=== PATIENT | female | born 1990 | race Hispanic/Latino ===

== ENCOUNTER 2018-07-05 16:06 | Emergency (ER) | payer SELFPAY ==
[2018-07-05 16:08] VITALS: BP 121/74; PULSE 109; RESP 18; TEMP 36.6; O2SAT 98; BMI 30.4
--- NOTE | 2018-07-05 16:24 | ED.DCSUM_ITS ---
History of Present Illness Chief Complaint: Female C/O Informant: Patient Onset: Days - 2-3 Context: Gradual Onset Timing: Continuous Narrative: Patient is concerned she is having a urinary tract infection because of symptoms similar to other ones in the past, including dark urine, strong smelling, although decreased output and no dysuria, back pain, fever, nausea/ vomiting. Denies abdominal pain as well. She states she also would like to be checked for possible vaginal infections including STDs because of a foul smell from that area. She denies having any abnormal discharge or bleeding, her last normal menstrual period was about a week ago and lasted less time than usual. No fevers or systemic symptoms. - Past Medical History (1) Polysubstance abuse Status: Chronic (2) Schizoaffective disorder Status: Chronic Past Medical History - Allergies and Home Meds Allergies/Adverse Reactions: Allergies No Known Allergies Allergy (Verified 07/05/18 16:07) Primary Care Physician: Care Physician,No Primary [Primary Care Provider] - Surgical History: noncontributory Smoking Status: Current every day smoker - Family History Maternal Family History: Reports: Unknown Sibling Family History: Reports: - Review of Systems All systems negative except as indicated General: Denies: Chills, Fever Gastrointestinal: Denies: Abdominal pain, Nausea, Vomiting Genitourinary: Reports: - - foul-smelling urine, dark color Musculoskeletal: Denies: Back pain Physical Exam Vital Signs/Narrative: Vital Signs Temp Pulse Resp BP Pulse Ox 07/05/18 16:08 97.8 F 109 H 18 121/74 H 98 Inital Vital Signs reviewed: Yes General: Well nourished, Well developed Head: Normocephalic, Atraumatic Eyes: Perrl, EOMI Respiratory: No distress Abdomen: Soft, Nondistended, Normal bowel sounds, Tender - mild suprapubic only : Thin gr homogenous discharge in vaginal vault. No external lesions. Skin: Normal color, No rash Neurological: Alert, Oriented x3, Cranial nerves II-XII grossly intact, Normal Strength, Normal Sensation Psychological: Normal affect Diagnostic/Tx/Re-eval Laboratory Tests 07/05/18 07/05/18 16:00 16:40 Urine Color Yellow Urine Clarity Cloudy Urine pH 6.0 Ur Specific [place] 1.025 Urine Protein 30 H Urine Glucose (UA) Normal Urine Ketones 150 H Urine Occult Blood 10 H Urine Nitrite Negative Urine Bilirubin 1 H Urine Urobilinogen 4 H Ur Leukocyte Esterase 500 H Urine RBC 0-5 SEEN Urine WBC 10-25 SEEN Ur Squamous Epith Cells 5-10 SEEN Urine Bacteria 4+ Urine Mucus 4+ Urine Test Negative - Medical Decision Making Urinalysis shows infection, and chlamydia are sent and pending, wet prep shows no trichomoniasis but 15 white blood cells per high-power field. Given her exam , this is consistent with bacterial vaginosis. However, when I went to discuss with the patient her test results, she had eloped. Nursing will call the patient, and if we have a pharmacy, I will be happy to call in prescriptions. Disposition: Elopement ED Disposition - Plan for ED Patient: Chief Complaint: Female C/O Diagnosis: Lower urinary tract infection, acute, Bacterial vaginosis Instructions: Vaginal Infection: Bacterial Vaginosis, ED UTI Cystitis Female Prescriptions: Metronidazole [Flagyl] 500 mg PO BID #14 tablet Sulfamethoxazole/Trimethoprim [Bactrim Ds Tablet] 1 each PO BID #6 tablet Referrals: Sabrina Ma MD [STAFF PHYSICIAN] - 1 Week if not improving
[2018-07-05 16:58] LABS: Internal QC Validated? YES +Cl - CLEAR BKGD; Pregnancy, Urine Negative Negative
[2018-07-05 18:09] LABS: Color, Urine Yellow (Yellow); Glucose, Dipstick Normal (Normal); Leukocyte Esterase-Dipstick 500 /ul (Negative); Nitrite-Dipstick Negative (Negative); Occult Blood-Urine 10 /ul (Negative); Protein-Dipstick 30 mg/dl (Negative); Specific Gravity, Urine 1.025 (1.002-1.030); Urine Clarity Cloudy (Clear); Urine Urobilinogen 4 mg/dl (Normal)
[2018-07-05 18:16] VITALS: BP 148/84; PULSE 74; RESP 17; O2SAT 100
[2018-07-05 18:23] LABS: Urine Bilirubin Dipstick 1 mg/dL (Negative)
[2018-07-05 18:26] LABS: Ketone-Dipstick 150 mg/dl (Negative)
[2018-07-05 18:30] LABS: Bacteria 4+ /hpf (None Seen); Mucous, Urine 4+ /hpf (<or=2+); Red Blood Cells-Urine 0-5 SEEN /hpf (0-5); Squamous Epithelial Cells - UA 5-10 SEEN /hpf (5-10); White Blood Cells 10-25 SEEN /hpf (0-5)
[2018-07-05 19:25] LABS: Chlamydia Trachomatis by PCR Negative (Negative); Neisserai gonorrhoeae by PCR Negative (Negative); Probe Check PASS; Sample Adequacy Control PASS; Specimen Processing Control PASS
== END 2018-07-05 18:17 ==
PROVIDERS: Emergency Provider Emergency Medicine
DX: N39.0 Urinary tract infection, site not specified (principal); N76.0 Acute vaginitis; F20.9 Schizophrenia, unspecified; F19.10 Other psychoactive substance abuse, uncomplicated; Z79.899 Other long term (current) drug therapy; F17.200 Nicotine dependence, unspecified, uncomplicated
CPT/HCPCS: 81001; 81025; 87210; 87491; 87591; 99281

== ENCOUNTER 2018-07-07 21:25 | Emergency (ER) | payer SELFPAY ==
[2018-07-07 21:26] VITALS: BP 148/90; PULSE 91; RESP 18; TEMP 36.8; O2SAT 99; BMI 30.4
--- NOTE | 2018-07-07 21:41 | ED.VISSUMM ---
- ER Visit Summary Date of Service: 07/07/18 Chief Complaint: Auditory hallucinations History of Present Illness: The patient is a 28 F who has been off her psychiatric medications for the past 4 months presenting with worsening auditory hallucinations, she is sick of the voices telling her she is a piece that she is a piece of shit and fucking stupidthe voices do not command her to do anything. Has no suicidal homicidal ideations Physical Examination: Not appear in acute distress. Moist mucous membranes, no obvious facial deformity No C-spine tenderness supple neck. Regular rate and rhythm without any obvious murmurs Clear lungs bilaterally speaking in full sentences without any obvious respiratory distress Abdomen soft and nontender no guarding or rebound Moves all extremities without any difficulty or pain. Skin does not show any obvious rashes or lesions, no trauma. Alert oriented ?3 with no gross focal deficit Emergency Department Course and Treatment: Patient will be medically cleared, crisis will be involved at that point. Patient is requesting to go to [facility]. Impression: Auditory hallucinations This note was generated with [employer] dictation software. It may contain incorrect words, spelling, and punctuation that were not noted in review of the chart prior to signing ED Disposition - Plan for ED Patient: Chief Complaint: Mental Health Referrals: Care Physician,No Primary [Primary Care Provider] -
[2018-07-07 22:19] LABS: Absolute Lymphocyte Count 1.28 X10^3/ul (0.83-4.51); Absolute Neutrophil Count 8.1 X10^3/uL (2.0-7.7); Basophil# 0.05 X10^3/uL; Basophil% 0.5 % (0-1); Hematocrit 42.8 % (37-47); Hemoglobin 13.8 g/dl (12.0-15.0); Lymphocyte # 1.28 X10^3/ul (4.0); Lymphocyte % 12.9 % (19-41); Mean Corp Hgb Conc 32.2 g/gl (32-36); Mean Corpuscular Hgb 27.7 pg (27.0-32.0); Mean Corpuscular Volume 85.9 fL (81-99); Mean Platelet Vol. 9.2 fl (6.2-12.0); Monocyte# 0.51 X10^3/uL; Monocyte% 5.1 % (0-10); Neutrophil # 8.11 X10^3/uL (2.7-7.7); Neutrophil % 81.4 % (47-70); Platelet Count 380 K/mm3 (150-450); Red Blood Count 4.98 M/mm3 (4.2-5.4)
[2018-07-07 22:21] LABS: POSITIVE COUNT NO; POSITIVE DIFFERENTIAL NO; POSITIVE MORPHOLOGY NO
[2018-07-07 22:36] LABS: Amphetamine Urine VISTA POSITIVE (<1000 ng/mL); Barbiturate Urine VISTA NEGATIVE (< 200 ng/mL); Benzodiazepine Urine VISTA NEGATIVE (< 200 ng/mL); Cocaine Urine VISTA NEGATIVE (< 300 ng/mL); Ecstacy Urine VISTA POSITIVE (< 500 ng/mL); Methadone Urine VISTA NEGATIVE (< 300 ng/mL); PCP Urine VISTA NEGATIVE (< 25 ng/mL); THC Urine VISTA POSITIVE (< 50 ng/mL); Vista UDS pH Range 6
[2018-07-07 22:36] LABS: Anion Gap 10 (5-15); BUN 17 mg/dL (7-18); BUN/Creat Ratio 21.8 RATIO (10-20); Calcium,Total 8.7 mg/dL (8.5-10.1); Chloride 107 mmol/L (98-107); Creatinine, Serum 0.78 mg/dL (0.55-1.02); EST Glomerular Filtration Rate 92 mL/min (>60); Est Glom Filt Rate - Afr Amer 111 mL/min (>60); Estimated Creatinine Clearance 79.58 ml/min; Glucose 103 mg/dL (74-106); Potassium 3.1 mmol/L (3.5-5.1); Sodium Level 139 mmol/L (136-145)
[2018-07-07 22:40] LABS: Pregnancy, Serum, hCG Quali. NEGATIVE Negative (0-9 Nonpreg)
[2018-07-07 22:41] LABS: Alcohol, Blood (Medical)-Serum < 3.0 mg/dL
--- NOTE | 2018-07-07 22:53 | ED.RN ---
CALLED CRISIS TO SEE THIS PT, HILDA WILSON IS MANAGER SIGN
[2018-07-07 23:32] VITALS: BP 160/93; PULSE 85; RESP 17; O2SAT 98
--- NOTE | 2018-07-08 01:43 | ED.DEP ---
ED Disposition - Plan for ED Patient: Disposition: Home or Assisted Living Chief Complaint: Mental Health Prescriptions: Melatonin/Pyridoxine HCl (B6) [Melatonin 3 mg Tablet] 1 ea PO QHS PRN PRN #10 tab PRN Reason: Sleep Prazosin HCl 2 mg PO QHS PRN PRN #10 cap PRN Reason: Sleep Sertraline HCl [Zoloft] 100 mg PO DAILY #10 tab Referrals: Counseling,Center [GROUP OF PHYSICIANS] - As soon as possible Additional Instructions: Very important to call and follow-up with a counseling center this week. Take medications as prescribed. Return to ER if feeling worse or suicidal.
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
[2018-07-08 02:02] VITALS: BP 137/81; PULSE 99; RESP 15; O2SAT 100
== END 2018-07-08 02:02 | disposition home or self-care (01) ==
PROVIDERS: Emergency Provider Emergency Medicine
DX: R44.0 Auditory hallucinations (principal); F23 Brief psychotic disorder; F43.10 Post-traumatic stress disorder, unspecified; F20.9 Schizophrenia, unspecified; Z79.899 Other long term (current) drug therapy
CPT/HCPCS: 80048; 80307; 80320; 84703; 85025; 99281; G0480

== ENCOUNTER 2018-07-25 19:36 | Emergency (ER) | payer SELFPAY ==
[2018-07-25 19:37] VITALS: BP 138/82; PULSE 125; RESP 16; TEMP 36.6; O2SAT 97; BMI 27.8
--- NOTE | 2018-07-25 20:41 | ED.RN ---
PT MOTHER AT BEDSIDE WITH PT. PER MOTHER PT HAS BEEN CUTTING AND MOTHER REPORTS PT HAS MADE SUICIDAL STATEMENTS. PT MADE NO MENTION OF BEING SUICIDAL TO THIS RN.
--- NOTE | 2018-07-25 20:56 | ED.RN ---
this rn asked momother to leave pt room. pt reports that she is not suicidal when asked by this rn.
--- NOTE | 2018-07-25 21:06 | ED.VISSUMM ---
- ER Visit Summary Date of Service: 07/25/18 Chief Complaint: [] Vaginal discharge for a month History of Present Illness: The patient is a 28 F [] patient reports vaginal discharge for months she indicates she was seen in emergency department recently for this she received some unspecified therapy and she still has the discharge she denies has a history of prior chlamydia denies any other complaints much denies being today, the patient's only complaint is the vaginal discharge Physical Examination: [] The patient's resting comforting the bed she is in no distress she seems slightly anxious she is worried about this vaginal discharge head neck chest unremarkable the abdomen is soft and nontender the back is unremarkable upper lower extremities are normal she is in no distress Test Results: [] Emergency Department Course and Treatment: [] Reviewed July 05 she had a negative hCG urine, at this time we have sent DNA chlamydia GC urine amplification she has been referred to the [facility] and the [facility] and she will follow-up for study results, and for further management I could not find any prior obvious microbiology studies Treatment Plan: [] Disposition: [] Home stable Impression: [] Vaginal discharge This note was generated with [employer] dictation software. It may contain incorrect words, spelling, and punctuation that were not noted in review of the chart prior to signing ED Disposition - Plan for ED Patient: Disposition: Home or Assisted Living Chief Complaint: Female C/O Instructions: Vaginal Infection: Bacterial Vaginosis Referrals: Elmira Kothari DO [STAFF PHYSICIAN] - Isamar Adams [NON-STAFF] - Care Physician,No Primary [Primary Care Provider] -
--- NOTE | 2018-07-25 21:08 | ED.DEP ---
ED Disposition - Plan for ED Patient: Chief Complaint: Female C/O Instructions: Vaginal Infection: Bacterial Vaginosis Referrals: Care Physician,No Primary [Primary Care Provider] - Isamar Adams [NON-STAFF] - Elmira Kothari DO [STAFF PHYSICIAN] -
--- NOTE | 2018-07-25 21:14 | ED.RN ---
this rn hears pt and mother arguing in room. pt gets upset walks into hallway and states, tell her to go fuck herself. mother comes to desk. mother educated on mental health procedures and next steps to take if concerned about pt. pt elopes prior to receiving discharge instructions or d/c vitals.
[2018-07-25 22:50] LABS: Neisserai gonorrhoeae by PCR Negative (Negative); Probe Check PASS
[2018-07-25 22:53] LABS: Chlamydia Trachomatis by PCR POSITIVE (Negative)
--- NOTE | 2018-07-25 22:55 | ED.RN ---
LAB CALLED FOR POSITIVE CHLAMYDIA ON THIS PT, DR MURPHY NOTIFIED AND HE STATED THAT SHE WILL BE CALLED TOMORROW
== END 2018-07-25 21:19 | disposition home or self-care (01) ==
LOC: ED 21:14
PROVIDERS: Emergency Provider Emergency Medicine
DX: N89.8 Other specified noninflammatory disorders of vagina (principal); Z86.19 Personal history of other infectious and parasitic diseases
CPT/HCPCS: 87491; 87591; 99282

== ENCOUNTER 2018-07-29 01:10 | Emergency (ER) | payer SELFPAY ==
[2018-07-29 01:11] VITALS: BP 125/78; PULSE 120; RESP 15; TEMP 37.1; BMI 27.8
--- NOTE | 2018-07-29 02:29 | ED.RN ---
pt saying she is here for vaginal discharge, states I have been here for the last three times for this, and someone is stalking me. Everytime i have been here someone else is here pt naming a patient niall flanagan. Pt refused to stay. says people think i am crazy. pt takes cab to leave without being seen.
== END 2018-07-29 03:08 | disposition left against medical advice (07) ==
LOC: ED 02:13
PROVIDERS: Emergency Provider Emergency Medicine
DX: R69 Illness, unspecified (principal)

== ENCOUNTER 2018-07-29 19:42 | Emergency (ER) | payer SELFPAY ==
[2018-07-29 19:44] VITALS: BP 139/96; PULSE 125; RESP 20; TEMP 37.1; O2SAT 98; BMI 27.8
--- NOTE | 2018-07-29 20:06 | ED.VISSUMM ---
- ER Visit Summary Date of Service: 07/29/18 Chief Complaint: Suicidal History of Present Illness: The patient is a 28 F who states that she is suicidal. She felt this way today. She cannot tell me why she feels suicidal. She does states that I do drugs. She admits to being a methamphetamine user. She thought about cutting herself or choking herself to kill herself. She is supposed to be on mental health medications but has not taken them. She does not see anybody as an outpatient. She says she has been to [facility] 3 times. Physical Examination: Vital signs reviewed. HEENT exam unremarkable. Heart is regular rate and rhythm without murmurs. Lungs are clear to auscultation. Abdomen is soft and nontender. Extremities reveal no edema. Skin exam normal. Patient does appear to be agitated. Neurologically she is intact. She does voice suicidal thoughts. She again is irritable and pacing around the room. Test Results: EKG is sinus rhythm with rate of 106. Labs reveal potassium 2.8. She does have a UTI. Tox screen reveals methamphetamines. Alcohol normal Emergency Department Course and Treatment: Patient will be treated with potassium orally and Bactrim. She will be assessed by crisis. Disposition is pending their evaluation Treatment Plan: [] Disposition: Pending Impression: Suicidal ideation, methamphetamine abuse, UTI, hypokalemia This note was generated with [employer] dictation software. It may contain incorrect words, spelling, and punctuation that were not noted in review of the chart prior to signing ED Disposition - Plan for ED Patient: Chief Complaint: Suicidal Referrals: Care Physician,No Primary [Primary Care Provider] -
[2018-07-29] MEDS: LORazepam 2 MG/ML Syringe IM (20:11)
[2018-07-29] MEDS: DiphenhydrAMINE 50 MG/ML Syringe 25 MG IM (20:11)
[2018-07-29] MEDS: Haloperidol Lactate 5 MG/ML Vial IM (20:11)
[2018-07-29 20:39] LABS: Mucous, Urine 0 SEEN /hpf (<or=2+)
[2018-07-29 20:44] LABS: Color, Urine Yellow (Yellow); Glucose, Dipstick Normal (Normal); Leukocyte Esterase-Dipstick 500 /ul (Negative); Nitrite-Dipstick Negative (Negative); Occult Blood-Urine 250 /ul (Negative); Protein-Dipstick 30 mg/dl (Negative); Urine Clarity Sl. Cloudy (Clear); Urine Urobilinogen 1 mg/dl (Normal)
[2018-07-29 20:49] LABS: Absolute Lymphocyte Count 1.99 X10^3/ul (0.83-4.51); Absolute Neutrophil Count 4.9 X10^3/uL (2.0-7.7); Basophil# 0.03 X10^3/uL; Basophil% 0.4 % (0-1); Eosinophil# 0.06 X10^3/uL; Eosinophils% 0.8 % (0-5); Hematocrit 39.9 % (37-47); Hemoglobin 13.3 g/dl (12.0-15.0); Lymphocyte # 1.99 X10^3/ul (4.0); Lymphocyte % 25.6 % (19-41); Mean Corp Hgb Conc 33.3 g/gl (32-36); Mean Corpuscular Hgb 27.4 pg (27.0-32.0); Mean Corpuscular Volume 82.3 fL (81-99); Mean Platelet Vol. 9.9 fl (6.2-12.0); Monocyte# 0.78 X10^3/uL; Neutrophil % 63.1 % (47-70); Platelet Count 283 K/mm3 (150-450); RBC Distribution Width CV 13.2 % (11.6-14.6); RBC Distribution Width SD 39.9 fl (35.1-43.9); Red Blood Count 4.85 M/mm3 (4.2-5.4); White Blood Count 7.8 K/mm3 (4.4-11.0)
[2018-07-29 20:50] LABS: POSITIVE COUNT NO; POSITIVE DIFFERENTIAL NO; POSITIVE MORPHOLOGY NO
--- NOTE | 2018-07-29 20:51 | NURSING ---
MEDICATIONS WERE GIVEN TO THE PATIENT INTRAMUCULAR VIA JUAN HERBERT. PATIENT GAVE US URINE AND BLOOD. ALL OF HER CLOTHES WERE REMOVED AND PLACED IN HER VERY HEAVY BACK PACK AND SECURED. FOOD OFFERED AND PATIENT DENIED. SHE IS CURRENTLY SLEEPING WITH MONITORS ATTACHED.
[2018-07-29 20:56] LABS: Urine Bilirubin Dipstick 1 mg/dL (Negative)
[2018-07-29 20:57] LABS: Ketone-Dipstick 150 mg/dl (Negative)
[2018-07-29 21:00] LABS: Red Blood Cells-Urine 0-5 SEEN /hpf (0-5); White Blood Cells 50-100 SEEN /hpf (0-5)
[2018-07-29 21:01] LABS: Hyaline Cast 10-25 SEEN /lpf (0-5); Squamous Epithelial Cells - UA 5-10 SEEN /hpf (5-10)
[2018-07-29 21:02] LABS: Bacteria 1+ /hpf (None Seen)
[2018-07-29 21:05] LABS: Amphetamine Urine VISTA POSITIVE (<1000 ng/mL); Barbiturate Urine VISTA NEGATIVE (< 200 ng/mL); Benzodiazepine Urine VISTA NEGATIVE (< 200 ng/mL); Cocaine Urine VISTA NEGATIVE (< 300 ng/mL); Ecstacy Urine VISTA POSITIVE (< 500 ng/mL); Methadone Urine VISTA NEGATIVE (< 300 ng/mL); PCP Urine VISTA NEGATIVE (< 25 ng/mL); THC Urine VISTA NEGATIVE (< 50 ng/mL); Vista UDS pH Range 6
[2018-07-29 21:19] LABS: AST(SGOT) 25 U/L (15-37); Alanine Aminotransfer ALT/SGPT 39 U/L (13-56); Albumin, Serum 4.4 g/dL (3.2-5.0); Alkaline Phosphatase 86 U/L (45-117); Anion Gap 17 (5-15); BUN 13 mg/dL (7-18); BUN/Creat Ratio 13.5 RATIO (10-20); Bilirubin, Direct 0.28 mg/dL (0.00-0.30); Calcium,Total 8.8 mg/dL (8.5-10.1); Chloride 103 mmol/L (98-107); Creatinine, Serum 0.96 mg/dL (0.55-1.02); EST Glomerular Filtration Rate 72 mL/min (>60); Est Glom Filt Rate - Afr Amer 87 mL/min (>60); Estimated Creatinine Clearance 64.66 ml/min; Globulin 3.3 g/dL (2.2-4.2); Glucose 83 mg/dL (74-106); Potassium 2.8 mmol/L (3.5-5.1); Protein, Total 7.7 g/dL (6.4-8.2); Sodium Level 139 mmol/L (136-145)
[2018-07-29 21:25] LABS: Pregnancy, Serum, hCG Quali. NEGATIVE Negative (0-9 Nonpreg)
[2018-07-29] MEDS: Smz/Tmp Ds Tablet 1 TABLET PO (22:07)
[2018-07-29 22:16] VITALS: BP 144/77; PULSE 86; RESP 18; O2SAT 95
[2018-07-29 23:18] VITALS: BP 131/66; PULSE 84; RESP 18; O2SAT 100
[2018-07-30] VITALS (10 sets, daily range): BP systolic 118–132; BP diastolic 67–76; PULSE 60–88; RESP 12–18; TEMP 37.1; O2SAT 98–100
[2018-07-30] MEDS: Ceftriaxone 500 MG Vial 250 MG IM (12:59)
[2018-07-30] MEDS: Azithromycin 250 MG Tablet 1000 MG PO (13:00)
--- NOTE | 2018-07-30 15:26 | ED.VISSUMM ---
- ER Visit Summary Date of Service: 07/30/18 Chief Complaint: [Addendum to initial dictation History of Present Illness: The patient is a 28 F [Center to the emergency department with Mary ideation. Care of patient turned over to ak this morning awaiting evaluation by crisis and final disposition. Patient was evaluated by crisis and arrangements were made for patient to be transferred to [facility]. Physical Examination: [] Test Results: [] Emergency Department Course and Treatment: [] Treatment Plan: [] Disposition: [Transfer] Impression: [Suicidal ideation UTI Hypokalemia] This note was generated with [employer] dictation software. It may contain incorrect words, spelling, and punctuation that were not noted in review of the chart prior to signing ED Disposition - Plan for ED Patient: Disposition: Psychiatric Hospital or Unit Chief Complaint: Suicidal Referrals: Care Physician,No Primary [Primary Care Provider] -
== END 2018-07-30 14:55 ==
LOC: ED 21:15
PROVIDERS: Emergency Provider Emergency Medicine
DX: R45.851 Suicidal ideations (principal); F15.10 Other stimulant abuse, uncomplicated; N39.0 Urinary tract infection, site not specified; E87.6 Hypokalemia; Z91.14 Patient's other noncompliance with medication regimen
CPT/HCPCS: 80048; 80076; 80307; 80320; 81001; 84703; 85025; 93005; 96365; 96372; 99284; G0480

== ENCOUNTER 2024-09-23 23:19 | Emergency (ER) | payer MEDICAID, SELFPAY ==
[2024-09-23 23:20] VITALS: BP 141/110; PULSE 106; RESP 18; TEMP 36.4; O2SAT 100
--- NOTE | 2024-09-24 00:11 | RAD_ITS ---
INDICATION: chest pain EXAMINATION/TECHNIQUE: X-RAY - XR Chest 1 View COMPARISON: 02/28/2017 chest radiograph. Findings: Single frontal view of the chest. Patient is rotated. LUNG PARENCHYMA: No acute focal airspace disease or mass lesion. PLEURA: No pleural effusion. No pneumothorax. HEART/GREAT VESSELS: Cardiomediastinal silhouette is unremarkable. BONES: Osseous structures are unremarkable for age. RAD/Chest 1 View (Portable) IMPRESSION: Chest with no acute disease. Electronically Signed: Hiren Green MD at 2:06 EDT ,
--- NOTE | 2024-09-24 00:11 | EKG12_ITS ---
Test Reason : DYSRHYTHMIA Blood Pressure : */* mmHG Vent. Rate : 69 BPM Atrial Rate : 69 BPM P-R Int : 128 ms QRS Dur : 74 ms QT Int : 528 ms P-R-T Axes : -57 36 41 degrees QTcB Int : 565 ms Critical Test Result: Long QTc Unusual P axis, possible ectopic atrial rhythm Prolonged QT Abnormal ECG Confirmed by ALEKSANDR LIMON, MUNIRA ([id number]), assistant production editor RANDY KAUR ([id number]) on 09/25/2024 11:31:56 AM Referred By: Confirmed By: MUNIRA BRANDON MD
[2024-09-24] MEDS: DiphenhydrAMINE 50 MG/ML Syringe IV (00:33)
[2024-09-24] MEDS: Mag Hydrox/Al Hydrox/Simeth 30 ML UDC PO (00:36)
[2024-09-24] MEDS: proCHLORPERazine 10 MG/2 ML Vial IV (00:36)
[2024-09-24] MEDS: Lidocaine 2% Viscous15 ML UDC 15 ML PO (00:36)
[2024-09-24] MEDS: Famotidine 200 MG/20 ML MDV 20 MG in 0.9% Normal Saline (Pres. free 8 ML 300 MG IV (00:37)
[2024-09-24 00:45] LABS: Absolute Lymphocyte Count 3.17 X10^3/uL (0.83-4.51); Absolute Neutrophil Count 5.6 X10^3/uL (2.0-7.7); Basophil# 0.08 X10^3/uL; Basophil% 0.8 % (0-1); Eosinophil# 0.11 X10^3/uL; Eosinophils% 1.1 % (0-5); Hematocrit 41.6 % (37-47); Hemoglobin 13.8 g/dL (12.0-15.0); Lymphocyte # 3.17 X10^3/ul (0.83-4.51); Lymphocyte % 31.7 % (19-41); Mean Corp Hgb Conc 33.2 g/dL (32-36); Mean Corpuscular Volume 81.4 fL (81-99); Monocyte# 0.99 X10^3/uL; Monocyte% 9.9 % (0-10); NRBC Flagged by Analyzer 0 % (0-5); Neutrophil # 5.59 X10^3/uL (2.7-7.7); Platelet Count 405 K/mm3 (150-450); RBC Distribution Width CV 12.8 % (11.6-14.6); RBC Distribution Width SD 37.7 fl (35.1-43.9); Red Blood Count 5.11 M/mm3 (4.2-5.4)
[2024-09-24 00:49] LABS: D-Dimer Quantitative (DVT/PE) 0.31 FEU/ug/m (0.27-0.49)
[2024-09-24 00:51] LABS: Alcohol, Blood (Medical)-Serum < 3.0 mg/dL; Internal QC Validated? YES +Cl - CLEAR BKGD; Pregnancy, Serum, hCG Quali. NEGATIVE Negative; Record Kit Lot#, Serum Preg. 869294
[2024-09-24 00:57] LABS: AST(SGOT) 17 U/L (15-37); Alanine Aminotransfer ALT/SGPT 35 U/L (13-56); Albumin, Serum 4.3 g/dL (3.2-5.0); Alkaline Phosphatase 92 U/L (45-117); Anion Gap 11 (5-15); BUN 13 mg/dL (7-18); Bilirubin, Direct 0.21 mg/dL (0.00-0.30); Calcium,Total 9.4 mg/dL (8.5-10.1); Chloride 107 mmol/L (98-107); Creatinine, Serum 0.81 mg/dL (0.55-1.02); EST Glomerular Filtration Rate 85 mL/min (>60); Est Glom Filt Rate - Afr Amer 102 mL/min (>60); Globulin 3.4 g/dL (2.2-4.2); Glucose 129 mg/dL (74-106); Lipase 35 U/L (13-75); Potassium 3.3 mmol/L (3.5-5.1); Protein, Total 7.7 g/dL (6.4-8.2); Sodium Level 137 mmol/L (136-145)
[2024-09-24 01:02] VITALS: BMI 30.8
[2024-09-24 01:19] VITALS: BP 114/63; PULSE 72; RESP 16; O2SAT 99
--- NOTE | 2024-09-24 01:59 | EX.ED.DYSGE1 ---
HPI History of Present Illness Chief Complaint: Abd Pain Informant: patient Narrative Narrative: Patient is a 34-year-old female with past medical history of schizoaffective disorder. She states that roughly 30 minutes to 1 hour prior to arrival she developed upper abdominal discomfort with nausea and vomiting. She denies any known sick contacts. She states she does not have a history of pancreatitis and denies any history of gallbladder disorder. She states she does feel that the pain radiates into the lower portion of her chest but denies any history of cardiovascular disease in the family at a young age and denies any recent surgery travel or history of DVT/PE. PFSH PFS Medical History no medical history Home Medications ?Medication ?Instructions ?Recorded ?Last Taken ?Type famotidine 20 mg tablet (Pepcid) 20 mg PO BID 30 days #60 tabs 09/24/24 Unknown Rx promethazine 25 mg tablet 25 mg PO TID PRN nausea and 09/24/24 Unknown Rx vomiting #15 tabs Allergy/AdvReac Type Severity Reaction Status Date / Time No Known Allergies Allergy Verified 09/23/24 23:20 Family History no significant family his Surgical History no surgical history Social History Smoking Status: Never smoker ROS ROS ED Constitutional Constitutional ED: Denies chills or fever(s) Eyes Eyes: Denies blurry vision or change in vision ENT ENT ED: Denies sore throat Cardiovascular Cardiovascular: Reports chest pain Respiratory/Chest Respiratory/Chest: Denies cough or dyspnea Gastrointestinal Gastrointestinal: Reports abdominal pain, nausea and vomiting; Denies diarrhea Genitourinary Genitourinary ED: Denies dysuria Musculoskeletal Musculoskeletal: Denies back pain or myalgias Integumentary Denies rash Neurologic Neurologic: Denies headache(s) Hematologic/Lymphatic Hematologic/Lymphatic: Denies easy bleeding or easy bruising EXAM Physical Exam Const Vital Signs: 09/23/24 23:20 09/24/24 01:19 09/24/24 02:03 Temperature 97.6 F L 97.8 F Temperature Source Temporal Pulse Rate 106 H 72 72 Respiratory Rate 18 16 16 Blood Pressure 141/110 H 114/63 114/63 Blood Pressure Mean 120 80 80 Pulse Ox 100 99 99 Oxygen Delivery Method Room Air Room Air Positive well nourished and well developed General Appearance ED: well developed; Negative for pallor HEENT HEENT Narrative: No tongue or lip swelling no oral lesions no airway edema or compromise No signs of infection noted in the posterior pharynx Eyes PERRL and EOMs intact bilaterally General Eye ED: Negative for scleral icterus Neck supple Neck Narrative: No nuchal rigidity or meningeal signs Chest Wall palpation of chest normal Resp normal respiratory effort and clear to auscultation bilaterally Cardio regular rhythm Rate: tachycardic and other Other Details: Slightly tachycardic rate with regular rhythm No murmurs rubs or gallops Radial and carotid pulses are equal and symmetric GI non-distended and no masses GI Narrative: Soft and nondistended with hyperactive bowel sounds. There is pain on palpation in the midepigastric region without voluntary guarding or rigidity. No pulsatile mass or fluid wave Auscultation: hyperactive bowel sounds Palpation: soft Back/Spine no CVA tenderness Extremity normal to inspection Extremity Narrative: No asymmetric edema no pitting edema negative Homans' sign bilaterally Neuro oriented x3, CN's II-XII intact bilaterally and no sensory deficits noted Sensorium / Orientation: alert Motor Exam: strength 5/5 throughout Psych Mood & Affect: anxious Skin no rashes or lesions noted General Skin Exam: Negative for jaundice or pallor MDM MDM MDM Narrative Medical decision making narrative: Patient presented to the ER slightly tachycardic and hypertensive but afebrile. Pain was in the upper mid abdomen and therefore differential diagnosis is for pancreatitis versus biliary colic versus acute cholecystitis versus viral stomach infection such as [place] virus or rotavirus versus potential cardiac event such as ACS or cardiac dysrhythmia. There is also concern potential lung pathology such as pneumonia or pneumothorax. Therefore basic labs were obtained as well as EKG and chest x-ray. Chest x-ray revealed no acute findings and EKG revealed sinus rhythm without ischemic or dysrhythmia changes. Basic blood work was obtained and patient does not have a white count or left shift her lipase is normal going against pancreatitis her liver enzymes are normal going against biliary colic or acute cholecystitis and D-dimer is normal going against PE or dissection. Moreover after receiving IV Benadryl Compazine and Pepcid as well as a GI cocktail patient had resolution of her symptoms and on repeat evaluation her abdomen is soft and nonsurgical. Therefore at this time as her workup indicates this is most likely gastritis in nature and her symptoms have resolved with treatment I do not feel like there is need for CT scan or further workup and she is otherwise safe for discharge History & Record Review Discussion w/independent historian: Patient Lab Data Attestation: I reviewed the patient's lab results. Labs: Laboratory Results - last 24 hr 09/24/24 00:23 WBC 10.0 RBC 5.11 Hgb 13.8 Hct 41.6 MCV 81.4 MCH 27.0 MCHC 33.2 RDW Std Deviation 37.7 RDW Coeff of [place] 12.8 Plt Count 405 MPV 10.0 Immature Gran % (Auto) 0.500 Neut % (Auto) 56.0 Lymph % (Auto) 31.7 [place] % (Auto) 9.9 Eos % (Auto) 1.1 Baso % (Auto) 0.8 Absolute Neuts (auto) 5.6 Absolute Lymphs (auto) 3.17 Nucleated RBC % 0 D-Dimer Quant (PE/DVT) 0.31 Sodium 137 Potassium 3.3 L Chloride 107 Carbon Dioxide 18.0 L Anion Gap 11 BUN 13 Creatinine 0.81 Est GFR (MDRD) Af Amer 102 Est GFR (MDRD) Non-Af 85 BUN/Creatinine Ratio 16.0 Glucose 129 H Calcium 9.4 Total Bilirubin 0.60 Direct Bilirubin 0.21 AST 17 ALT 35 Alkaline Phosphatase 92 Total Protein 7.7 Albumin 4.3 Globulin 3.4 Lipase 35 Serum , Qual NEGATIVE Ethyl Alcohol < 3.0 Radiography Diagnostic Testing: Clinical Impression(s) from Imaging Studies Chest X-Ray 09/24/24 00:11 IMPRESSION: Chest with no acute disease. Electronically Signed: Hiren Green MD at 2:06 EDT , Chest x-ray as interpreted by the emergency medicine physician reveals no acute infiltrate pneumothorax or pleural effusion Discharge Plan Triage Chief Complaint: Abd Pain ED Provider: Sal Lr Dx/Rx/DC Orders Clinical Impression: Gastritis, Nausea & vomiting, Schizoaffective disorder Instructions: Abdominal Pain, ED Gastritis (Adult) Prescriptions: New famotidine [Pepcid] 20 mg tablet 20 mg PO BID 30 Days Qty: 60 0RF promethazine 25 mg tablet 25 mg PO TID PRN (Reason: nausea and vomiting) Qty: 15 0RF Primary Care Provider: Care Physician,No Primary Referrals: Tommy Cardona MD [Med Staff - Active Staff] - Care Physician,No Primary [Primary Care Provider] - Print Language: Estonian Disposition Disposition: Home, Self Care Discharge Date/Time: 09/24/24 02:16
[2024-09-24 02:03] VITALS: BP 114/63; PULSE 72; RESP 16; TEMP 36.6; O2SAT 99
== END 2024-09-24 02:16 | disposition home or self-care (01) ==
PROVIDERS: Emergency Provider Emergency Medicine; Visit Provider Emergency Medicine
DX: K29.70 Gastritis, unspecified, without bleeding (principal); F25.9 Schizoaffective disorder, unspecified; R11.2 Nausea with vomiting, unspecified
CPT/HCPCS: 71045; 80048; 80076; 82077; 83690; 84703; 85025; 85379; 93005; 96374; 96375; 99282; A4216; J3490

== ENCOUNTER 2024-11-08 14:13 | Emergency (ER) | payer MEDICAID, SELFPAY ==
[2024-11-08] VITALS (8 sets, daily range): BP systolic 125–161; BP diastolic 82–120; PULSE 90–128; RESP 18–22; TEMP 36.6–36.9; O2SAT 95–100; BMI 65.4
--- NOTE | 2024-11-08 14:50 | EKG12_ITS ---
Test Reason : Blood Pressure : */* mmHG Vent. Rate : 115 BPM Atrial Rate : 115 BPM P-R Int : 156 ms QRS Dur : 72 ms QT Int : 326 ms P-R-T Axes : 44 6 40 degrees QTcB Int : 450 ms Sinus tachycardia Otherwise normal ECG Confirmed by DAENIKE LIMON, SUSIE ([id number]), newspaper editor managing MIKE MORALES ([id number]) on 11/12/2024 1:38:10 P M Referred By: Confirmed By: SUSIE JEONG MD
--- NOTE | 2024-11-08 14:54 | RAD_ITS ---
INDICATION: left elbow pain EXAMINATION/TECHNIQUE: X-RAY - LEFT XR Elbow Min 3 Views 3 VIEWS COMPARISON: None. FINDINGS: SOFT TISSUES: No soft tissue swelling or gas. No radiopaque foreign body. BONES/JOINTS: No acute fracture. Joint spaces anatomically aligned. No sclerotic or destructive changes observed. RAD/Elbow min 3 Views IMPRESSION: Unremarkable study. Electronically Signed: Perry Hubbard MD at 15:40 EST ,
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
[2024-11-08] MEDS: 0.9% Normal Saline (1000mL) 1,000 ML 999 ML IV ×2 (15:38→17:58)
[2024-11-08 15:40] LABS: Absolute Lymphocyte Count 1.69 X10^3/uL (0.83-4.51); Absolute Neutrophil Count 11.2 X10^3/uL (2.0-7.7); Basophil# 0.09 X10^3/uL; Basophil% 0.6 % (0-1); Eosinophil# 0.04 X10^3/uL; Eosinophils% 0.3 % (0-5); Hematocrit 43.3 % (37-47); Hemoglobin 14.3 g/dL (12.0-15.0); Lymphocyte # 1.69 X10^3/ul (0.83-4.51); Mean Corpuscular Volume 81.9 fL (81-99); Mean Platelet Vol. 9.4 fl (6.2-12.0); Monocyte# 1.03 X10^3/uL; Monocyte% 7.3 % (0-10); NRBC Flagged by Analyzer 0 % (0-5); Neutrophil # 11.23 X10^3/uL (2.7-7.7); Neutrophil % 79.4 % (47-70); Platelet Count 485 K/mm3 (150-450); RBC Distribution Width CV 13.4 % (11.6-14.6); RBC Distribution Width SD 40.1 fl (35.1-43.9); Red Blood Count 5.29 M/mm3 (4.2-5.4); White Blood Count 14.1 K/mm3 (4.4-11.0)
[2024-11-08 15:53] LABS: International Normalized Ratio 1.1; Prothrombin Time (Protime)PT. 13.7 SECONDS (11.7-14.9)
[2024-11-08 15:54] LABS: Partial Thromboplast Time 29.4 Seconds (24.1-36.2)
[2024-11-08 16:07] LABS: ALB/GLOB Ratio 1.2 RATIO (0.9-2.4); AST(SGOT) 8 U/L (15-37); Alanine Aminotransfer ALT/SGPT 35 U/L (13-56); Albumin, Serum 4.5 g/dL (3.2-5.0); Alkaline Phosphatase 113 U/L (45-117); Anion Gap 7 (5-15); BUN 14 mg/dL (7-18); BUN/Creat Ratio 16.7 RATIO (10-20); Calcium,Total 9.4 mg/dL (8.5-10.1); Chloride 102 mmol/L (98-107); Creatinine, Serum 0.84 mg/dL (0.55-1.02); EST Glomerular Filtration Rate 82 mL/min (>60); Est Glom Filt Rate - Afr Amer 99 mL/min (>60); Estimated Creatinine Clearance 138.77 ml/min; Globulin 3.8 g/dL (2.2-4.2); Glucose 114 mg/dL (74-106); Potassium 2.5 mmol/L (3.5-5.1); Protein, Total 8.3 g/dL (6.4-8.2); Sodium Level 138 mmol/L (136-145)
[2024-11-08 16:15] LABS: Lactic Acid 1.2 mmol/L (0.4-1.9)
[2024-11-08] MEDS: Ceftriaxone 1 GM/50 ML BAG IV (16:35)
[2024-11-08] MEDS: Potassium Chloride 10mEq/100mL 10 MEQ/100 ML IV.SOLN. 100 MEQ IV BOLUS (16:51)
[2024-11-08] MEDS: Potassium Chloride Oral Soln 20 MEQ/15 ML UDC 40 MEQ PO (16:51)
[2024-11-08 17:58] LABS: Internal QC Validated? YES +Cl - CLEAR BKGD; Pregnancy, Serum, hCG Quali. NEGATIVE Negative
--- NOTE | 2024-11-08 18:01 | ED.RN ---
This RN sent pt to bathroom 3x for urine sample. Despite 1000ml fluids infused pt keeps insisting she can't urinate. aware.
--- NOTE | 2024-11-08 18:57 | ED.RN ---
Potassium infused slower than ordered rate, pt screaming it's burning.
[2024-11-08] MEDS: Potassium Chloride Oral Tablet 20 MEQ 40 MEQ PO (19:20)
[2024-11-08] MEDS: Doxycycline 100 MG CAPSULE PO (19:20)
== END 2024-11-08 19:27 | disposition home or self-care (01) ==
PROVIDERS: Emergency Provider Emergency Medicine; Visit Provider Emergency Medicine
DX: L03.114 Cellulitis of left upper limb (principal); F17.200 Nicotine dependence, unspecified, uncomplicated; N93.9 Abnormal uterine and vaginal bleeding, unspecified
CPT/HCPCS: 73080; 80053; 83605; 84703; 85025; 85610; 85730; 87040; 87210; 93005; 96361; 96365; 96366; 96368; 99285

== ENCOUNTER 2024-12-22 22:23 | Emergency (ER) | payer MEDICAID, SELFPAY ==
[2024-12-22 22:24] VITALS: BP 126/81; PULSE 100; RESP 18; TEMP 36.8; O2SAT 100; BMI 28.5
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
[2024-12-22 23:45] LABS: Internal QC Validated? YES +Cl - CLEAR BKGD
[2024-12-22 23:48] LABS: Pregnancy, Urine Positive Negative
[2024-12-23] MEDS: Azithromycin 250 MG Tablet 1000 MG PO (00:05)
[2024-12-23] MEDS: Ceftriaxone 500 MG Vial IM (00:06)
[2024-12-23 00:43] VITALS: BP 123/63; PULSE 76; RESP 18; TEMP 36.8; O2SAT 98
== END 2024-12-23 00:43 | disposition home or self-care (01) ==
PROVIDERS: Emergency Provider Emergency Medicine; Visit Provider Emergency Medicine
DX: Z11.3 Encounter for screening for infections with a predominantly sexual mode of transmission (principal); O9A.419 Sexual abuse complicating pregnancy, unspecified trimester; Z3A.00 Weeks of gestation of pregnancy not specified
CPT/HCPCS: 81025; 87491; 87591; 96372; 99282

== ENCOUNTER 2024-12-23 15:03 | Emergency (ER) | payer MEDICAID, SELFPAY ==
[2024-12-23 15:04] VITALS: BP 123/96; PULSE 115; RESP 18; TEMP 37.2; O2SAT 99; BMI 28.5
[2024-12-23 16:17] LABS: Hematocrit 41.1 % (37-47); Hemoglobin 13.7 g/dL (12.0-15.0); POSITIVE COUNT YES
[2024-12-23 16:35] LABS: Color, Urine Straw (Yellow); Glucose, Dipstick Normal (Normal); Ketone-Dipstick 5 mg/dl (Negative); Leukocyte Esterase-Dipstick 500 /ul (Negative); Nitrite-Dipstick Positive (Negative); Occult Blood-Urine 250 /ul (Negative); Protein-Dipstick 30 mg/dl (Negative); Specific Gravity, Urine 1.025 (1.002-1.030); Urine Clarity Cloudy (Clear); Urine Urobilinogen 4 mg/dl (Normal)
--- NOTE | 2024-12-23 16:41 | EDS_ITS ---
HPI HPI - Female History of Present Illness Chief Complaint: Vag Bld, Preg Informant: patient Narrative Narrative: 34-year-old female presenting to the emergency room stating that she is having vaginal spotting of blood in early . She states she was seen in the emergency room last night and was told that she was . She states that she went home and started spotting and continued spotting today. She states nothing is different about it today as compared to last evening. 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 She states that she has had 3 prior pregnancies and deliveries. She denies any fevers. She believes her last menstrual cycle was at the beginning of this month. [facility] Medical History Drug overdose, intentional Schizoaffective disorder Substance abuse Home Medications ?Medication ?Instructions ?Recorded ?Last Taken ?Type famotidine 20 mg tablet (Pepcid) 20 mg PO BID 30 days #60 tabs 09/24/24 Unknown Rx promethazine 25 mg tablet 25 mg PO TID PRN nausea and 09/24/24 Unknown Rx vomiting #15 tabs doxycycline hyclate 100 mg capsule 100 mg PO BID 10 days #20 caps 11/08/24 Unknown Rx potassium chloride 20 mEq 20 meq PO BID 5 days #10 tabs 11/08/24 Unknown Rx tablet,extended release cephalexin 500 mg capsule 500 mg PO Q12 #14 CAPSULES 12/23/24 Unknown Rx Allergy/AdvReac Type Severity Reaction Status Date / Time No Known Allergies Allergy Verified 12/23/24 15:04 Social History Smoking Status: Light Smoker (<10/day) ROS [facility] ED Constitutional Constitutional ED: Denies chills or weight loss Eyes Eyes: Denies change in vision or diplopia ENT ENT ED: Denies ear pain, rhinorrhea or sore throat Cardiovascular Cardiovascular: Denies chest pain, orthopnea, palpitations or racing heartbeat Respiratory/Chest Respiratory/Chest: Denies cough, dyspnea or orthopnea Gastrointestinal Gastrointestinal: Denies abdominal pain, diarrhea, nausea or vomiting Genitourinary Genitourinary ED: Reports other Details: See history of present illness ; Denies dysuria, hematuria or urinary frequency Musculoskeletal Musculoskeletal: Denies arthralgias or myalgias Integumentary Denies abscess or rash Neurologic Neurologic: Denies headache(s) or weakness Psychiatric Psychiatric: Denies anxiety, depression, suicidal ideation or suicidal thoughts Endocrine Endocrinology: Denies polydipsia, polyphagia or polyuria Allergic/Immunologic Allergic/Immunologic ED: Denies mouth swelling, tongue swelling or urticaria EXAM Physical Exam Const Vital Signs: 12/23/24 15:04 12/23/24 17:03 Temperature 98.9 F Temperature Source Oral Pulse Rate 115 H 58 L Respiratory Rate 18 Blood Pressure 123/96 H 120/90 H Blood Pressure Mean 105 100 Pulse Ox 99 Oxygen Delivery Method Room Air Positive well nourished and well developed General Appearance ED: well developed and NAD HEENT Reports normocephalic, head/scalp atraumatic and moist mucous membranes Eyes PERRL and EOMs intact bilaterally Neck no lymphadenopathy, supple and no JVD Resp normal respiratory effort and clear to auscultation bilaterally Cardio regular rate, regular rhythm and no murmurs GI normal to inspection, nondistended, normoactive bowel sounds and non-tender Palpation: soft Back/Spine no CVA tenderness and normal ROM Extremity normal to inspection General Extremety ED: Negative for edema General Extremity: Negative for edema Neuro oriented x3 and CN's II-XII intact bilaterally Sensorium / Orientation: alert Motor Exam: strength 5/5 throughout Psych mental status grossly normal Mood & Affect: Negative for depressed or tearful Skin no rashes or lesions noted and no wounds MDM MDM MDM Narrative Medical decision making narrative: Differential diagnosis includes but not limited to ectopic miscarriage early UTI Patient is O+. Urinalysis with greater than 100 white cells greater than 100 red blood cells today is nitrate positive with 2+ bacteria. There is 10-25 squamous cells confusing the interpretation. However this is worse from an infectious standpoint from yesterday will be sent for culture and will be treating her with Keflex. She is O+. Her hCG level is 1350. Hemoglobin 13.7. Pelvic ultrasound does not demonstrate any findings of ectopic but no intrauterine is identified at this time. Patient will be given precautions. She is to follow-up with MANA[facility]ACT[facility] call their office tomorrow. She understands return instructions including but not limited to worsening bleeding pelvic pain History & Record Review Discussion w/independent historian: Patient Lab Data Attestation: I reviewed the patient's lab results. Labs: Laboratory Results - last 24 hr 12/23/24 15:59 Hgb 13.7 Hct 41.1 HCG, Quant 1350 H Urine Color Straw Urine Clarity Cloudy Urine pH 6.0 Ur Specific Drain 1.025 Urine Protein 30 H Urine Glucose (UA) Normal Urine Ketones 5 H Urine Occult Blood 250 H Urine Nitrite Positive H Urine Bilirubin 1 H Urine Urobilinogen 4 H Ur Leukocyte Esterase 500 H Urine RBC > 100 SEEN Urine WBC >100 SEEN Ur Squamous Epith Cells 10-25 SEEN Ur Renal Epithelial Cell 0-5 SEEN Urine Bacteria 2+ Urine Mucus 2+ Blood Type O POSITIVE Radiography Diagnostic Testing: Clinical Impression(s) from Imaging Studies Obstetrics Ultrasound 12/23/24 17:04 IMPRESSION: Unremarkable ultrasound of the pelvis. No signs of torsion. No evidence of ectopic . [facility] Triage Chief Complaint: Vag Bld, Preg ED Provider: Pérez Owens Dx/Rx/DC Orders Clinical Impression: Vaginal bleeding, Instructions: Bleeding During Early Prescriptions: New cephalexin 500 mg capsule 500 mg PO Q12 Qty: 14 0RF No Action famotidine [Pepcid] 20 mg tablet 20 mg PO BID 30 Days Qty: 60 0RF promethazine 25 mg tablet 25 mg PO TID PRN (Reason: nausea and vomiting) Qty: 15 0RF potassium chloride 20 mEq tablet extended release 20 meq PO BID 5 Days Qty: 10 0RF doxycycline hyclate 100 mg capsule 100 mg PO BID 10 Days Qty: 20 0RF Primary Care Provider: Care Physician,No Primary Referrals: Meron Yuen MD [Med Staff - Active Staff] - As soon as possible Care Physician,No Primary [Primary Care Provider] - Activity Restrictions/Additional Instructions: Please call the pay station department manager's office as listed above. Please tell them that you are in the emergency department for bleeding in early . Tell them your hCG level was 1350. Please tell them that on your ultrasound we could not confirm a . Your urine is suggestive of an infection tonight and will be sent for culture. This generally takes several days to return. In the interim going to be placing you on an antibiotic. Print Language: Citizen Of [place] Disposition Disposition: Home, Self Care Discharge Date/Time: 12/23/24 20:47
[2024-12-23 16:59] LABS: hCG Titer Quant., Serum 1350 mIU/mL (1-3)
[2024-12-23 17:03] VITALS: BP 120/90; PULSE 58
--- NOTE | 2024-12-23 17:04 | US_ITS ---
PROCEDURE: ULTRASOUND PELVIS, TRANSVAGINAL REASON FOR EXAM: Spotting. COMPARISON: None. FINDINGS Uterus: 9.4 x 5.8 x 4.2 cm. No masses. Endometrium: 1.8 cm in thickness. Cervix: Closed. Right ovary: 2.9 x 2.3 x 1.5 cm. Cysts measuring 1.2 x 0.8 x 0.6 cm. Left ovary: 3.0 x 2.1 x 2.3 cm. Cyst measuring 1.6 x 1.5 x 1.4 cm. Fluid: Unremarkable. Gestational sac: Not visualized. Embryo: Not visualized. US/Transvaginal w/Preg US IMPRESSION: Unremarkable ultrasound of the pelvis. No signs of torsion. No evidence of ectopic . Reading Location: [facility]
[2024-12-23 17:13] LABS: Urine Bilirubin Dipstick 1 mg/dL (Negative)
[2024-12-23 17:36] LABS: Bacteria 2+ /hpf (None Seen); Red Blood Cells-Urine > 100 SEEN /hpf (0-5); White Blood Cells >100 SEEN /hpf (0-5)
[2024-12-23 17:37] LABS: Squamous Epithelial Cells - UA 10-25 SEEN /hpf (5-10)
[2024-12-23 17:38] LABS: Mucous, Urine 2+ /hpf (<or=2+)
[2024-12-23 17:39] LABS: Renal Epithelial Cells 0-5 SEEN /hpf (0-5)
--- NOTE | 2024-12-23 18:08 | ED.RN ---
THIS NURSE WAS COMPLETEING HOURLY ROUNDING ON THIS PT. THIS PT ASKED FOR WATER. THIS NURSE EDUCATED THAT SHE IS NOT ALLOWED TO HAVE ANYTHING TO EAT OR DRINK UNTIL ALL TEST RESULTS COME BACK. THIS NURSE THEN OFFFERED PT A MOUTH SWAB. PT APPEARED AGITATED WITH THIS NURSE AND PT STATED SHE WAS GOING TO DRINK OUT OF THE SINK. THIS NURSE TOLD HER SHE SHOULD NOT DO THAT D/T HER TEST RESULTS PENDING. PT THREATENED TO LEAVE. THIS NURSE EDUCTAED PT THAT A PT SHE HAS THE RIGHT TO LEAVE AMA. PT THEN STATED SHE `CANNOT DEAL WITHT THE DEHYDRATION ITS BEEN HOURS` THIS NURSE REEDUCATED ON WHY WE DO NOT ALLOW EAT OR DRINK UNTIL LAB RESULTS COME BACK. PT NON AGREEABLE. THIS NURSE LEFT.
== END 2024-12-23 20:47 | disposition home or self-care (01) ==
PROVIDERS: Emergency Provider Emergency Medicine; Visit Provider Emergency Medicine
DX: O20.9 Hemorrhage in early pregnancy, unspecified (principal); F17.200 Nicotine dependence, unspecified, uncomplicated; O99.331 Smoking (tobacco) complicating pregnancy, first trimester; Z3A.00 Weeks of gestation of pregnancy not specified
CPT/HCPCS: 76817; 81001; 84702; 85014; 85018; 86900; 86901; 87086; 87088; 99282; A4216

== ENCOUNTER 2025-10-14 05:43 | Emergency (ER) | payer MEDICAID, SELFPAY ==
[2025-10-14 05:45] VITALS: BP 139/89; PULSE 117; RESP 18; TEMP 36.6; O2SAT 100; BMI 25.5
--- NOTE | 2025-10-14 06:15 | EDS_ITS ---
HPI History of Present Illness Chief Complaint: Foreign Body Informant: patient Narrative Narrative: Patient is a 35-year-old female with past medical history of schizoaffective disorder and polysubstance abuse. She states that she has parasites all over her body and in her hair. She states they have been there for multiple days and are not showing any signs of going away. She states that she feels them crawling all over and she is picking and scratching. She states that she does not know how to get rid of them and secondary to this comes in for evaluation [facility] Medical History Drug overdose, intentional Schizoaffective disorder Substance abuse Home Medications ?Medication ?Instructions ?Recorded ?Last Taken ?Type ivermectin 0.5 % lotion (Sklice) See Rx Instructions . Route 10/14/25 Unknown Rx .COMPLEX #117 grams ivermectin 6 mg tablet 12 mg (2 x 6 mg) PO DAILY 1 dose 10/14/25 Unknown Rx #2 tabs permethrin 5 % topical cream 1 applic topical Q14D 2 d oses #60 10/14/25 Unknown Rx (Elimite) grams Allergy/AdvReac Type Severity Reaction Status Date / Time No Known Allergies Allergy Verified 10/14/25 05:47 Social History Smoking Status: Light Smoker (<10/day) ROS [facility] ED Constitutional Constitutional ED: Denies chills or fever(s) ENT ENT ED: Denies rhinorrhea or sore throat Cardiovascular Cardiovascular: Denies chest pain Respiratory/Chest Respiratory/Chest: Denies cough or dyspnea Genitourinary Genitourinary ED: Denies dysuria Musculoskeletal Musculoskeletal: Denies myalgias Integumentary Reports rash and other Details: Positive hair and skin irritation/itching Neurologic Neurologic: Denies headache(s) Hematologic/Lymphatic Hematologic/Lymphatic: Denies easy bleeding or easy bruising Allergic/Immunologic Allergic/Immunologic ED: Denies mouth swelling or tongue swelling EXAM Physical Exam Const Vital Signs: 10/14/25 05:45 10/14/25 05:45 10/14/25 06:29 Temperature 97.9 F 98 F Temperature Source Oral Pulse Rate 117 H 98 Respiratory Rate 18 18 Respiratory Effort Normal Non-Labored Respiratory Pattern Normal Blood Pressure 139/89 H 137/95 H Blood Pressure Mean 105 109 Pulse Ox 100 100 Oxygen Delivery Method Room Air Positive well nourished and well developed General Appearance ED: well developed HEENT HEENT Narrative: Normocephalic atraumatic No tongue or lip swelling no oral lesions no airway edema or compromise; no secondary findings in the posterior pharynx to suggest infection Throughout the patient's hair there are multiple nits noted consistent with lice. Eyes PERRL and EOMs intact bilaterally Neck supple Neck Narrative: No nuchal rigidity or meningeal signs Resp normal respiratory effort and clear to auscultation bilaterally Cardio regular rhythm Rate: tachycardic and other Other Details: Tachycardic rate with regular rhythm No murmurs rubs or gallops Extremity normal to inspection Neuro oriented x3, CN's II-XII intact bilaterally and no sensory deficits noted Sensorium / Orientation: alert Motor Exam: strength 5/5 throughout Psych Psych Narrative: Patient has a nervous/anxious affect Mood & Affect: anxious Skin Skin Narrative: Multiple nits are noted within the hair and scalp consistent with lice There are lesions across the forehead nasal folds and chin with excoriation and picking but no secondary findings of infection No obvious burrows between the finger spaces No lesions of the palms or soles of the feet No surrounding erythema or warmth or discharge to suggest secondary infection such as cellulitis or abscess MDM MDM MDM Narrative Medical decision making narrative: Patient arrived to the ER tachycardic but was visibly anxious and otherwise with stable vitals. She had concern for parasites. Physical exam does show a mite infestation with lice throughout the scalp and lesions across the face. Patient has also been picking at the lesions but there are no findings for secondary infection such as cellulitis or abscess. She does not have any signs of airway compromise. Therefore at this time I do not feel the need for workup or admission. Patient will be placed on both Elimite cream to cover the mites to the skin as well as ivermectin cream to cover the lice in the scalp. She was given 1 dose of oral ivermectin because she has concerned there are mites within the ears and nose and this way the area will be covered. However without signs of airway compromise or signs of secondary infection there is no need for further intervention and she is otherwise safe for discharge History & Record Review Discussion w/independent historian: Patient Discharge Plan Triage Chief Complaint: Foreign Body ED Provider: Sal Lr Dx/Rx/DC Orders Clinical Impression: Head lice, Mite infestation, Schizoaffective disorder, Polysubstance abuse Instructions: ED Head Lice Prescriptions: New ivermectin [Sklice] 0.5 % lotion See Rx Instructions .ROUTE .COMPLEX Qty: 117 0RF Rx Instructions: Apply up to 4 ounces of lotion to dry hair in order to thoroughly coat the hair and scalp. Leave on for 10 minutes and then rinse with water ivermectin 6 mg tablet 12 mg PO DAILY Qty: 2 0RF permethrin [Elimite] 5 % cream 1 applic topical Q14D Qty: 60 0RF Rx Instructions: apply second treatment 14 days after first treatment if live lice remain Leave the topical cream on your body for 10 to 14 hours and then wash off Primary Care Provider: Care Physician,No Primary Referrals: Care Physician,No Primary [Primary Care Provider, Medical] Activity Restrictions/Additional Instructions: You also need to wash your close clean your bedding and any furniture in order to prevent reoccurrence of infection from the lice/mites Print Language: Bermudian Disposition Disposition: Home, Self Care Discharge Date/Time: 10/14/25 06:36
[2025-10-14 06:29] VITALS: BP 137/95; PULSE 98; RESP 18; TEMP 36.6; O2SAT 100
--- OUTSIDE RECORDS SUMMARY | 2025-10-14 06:35 | XMS RPT_ITS | CCD ---
Author Organization [facility] Care Team Providers Care Medical Research Assistant Name Role Phone SHAUNA GARAYFlorian Unavailable Unavailable PHYSICIAN, NONE Unavailable Unavailable Unavailable Primary Care Provider UnavailJOHANA Tolliver Referring Unavailable EUGENIA SHEPHERD Referring Unavailable EUGENIA SHEPHERD Referring Unavailable JOHANA FULTON Attending Unavailable Sal Lr Attending Unavailable Care Physician, No Primary Primary Care Unava ilable Care Physician, No Primary Primary Care Unava ilable Dennis Beal Attending Unavailable Care Physician, No Primary Primary Care Unava ilable Roberth Hannah Attending Unavailable Care Physician, No Primary Primary Care Unava ilable Pérez Owens Attending Unavailable Generic, External Data Provider Primary Care Pro vider Unavailable GENERIC, EXTERNAL DATA PROVIDER Primary Care Unavailable EF SERNA Attending UnavailEUGENIA Mallory Referring Unavailable CORINA BOOKER Attending Unavailable CHARAN MERRITT Referring Unavailab le Medications Current Medications Medication Drug Class(es) Dates Sig (Normalized) Sig (Original) acetaminophen 500 mg / HYDROcodone bitartrate 5 mg oral tablet (10 sources) Opioid Agonist Start: 09-04-2011 take 1 tablet by mouth every twelve hours as needed acetaminophen-hyd rocodone 5-500 mg ORAL tablet Take 1 tablet by mouth every 12 hours as needed. 20 tablet 0 09/04/2011 Active Start: 08-15-2011 End: 01-08-2025 take 1-2 tablets by mouth every six hours as needed acetaminophen-hydrocodone (VICODIN) 5-50 0 mg ORAL tablet Take 1-2 tablets by mouth every 6 hours as needed for Pain. FOR PAIN 20 tablet 0 08/15/2011 01/08/2025 Discontinued (Discontinued by Patient) Completed/Discontinued Medications Medication Drug Class(es) Dates Sig (Normalized) Sig (Original) cyclobenzaprine hydrochloride 10 mg oral tablet (6 sources) Muscle Relaxant Start: 08-15-2011 End: 01-08-2025 take 5-10 mg by mouth every twelve hours as needed cyclobenzaprine (FLEXERIL) 10 mg ORAL tablet Take 0.5-1 tablets by mouth twice daily as needed for Muscle Spasm. FOR PAIN OR SPASMS 20 tablet 0 08/15/2011 01/08/2025 Discontinued (Discontinued by Patient) 100 ml potassium chloride 0.2 meq/ml injection (2 sources) Start: 01-15-2025 End: 01-15-2025 40 mEq, oral, Once, On [place] 01/15/25 at 2024, For 1 dose, Best given with food and plenty of water to minimize gastric irritation. Do not crush, chew, or split. Start: 01-15-2025 End: 01-15-2025 20 mEq, intravenous, at 50 m L/hr, Administer over 2 Hours, Once, On Sun01/15/25 at 2024, For 1 dose, Via peripheral line Vit-Iron Fumarate-F A ( 19) 29-1 mg ORAL Chew (6 sources) End: 01-08-2025 Vit-Iron Fumarate-F A ( 19) 29-1 mg ORAL Chew Take by mouth. 01/08/2025 Discontinued (Discontinued by Patient) Vit-Iro n Fumarate-FA ( 19) 29-1 mg ORAL Chew Take by mouth. Active 1000 ml sodium chloride 9 mg/ml injection (1 source) Start: 01-16-2025 End: 01-16-2025 1,000 mL, intravenous, at 2, 000 mL/hr, Administer over 30 Minutes, Once, On Sun01/16/25 at 0430, For 1 dose Problems Active Problems Problem Classification Problem Date Documented Date Episodic/Chronic Gastritis and duodenitis (1 source) Gastritis, unspecified, without bleeding; Translations: [Gastritis, unspecified, without bleeding] Onset: 01-09-2025 Episodic Hemorrhage during ; abruptio placenta; placenta previa (16 sources) Antepartum hemorrhage; Translations: [Hemorrhage in early , unspecified] Onset: 12-29-2024 12-25-2024 Episodic Immunizations and screening for infectious disease (1 source) Encounter for screening for infections with a predominantly sexual mode of transmission; Translations: [Encounter for screening for infections with a predominantly sexual mode of transmission] Onset: 01-13-2025 Episodic Other and delivery including normal (2 sources) with uncertain dates; Translations: [Encounter for supervision of normal , unspecified, unspecified trimester] Onset: 01-05-2025 01-05-2025 Episodic Schizophrenia and other psychotic disorders (2 sources) Unspecified psychosis not due to a substance or known physiological condition; Translations: [Unspecified psychosis not due to a substance or known physiological condition (Multi)] Onset: 01-15-2025 Chronic Skin and subcutaneous tissue infections (1 source) Cellulitis of left upper limb; Translations: [Cellulitis of left upper limb] Onset: 01-09-2025 Episodic Past or Other Problems Problem Classification Problem Date Documented Date Episodic/Chronic Other complications of (11 sources) Supervision of other high risk pregnancies, unspecified trimester; Translations: [Supervision of other high-risk ] Onset: 01-04-2009 01-04-2009 Episodic Sexually transmitted infections (not HIV or hepatitis) (11 sources) Chlamydial infection of lower genitourinary tract; Translations: [Other chlamydial infection of lower genitourinary tract] Onset: 02-10-2011 02-10-2011 Episodic Spondylosis; intervertebral disc disorders; other back problems (11 sources) Low back pain; Translations: [Lumbago] Onset: 08-23-2011 08-23-2011 Episodic Results Test Name Value Interpretation Reference Range Facility [facility] 01-28-2025 [facility] Telephone ([facility]) NELLY GUZMAN ([id number]) 1990 F Date Time Provider Department 01/28/25 CORINA BOOKER During your visit today, we recorded the following information about you: Anabel Heredia 01/28/2025 10:17 AM Signed Called patient regarding missed appointment Sunday01/26/2025 for ultrasound follow up w/Dr. Booker. Unable to reach. Left msg to contact office to reschedule. Mailed no show letter. Anabel Heredia January 28, 2025 10:16 AM Allergies As of Date: 01/28/2025 (No Known Allergies) Date Reviewed: 01/12/2025 Reviewed by: Shayy Almodovar MA - Fully Assessed Reason for Visit: Missed Appointment [1304] Cmt: No show Meds Comments as of 12/10/2008: All medications reviewed today/December 10, 2008 Maria Teresa Frederick Rn Problem List As Of Date 01/28/2025 Noted Resolved SUPRF HIGH RISK NEC [O09.899] 01/04/2009 Chlamydia trachomatis infection of lower genito*02/10/2011 Lumbago [M54.50] 08/23/2011 Vaginal bleeding affecting early [O20*01/12/2025 Letter Text Encounter Status:Closed by ANABEL HEREDIA on 01/28/25 Normal [facility] DRUG SCREEN,URINEon 01-16-20 25 Amphetamines Screen Ql (U) Positive Abnormal Presumptive Negative [facility] Comment on above: Order Comment: Drug screen results are presumptive and should not be used to assess compliance with prescribed medication. Contact the performing [facility] laboratory to add-on definitive confirmatory testing if clinically indicated. Toxicology screening results are reported qualitatively. The concentration must ???be greater than or equal to the cutoff to be reported as positive. The concentration at which the screening test can detect an individual drug or metabolite varies. The absence of expected drug(s) and/or drug metabolite(s) may indicate non-compliance, inappropriate timing of specimen collection relative to drug administration, poor drug absorption, diluted/adulterated urine, or limitations of testing. For medical purposes only; not valid for forensic use. Interpretive questions should be directed to the laboratory medical directors. Result Comment: CUTO FF LEVEL: 500 NG/ML Cross-reactivity has been reported with high concentrations of the following drugs: buproprion, chloroquine, chlorpromazine, ephedrine, mephentermine, fenfluramine, phentermine, phenylpropanolamine, pseudoephedrine, and propranolol. Performed By: #### D RUG3 #### ARTIS Flores ([id number]) [facility] ([facility]) [address] [place] [address] Barbiturates Screen Ql (U) Negative Normal Presumptive Negative [facility] Comment on above: Order Comment: Drug screen results are presumptive and should not be used to assess compliance with prescribed medication. Contact the performing [facility] laboratory to add-on definitive confirmatory testing if clinically indicated. Toxicology screening results are reported qualitatively. The concentration must ???be greater than or equal to the cutoff to be reported as positive. The concentration at which the screening test can detect an individual drug or metabolite varies. The absence of expected drug(s) and/or drug metabolite(s) may indicate non-compliance, inappropriate timing of specimen collection relative to drug administration, poor drug absorption, diluted/adulterated urine, or limitations of testing. For medical purposes only; not valid for forensic use. Interpretive questions should be directed to the laboratory medical directors. Result Comment: CUTO FF LEVEL: 200 NG/ML Performed By: #### D RUG3 #### ARTIS Flores ([id number]) [facility] ([facility]) [address] [place] [address] Benzodiazepines Ql (U) Negative Normal Presumptive Negative [facility] Comment on above: Order Comment: Drug screen results are presumptive and should not be used to assess compliance with prescribed medication. Contact the performing [facility] laboratory to add-on definitive confirmatory testing if clinically indicated. Toxicology screening results are reported qualitatively. The concentration must ???be greater than or equal to the cutoff to be reported as positive. The concentration at which the screening test can detect an individual drug or metabolite varies. The absence of expected drug(s) and/or drug metabolite(s) may indicate non-compliance, inappropriate timing of specimen collection relative to drug administration, poor drug absorption, diluted/adulterated urine, or limitations of testing. For medical purposes only; not valid for forensic use. Interpretive questions should be directed to the laboratory medical directors. Result Comment: CUTO FF LEVEL: 200 NG/ML Performed By: #### D RUG3 #### ARTIS Flores ([id number]) [facility] ([facility]) [address] [place] [phone] Benzoylecgonine Screen Ql (U) Negative Normal Presumptive Negative [facility] Comment on above: Order Comment: Drug screen results are presumptive and should not be used to assess compliance with prescribed medication. Contact the performing [facility] laboratory to add-on definitive confirmatory testing if clinically indicated. Toxicology screening results are reported qualitatively. The concentration must ???be greater than or equal to the cutoff to be reported as positive. The concentration at which the screening test can detect an individual drug or metabolite varies. The absence of expected drug(s) and/or drug metabolite(s) may indicate non-compliance, inappropriate timing of specimen collection relative to drug administration, poor drug absorption, diluted/adulterated urine, or limitations of testing. For medical purposes only; not valid for forensic use. Interpretive questions should be directed to the laboratory medical directors. Result Comment: CUTO FF LEVEL: 150 NG/ML Performed By: #### D RUG3 #### ARTIS Flores ([id number]) [facility] ([facility]) [address] [place] [address] Cannabinoids Screen Ql (U) Negative Normal Presumptive Negative [facility] Comment on above: Order Comment: Drug screen results are presumptive and should not be used to assess compliance with prescribed medication. Contact the performing [facility] laboratory to add-on definitive confirmatory testing if clinically indicated. Toxicology screening results are reported qualitatively. The concentration must ???be greater than or equal to the cutoff to be reported as positive. The concentration at which the screening test can detect an individual drug or metabolite varies. The absence of expected drug(s) and/or drug metabolite(s) may indicate non-compliance, inappropriate timing of specimen collection relative to drug administration, poor drug absorption, diluted/adulterated urine, or limitations of testing. For medical purposes only; not valid for forensic use. Interpretive questions should be directed to the laboratory medical directors. Result Comment: CUTO FF LEVEL: 50 NG/ML Performed By: #### D RUG3 #### ARTIS Flores ([id number]) [facility] ([facility]) [address] [place] [phone] fentaNYL+Norfentany l Screen Ql (U) Negative Normal Presumptive Negative [facility] Comment on above: Order Comment: Drug screen results are presumptive and should not be used to assess compliance with prescribed medication. Contact the performing [facility] laboratory to add-on definitive confirmatory testing if clinically indicated. Toxicology screening results are reported qualitatively. The concentration must ???be greater than or equal to the cutoff to be reported as positive. The concentration at which the screening test can detect an individual drug or metabolite varies. The absence of expected drug(s) and/or drug metabolite(s) may indicate non-compliance, inappropriate timing of specimen collection relative to drug administration, poor drug absorption, diluted/adulterated urine, or limitations of testing. For medical purposes only; not valid for forensic use. Interpretive questions should be directed to the laboratory medical directors. Result Comment: CUTO FF LEVEL: 5 NG/ML Performed By: #### D RUG3 #### ARTIS Flores ([id number]) [facility] ([facility]) [address] [place] [phone] Methadone Screen Ql (U) Negative Normal Presumptive Negative [facility] Comment on above: Order Comment: Drug screen results are presumptive and should not be used to assess compliance with prescribed medication. Contact the performing [facility] laboratory to add-on definitive confirmatory testing if clinically indicated. Toxicology screening results are reported qualitatively. The concentration must ???be greater than or equal to the cutoff to be reported as positive. The concentration at which the screening test can detect an individual drug or metabolite varies. The absence of expected drug(s) and/or drug metabolite(s) may indicate non-compliance, inappropriate timing of specimen collection relative to drug administration, poor drug absorption, diluted/adulterated urine, or limitations of testing. For medical purposes only; not valid for forensic use. Interpretive questions should be directed to the laboratory medical directors. Result Comment: CUTO FF LEVEL: 150 NG/ML The metabolite F-cruqu-amhmbjlyxhbuse (LAAM) is not detected by this method in concentrations that would be found in the urine of patients on LAAM therapy. Performed By: #### D RUG3 #### ARTIS Flores ([id number]) [facility] ([facility]) [address] [place] [address] Opiates Screen Ql (U) Negative Normal Presumptive Negative [facility] Comment on above: Order Comment: Drug screen results are presumptive and should not be used to assess compliance with prescribed medication. Contact the performing [facility] laboratory to add-on definitive confirmatory testing if clinically indicated. Toxicology screening results are reported qualitatively. The concentration must ???be greater than or equal to the cutoff to be reported as positive. The concentration at which the screening test can detect an individual drug or metabolite varies. The absence of expected drug(s) and/or drug metabolite(s) may indicate non-compliance, inappropriate timing of specimen collection relative to drug administration, poor drug absorption, diluted/adulterated urine, or limitations of testing. For medical purposes only; not valid for forensic use. Interpretive questions should be directed to the laboratory medical directors. Result Comment: CUTO FF LEVEL: 300 NG/ML The opiate screen does not detect fentanyl, meperidine, or tramadol. Oxycodone is not consistently detected (refer to Oxycodone Screen, Urine result). Performed By: #### Kenn RUG3 #### ARTIS Flores ([id number]) [facility] ([facility]) [address] [place] [id number] oxyCODONE+oxyMORpho ne Screen Ql (U) Negative Normal Presumptive Negative [facility] Comment on above: Order Comment: Drug screen results are presumptive and should not be used to assess compliance with prescribed medication. Contact the performing [facility] laboratory to add-on definitive confirmatory testing if clinically indicated. Toxicology screening results are reported qualitatively. The concentration must ???be greater than or equal to the cutoff to be reported as positive. The concentration at which the screening test can detect an individual drug or metabolite varies. The absence of expected drug(s) and/or drug metabolite(s) may indicate non-compliance, inappropriate timing of specimen collection relative to drug administration, poor drug absorption, diluted/adulterated urine, or limitations of testing. For medical purposes only; not valid for forensic use. Interpretive questions should be directed to the laboratory medical directors. Result Comment: CUTO FF LEVEL: 100 NG/ML This test will accurately detect both oxycodone and oxymorphone. Performed By: #### Kenn RUG3 #### ARTIS Flores ([id number]) [facility] ([facility]) [address] [place] [address] Phencyclidine Ql (U) Negative Normal Presumptive Negative [facility] Comment on above: Order Comment: Drug screen results are presumptive and should not be used to assess compliance with prescribed medication. Contact the performing [facility] laboratory to add-on definitive confirmatory testing if clinically indicated. Toxicology screening results are reported qualitatively. The concentration must ???be greater than or equal to the cutoff to be reported as positive. The concentration at which the screening test can detect an individual drug or metabolite varies. The absence of expected drug(s) and/or drug metabolite(s) may indicate non-compliance, inappropriate timing of specimen collection relative to drug administration, poor drug absorption, diluted/adulterated urine, or limitations of testing. For medical purposes only; not valid for forensic use. Interpretive questions should be directed to the laboratory medical directors. Result Comment: CUTO FF LEVEL: 25 NG/ML Cross-reactivity has been reported with dextromethorphan. Performed By: #### D ROXANA3 #### ARTIS Flores ([id number]) [facility] ([facility]) [address] [place] [address] Drug Screen, Urineon 025 Amphetamines Screen Ql (U) Positive Abnormal Presumptive Negative [facility] Comment on above: CUTOFF LEVEL: 500 NG /ML Cross-reactivity has been reported with high concentrations of the following drugs: buproprion, chloroquine, chlorpromazine, ephedrine, mephentermine, fenfluramine, phentermine, phenylpropanolamine, pseudoephedrine, and propranolol. Barbiturates Screen Ql (U) Negative Presumptive Negative [facility] Comment on above: CUTOFF LEVEL: 200 NG /ML Benzodiazepines Ql (U) Negative Presumptive Negative [facility] Comment on above: CUTOFF LEVEL: 200 NG /ML Benzoylecgonine Screen Ql (U) Negative Presumptive Negative [facility] Comment on above: CUTOFF LEVEL: 150 NG /ML Cannabinoids Screen Ql (U) Negative Presumptive Negative [facility] Comment on above: CUTOFF LEVEL: 50 NG/ ML fentaNYL+Norfentany l Screen Ql (U) Negative Presumptive Negative [facility] Comment on above: CUTOFF LEVEL: 5 NG/M L Interpretation and review of laboratory results Abnormal [facility] Methadone Screen Ql (U) Negative Presumptive Negative [facility] Comment on above: CUTOFF LEVEL: 150 NG /ML The metabolite N-nxcny-buwywgbnugmjfb (LAAM) is not detected by this method in concentrations that would be found in the urine of patients on LAAM therapy. Opiates Screen Ql (U) Negative Presumptive Negative [facility] Comment on above: CUTOFF LEVEL: 300 NG /ML The opiate screen does not detect fentanyl, meperidine, or tramadol. Oxycodone is not consistently detected (refer to Oxycodone Screen, Urine result). oxyCODONE+oxyMORpho ne Screen Ql (U) Negative Presumptive Negative [facility] Comment on above: CUTOFF LEVEL: 100 NG /ML This test will accurately detect both oxycodone and oxymorphone. Phencyclidine Ql (U) Negative Presumptive Negative [facility] Comment on above: CUTOFF LEVEL: 25 NG/ ML Cross-reactivity has been reported with dextromethorphan. Drug screen results are presumptive and should not be used to assess compliance with prescribed medication. Contact the performing [facility] laboratory to add-on definitive confirmatory testing if clinically indicated. Toxicology screening results are reported qualitatively. The concentration must be greater than or equal to the cutoff to be reported as positive. The concentration at which the screening test can detect an individual drug or metabolite varies. The absence of expected drug(s) and/or drug metabolite(s) may indicate non-compliance, inappropriate timing of specimen collection relative to drug administration, poor drug absorption, diluted/adulterated urine, or limitations of testing. For medical purposes only; not valid for forensic use. Interpretive questions should be directed to the laboratory medical directors. [facility] Potassiumon 01-16-2025 Potassium [Moles/Vol] 3.3 mmol/L Low 3.5 - 5.3 mmol/L [facility] Comment on above: MILD HEMOLYSIS DETEC ROWAN. The result may be falsely elevated due to hemolysis or other interferents. Clinical correlation is recommended. Repeat testing may be considered. Potassium [Moles/Vol] 3.3 mmol/L Low 3.5-5.3 [facility] Comment on above: Result Comment: MILD HEMOLYSIS DETECTED. The result may be falsely elevated due to hemolysis or other interferents. Clinical correlation is recommended. Repeat testing may be considered. Performed By: #### 2 [id number] #### ARTIS Flores ([id number]) [facility] ([facility]) [address] [place] [address] Potassium [Moles/Vol]on 12-28 Interpretation and review of laboratory results Abnormal [facility] ACUTE TOXICOLOGY PANEL, MOUNIKA Quintanilla 01-15-2025 Acetaminophen [Mass/Vol] ug/mL Normal 10.0-30.0 [facility] Comment on above: Performed By: #### D RUBL #### ARTIS Flores ([id number]) [facility] ([facility]) [address] [place] [address] Ethanol [Mass/Vol] mg/dL Normal <=10 [facility] Comment on above: Performed By: #### D RUBL #### ARTIS Flores ([id number]) [facility] ([facility]) [address] [place] [place] [address] Salicylates [Mass/Vol] mg/dL Normal 4-20 [facility] Comment on above: Performed By: #### D RUBL #### ARTIS Flores ([id number]) [facility] ([facility]) [address] [place] [address] Acute Toxicology Panel, Johno don 01-15-2025 Acetaminophen [Mass/Vol] ug/mL 10.0 - 30.0 ug/mL [facility] Ethanol [Mass/Vol] mg/dL NINF - 10 mg/dL [facility] Interpretation and review of laboratory results Normal [facility] Salicylates [Mass/Vol] mg/dL 4 - 20 mg/dL [facility] CBC W Auto Differential pane l (Bld)on 01-15-2025 Basophils (Bld) [#/Vol] 0.07 10*3/uL [facility] Basophils/100 WBC (Bld) 1.1 % 0.0 - 2.0 % [facility] Eosinophils (Bld) [#/Vol] 0.09 10*3/uL [facility] Eosinophils/100 WBC (Bld) 1.4 % 0.0 - 6.0 % [facility] Erythrocyte distribution width (RBC) [Ratio] 13.3 % 11.5 - 14.5 % [facility] Hematocrit (Bld) [Volume fraction] 45.4 % 36.0 - 46.0 % [facility] Hemoglobin (Bld) [Mass/Vol] 14.8 g/dL 12.0 - 16.0 g/dL [facility] Immature granulocytes (Bld) [#/Vol] 0.01 10*3/uL [facility] Immature granulocytes/100 WBC (Bld) 0.2 % 0.0 - 0.9 % [facility] Comment on above: Immature Granulocyte Count (IG) includes promyelocytes, myelocytes and metamyelocytes but does not include bands. Percent differential counts (%) should be interpreted in the context of the absolute cell counts (cells/UL). Interpretation and review of laboratory results Abnormal [facility] Lymphocytes (Bld) [#/Vol] 2.51 10*3/uL [facility] Lymphocytes/100 WBC (Bld) 38.3 % 13.0 - 44.0 % [facility] MCH (RBC) [Entitic mass] 27 pg 26.0 - 34.0 pg [facility] MCHC (RBC) [Mass/Vol] 32.6 g/dL 32.0 - 36.0 g/dL [facility] MCV (RBC) [Entitic vol] 83 fL 80 - 100 fL [facility] Monocytes (Bld) [#/Vol] 0.43 10*3/uL [facility] Monocytes/100 WBC (Bld) 6.6 % 2.0 - 10.0 % [facility] Neutrophils (Bld) [#/Vol] 3.45 10*3/uL [facility] Comment on above: Percent differential counts (%) should be interpreted in the context of the absolute cell counts (cells/uL). Neutrophils/100 WBC (Bld) 52.4 % 40.0 - 80.0 % [facility] Nucleated RBC/100 WBC (Bld) [Ratio] 0 % [facility] Platelets (Bld) [#/Vol] 372 10*3/uL [facility] RBC (Bld) [#/Vol] 5.49 10*6/uL [facility] WBC (Bld) [#/Vol] 6.6 10*3/uL [facility] Basophils (Bld) [#/Vol] 0.07 x10*3/uL Normal 0.00-0.10 [facility] Comment on above: Performed By: #### 5 7021-8 #### ARTIS Flores ([id number]) [facility] ([facility]) [address] [place] [address] 23595 Basophils/100 WBC (Bld) 1.1 % Normal 0.0-2.0 [facility] Comment on above: Performed By: #### 7021-8 #### ARTIS Flores ([id number]) [facility] ([facility]) [address] [place] [address] Eosinophils (Bld) [#/Vol] 0.09 x10*3/uL Normal 0.00-0.70 [facility] Comment on above: Performed By: #### 5 7021-8 #### ARTIS Flores ([id number]) [facility] ([facility]) [address] [place] [address] Eosinophils/100 WBC (Bld) 1.4 % Normal 0.0-6.0 [facility] Comment on above: Performed By: #### 7021-8 #### ARTIS Flores ([id number]) [facility] ([facility]) [address] [place] [address] 28695 Erythrocyte distribution width (RBC) [Ratio] 13.3 % Normal 11.5-14.5 [facility] Comment on above: Performed By: #### 5 7021-8 #### ARTIS Flores ([id number]) [facility] ([facility]) [address] [place] [address] Hematocrit (Bld) [Volume fraction] 45.4 % Normal 36.0-46.0 [facility] Comment on above: Performed By: #### 5 7021-8 #### ARTIS Flores ([id number]) [facility] ([facility]) [address] [place] [address] 9[address]51 Hemoglobin (Bld) [Mass/Vol] 14.8 g/dL Normal 12.0-16.0 [facility] Comment on above: Performed By: #### 5 7021-8 #### ARTIS Flores ([id number]) [facility] ([facility]) [address] [place] [address] Immature granulocytes (Bld) [#/Vol] 0.01 x10*3/uL Normal 0.00-0.70 [facility] Comment on above: Performed By: #### 5 7021-8 #### ARTIS Flores ([id number]) [facility] ([facility]) [address] [place] [address] 51769 Immature granulocytes/100 WBC (Bld) 0.2 % Normal 0.0-0.9 [facility] Comment on above: Result Comment: Nani ture Granulocyte Count (IG) includes promyelocytes, myelocytes and metamyelocytes but does not include bands. Percent differential counts (%) should be interpreted in the context of the absolute cell counts (cells/UL). Performed By: #### 5 7021-8 #### ARTIS Flores ([id number]) [facility] ([facility]) [address] [place] [address] Lymphocytes (Bld) [#/Vol] 2.51 x10*3/uL Normal 1.20-4.80 [facility] Comment on above: Performed By: #### 5 7021-8 #### ARTIS Flores ([id number]) [facility] ([facility]) [address] [place] [address] 65202 Lymphocytes/100 WBC (Bld) 38.3 % Normal 13.0-44.0 [facility] Comment on above: Performed By: #### 5 7021-8 #### ARTIS Flores ([id number]) [facility] ([facility]) [address] [place] [address] MCH (RBC) [Entitic mass] 27.0 pg Normal 26.0-34.0 [facility] Comment on above: Performed By: #### 5 7021-8 #### ARTIS Flores ([id number]) [facility] ([facility]) [address] [place] [address] MCHC (RBC) [Mass/Vol] 32.6 g/dL Normal 32.0-36.0 [facility] Comment on above: Performed By: #### 5 7021-8 #### ARTIS Flores ([id number]) [facility] ([facility]) [address] [place] [address] 12677 MCV (RBC) [Entitic vol] 83 fL Normal 80-100 [facility] Comment on above: Performed By: #### 5 7021-8 #### ARTIS Flores ([id number]) [facility] ([facility]) [address] [place] [address] 41059 Monocytes (Bld) [#/Vol] 0.43 x10*3/uL Normal 0.10-1.00 [facility] Comment on above: Performed By: #### 5 7021-8 #### ARTIS Flores ([id number]) [facility] ([facility]) [address] [place] [address] 71057 Monocytes/100 WBC (Bld) 6.6 % Normal 2.0-10.0 [facility] Comment on above: Performed By: #### 5 7021-8 #### ARTIS Flores ([id number]) [facility] ([facility]) [address] [place] [address] 31220 Neutrophils (Bld) [#/Vol] 3.45 x10*3/uL Normal 1.20-7.70 [facility] Comment on above: Result Comment: Perc ent differential counts (%) should be interpreted in the context of the absolute cell counts (cells/uL). Performed By: #### 5 7021-8 #### ARTIS Flores ([id number]) [facility] ([facility]) [address] [place] [address] 64291 Neutrophils/100 WBC (Bld) 52.4 % Normal 40.0-80.0 [facility] Comment on above: Performed By: #### 5 7021-8 #### ARTIS Flores ([id number]) [facility] ([facility]) [address] [place] [address] 72829 Nucleated RBC/100 WBC (Bld) [Ratio] 0.0 /100 WBCs Normal 0.0-0.0 [facility] Comment on above: Performed By: #### 5 7021-8 #### ARTIS Flores ([id number]) [facility] ([facility]) [address] [place] [address] 80235 Platelets (Bld) [#/Vol] 372 x10*3/uL Normal 150-450 [facility] Comment on above: Performed By: #### 5 7021-8 #### ARTIS Flores ([id number]) [facility] ([facility]) [address] [place] [address] 97251 RBC (Bld) [#/Vol] 5.49 x10*6/uL High 4.00-5.20 [facility] Comment on above: Performed By: #### 5 7021-8 #### ARTIS Flores ([id number]) [facility] ([facility]) [address] [place] [address] WBC (Bld) [#/Vol] 6.6 x10*3/uL Normal 4.4-11.3 [facility] Comment on above: Performed By: #### 5 7021-8 #### ARTIS Flores ([id number]) [facility] ([facility]) [address] [place] [address] Choriogonadotropin.beta subu niton 01-15-2025 HCG.beta subunit Qn 132 m[IU]/mL High <5 [facility] Comment on above: Order Comment: Total HCG measurement is performed using the Brissa Tacho Access Immunoassay which detects intact HCG and free beta HCG subunit. This test is not indicated for use as a tumor marker. HCG testing is performed using a different test methodology at [facility] than other [facility]. Direct result comparison should only be made within the same method. Result Comment: Low- level positive HCG results can be seen in early , in blanca- or post-menopausal females due to normal pituitary HCG production, or with analytic interference. Repeat testing in 48-72 hours can aid in assessing for as results should double in this time period. FSH measurement is recommended in blanca- or post-menopausal females as concurrent elevation of FSH can support pituitary production as the source of the HCG elevation. Performed By: #### 2 1198-7 #### ARTIS Flores ([id number]) [facility] ([facility]) [address] [place] [address] Comprehensive metabolic 2000 panelon 01-15-2025 Albumin BCP dye [Mass/Vol] 4.9 g/dL 3.4 - 5.0 g/dL [facility] ALP [Catalytic activity/Vol] 79 U/L 33 - 110 U/L [facility] ALT With P-5'-P [Catalytic activity/Vol] 19 U/L 7 - 45 U/L [facility] Comment on above: Patients treated wit h Sulfasalazine may generate falsely decreased results for ALT. Anion gap [Moles/Vol] 14 mmol/L [facility] AST With P-5'-P [Catalytic activity/Vol] 14 U/L 9 - 39 U/L [facility] Bilirubin [Mass/Vol] 0.8 mg/dL 0.0 - 1.2 mg/dL [facility] Calcium [Mass/Vol] 9.3 mg/dL 8.6 - 10. 3 mg/dL [facility] Chloride [Moles/Vol] 104 mmol/L 98 - 107 mmol/L [facility] CO2 [Moles/Vol] 24 mmol/L 21 - 32 mmol/L [facility] Creatinine [Mass/Vol] 0.91 mg/dL 0.50 - 1.05 mg/dL [facility] GFR/1.73 sq M.predicted among non-blacks MDRD (S/P/Bld) [Vol rate/Area] 84 mL/min/{1.73_m2} - PINF [facility] Comment on above: Calculations of mary mated GFR are performed using the 2020 CKD-EPI Study Refit equation without the race variable for the IDMS-Traceable creatinine methods. https://jasn.asnjournals.org/content//ASN.86882779 88 Glucose [Mass/Vol] 101 mg/dL High 74 - 99 mg/dL [facility] Interpretation and review of laboratory results Abnormal [facility] Potassium [Moles/Vol] 2.9 mmol/L Critically low 3.5 - 5.3 mmol/L [facility] Protein [Mass/Vol] 7.8 g/dL 6.4 - 8.2 g/dL [facility] Sodium [Moles/Vol] 139 mmol/L 136 - 145 mmol/L [facility] Urea nitrogen [Mass/Vol] 19 mg/dL 6 - 23 mg/dL [facility] Albumin BCP dye [Mass/Vol] 4.9 g/dL Normal 3.4-5.0 [facility] Comment on above: Performed By: #### 2 4323-8 #### ARTIS Flores ([id number]) [facility] ([facility]) [address] [place] [address] 76839 ALP [Catalytic activity/Vol] 79 U/L Normal 33-110 [facility] Comment on above: Performed By: #### 2 4323-8 #### ARTIS Flores ([id number]) [facility] ([facility]) [address] [place] [address] 88166 ALT With P-5'-P [Catalytic activity/Vol] 19 U/L Normal 7-45 [facility] Comment on above: Result Comment: Isabel ents treated with Sulfasalazine may generate falsely decreased results for ALT. Performed By: #### 2 4323-8 #### ARTIS Flores ([id number]) [facility] ([facility]) [address] [place] [address] 49503 Anion gap [Moles/Vol] 14 mmol/L Normal [facility] Comment on above: Performed By: #### 2 4323-8 #### ARTIS Flores ([id number]) [facility] ([facility]) [address] [place] [address] 03724 AST With P-5'-P [Catalytic activity/Vol] 14 U/L Normal 9-39 [facility] Comment on above: Performed By: #### 2 4323-8 #### ARTIS Flores ([id number]) [facility] ([facility]) [address] [place] [address] 24317 Bilirubin [Mass/Vol] 0.8 mg/dL Normal 0.0-1.2 [facility] Comment on above: Performed By: #### 2 4323-8 #### ARTIS Floers ([id number]) [facility] ([facility]) [address] [place] [address] 63149 Calcium [Mass/Vol] 9.3 mg/dL Normal 8.6-10.3 [facility] Comment on above: Performed By: #### 2 4323-8 #### ARTIS Flores ([id number]) [facility] ([facility]) [address] [place] [address] 39674 Chloride [Moles/Vol] 104 mmol/L Normal 98-107 [facility] Comment on above: Performed By: #### 2 4323-8 #### ARTIS Flores ([id number]) [facility] ([facility]) [address] [place] [address] 59389 CO2 [Moles/Vol] 24 mmol/L Normal 21-32 [facility] Comment on above: Performed By: #### 2 4323-8 #### ARTIS Flores ([id number]) [facility] ([facility]) [address] [place] [address] 97542 Creatinine [Mass/Vol] 0.91 mg/dL Normal 0.50-1.05 [facility] Comment on above: Performed By: #### 2 4323-8 #### ARTIS Flores ([id number]) [facility] ([facility]) [address] [place] [address] 64676 Glomerular filtration rate/1.73 sq M.predicted 84 mL/min/1.73m*2 Normal >60 [facility] Comment on above: Result Comment: Calc ulations of estimated GFR are performed using the 2020 CKD-EPI Study Refit equation without the race variable for the IDMS-Traceable creatinine methods. https://jasn.asnjournals.org/content//ASN.34364029 88 Performed By: #### 2 4323-8 #### ARTIS Flores ([id number]) [facility] ([facility]) [address] [place] [address] 38697 Glucose [Mass/Vol] 101 mg/dL High 74-99 [facility] Comment on above: Performed By: #### 2 4323-8 #### ARTIS Flores ([id number]) [facility] ([facility]) [address] [place] [address] Potassium [Moles/Vol] 2.9 mmol/L Critically low 3.5-5.3 [facility] Comment on above: Performed By: #### 2 4323-8 #### ARTIS Flores ([id number]) [facility] ([facility]) [address] [place] [address] 76995 Protein [Mass/Vol] 7.8 g/dL Normal 6.4-8.2 [facility] Comment on above: Performed By: #### 2 4323-8 #### ARTIS Flores ([id number]) [facility] ([facility]) [address] [place] [address] 30462 Sodium [Moles/Vol] 139 mmol/L Normal 136-145 [facility] Comment on above: Performed By: #### 2 4323-8 #### ARTIS Flores ([id number]) [facility] ([facility]) [address] [place] [address] 01036 Urea nitrogen [Mass/Vol] 19 mg/dL Normal 6-23 [facility] Comment on above: Performed By: #### 2 4323-8 #### ATRIS Flores ([id number]) [facility] ([facility]) [address] [place] [address] 49235 ECG 12-LEADon 01-15-2025 ECG 12-LEAD Ventricular Rate 76 Atrial Rate 76 P-R Interval 108 QRS Duration 75 Q-T Interval 411 QTC Calculation(Bazett) 463 P Tell -58 R Tell 59 T Tell 56 QRS Count 13 Q Onset 251 T Offset 456 QTC Fredericia 444 Diagnosis Sinus or ectopic atrial rhythm Short IA interval See ED provider note for full interpretation and clinical correlation Confirmed by Danielle Purdy ([id number]) on 01/23/2025 1:46:39 PM Normal [facility] HCG.beta subunit Qnon 2024 Interpretation and review of laboratory results Abnormal [facility] Total HCG measuremen t is performed using the Brsisa Solovis Access Immunoassay which detects intact HCG and free beta HCG subunit. This test is not indicated for use as a tumor marker. HCG testing is performed using a different test methodology at [facility] than other [facility]. Direct result comparison should only be made within the same method. [facility] No Panel Informationon 01-15 [facility] hCG, quantitative, on 01-15-2025 HCG.beta subunit Qn 132 m[IU]/mL High [facility] Comment on above: Low-level positive H CG results can be seen in early , in blanca- or post-menopausal females due to normal pituitary HCG production, or with analytic interference. Repeat testing in 48-72 hours can aid in assessing for as results should double in this time period. FSH measurement is recommended in blanca- or post-menopausal females as concurrent elevation of FSH can support pituitary production as the source of the HCG elevation. CNOVon 01-12-2025 CNOV Office Visit ([facility] ) NELLY GUZMAN ([id number]) 1990 F Date Time Provider Department 01/12/25 9:15 AM CORINA BOOKER During your visit today, we recorded the following information about you: Pulse Blood pressure Weight Last Period 114/minute 133/86 70.1 kg 11/03/24 Corina Bookre DO 01/12/2025 12:46 PM Addendum [facility] Obstetrics AND Gynecology Gynecology Clinic Note: CC: Pul followup Subjective HPI: Nelly Guzman is a 34 year old who presents for a PUL followup. She had an US at [facility] in [place] on 01/03/25 that showed an empty gestational sac. She has been having bleeding since then, 1-2 pads per day with small clots. Also experiencing 6/10 cramping, has not taken tylenol for it. Patient no showed for scheduled US on 01/09 in [place] as she wanted to be closer to home. Per chart review in TE Pt wants to know how long she will spot for and states she had ultrasound completed at [facility], in [place] and was told it was either an ectopic or Molar , but she is confused because her HCG levels keep going up. Pt c/o cramping. Denies abdominal pain. Spotting only and wearing pad, but has not needed to change it LMP: 2nd week of October 2024, unsure of exact day. No results found for: HCGQUANT OB Hx: OB History Gravida4 Para3 Term3 Preterm0 AB0 Living3 SAB0 IAB0 Ectopic0 Multiple0 Live Births3 ROS: Negative for fever, severe fatigue, severe pain, and inability to drink, abnormal vaginal discharge and breast symptoms Positive for: See HPI No current outpatient medications Objective OBJECTIVE: EXAM: BP 133/86 Pulse 114 Wt 70.1 kg (154 lb 9.6 oz) LMP 11/03/2024 (Approximate) GENERAL: in no apparent distress Remaining exam deferred at this time [facility] hCG Quantitative, Blood Latest Ref Rng <5.0 mIU/mL 12/25/2024 2,269.0 (H) 12/27/2024 2,544.0 (H) 12/29/2024 6,232.0 (H) 01/05/2025 8,833.0 (H) IMAGING TVUS at [facility] on 01/03/25: Intrauterine gestational sac without evidence of pole or yolk sac; no adnexal masses, no free fluid in the cul-de-sac ASSESSMENT: Nelly Guzman is a 34 year old who presents as a new patient for follow-up of Assessment AND Plan Vaginal bleeding affecting early - incomplete Ab vs. SAb vs. early - ~9w gestation by unsure LMP of early October 2024 - abnormally rising quants and TVUS that showed an empty, intrauterine gestational sac - bleeding 1-2 pads per day, 6/10 lower abdominal cramping - TANDS Rh positive - repeat TVUS scheduled for today, 11am - RTC in 2 weeks for further management - OB ED precautions provided Plan of care discussed with Dr. Merritt, attending physician Corina Booker, 01/12/2025 Attending Note I discussed with resident. The patient was not examined by the attending. I reviewed the resident's note. I agree with the resident's assessment and plan unless otherwise noted. Signature: Charan Merritt MD Date: 01/13/2025. Time: 3:31 AM Shayy Almodovar MA 01/12/2025 12:46 PM Signed Patient presents in follow up s/p missed ab. Patient is frustrated with the amount of time she has been bleeding s/p missed ab and would like to know an expected time frame for the symptoms to subside. Shayy Almodovar MA January 12, 2025 9:22 AM Corina Booker DO 01/12/2025 12:43 PM Edited - incomplete Ab vs. SAb vs. early - ~9w gestation by unsure LMP of October 2024 - abnormally rising quants and TVUS that showed an empty, intrauterine gestational sac - bleeding 1-2 pads per day, 6/10 lower abdominal cramping - TANDS Rh positive - repeat TVUS scheduled for today, 11am - RTC in 2 weeks for further management - OB ED precautions provided Corina Booker DO 01/12/2025 12:45 PM Edited - incomplete Ab vs. SAb vs. early - ~9w gestation by unsure LMP of early October 2024 - abnormally rising quants and TVUS that showed an empty, intrauterine gestational sac - bleeding 1-2 pads per day, 6/10 lower abdominal cramping - TANDS Rh positive - repeat TVUS scheduled for today, 11am - RTC in 2 weeks for further management - OB ED precautions provided Allergies As of Date: 01/12/2025 (No Known Allergies) Date Reviewed: 01/12/2025 Reviewed by: Shayy Almodovar MA - Fully Assessed Reason for Visit: Follow Up [171] Primary Visit Diagnosis:Vaginal bleeding affecting early [O20.9] Order(s):OBSTETRIC ULTRASOUND WHI [[id number]] Order #: [id number]: 1 FUTURE Meds Comments as of 12/10/2008: All medications reviewed today/December 10, 2008 Maria Teresa Frederick Rn Problem List As Of Date 01/12/2025 Noted Resolved SUPRF HIGH RISK NEC [O09.899] 01/04/2009 Chlamydia trachomatis infection of lower genito*03 (more content not included)... Normal [facility] CNPLydia 01-12-2025 CNPN Telephone (AKPOB) NELLY GUZMAN ([id number]) 1990 F Date Time Provider Department 01/12/25 CORINA BOOKER During your visit today, we recorded the following information about you: Corina Booker DO 01/12/2025 4:17 PM Signed Attempted to call patient about US results. Call went directly to that was full. Will attempt to call again tomorrow. Corina Booker DO 01/12/2025 4:16 PM Allergies As of Date: 01/12/2025 (No Known Allergies) Date Reviewed: 01/12/2025 Reviewed by: Shayy Almodovar MA - Fully Assessed Reason for Visit: Results [95] Meds Comments as of 12/10/2008: All medications reviewed today/December 10, 2008 Maria Teresa Frederick Rn Problem List As Of Date 01/12/2025 Noted Resolved SUPRF HIGH RISK NEC [O09.899] 01/04/2009 Chlamydia trachomatis infection of lower genito*02/10/2011 Lumbago [M54.50] 08/23/2011 Vaginal bleeding affecting early [O20*01/12/2025 Encounter Status:Closed by CORINA BOOKER on 01/12/25 Normal [facility] Examination level ultrasound on 01-12-2025 Indication Viability. Vaginal bleeding, Advanced Maternal Age Impression She [place] showing a gestational sac and has an abnormally rising HCG. She has recently had heavy vaginal bleeding with clots (since the ultrasound). 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 -On transabdominal and transvaginal ultrasound today, no gestational sac, yolk sac, or pole is identified -Normal appearing endometrium -Normal adnexae Ultrasound Consultation We discussed that she has a completed miscarriage and bleeding should be tapering off in the next days or week. She is interested in an IUD and will make an appointment for this week. Recommendations Additional follow-up as clinically indicated. Maternal Assessment Height 157 cm Height (ft) 5 ft Height (in) 2 in Physical Exam Initial weight (lb) 154 lb Initial BMI 28.17 kg/m Method Transabdominal and transvaginal ultrasound examination. View: Adequate visualization Peterson . Number of fetuses: 1 Dating LMP on: 11/03/2024 GA by LMP 10 w + 0 d NOELLE by LMP: 08/10/2025 Assigned: based on the LMP, selected on 01/12/2025 Assigned GA 10 w + 0 d Assigned NOELLE: 08/10/2025 Assessment Gestational sac: not visualized Yolk sac: not visualized Embryo: not visualized Maternal Structures Uterus / Cervix Uterus: Visualized Uterus details: normal Uterus length 84 mm Uterus width 56 mm Uterus height 42 mm Uterus Vol 103.3 cm Cervix: Visualized Ovaries / Tubes / Adnexa Rt ovary: Visualized Rt ovary D1 28 mm Rt ovary D2 24 mm Rt ovary D3 17 mm Rt ovary Vol 5.8 cm Lt ovary: Visualized Lt ovary D1 30 mm Lt ovary D2 25 mm Lt ovary D3 20 mm Lt ovary Vol 7.9 cm Cul de Sac / Bladder / Kidneys / Other Cul de Sac: Visualized Free fluid: no free fluid visualized Performed By: Sharon Little RDMS Read By: Miracle Rodriguez M.D. MATERNAL MEDICINE [facility] Radiology Study observation (narrative) [facility] NELLY GUZMAN ([id number]) 1990 F Date Time Provider Department 01/08/25 WILLOW KOTHARI During your visit today, we recorded the following information about you: Smiley Whaley, JUAN 01/08/2025 1:55 PM Signed Pt calls stating she rescheduled US from today to tomorrow. Pt wants to know how long she will spot for and states she had ultrasound completed at [facility], in [place] and was told it was either an ectopic or Molar , but she is confused because her HCG levels keep going up. Pt c/o cramping. Denies abdominal pain. Spotting only and wearing pad, but has not needed to change it. Advised Pt that without the ultrasound being completed, it is very difficult to know exactly what is going on and to continue to monitor for severe abdominal pain, and If her bleeding becomes heavy to where she is saturating a pad (front to back, side to side) in one hour or less for two hours or more then she needs to go to the emergency room. Strongly encouraged Pt to get US completed tomorrow as scheduled. Pt voiced understanding. Pt then asked this RN to be transferred back to the radiology scheduler. JUAN Parnell Sara, MD 01/08/2025 2:04 PM Signed Yes at this point needs ultrasound Agree with bleeding/miscarriage and ectopic precautions Smiley Whaley RN 01/09/2025 11:42 AM Signed US tech (Princess) alerted this RN that Pt again no showed for US today that was scheduled this AM at 11am. Pt has OB appointment scheduled 01/12/25 in [place] at 9am for missed AB check-up; however, did not have US completed today. Left message for Pt to call the office. [This is to see if Pt had went to ER and had US completed or if she had went elsewhere to have one done to confirm missed AB]? Smiley Whaley RN Allergies As of Date: 01/08/2025 (No Known Allergies) Date Reviewed: 01/05/2025 Reviewed by: Jasmyne Nuñez MA - Fully Assessed Reason for Visit: Spotting [Other] Meds Comments as of 12/10/2008: All medications reviewed today/December 10, 2008 Maria Teresa Frederick Rn Problem List As Of Date 01/08/2025 Noted Resolved SUPRF HIGH RISK NEC [O09.899] 01/04/2009 Chlamydia trachomatis infection of lower genito*02/10/2011 Lumbago [M54.50] 08/23/2011 Medications Discontinued During This Encounter Prescriptions - acetaminophen-hydroco done (VICODIN) 5-500 mg ORAL tablet (Discontinued) Take 1-2 tablets by mouth every 6 hours as needed for Pain. FOR PAIN - cyclobenzaprine (FLEXERIL) 10 mg ORAL tablet (Discontinued) Take 0.5-1 tablets by mouth twice daily as needed for Muscle Spasm. FOR PAIN OR SPASMS - Vit-Iron Fumarate-FA ( 19) 29-1 mg ORAL Chew (Discontinued) Reported on 01/05/2025 Encounter Status:Closed by SMILEY WHALEY on 01/08/25 Normal [facility] B-HCG SerPl-aCncon 5 HCG.beta subunit Qn 8833.0 m[IU]/mL High <5.0 [facility] Comment on above: Order Comment: Speci men Type: BLOOD SPECIMEN Ordering Facility: [facility] Address: [address] [place] [address] Result Comment: DUANE TITATIVE HCG NORMAL RANGES Weeks of Gestation (Weeks Since LMP) 3 Weeks (5.8-71.2 mIU/mL) 4 Weeks (9.5-750 mIU/mL) 5 Weeks (217-7138 mIU/mL) 6 Weeks (158-85482 mIU/mL) 7 Weeks (3697-956110 mIU/mL) 8 Weeks (29034-830377 mIU/mL) 9 Weeks (78905-224321 mIU/mL) 10 Weeks (91852-170042 mIU/mL) 12 Weeks (97526-639577 mIU/mL) Referenced to [facility] Performed By: #### 2 1198-7 #### [facility] CLIA [id number] [address] [place] [address] [place] CNPL[place] 12-30-2024 CNPN Telephone (OBGYWM) NELLY GUZMAN ([id number]) 1990 F Date Time Provider Department 12/30/24 GISELA FORMAN OBGYWAleisha During your visit today, we recorded the following information about you: Yanira Mixon, JUAN 12/30/2024 10:44 AM Signed Early OB. Patient called because she started spotting again. Light pink. Having some mild cramping. No intercourse or anything in the vagina recently. Has her NOB on Sunday, 01/05. Patient called to see if she needs seen in the office sooner. Advised to continue to monitor and to call if her bleeding or pain increases. hCG Quantitative, Blood (mIU/mL) Date Value 12/29/2024 6,232.0 12/27/2024 2,544.0 12/25/2024 2,269.0 JUAN Rodriguez Rebecca L, MD 12/30/2024 12:11 PM Signed formal US ordered schedule for later this week or early next week. Doesn't need NOB next week, just get US for location and we will go from there. Ok to leave that appointment but may be too early to do full NOB then. MD Dani Solares Trisha, RN 12/30/2024 12:44 PM Signed Patient notified. u/s scheduled for 01/02. JUAN Vital Tara, RN 01/02/2025 3:19 PM Signed Pt no-showed for US appt today, 01/02/25. JUAN Parnell Tara, RN 01/02/2025 3:24 PM Signed Addended by: SMILEY WHALEY on: 01/02/2025 03:24 PM Modules accepted: Orders Allergies As of Date: 12/30/2024 (No Known Allergies) Date Reviewed: 09/11/2011 Reviewed by: Destiny Negron Lpn - Fully Assessed Reason for Visit: Early OB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 11/12/2024 1:38:10 PM Referred By: Confirmed By: SUSIE RECINOS MD 11/12/24 1338 Date Marty Recinos MD CC: Dr. Dennis Beal, ; No Primary Care Physician Signed Normal [facility] CBC W/Diff, Automatedon 10-26 Absolute Lymph 1.69 X10 3/uL Normal 0.83-4.51 [facility] Comment on above: Performed By: #### L 300.4310, M200.1000, L503.6005, L500.4050, L100.0100, L300.3900 #### [facility] [address], [address] Absolute Neut 11.2 X10 3/uL High 2.0-7.7 [facility] Comment on above: Performed By: #### L 300.4310, M200.1000, L503.6005, L500.4050, L100.0100, L300.3900 #### [facility] [address] [place], [address] Basophils/100 WBC (Bld) 0.6 % Normal 0-1 [facility] Comment on above: Performed By: #### L 300.4310, M200.1000, L503.6005, L500.4050, L100.0100, L300.3900 #### [facility] [address] [place], [address] Eosinophils/100 WBC (Bld) 0.3 % Normal 0-5 [facility] Comment on above: Performed By: #### L 300.4310, M200.1000, L503.6005, L500.4050, L100.0100, L300.3900 #### [facility] [address] [place], [address] Erythrocyte distribution width (RBC) [Ratio] 13.4 % Normal 11.6-14.6 [facility] Comment on above: Performed By: #### L 300.4310, M200.1000, L503.6005, L500.4050, L100.0100, L300.3900 #### [facility] [address], [address] Hematocrit (Bld) [Volume fraction] 43.3 % Normal 37-47 [facility] Comment on above: Performed By: #### L 300.4310, M200.1000, L503.6005, L500.4050, L100.0100, L300.3900 #### [facility] [address] [place], [address] Hemoglobin (Bld) [Mass/Vol] 14.3 g/dL Normal 12.0-15.0 [facility] Comment on above: Performed By: #### L 300.4310, M200.1000, L503.6005, L500.4050, L100.0100, L300.3900 #### [facility] [address] [place], [address] IG% 0.400 Normal 0.0-0.9 [facility] Comment on above: Result Comment: IG% - Immature Granulocytes (promyelocytes, myelocytes and metamyelocytes) > 1% indicates that a LEFT SHIFT is Present. Performed By: #### L 300.4310, M200.1000, L503.6005, L500.4050, L100.0100, L300.3900 #### [facility] [address] [place], [address] Lymphocytes/100 WBC (Bld) 12.0 % Low 19-41 [facility] Comment on above: Performed By: #### L 300.4310, M200.1000, L503.6005, L500.4050, L100.0100, L300.3900 #### [facility] [address] [place], [address] MCH (RBC) [Entitic mass] 27.0 pg Normal 27.0-32.0 [facility] Comment on above: Performed By: #### L 300.4310, M200.1000, L503.6005, L500.4050, L100.0100, L300.3900 #### [facility] [address] [place], [address] MCHC (RBC) [Mass/Vol] 33.0 g/dL Normal 32-36 [facility] Comment on above: Performed By: #### L 300.4310, M200.1000, L503.6005, L500.4050, L100.0100, L300.3900 #### [facility] [address] [place], [address] MCV (RBC) [Entitic vol] 81.9 fL Normal 81-99 [facility] Comment on above: Performed By: #### L 300.4310, M200.1000, L503.6005, L500.4050, L100.0100, L300.3900 #### [facility] [address] [place], [address] Monocytes/100 WBC (Bld) 7.3 % Normal 0-10 [facility] Comment on above: Performed By: #### L 300.4310, M200.1000, L503.6005, L500.4050, L100.0100, L300.3900 #### [facility] [address] [place], [address] Neutrophils/100 WBC (Bld) 79.4 % High 47-70 [facility] Comment on above: Performed By: #### L 300.4310, M200.1000, L503.6005, L500.4050, L100.0100, L300.3900 #### [facility] [address] [place], [address] Nucleated RBC (Bld) [#/Vol] 0 10*3/uL Normal 0-5 [facility] Comment on above: Performed By: #### L 300.4310, M200.1000, L503.6005, L500.4050, L100.0100, L300.3900 #### [facility] [address] [place], [address] Platelet mean volume (Bld) [Entitic vol] 9.4 fL Normal 6.2-12.0 [facility] Comment on above: Performed By: #### L 300.4310, M200.1000, L503.6005, L500.4050, L100.0100, L300.3900 #### [facility] [address] [place], [address] Platelets (Bld) [#/Vol] 485 10*3/uL High 150-450 [facility] Comment on above: Performed By: #### L 300.4310, M200.1000, L503.6005, L500.4050, L100.0100, L300.3900 #### [facility] [address] [place], [address] RBC (Bld) [#/Vol] 5.29 10*6/uL Normal 4.2-5.4 [facility] Comment on above: Performed By: #### L 300.4310, M200.1000, L503.6005, L500.4050, L100.0100, L300.3900 #### [facility] [address] [place], [address] RDW SD 40.1 fl Normal 35.1-43.9 [facility] Comment on above: Performed By: #### L 300.4310, M200.1000, L503.6005, L500.4050, L100.0100, L300.3900 #### [facility] [address] [place], [address] WBC (Bld) [#/Vol] 14.1 10*3/uL High 4.4-11.0 [facility] Comment on above: Performed By: #### L 300.4310, M200.1000, L503.6005, L500.4050, L100.0100, L300.3900 #### [facility] [address] [place], [address] Comprehensive Metabolic [facility] 11-08-2024 Albumin [Mass/Vol] 4.5 g/dL Normal 3.2-5.0 [facility] Comment on above: Performed By: #### L 300.4310, M200.1000, L503.6005, L500.4050, L100.0100, L300.3900 #### [facility] [address] [place], [address] Albumin/Globulin [Mass ratio] 1.2 {ratio} Normal 0.9-2.4 [facility] Comment on above: Performed By: #### L 300.4310, M200.1000, L503.6005, L500.4050, L100.0100, L300.3900 #### [facility] [address] [place], [address] ALK P 113 U/L Normal 45-117 [facility] Comment on above: Performed By: #### L 300.4310, M200.1000, L503.6005, L500.4050, L100.0100, L300.3900 #### [facility] [address] [place], [address] ALT [Catalytic activity/Vol] 35 U/L Normal 13-56 [facility] Comment on above: Performed By: #### L 300.4310, M200.1000, L503.6005, L500.4050, L100.0100, L300.3900 #### [facility] [address] [place], [address] AST [Catalytic activity/Vol] 8 U/L Low 15-37 [facility] Comment on above: Performed By: #### L 300.4310, M200.1000, L503.6005, L500.4050, L100.0100, L300.3900 #### [facility] [address] [place], [address] Bilirubin [Mass/Vol] 1.00 mg/dL Normal 0.20-1.00 [facility] Comment on above: Result Comment: For patients on eltrombopag therapy, use of Dimension [place] TBIL is not recommended. Performed By: #### L 300.4310, M200.1000, L503.6005, L500.4050, L100.0100, L300.3900 #### [facility] [address] [place], [address] BUN/CRE 16.7 RATIO Normal 10-20 [facility] Comment on above: Performed By: #### L 300.4310, M200.1000, L503.6005, L500.4050, L100.0100, L300.3900 #### [facility] [address] [place], [address] CA,Total 9.4 mg/dL Normal 8.5-10.1 [facility] Comment on above: Performed By: #### L 300.4310, M200.1000, L503.6005, L500.4050, L100.0100, L300.3900 #### [facility] [address] [place], [address] Chloride [Moles/Vol] 102 mmol/L Normal 98-107 [facility] Comment on above: Performed By: #### L 300.4310, M200.1000, L503.6005, L500.4050, L100.0100, L300.3900 #### [facility] [address] [place], [address] CO2 [Moles/Vol] 30.0 mmol/L Normal 21.0-32.0 [facility] Comment on above: Performed By: #### L 300.4310, M200.1000, L503.6005, L500.4050, L100.0100, L300.3900 #### [facility] [address] [place], [address] Creatinine [Mass/Vol] 0.84 mg/dL Normal 0.55-1.02 [facility] Comment on above: Result Comment: The validity of the calculated GFR GFRAA in patients over 70 years has not been determined. Clinical correlation is essential. Performed By: #### L 300.4310, M200.1000, L503.6005, L500.4050, L100.0100, L300.3900 #### [facility] [address] [place], [address] ECRCL 138.77 ml/min Normal [facility] Comment on above: Performed By: #### L 300.4310, M200.1000, L503.6005, L500.4050, L100.0100, L300.3900 #### [facility] [address] [place] [address] EST GFR - AA 99 mL/min Normal >60 [facility] Comment on above: Result Comment: Afri can Israeli GFR Calc Performed By: #### L 300.4310, M200.1000, L503.6005, L500.4050, L100.0100, L300.3900 #### [facility] [address] [place], [address] GAP 7 Normal 5-15 [facility] Comment on above: Performed By: #### L 300.4310, M200.1000, L503.6005, L500.4050, L100.0100, L300.3900 #### [facility] [address], [address] GFR/1.73 sq M.predicted among non-blacks MDRD (S/P/Bld) [Vol rate/Area] 82 mL/min/{1.73_m2} Normal >60 [facility] Comment on above: Result Comment: Non- GFR Calc Performed By: #### L 300.4310, M200.1000, L503.6005, L500.4050, L100.0100, L300.3900 #### [facility] [address] [place], [address] Globulin (S) [Mass/Vol] 3.8 g/dL Normal 2.2-4.2 [facility] Comment on above: Performed By: #### L 300.4310, M200.1000, L503.6005, L500.4050, L100.0100, L300.3900 #### [facility] [address] [place], [address] Glucose [Mass/Vol] 114 mg/dL High 74-106 [facility] Comment on above: Result Comment: Fast ing Glucose result from 100 to 125 mg/dL suggests IMPAIRED HOMEOSTASIS per A.D.A. criteria. Performed By: #### L 300.4310, M200.1000, L503.6005, L500.4050, L100.0100, L300.3900 #### [facility] [address] [place], [address] Potassium [Moles/Vol] 2.5 mmol/L Invalid Interpretation Code 3.5-5.1 [facility] Comment on above: Result Comment: Crit ical Result(s) Called at: 16:06:04 11/08/2024 by: DANA TUCKER. Results read back by Emily Madera Performed By: #### L 300.4310, M200.1000, L503.6005, L500.4050, L100.0100, L300.3900 #### [facility] [address] [place], [address] Sodium [Moles/Vol] 138 mmol/L Normal 136-145 [facility] Comment on above: Performed By: #### L 300.4310, M200.1000, L503.6005, L500.4050, L100.0100, L300.3900 #### [facility] [address] [place], [address] T PROT 8.3 g/dL High 6.4-8.2 [facility] Comment on above: Performed By: #### L 300.4310, M200.1000, L503.6005, L500.4050, L100.0100, L300.3900 #### [facility] [address] [place], [address] Urea nitrogen [Mass/Vol] 14 mg/dL Normal 7-18 [facility] Comment on above: Performed By: #### L 300.4310, M200.1000, L503.6005, L500.4050, L100.0100, L300.3900 #### [facility] [address] [place], [address] Elbow min 3 Viewson 12-14-20 24 Elbow min 3 Views [facility] Imaging Services [address] [address] Elbow min 3 Views MR#: [id number] Acct: [id number] Name: ROSHAN GUZMAN Rep #: [id number] : 1990 F 34 From: Perry Hubbard MD PCP: Care Physician,No Primary Status: REG ER Study: Elbow min 3 Views Date of Exam: 11/08/24 Exam# [id number] Ordering Dr: Dennis Beal DO [id number] INDICATION: left elbow pain EXAMINATION/TECHNIQUE : X-RAY - LEFT XR Elbow Min 3 Views 3 VIEWS COMPARISON: None. __ FINDINGS: SOFT TISSUES: No soft tissue swelling or gas. No radiopaque foreign body. BONES/JOINTS: No acute fracture. Joint spaces anatomically aligned. No sclerotic or destructive changes observed. RAD/Elbow min 3 Views IMPRESSION: Unremarkable study. Electronically Signed: Perry Hubbard MD at 15:40 EST , CC: Dr. Dennis Beal DO; No Primary Care Physician [employer] Filtering Supervisor: Signed Normal [facility] Emergency Department Summary on 11-08-2024 Emergency Department Summary [facility] Medical Records Department [address] [place] [address] Emergency Department Summary 11/08/24 MR#: [id number] Acct: [id number] Name: ROSHAN GUZMAN Rep #: [id number] : 1990 34 From: Dennis Beal DO PCP: Care Physician,No Primary Status:REG ER Location: ED HPI History of Present Illness Chief Complaint: Cellulitis Narrative Narrative: Patient is a 34-year-old female with a past medical history of opiate abuse, schizoaffective disorder who presents to the emergency department with a chief complaint of left elbow pain. Patient complains of left elbow pain after attempting to shoot up mass few days ago. She also is complaining of spotting 4 days after her period which is abnormal for her. States that she is sexually active and denies any control. She states that she is concerned that she may have an STI as well. Patient denies any fevers. Patient states that she does not use other drugs outside of meth as she does not like them. [facility] Medical History Drug overdose, intentional Schizoaffective disorder Substance abuse Home Medications ???Medication ???Instructions ???Recorded ???Last Taken ???Type famotidine 20 mg tablet (Pepcid) 20 mg PO BID 30 days #60 tabs 09/24/24 Unknown Rx promethazine 25 mg tablet 25 mg PO TID PRN nausea and 09/24/24 Unknown Rx vomiting #15 tabs doxycycline hyclate 100 mg capsule 100 mg PO BID 10 days #20 caps 11/08/24 Unknown Rx potassium chloride 20 mEq 20 meq PO BID 5 days #10 tabs 11/08/24 Unknown Rx tablet,extended release Allergy/AdvReac Type Severity Reaction Status Date / Time No Known Allergies Allergy Verified 09/23/24 23:20 Social History Smoking Status: Light Smoker (<10/day) ROS ROS ED ROS Narrative Constitutional: Denies any fevers, chills, headaches, lightness, dizziness Eyes: Denies change in vision double vision blurry vision Cardiovascular: Denies chest pain or palpitations Respiratory: Denies coughing wheezing shortness of breath Abdomen: Denies abdominal pain nausea vomit diarrhea : Complains of vaginal discharge as noted above denies any painful urination. Does complain of spotting as noted above Neurological: Denies any numbness, weakness, tingling Musculoskeletal: Complains of left elbow pain as noted above Skin: Complains of redness to her left proximal forearm EXAM Physical Exam Narrative Exam Narrative: General: Patient lying in bed rest comfortably did not appear to be in acute distress Head: Atraumatic, normocephalic Eyes: PERRL bilateral, EOMI bilateral, no conjunctival injection noted Neck: Soft, supple, trach midline Cardiovascular: Patient tachycardic with a regular rhythm no murmurs gallops rubs noted Respiratory: Clear to auscultation bilaterally Abdomen: Soft, nondistended, nontender to palpation, bowel sounds present x 4 Musculoskeletal: Patient is able to range her left elbow states that she does have some discomfort with attempted range of motion but is able still to do so Extremities: Radial pulses +2/4 in the bilateral upper extremities, +5/5 strength noted in the bilateral upper and lower extremities, Neurological: Patient follow commands as she was at [facility] year is 2023. Sensation grossly intact in the median, ulnar and radial nerve distributions bilaterally Skin: Warm, dry, intact, patient does have erythema noted to the left proximal forearm Const Vital Signs: 11/08/24 14:13 11/08/24 14:14 11/08/24 15:43 Temperature 98 F Temperature Source Temporal Pulse Rate 125 H 128 H Respiratory Rate 22 H 22 H Blood Pressure 161/111 H 153/120 H Blood Pressure Mean 127 131 Pulse Ox 98 100 Oxygen Delivery Method Room Air Room Air Room Air 11/08/24 15:44 11/08/24 16:44 11/08/24 17:00 Temperature 98 F 98 F 98 F Temperature Source Oral Oral Oral Pulse Rate 103 H 100 100 Respiratory Rate 18 18 18 Blood Pressure 131/82 H 133/89 H 130/89 H Blood Pressure Mean 98 103 102 Pulse Ox 99 99 99 Oxygen Delivery Method Room Air Room Air Room Air 11/08/24 18:00 Temperature 98.2 F Temperature Source Oral Pulse Rate 94 Respiratory Rate 19 H Blood Pressure 125/95 H Blood Pressure Mean 105 Pulse Ox 100 Oxygen Delivery Method Room Air MDM MDM MDM Narrative Medical decision making narrative: Patient is a 34-year-old female who presents to the Emergency Department chief complaint of left elbow pain and redness after attempting to shoot up meth and vaginal discharge. Patient will have a workup performed here on the differential diagnose includes not limited to left arm cellulitis, gonorrhea, chlamydia, , thr (more content not included)... Normal [facility] Lactic Acidon 11-08-2024 Lactate [Moles/Vol] 1.2 mmol/L Normal 0.4-1.9 [facility] Comment on above: Order Comment: Y Performed By: #### L 300.4310, M200.1000, L503.6005, L500.4050, L100.0100, L300.3900 ####[facility] [address] [place], [address] Partial Thromboplast Timeon 11-08-2024 aPTT Coag (Bld) [Time] 29.4 s Normal 24.1-36.2 [facility] Comment on above: Performed By: #### L 300.4310, M200.1000, L503.6005, L500.4050, L100.0100, L300.3900 #### [facility] [address] [place], [address] ,Serum,hCG Quali.on 11-08-2024 HCG, SERUM QUAL Negative Normal [facility] Comment on above: Performed By: #### L 700.6800 #### [facility] [address] [place], [address] Prothrombin Time w/INRon INR Coag (PPP) [Relative time] 1.1 {INR} Normal [facility] Comment on above: Performed By: #### L 300.4310, M200.1000, L503.6005, L500.4050, L100.0100, L300.3900 #### [facility] [address], [address] PT Coag (PPP) [Time] 13.7 s Normal 11.7-14.9 [facility] Comment on above: Performed By: #### L 300.4310, M200.1000, L503.6005, L500.4050, L100.0100, L300.3900 #### [facility] [address], [address] Urinalysis, Completeon 11-08 BACTERIA Normal None Seen [facility] Comment on above: Order Comment: COLLE CTOR TO SPECIFY Result Comment: NO U RINE COLLECTED. PATIENT DEPARTED ED. Performed By: #### L 400.0001, M100.0500 ####[facility] [address] [place], [address] BILIRUBIN URINE Normal Negative [facility] Comment on above: Order Comment: BRIANA CTOR TO SPECIFY Result Comment: NO U RINE COLLECTED. PATIENT DEPARTED ED. Performed By: #### L 400.0001, M100.0500 ####[facility] [address] [place], [address] Clarity (U) Normal Clear [facility] Comment on above: Order Comment: BRIANA CTOR TO SPECIFY Result Comment: NO U RINE COLLECTED. PATIENT DEPARTED ED. Performed By: #### L 400.0001, M100.0500 ####[facility] [address] [place], [address] Color (U) Normal Yellow [facility] Comment on above: Order Comment: BRIANA CTOR TO SPECIFY Result Comment: NO U RINE COLLECTED. PATIENT DEPARTED ED. Performed By: #### L 400.0001, M100.0500 ####[facility] [address] [place], [address] EPI,SQUAMOUS Normal 5-10 [facility] Comment on above: Order Comment: BRIANA CTOR TO SPECIFY Result Comment: NO U RINE COLLECTED. PATIENT DEPARTED ED. Performed By: #### L 400.0001, M100.0500 ####[facility] [address] [place], [address] GLUCOSE, UR Normal Normal [facility] Comment on above: Order Comment: BRIANA CTOR TO SPECIFY Result Comment: NO U RINE COLLECTED. PATIENT DEPARTED ED. Performed By: #### L 400.0001, M100.0500 ####[facility] [address] [place], [address] KETONE UR Normal Negative [facility] Comment on above: Order Comment: BRIANA CTOR TO SPECIFY Result Comment: NO U RINE COLLECTED. PATIENT DEPARTED ED. Performed By: #### L 400.0001, M100.0500 ####[facility] [address] [place], [address] LEUK ESTERASE Normal Negative [facility] Comment on above: Order Comment: BRIANA CTOR TO SPECIFY Result Comment: NO U RINE COLLECTED. PATIENT DEPARTED ED. Performed By: #### L 400.0001, M100.0500 ####[facility] [address] [place], [address] Mucus Ql (Urine sed) Normal [facility] Comment on above: Order Comment: BRIANA CTOR TO SPECIFY Result Comment: NO U RINE COLLECTED. PATIENT DEPARTED ED. Performed By: #### L 400.0001, M100.0500 ####[facility] [address] [place], [address] Nitrite Ql (U) Normal Negative [facility] Comment on above: Order Comment: BRIANA CTOR TO SPECIFY Result Comment: NO U RINE COLLECTED. PATIENT DEPARTED ED. Performed By: #### L 400.0001, M100.0500 ####[facility] [address] [place], [address] OCCULT BLOOD-UR Normal Negative [facility] Comment on above: Order Comment: BRIANA CTOR TO SPECIFY Result Comment: NO U RINE COLLECTED. PATIENT DEPARTED ED. Performed By: #### L 400.0001, M100.0500 ####[facility] [address] [place], [address] pH UR Normal 5.0 - 8.0 [facility] Comment on above: Order Comment: BRIANA CTOR TO SPECIFY Result Comment: NO U RINE COLLECTED. PATIENT DEPARTED ED. Performed By: #### L 400.0001, M100.0500 ####[facility] [address] [place], [address] PROT DIPSTX Normal Negative [facility] Comment on above: Order Comment: BRIANA CTOR TO SPECIFY Result Comment: NO U RINE COLLECTED. PATIENT DEPARTED ED. Performed By: #### L 400.0001, M100.0500 ####[facility] [address] [place], [address] RBC Normal 0-5 [facility] Comment on above: Order Comment: BRIANA CTOR TO SPECIFY Result Comment: NO U RINE COLLECTED. PATIENT DEPARTED ED. Performed By: #### L 400.0001, M100.0500 ####[facility] [address] [place], [address] SP.GR. DIPSTX Normal 1.002-1.030 [facility] Comment on above: Order Comment: BRIANA CTOR TO SPECIFY Result Comment: NO U RINE COLLECTED. PATIENT DEPARTED ED. Performed By: #### L 400.0001, M100.0500 ####[facility] [address] [place], [address] UR Preservative Normal [facility] Comment on above: Order Comment: BRIANA CTOR TO SPECIFY Result Comment: NO U RINE COLLECTED. PATIENT DEPARTED ED. Performed By: #### L 400.0001, M100.0500 ####[facility] [address] [place], [address] UROBILI Normal Normal [facility] Comment on above: Order Comment: BRIANA CTOR TO SPECIFY Result Comment: NO U RINE COLLECTED. PATIENT DEPARTED ED. Performed By: #### L 400.0001, M100.0500 ####[facility] [address] [place], [address] WBC Normal 0-5 [facility] Comment on above: Order Comment: BRIANA CTOR TO SPECIFY Result Comment: NO U RINE COLLECTED. PATIENT DEPARTED ED. Performed By: #### L 400.0001, M100.0500 ####[facility] [address] [place], [address] Wet Prep Trichamonason 11-08 WP Motile Trichomonas NONE SEEN WBC 0-5 Normal [facility] Comment on above: Performed By: #### L 400.0001, M100.0500 ####[facility] [address] [place], [address] 12 Lead EKGon 09-24-2024 12 Lead EKG [facility] Cardiovascular Services [address] [address] 12 Lead EKG 09/24/24 0053 MR#: [id number] Acct: [id number] Name: ROSHAN GUZMAN Rep #: [id number] : 1990 34 From: Calvin Anderson MD Attending Dr: Status: DEP ER Ordering Dr: Sal Lr DO Date: 09/24/24 Location: ED Sex: F H Admitted: Test Reason : DYSRHYTHMIA Blood Pressure : */* mmHG Vent. Rate : 69 BPM Atrial Rate : 69 BPM P-R Int : 128 ms QRS Dur : 74 ms QT Int : 528 ms P-R-T Axes : -57 36 41 degrees QTcB Int : 565 ms Critical Test Result: Long QTc Unusual P axis, possible ectopic atrial rhythm Prolonged QT Abnormal ECG Confirmed by CALVIN ANDERSON MD ([id number]), editor house organ RANDY KAUR ([id number]) on 09/25/2024 11:31:56 AM Referred By: Confirmed By: CALVIN ANDERSON MD 09/25/24 1131 Date Calvin Anderson MD CC: Sal Lr DO; No Primary Care Physician Signed Normal [facility] Alcohol, Blood (Medical)-Ser umon 09-24-2024 SERUM ETOH < 3.0 Normal [facility] Comment on above: Result Comment: The serum:whole blood ethanol ratio is approximately 1.14 and varies slightly with hematocrit. Medical Alcohol reference interval and critical value in non-tolerant individuals; 50 - 100 Impairment 100 Intoxication 100 - 250 Severe Poisoning 250 - 400 Deep/possible fatal coma Performed By: #### L 501.9100, L700.6800, L500.3400, L501.2450, L300.8000, L100.0100, L500.2500, L505.5000 ####[facility] [address] [place], [address] Basic Metabolic Profile (BMP )on 09-24-2024 BUN/CRE 16.0 RATIO Normal - [facility] Comment on above: Performed By: #### L 501.9100, L700.6800, L500.3400, L501.2450, L300.8000, L100.0100, L500.2500, L505.5000 ####[facility] [address] [place], [address] CA,Total 9.4 mg/dL Normal 8.5-10.1 [facility] Comment on above: Performed By: #### L 501.9100, L700.6800, L500.3400, L501.2450, L300.8000, L100.0100, L500.2500, L505.5000 ####[facility] [address] [place], [address] Chloride [Moles/Vol] 107 mmol/L Normal 98-107 [facility] Comment on above: Performed By: #### L 501.9100, L700.6800, L500.3400, L501.2450, L300.8000, L100.0100, L500.2500, L505.5000 ####[facility] [address] [place], [address] CO2 [Moles/Vol] 18.0 mmol/L Low 21.0-32.0 [facility] Comment on above: Performed By: #### L 501.9100, L700.6800, L500.3400, L501.2450, L300.8000, L100.0100, L500.2500, L505.5000 ####[facility] [address] [place], [address] Creatinine [Mass/Vol] 0.81 mg/dL Normal 0.55-1.02 [facility] Comment on above: Result Comment: The validity of the calculated GFR GFRAA in patients over 70 years has not been determined. Clinical correlation is essential. Performed By: #### L 501.9100, L700.6800, L500.3400, L501.2450, L300.8000, L100.0100, L500.2500, L505.5000 ####[facility] [address] [place], [place], [id number] EST GFR - AA 102 mL/min Normal >60 [facility] Comment on above: Result Comment: Afri can Israeli GFR Calc Performed By: #### L 501.9100, L700.6800, L500.3400, L501.2450, L300.8000, L100.0100, L500.2500, L505.5000 ####[facility] [address] [place], [place], [id number] GAP 11 Normal 5-15 [facility] Comment on above: Performed By: #### L 501.9100, L700.6800, L500.3400, L501.2450, L300.8000, L100.0100, L500.2500, L505.5000 ####[facility] [address] [place], [place], [id number] GFR/1.73 sq M.predicted among non-blacks MDRD (S/P/Bld) [Vol rate/Area] 85 mL/min/{1.73_m2} Normal >60 [facility] Comment on above: Result Comment: Non- GFR Calc Performed By: #### L 501.9100, L700.6800, L500.3400, L501.2450, L300.8000, L100.0100, L500.2500, L505.5000 ####[facility] [address] [place], [address] Glucose [Mass/Vol] 129 mg/dL High 74-106 [facility] Comment on above: Result Comment: Fast ing Glucose result greater than or equal to 126 mg/dL suggests DIABETES MELLITUS per A.D.A. criteria. Performed By: #### L 501.9100, L700.6800, L500.3400, L501.2450, L300.8000, L100.0100, L500.2500, L505.5000 ####[facility] [address] [place], [address] Potassium [Moles/Vol] 3.3 mmol/L Low 3.5-5.1 [facility] Comment on above: Result Comment: Slig ht Hemolysis, Result may be falsely increased. Performed By: #### L 501.9100, L700.6800, L500.3400, L501.2450, L300.8000, L100.0100, L500.2500, L505.5000 ####[facility] [address] [place], [place], [phone] Sodium [Moles/Vol] 137 mmol/L Normal 136-145 [facility] Comment on above: Performed By: #### L 501.9100, L700.6800, L500.3400, L501.2450, L300.8000, L100.0100, L500.2500, L505.5000 ####[facility] [address] [place], [address] Urea nitrogen [Mass/Vol] 13 mg/dL Normal 7-18 [facility] Comment on above: Performed By: #### L 501.9100, L700.6800, L500.3400, L501.2450, L300.8000, L100.0100, L500.2500, L505.5000 ####[facility] [address] [place], [place], [id number] CBC W/Diff, Automatedon 10-3 0-2024 Absolute Lymph 3.17 X10 3/uL Normal 0.83-4.51 [facility] Comment on above: Performed By: #### L 501.9100, L700.6800, L500.3400, L501.2450, L300.8000, L100.0100, L500.2500, L505.5000 ####[facility] [address] [place], [address] Absolute Neut 5.6 X10 3/uL Normal 2.0-7.7 [facility] Comment on above: Performed By: #### L 501.9100, L700.6800, L500.3400, L501.2450, L300.8000, L100.0100, L500.2500, L505.5000 ####[facility] [address] [place], [address] Basophils/100 WBC (Bld) 0.8 % Normal 0-1 [facility] Comment on above: Performed By: #### L 501.9100, L700.6800, L500.3400, L501.2450, L300.8000, L100.0100, L500.2500, L505.5000 ####[facility] [address] [place], [address] Eosinophils/100 WBC (Bld) 1.1 % Normal 0-5 [facility] Comment on above: Performed By: #### L 501.9100, L700.6800, L500.3400, L501.2450, L300.8000, L100.0100, L500.2500, L505.5000 ####[facility] [address] [place], [address] Erythrocyte distribution width (RBC) [Ratio] 12.8 % Normal 11.6-14.6 [facility] Comment on above: Performed By: #### L 501.9100, L700.6800, L500.3400, L501.2450, L300.8000, L100.0100, L500.2500, L505.5000 ####[facility] [address] [place], [address] Hematocrit (Bld) [Volume fraction] 41.6 % Normal 37-47 [facility] Comment on above: Performed By: #### L 501.9100, L700.6800, L500.3400, L501.2450, L300.8000, L100.0100, L500.2500, L505.5000 ####[facility] [address] [place], [place], [phone] Hemoglobin (Bld) [Mass/Vol] 13.8 g/dL Normal 12.0-15.0 [facility] Comment on above: Performed By: #### L 501.9100, L700.6800, L500.3400, L501.2450, L300.8000, L100.0100, L500.2500, L505.5000 ####[facility] [address] [place], [place], [phone] IG% 0.500 Normal 0.0-0.9 [facility] Comment on above: Result Comment: IG% - Immature Granulocytes (promyelocytes, myelocytes and metamyelocytes) > 1% indicates that a LEFT SHIFT is Present. Performed By: #### L 501.9100, L700.6800, L500.3400, L501.2450, L300.8000, L100.0100, L500.2500, L505.5000 ####[facility] [address] [place], [address] Lymphocytes/100 WBC (Bld) 31.7 % Normal 19-41 [facility] Comment on above: Performed By: #### L 501.9100, L700.6800, L500.3400, L501.2450, L300.8000, L100.0100, L500.2500, L505.5000 ####[facility] [address] [place], [address] MCH (RBC) [Entitic mass] 27.0 pg Normal 27.0-32.0 [facility] Comment on above: Performed By: #### L 501.9100, L700.6800, L500.3400, L501.2450, L300.8000, L100.0100, L500.2500, L505.5000 ####[facility] [address], [address] MCHC (RBC) [Mass/Vol] 33.2 g/dL Normal 32-36 [facility] Comment on above: Performed By: #### L 501.9100, L700.6800, L500.3400, L501.2450, L300.8000, L100.0100, L500.2500, L505.5000 ####[facility] [address], [address] MCV (RBC) [Entitic vol] 81.4 fL Normal 81-99 [facility] Comment on above: Performed By: #### L 501.9100, L700.6800, L500.3400, L501.2450, L300.8000, L100.0100, L500.2500, L505.5000 ####[facility] [address], [address] Monocytes/100 WBC (Bld) 9.9 % Normal 0-10 [facility] Comment on above: Performed By: #### L 501.9100, L700.6800, L500.3400, L501.2450, L300.8000, L100.0100, L500.2500, L505.5000 ####[facility] [address] [place], [address] Neutrophils/100 WBC (Bld) 56.0 % Normal 47-70 [facility] Comment on above: Performed By: #### L 501.9100, L700.6800, L500.3400, L501.2450, L300.8000, L100.0100, L500.2500, L505.5000 ####[facility] [address] [place], [address] Nucleated RBC (Bld) [#/Vol] 0 10*3/uL Normal 0-5 [facility] Comment on above: Performed By: #### L 501.9100, L700.6800, L500.3400, L501.2450, L300.8000, L100.0100, L500.2500, L505.5000 ####[facility] [address] [place], [address] Platelet mean volume (Bld) [Entitic vol] 10.0 fL Normal 6.2-12.0 [facility] Comment on above: Performed By: #### L 501.9100, L700.6800, L500.3400, L501.2450, L300.8000, L100.0100, L500.2500, L505.5000 ####[facility] [address] [place], [place], [phone]) Platelets (Bld) [#/Vol] 405 10*3/uL Normal 150-450 [facility] Comment on above: Performed By: #### L 501.9100, L700.6800, L500.3400, L501.2450, L300.8000, L100.0100, L500.2500, L505.5000 ####[facility] [address] [place], [address] RBC (Bld) [#/Vol] 5.11 10*6/uL Normal 4.2-5.4 [facility] Comment on above: Performed By: #### L 501.9100, L700.6800, L500.3400, L501.2450, L300.8000, L100.0100, L500.2500, L505.5000 ####[facility] [address] [place], [address] RDW SD 37.7 fl Normal 35.1-43.9 [facility] Comment on above: Performed By: #### L 501.9100, L700.6800, L500.3400, L501.2450, L300.8000, L100.0100, L500.2500, L505.5000 ####[facility] [address], [address] WBC (Bld) [#/Vol] 10.0 10*3/uL Normal 4.4-11.0 [facility] Comment on above: Performed By: #### L 501.9100, L700.6800, L500.3400, L501.2450, L300.8000, L100.0100, L500.2500, L505.5000 ####[facility] [address], [address] Chest 1 View (Portable)on Chest 1 View (Portable) [facility] Imaging Services [address] [address] Chest 1 View (Portable) MR#: [id number] Acct: [id number] Name: ROSHAN GUZMAN Rep #: [id number] : 1990 F 34 From: Hiren Green MD PCP: Care Physician,No Primary Status: [facility] ER Study: Chest 1 View (Portable) Date of Exam: 09/24/24 Exam# [id number] Ordering Dr: Sal Lr DO [id number] INDICATION: chest pain EXAMINATION/TECHNIQUE : X-RAY - XR Chest 1 View COMPARISON: 02/28/2017 chest radiograph. Findings: Single frontal view of the chest. Patient is rotated. LUNG PARENCHYMA: No acute focal airspace disease or mass lesion. PLEURA: No pleural effusion. No pneumothorax. HEART/GREAT VESSELS: Cardiomediastinal silhouette is unremarkable. BONES: Osseous structures are unremarkable for age. RAD/Chest 1 View (Portable) IMPRESSION: Chest with no acute disease. Electronically Signed: Hiren Green MD at 2:06 EDT , CC: Sal Lr DO; No Primary Care Physician [employer] Fil[employer] Supervisor: Signed Normal [facility] D-Dimer Quantitative (DVT/PE )on 09-24-2024 D-DIMER QUANT 0.31 FEU/ug/m Normal 0.27-0.49 [facility] Comment on above: Result Comment: NORM AL D-Dimer level (<0.50) indicates no DVT or PE. Performed By: #### L 501.9100, L700.6800, L500.3400, L501.2450, L300.8000, L100.0100, L500.2500, L505.5000 ####[facility] [address] [facility] [place], [address] Emergency Department Summary on 09-24-2024 Emergency Department Summary [facility] Medical Records Department [address] [place] [address] Emergency Department Summary 09/24/24 MR#: [id number] Acct: [id number] Name: ROSHAN GUZMAN Rep #: [id number] : 1990 34 From: Sal Lr DO PCP: Care Physician,No Primary Status:DEP ER Location: ED HPI History of Present Illness Chief Complaint: Abd Pain Informant: patient Narrative Narrative: Patient is a 34-year-old female with past medical history of schizoaffective disorder. She states that roughly 30 minutes to 1 hour prior to arrival she developed upper abdominal discomfort with nausea and vomiting. She denies any known sick contacts. She states she does not have a history of pancreatitis and denies any history of gallbladder disorder. She states she does feel that the pain radiates into the lower portion of her chest but denies any history of cardiovascular disease in the family at a young age and denies any recent surgery travel or history of DVT/PE. PFSH PFSH Medical History no medical history Home Medications ???Medication ???Instructions ???Recorded ???Last Taken ???Type famotidine 20 mg tablet (Pepcid) 20 mg PO BID 30 days #60 tabs 09/24/24 Unknown Rx promethazine 25 mg tablet 25 mg PO TID PRN nausea and 09/24/24 Unknown Rx vomiting #15 tabs Allergy/AdvReac Type Severity Reaction Status Date / Time No Known Allergies Allergy Verified 09/23/24 23:20 Family History no significant family his Surgical History no surgical history Social History Smoking Status: Never smoker ROS ROS ED Constitutional Constitutional ED: Denies chills or fever(s) Eyes Eyes: Denies blurry vision or change in vision ENT ENT ED: Denies sore throat Cardiovascular Cardiovascular: Reports chest pain Respiratory/Chest Respiratory/Chest: Denies cough or dyspnea Gastrointestinal Gastrointestinal: Reports abdominal pain, nausea and vomiting; Denies diarrhea Genitourinary Genitourinary ED: Denies dysuria Musculoskeletal Musculoskeletal: Denies back pain or myalgias Integumentary Denies rash Neurologic Neurologic: Denies headache(s) Hematologic/Lymphatic Hematologic/Lymphatic : Denies easy bleeding or easy bruising EXAM Physical Exam Const Vital Signs: 09/23/24 23:20 09/24/24 01:19 09/24/24 02:03 Temperature 97.6 F L 97.8 F Temperature Source Temporal Pulse Rate 106 H 72 72 Respiratory Rate 18 16 16 Blood Pressure 141/110 H 114/63 114/63 Blood Pressure Mean 120 80 80 Pulse Ox 100 99 99 Oxygen Delivery Method Room Air Room Air Positive well nourished and well developed General Appearance ED: well developed; Negative for pallor HEENT HEENT Narrative: No tongue or lip swelling no oral lesions no airway edema or compromise No signs of infection noted in the posterior pharynx Eyes PERRL and EOMs intact bilaterally General Eye ED: Negative for scleral icterus Neck supple Neck Narrative: No nuchal rigidity or meningeal signs Chest Wall palpation of chest normal Resp normal respiratory effort and clear to auscultation bilaterally Cardio regular rhythm Rate: tachycardic and other Other Details: Slightly tachycardic rate with regular rhythm No murmurs rubs or gallops Radial and carotid pulses are equal and symmetric GI non-distended and no masses GI Narrative: Soft and nondistended with hyperactive bowel sounds. There is pain on palpation in the midepigastric region without voluntary guarding or rigidity. No pulsatile mass or fluid wave Auscultation: hyperactive bowel sounds Palpation: soft Back/Spine no CVA tenderness Extremity normal to inspection Extremity Narrative: No asymmetric edema no pitting edema negative Homans' sign bilaterally Neuro oriented x3, CN's II-XII intact bilaterally and no sensory deficits noted Sensorium / Orientation: alert Motor Exam: strength 5/5 throughout Psych Mood Affect: anxious Skin no rashes or lesions noted General Skin Exam: Negative for jaundice or pallor MDM MDM MDM Narrative Medical decision making narrative: Patient presented to the ER slightly tachycardic and hypertensive but afebrile. Pain was in the upper mid abdomen and therefore differential diagnosis is for pancreatitis versus biliary colic versus acute cholecystitis versus viral stomach infection such as Geronimo virus or rotavirus versus potential cardiac event such as ACS or cardiac dysrhythmia. There is also concern potential lung pathology such as pneumonia or pneumothorax. Therefore basic labs were obtained as well as EKG and chest x-ray. Chest x-ray revealed no acute findings and EKG revealed sinus rhythm without ischemic or dysrhythmia changes. Basic blood work was obtained and patient does not have a white count or left shift her lipase is normal (more content not included)... Normal [facility] Lipaseon 09-24-2024 Lipase [Catalytic activity/Vol] 35 U/L Normal 13-75 [facility] Comment on above: Result Comment: Naif guthrie note: LIPASE revised reference range effective 23. New Lipase methodology. Expected to produce lower values than the previous assay method. NEW Reference Range: 13 - 75 U/L Performed By: #### L 501.9100, L700.6800, L500.3400, L501.2450, L300.8000, L100.0100, L500.2500, L505.5000 ####[facility] [address] [place], [address] Liver Profileon 09-24-2024 Albumin [Mass/Vol] 4.3 g/dL Normal 3.2-5.0 [facility] Comment on above: Performed By: #### L 501.9100, L700.6800, L500.3400, L501.2450, L300.8000, L100.0100, L500.2500, L505.5000 ####[facility] [address] [place], [address] ALK P 92 U/L Normal 45-117 [facility] Comment on above: Performed By: #### L 501.9100, L700.6800, L500.3400, L501.2450, L300.8000, L100.0100, L500.2500, L505.5000 ####[facility] [address] [place], [address] ALT [Catalytic activity/Vol] 35 U/L Normal 13-56 [facility] Comment on above: Performed By: #### L 501.9100, L700.6800, L500.3400, L501.2450, L300.8000, L100.0100, L500.2500, L505.5000 ####[facility] [address] [place], [place], [id number] AST [Catalytic activity/Vol] 17 U/L Normal 15-37 [facility] Comment on above: Result Comment: Slig ht Hemolysis, Result may be falsely increased. Performed By: #### L 501.9100, L700.6800, L500.3400, L501.2450, L300.8000, L100.0100, L500.2500, L505.5000 ####[facility] [address] [place], [address] Bilirubin [Mass/Vol] 0.60 mg/dL Normal 0.20-1.00 [facility] Comment on above: Result Comment: For patients on eltrombopag therapy, use of Dimension [place] TBIL is not recommended. Performed By: #### L 501.9100, L700.6800, L500.3400, L501.2450, L300.8000, L100.0100, L500.2500, L505.5000 ####[facility] [address] [place], [place], [id number] Bilirubin.direct [Mass/Vol] 0.21 mg/dL Normal 0.00-0.30 [facility] Comment on above: Performed By: #### L 501.9100, L700.6800, L500.3400, L501.2450, L300.8000, L100.0100, L500.2500, L505.5000 ####[facility] [address] [place], [address] Globulin (S) [Mass/Vol] 3.4 g/dL Normal 2.2-4.2 [facility] Comment on above: Performed By: #### L 501.9100, L700.6800, L500.3400, L501.2450, L300.8000, L100.0100, L500.2500, L505.5000 ####[facility] [address] [place], [address] T PROT 7.7 g/dL Normal 6.4-8.2 [facility] Comment on above: Performed By: #### L 501.9100, L700.6800, L500.3400, L501.2450, L300.8000, L100.0100, L500.2500, L505.5000 ####[facility] [address], [address] ,Serum,hCG Quali.on 09-24-2024 HCG, SERUM QUAL Negative Normal [facility] Comment on above: Performed By: #### L 501.9100, L700.6800, L500.3400, L501.2450, L300.8000, L100.0100, L500.2500, L505.5000 ####[facility] [address] [place], [address] Urine Drug Screen (VISTA)on 09-24-2024 AMPHETAMINES Normal <1000 ng/mL [facility] Comment on above: Result Comment: URIN E NOT COLLECTED, PT. DISCHARGED Performed By: #### L 501.9100, L700.6800, L500.3400, L501.2450, L300.8000, L100.0100, L500.2500, L505.5000 ####[facility] [address] [place], [place], [id number] BARBITIURATES Normal < 200 ng/mL [facility] Comment on above: Result Comment: URIN E NOT COLLECTED, PT. DISCHARGED Performed By: #### L 501.9100, L700.6800, L500.3400, L501.2450, L300.8000, L100.0100, L500.2500, L505.5000 ####[facility] [address] [place], [place], [id number] BENZODIAZIPINE Normal < 200 ng/mL [facility] Comment on above: Result Comment: URIN E NOT COLLECTED, PT. DISCHARGED Performed By: #### L 501.9100, L700.6800, L500.3400, L501.2450, L300.8000, L100.0100, L500.2500, L505.5000 ####[facility] [address] [place], [place], [id number] COCAINE Normal < 300 ng/mL [facility] Comment on above: Result Comment: URIN E NOT COLLECTED, PT. DISCHARGED Performed By: #### L 501.9100, L700.6800, L500.3400, L501.2450, L300.8000, L100.0100, L500.2500, L505.5000 ####[facility] [address] [place], [address] DRUG CONFIRM Normal [facility] Comment on above: Result Comment: URIN E NOT COLLECTED, PT. DISCHARGED Performed By: #### L 501.9100, L700.6800, L500.3400, L501.2450, L300.8000, L100.0100, L500.2500, L505.5000 ####[facility] [address] [place], [address] ECSTACY Normal < 500 ng/mL [facility] Comment on above: Result Comment: URIN E NOT COLLECTED, PT. DISCHARGED Performed By: #### L 501.9100, L700.6800, L500.3400, L501.2450, L300.8000, L100.0100, L500.2500, L505.5000 ####[facility] [address] [place], [place], [phone] METHADONE Normal < 300 ng/mL [facility] Comment on above: Result Comment: URIN E NOT COLLECTED, PT. DISCHARGED Performed By: #### L 501.9100, L700.6800, L500.3400, L501.2450, L300.8000, L100.0100, L500.2500, L505.5000 ####[facility] [address] [place] [address] OPIATES Normal < 300 ng/mL [facility] Comment on above: Result Comment: URIN E NOT COLLECTED, PT. DISCHARGED Performed By: #### L 501.9100, L700.6800, L500.3400, L501.2450, L300.8000, L100.0100, L500.2500, L505.5000 ####[facility] [address] [place] [address] PCP Normal < 25 ng/mL [facility] Comment on above: Result Comment: URIN E NOT COLLECTED, PT. DISCHARGED Performed By: #### L 501.9100, L700.6800, L500.3400, L501.2450, L300.8000, L100.0100, L500.2500, L505.5000 ####[facility] [address] [place], [address] THC Normal < 50 ng/mL [facility] Comment on above: Result Comment: URIN E NOT COLLECTED, PT. DISCHARGED Performed By: #### L 501.9100, L700.6800, L500.3400, L501.2450, L300.8000, L100.0100, L500.2500, L505.5000 ####[facility] [address] [place], [place], [address] VISTA UDS PH Normal [facility] Comment on above: Result Comment: URIN E NOT COLLECTED, PT. DISCHARGED Performed By: #### L 501.9100, L700.6800, L500.3400, L501.2450, L300.8000, L100.0100, L500.2500, L505.5000 ####[facility] [address] [place], [place], [id number] .Urinalysis Microscopic (AO) on 07-29-2018 RBC Test strip #/vol (U) 0-5 Invalid Interpretation Code None Seen [facility] ([place]) Comment on above: Performed By: #### U A, PREGU, UAMICAO ####[address] [place], [place] [address] UA Bacteria 1+ /hpf Invalid Interpretation Code [facility] ([place] Comment on above: Performed By: #### U A, PREGU, UAMICAO ####[address] [place], [place] [address] UA Squam Epithelial None Seen Normal None Seen [facility] ([place]) Comment on above: Performed By: #### U A, PREGU, UAMICAO ####[address] [place], [place] [address] UA WBC 5-10 Invalid Interpretation Code None Seen [facility] ([place] Comment on above: Performed By: #### U A, PREGU, UAMICAO ####[address] [place], [place] [address] PREGUon 07-29-2018 HCG ( test) Ql (U) Negative Normal [facility] ([place]) Comment on above: Performed By: #### U A, PREGU, UAMICAO ####[address] [place] [address] test (u) int HCG not detected. Invalid Interpretation Code [facility] ([place]) Comment on above: Performed By: #### U A, PREGU, UAMICAO ####[address] [place], [place] [address] UAon 07-29-2018 Color Nom (U) Yellow Normal [facility] ([place]) Comment on above: Performed By: #### U A, PREGU, UAMICAO ####[address] [place] [address] Glucose mass conc (U) Negative Normal Negative [facility] ([place]) Comment on above: Performed By: #### U A, PREGU, UAMICAO ####[address] [place] [address] Ketones Ql (U) >=80 Invalid Interpretation Code Negative [facility] ([place] Comment on above: Performed By: #### U A, PREGU, UAMICAO ####[address] [place] [address] UA Appear Clear Normal Clear [facility] ([place] Comment on above: Performed By: #### U A, PREGU, UAMICAO ####[address] [place], [place] [address] UA Blood Small Invalid Interpretation Code Negative [facility] ([place]) Comment on above: Performed By: #### U A, PREGU, UAMICAO ####[address] [place], [place] [address] UA Leuk Est Trace Invalid Interpretation Code Negative [facility] ([place]) Comment on above: Performed By: #### U A, PREGU, UAMICAO ####[address] [place], [place] [address] UA Nitrite Positive Invalid Interpretation Code Negative [facility] ([place]) Comment on above: Performed By: #### U A, PREGU, UAMICAO ####[address] [place] [id number] UA pH 6.0 Normal [facility] ([place] Comment on above: Performed By: #### U A, PREGU, UAMICAO ####[address] [place], [place] [address] UA Protein Trace Normal Negative [facility] ([place]) Comment on above: Performed By: #### U A, PREGU, UAMICAO ####[address] [place], [place] [address] UA Spec Grav 1.025 Normal [facility] ([place]) Comment on above: Performed By: #### U A, PREGU, UAMICAO ####[address] [place], [place] [address] UA Specimen Type Clean Catch Normal [facility] ([place]) Comment on above: Performed By: #### U A, PREGU, UAMICAO ####[address] [place], [place] [address] UA Urobilinogen 0.2 E.U./dL Normal [facility] ([place]) Comment on above: Performed By: #### U A, PREGU, UAMICAO ####[address] [place], [place] [address] Urobilinogen Test strip Qn (U) Negative Normal Negative [facility] ([place]) Comment on above: Performed By: #### U A, PREGU, UAMICAO ####[address] [place], [place] [address] Vital Signs Date Time Vital Sign Value Performing Clinician Facility 01-17-2025 01:15-0500 Diastolic blood pressure 78 mm[Hg] Manpreet Camarena DO Work Phone: [facility] 01-17-2025 01:15-0500 Heart rate 78 /min Manpreet Camarena DO Work Phone: [facility] 01-17-2025 01:15-0500 Respiratory rate 18 /min Manpreet Camarena DO Work Phone: [facility] 01-17-2025 01:15-0500 SaO2% (BldA) [Mass fraction] 98 % Manpreet Camarena DO Work Phone: [facility] 01-17-2025 01:15-0500 Systolic blood pressure 106 mm[Hg] Manpreet Schropp DO Work Phone: [facility] 01-16-2025 17:37-0500 Body temperature 98.49 [degF] Manpreet Schropp DO Work Phone: [facility] 01-15-2025 19:37-0500 Body height 157.5 cm Manpreet Schropp DO Work Phone: [facility] 01-15-2025 19:37-0500 Body mass index (BMI) [Ratio] 28.53 kg/m2 Manpreet Schropp DO Work Phone: [facility] 01-15-2025 19:37-0500 Body weight 70.76 kg Manpreet Schropp DO Work Phone: [facility] 01-12-2025 09:19-0500 Body weight 70.13 kg Corina MadrigalLiliana DO Work Phone: [facility] 01-12-2025 09:19-0500 Diastolic blood pressure 86 mm[Hg] Corina Liliana DO Work Phone: [facility] 01-12-2025 09:19-0500 Heart rate 114 /min Corina Liliana DO Work Phone: [facility] 01-12-2025 09:19-0500 Systolic blood pressure 133 mm[Hg] Corina Liliana DO Work Phone: [facility] 01-05-2025 14:59-0500 Body weight 72.12 kg Johana Malena EMERGENCY RESPONSE OFFICER.[employer] Work Phone: [facility] 01-05-2025 14:59-0500 Diastolic blood pressure 68 mm[Hg] Johana Healy EMERGENCY RESPONSE OFFICER.[employer] Work Phone: [facility] 01-05-2025 14:59-0500 Systolic blood pressure 118 mm[Hg] Johana Malena EMERGENCY RESPONSE OFFICER.[employer] Work Phone: [facility] Encounters Encounter Date Encounter Type Care Provider Facility Start: 01-28-2025 End: 01-28-2025 Telephone encounter Corina Liliana WOOD Work Phone: [facility] Comment on above: Missed Appointment ( No show) Start: 01-15-2025 End: 01-17-2025 Emergency department patient visit Manpreet Camarena DO Work Phone: [facility] Emergency Medicine Start: 01-13-2025 End: 03-15-2025 Follow-up encounter Corina Liliana DO Work Phone: [facility] Start: 01-12-2025 End: 01-12-2025 Telephone encounter Corina Liliana WOOD Work Phone: [facility] Comment on above: Results Start: 01-12-2025 End: 01-12-2025 ambulatory CHARAN White'MADRIGAL Facility:[facility] Start: 01-12-2025 End: 01-12-2025 Patient encounter procedure Us Rm1 Stable Attendant Ag Mfm Work Phone: [facility] Comment on above: Vaginal bleeding aff ecting early Start: 01-12-2025 End: 01-12-2025 Office outpatient new 30 minutes Corina Booker DO Work Phone: [facility] Comment on above: Vaginal bleeding aff ecting early (Primary Dx) Start: 01-12-2025 End: 01-12-2025 ambulatory CORINAHENRIQUE BOOKER Facility:[facility] Start: 01-08-2025 End: 01-08-2025 Telephone encounter Willow Kothari MD Work Phone: OB/Gynecology Comment on above: Spotting Start: 01-05-2025 End: 01-05-2025 ambulatory JOHANA FULTON Facility:[facility] Start: 01-05-2025 End: 01-05-2025 Patient encounter procedure Johana Fulton EMERGENCY RESPONSE OFFICER.[employer] Work Phone: OB/Gynecology Comment on above: with uncer tain dates, antepartum (Primary Dx); Bleeding in early Start: 12-30-2024 End: 12-30-2024 Telephone encounter Gisela Forman EMERGENCY RESPONSE OFFICER.CNM Work Phone: OB/Gynecology Comment on above: Early OB Spotting Start: 12-29-2024 End: 12-29-2024 Refill Eric Cruz MD Work Phone: OB/Gynecology Comment on above: Refill Request Results Start: 12-27-2024 End: 12-27-2024 ambulatory [facility] Facility:[facility] Start: 12-25-2024 End: 12-25-2024 Telephone encounter [facility] EMERGENCY RESPONSE OFFICER.CNM Work Phone: OB/Gynecology Comment on above: Bleeding With Pregna ncy Start: 12-25-2024 End: 12-25-2024 [facility] Facility:[facility] Start: 12-23-2024 End: 12-23-2024 Emergency department patient visit No Primary Care Physician Facility:[facility] Start: 12-22-2024 End: 12-23-2024 Emergency department patient visit No Primary Care Physician Facility:[facility] Start: 11-08-2024 End: 11-08-2024 Emergency department patient visit No Primary Care Physician Facility:[facility] Start: 09-23-2024 End: 09-24-2024 Emergency department patient visit Sal Lr Facility:[facility] Start: 07-29-2018 End: 07-29-2018 Emergency department patient visit SHAUNA GARAY Facility:[facility] Procedures Date Procedure Procedure Detail Performing Clinician Start: 01-16-2025 Drug tst prsmv instr mnt chem analyzers pr date Manpreet Camarena DO Work Phone: Start: 01-16-2025 Potassium serum plasma/whole blood Yanira Mills MD Work Phone: Start: 01-15-2025 Ecg routine ecg w/le ast 12 lds trcg only w/o i&r Manpreet Camarena DO Work Phone: Start: 01-15-2025 ACUTE TOXICOLOGY DUQUE EL, BLOOD Manpreet Camarena DO Work Phone: Start: 01-15-2025 Comprehensive metabo lic panel Manpreet Camarena DO Work Phone: Start: 01-12-2025 Us preg uterus after 1st trimest 11/26 gestation Corina Booker DO Work Phone: Plan of Treatment Date Care Activity Detail Author Start: 03-28-2038 Zoster Vaccines (1 o f 2) Zoster Vaccines (1 of 2) [facility] Start: 01-26-2025 End: 01-26-2025 Patient encounter procedure 01/26/2025 9:00 AM EST Office Visit [place] [id number] [facility] [address] [place] [id number] Corina Booker, DO [address] [place] [address] Ultrasound Follow-Up [facility] Comment on above: Ultrasound Follow-Up Start: 01-09-2025 End: 01-09-2025 Patient encounter procedure 01/09/2025 11:00 AM EST Routine Office Visit OB/Gynecology [address] [place] [address] Viability /Bleeding in early [O20.9] [facility]Gy[facility] Comment on above: Viability /Bleeding in early [O20.9] Start: 01-08-2025 End: 01-08-2025 Patient encounter procedure 01/08/2025 2:30 PM EST Routine Office Visit OB/Gynecology [address] [place] [address] Viability /Bleeding in early [O20.9] [facility] Comment on above: Viability /Bleeding in early [O20.9] Start: 01-05-2025 End: 01-05-2025 Patient encounter procedure 01/05/2025 2:45 PM EST Initial Office Visit OB/Gynecology [address] [place] [address] Johana Fulton APRN.[employer] [address] [place] [address] New OB LMP OB/Gynecology Comment on above: New OB LMP Start: 01-05-2025 End: 04-06-2025 Choriogonadotropin.beta subunit [Units/volume] in Serum or Plasma [facility] Work Phone: Comment on above: Expected: 01/05/2025 , Expires: 04/06/2025 Start: 01-05-2025 End: 01-05-2026 OBSTETRIC ULTRASOUND WHI OBSTETRIC ULTRASOUND WHI Anc Imaging Routine Bleeding in early Expected: 01/05/2025, Expires: 01/05/2026 [facility] Comment on above: Expected: 01/05/2025 , Expires: 01/05/2026 Start: 01-02-2025 End: 01-02-2025 Patient encounter procedure 01/02/2025 2:30 PM EST Office Visit OB[facility]Gynecology [address] 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 [employer] [address] [place] [address] viability/dating OB/Gynecology Comment on above: viability/dating Start: 12-30-2024 End: 12-30-2025 OBSTETRIC ULTRASOUND WHI OBSTETRIC ULTRASOUND WHI Anc Imaging Routine Threatened Expected: 12/30/2024, Expires: 12/30/2025 [facility] Work Phone: Comment on above: Expected: 12/30/2024 , Expires: 12/30/2025 Start: 07-27-2024 Covid-19 Vaccine ( season) Covid-19 Vaccine ( season) [facility] Start: 07-27-2024 Influenza vaccination Influenza Vacc ine (#1) [facility] Start: 02-27-2014 Screening for malign ant neoplasm of cervix Cervical Cancer Screening [facility] Start: 03-28-2010 DTaP/Tdap/Td Vaccine s (1 - Tdap) DTaP/Tdap/Td Vaccines (1 - Tdap) [facility] Start: 03-28-2009 Screening for malign ant neoplasm of cervix [facility] Start: 2007 Hepatitis B Vaccine (1 of 3 - 19+ 3-dose series) Hepatitis B Vaccine (1 of 3 - 19+ 3-dose series) [facility] Start: 2007 Urine microalbumin profile DTaP,Tdap,Td Vaccine (1 - Tdap) [facility] Start: 03-28-2007 Hepatitis A Vaccines (1 of 2 - Risk 2-dose series) Hepatitis A Vaccines (1 of 2 - Risk 2-dose series) [facility] Start: 03-28-2007 Hepatitis B Vaccines (1 of 3 - 19+ 3-dose series) Hepatitis B Vaccines (1 of 3 - 19+ 3-dose series) [facility] Start: 2006 Anxiety Screening Anxiety Screening [facility] Start: 2006 Depression Screening Depression Scre ening [facility] Start: 2006 Hepatitis C screening Hepatitis C [facility] Start: 03-28-2006 Diabetes mellitus screening Diabetes Screening [facility] Start: 03-28-2006 Hepatitis C screening Hepatitis C [facility] Start: 03-28-2001 Varicella vaccination Varicell a Vaccines (1 of 2 - 13+ 2-dose series) [facility] Start: 03-28-1989 MMR Vaccines (1 of 1 - Standard series) MMR Vaccines (1 of 1 - Standard series) [facility] Start: 1988 HIV screening HIV Screening [facility] Start: 1988 Lipid panel Lipid Panel [facility] Start: 1988 Yearly Adult Physical Yearly Adult P hysical [facility] End: 01-26-2025 Choriogonadotropin.beta subunit [Units/volume] in Serum or Plasma HCG QUANTITATIVE Lab Routine Bleeding in early 2x per week for 4 Occurrences starting 12/25/2024 until 01/26/2025 [facility] Work Phone: Comment on above: 2x per week for 4 Oc currences starting 12/25/2024 until 01/26/2025 Choriogonadotropin.b eta subunit [Units/volume] in Serum or Plasma HCG QUANTITATIVE Lab Routine Bleeding in early 12/25/2024 1:45 PM EST [facility] Electrocardiogram, 12-lead Electrocardiogram, 12-lead ECG STAT 01/15/2025 8:05 PM EST [facility] Service Area Work Phone: Immunizations Immunization Date Immunization Notes Care Provider Raj grayson 09-04-2011 influenza virus vacc ine, unspecified formulation Eugenia Shepherd EMERGENCY RESPONSE OFFICER.CNM Work Phone: [facility] Payers Date Payer Category Payer Self-pay 2024 Medicaid [id number] 2024 Private Health Insurance [employer]NA [employer] MEDICAID [facility] [id number] 2024-Present [address] [address] [place] [address] Medicaid [id number] 2018 Medicaid [id number] 1988 Unknown [id number] 1988 Unknown [id number] Unknown [id number] 62 Unknown [id number] 62 Unknown [id number] 62 Unknown [id number] 62 Social History Date Type Detail Facility Start: 12-10-2008 End: 01-05-2025 Tobacco smoking status NHIS Ex-smoker [facility] Start: 10-20-2000 End: 10-20-2008 History of tobacco use Current smoker [facility] Start: 10-20-2000 End: 10-20-2008 History of tobacco use Cigarette Smoker [facility] Start: 12-10-2008 End: 01-05-2025 Tobacco use and exposure Smokeless tobacco non-user [facility] Start: 07-09-2022 End: 01-12-2025 Alcoholic beverage intake Current non-drinker of alcohol (finding) [facility] Start: 1988 End: 1988 Sex assigned at Not on file [facility] Start: 01-05-2025 End: 01-15-2025 Gender identity Not on file [facility] Start: 01-05-2025 End: 01-15-2025 History of Social function [facility] National Score (1-100), lower number is lower risk 23 [facility] Start: 11-17-2024 [facility] Start: 01-15-2025 Tobacco smoking stat us MSIS Never smoked tobacco [facility] Work Phone: Start: 01-15-2025 Alcoholic beverage intake Lifetime non-drinker (finding) [facility] Work Phone: Start: 01-06-2025 End: 01-16-2025 Exposure to SARS-CoV-2 (event) Not sure [facility] Clinical Notes 12-25-2024 to 01-28-2025 Telephone Encounter - Anabel Heredia - 01/28/2025 10:13 AM ESTTelephone Encounter - Anabel Heredia - 01/28/2025 10:13 AM Tila Hobson MD - 01/16/2025 8:40 PM EST Note Date & Type Note Facility 01-28-2025 Telephone encounter Note Called patient regarding missed appointment Sunday01/26/2025 for ultrasound follow up w/Dr. Booker. Unable to reach. Left msg to contact office to reschedule. Mailed no show letter. Anabel Heredia January 28, 2025 10:16 AM [facility] 01-28-2025 Miscellaneous Notes Called patient regarding missed appointment Sunday01/26/2025 for ultrasound follow up w/Dr. Booker. Unable to reach. Left msg to contact office to reschedule. Mailed no show letter. Anabel Heredia January 28, 2025 10:16 AM documented in this encounter [facility] 01-16-2025 History of Presen t illness Narrative I have accept care of this patient in signout. In summary: I received this patient in signout in summary this is a 34-year-old female who presented to the emergency department for concerns of shu that she took medications as a way to kill herself. She is does not require an ultrasound denies any have any abdominal pain low suspicion for ectopic . She was ultimately accepted by [facility]. Labs Reviewed CBC WITH AUTO DIFFERENTIAL - Abnormal Result Value WBC 6.6 nRBC 0.0 RBC 5.49 (*) Hemoglobin 14.8 Hematocrit 45.4 MCV 83 MCH 27.0 MCHC 32.6 RDW 13.3 Platelets 372 Neutrophils % 52.4 Immature Granulocytes %, Automated 0.2 Lymphocytes % 38.3 Monocytes % 6.6 Eosinophils % 1.4 Basophils % 1.1 Neutrophils Absolute 3.45 Immature Granulocytes Absolute, Automated 0.01 Lymphocytes Absolute 2.51 Monocytes Absolute 0.43 Eosinophils Absolute 0.09 Basophils Absolute 0.07 COMPREHENSIVE METABOLIC PANEL - Abnormal Glucose 101 (*) Sodium 139 Potassium 2.9 (*) Chloride 104 Bicarbonate 24 Anion Gap 14 Urea Nitrogen 19 Creatinine 0.91 eGFR 84 Calcium 9.3 Albumin 4.9 Alkaline Phosphatase 79 Total Protein 7.8 AST 14 Bilirubin, Total 0.8 ALT 19 DRUG SCREEN,URINE - Abnormal Amphetamine Screen, Urine Presumptive Positive (*) Barbiturate Screen, Urine Presumptive Negative Benzodiazepines Screen, Urine Presumptive Negative Cannabinoid Screen, Urine Presumptive Negative Cocaine Metabolite Screen, Urine Presumptive Negative Fentanyl Screen, Urine Presumptive Negative Opiate Screen, Urine Presumptive Negative Oxycodone Screen, Urine Presumptive Negative PCP Screen, Urine Presumptive Negative Methadone Screen, Urine Presumptive Negative Narrative: Drug screen results are presumptive and should not be used to assess compliance with prescribed medication. Contact the performing [facility] laboratory to add-on definitive confirmatory testing if clinically indicated. Toxicology screening results are reported qualitatively. The concentration must be greater than or equal to the cutoff to be reported as positive. The concentration at which the screening test can detect an individual drug or metabolite varies. The absence of expected drug(s) and/or drug metabolite(s) may indicate non-compliance, inappropriate timing of specimen collection relative to drug administration, poor drug absorption, diluted/adulterated urine, or limitations of testing. For medical purposes only; not valid for forensic use. Interpretive questions should be directed to the laboratory medical directors. HUMAN CHORIONIC GONADOTROPIN, SERUM QUANTITATIVE - Abnormal HCG, Beta-Quantitative 132 (*) Narrative: Total HCG measurement is performed using the Brissa Tacho Access Immunoassay which detects intact HCG and free beta HCG subunit. This test is not indicated for use as a tumor marker. HCG testing is performed using a different test methodology at [facility] than other [facility]. Direct result comparison should only be made within the same method. POTASSIUM - Abnormal Potassium 3.3 (*) ACUTE TOXICOLOGY PANEL, BLOOD - Normal Acetaminophen <10.0 Salicylate <3 Alcohol <10 No orders to display EPAT - Social Work Psychiatric Assessment Arrival Details Mode of Arrival: Ambulance Admission Source: (Community) Admission Type: Involuntary EPAT Assessment Start Date: 01/16/25 EPAT Assessment Start Time: 0230 Name of Glazier Supervisor: MAKAYLA Adame, KARLA History of Present Illness Admission Reason: Psychiatric Evaluation HPI: Patient is a 34yo female presenting to the ED via EMS with chief complaint of altered mental status. Patient was reportedly, found in parking lot at gas station, took too many pills, states she is being followed, voices telling her to harm herself . Patient's chart, triage, and provider note reviewed prior to assessment. Patient has no known history and no prior chart to review. No risk indicated at triage, BAL negative, UTOX not available for review. SW Readmission Information Readmission within 30 Days: No Psychiatric Symptoms Anxiety Symptoms: No problems reported or observed. Depression Symptoms: Feelings of helplessness, Feelings of hopelessess, Impaired concentration, Increased irritability, Isolative, Loss of interest Shu Symptoms: No problems reported or observed. Psychosis Symptoms Hallucination Type: Auditory, Command Delusion Type: Paranoid Additional Symptoms - Adult Generalized Anxiety Disorder: No problems reported or observed. Obsessive Compulsive Disorder: No problems reported or observed. Panic Attack: No problems reported or observed. Post Traumatic Stress Disorder: No problems reported or observed. Delirium: No problems reported or observed. Past Psychiatric History/Meds/Treatments Past Psychiatric History: Psychiatric Diagnosis: Unknown // Current Center: None // Previous Admissions: I don't think so Past Psychiatric Meds/Treatments: Pt brought in with pill bottles including Quetiapine 5mg, Prazosin 1mg, Trazadone 100mg Past Violence/Victimization History: None reported Current Mental Health Contacts Vp Delivery Name/Phone Number: Unknown Vp Delivery Last Appointment Date: Unknown Provider Name/Phone Number: Unknown Provider Last Appointment Date: Unknown Support System: (I don't know) Living Arrangement: Homeless (living in car) Income Information Employment Status for: Patient Employment Status: Unemployed Income Source: Unemployed Miltary Service/Education History Current or Previous Service: None Education Level: (did not assess) Social/Cultural History Social History: [place] Citizen: Yes // Payee: none // Guardian/POA: Self Cultural Requests During Hospitalization: none Spiritual Requests During Hospitalization: none Important Activities: (none reported) Legal Criminal Activity/ Legal Involvement Pertinent to Current Situation/ Hospitalization: None reported Drug Screening Have you used any substances (canabis, cocaine, heroin, hallucinogens, inhalants, etc.) in the past 12 months?: No Have you used any prescription drugs other than prescribed in the past 12 months?: No Is a toxicology screen needed?: Yes Stage of Change Stage of Change: (n/a) Behavioral Health Behavioral Health(WDL): Exceptions to WDL Behaviors/Mood: Flat affect, Guarded, Irritable, Withdrawn Affect: (Blunted) Orientation Orientation Level: Disoriented to situation General Appearance Motor Activity: Unremarkable Speech Pattern: (Chris) General Attitude: Defensive, Guarded, Uninterested Appearance/Hygiene: Disheveled Thought Process Coherency: [place] thinking Content: Unremarkable Delusions: Paranoid Perception: Unable to assess Hallucination: Unable to assess (pt reported CAH on arrival) Judgment/Insight: Impaired Confusion: Mild Cognition: Poor judgement, Poor safety awareness, Poor attention/concentration Sleep Pattern Sleep Pattern: Insomnia Risk Factors Self Harm/Suicidal Ideation Plan: Denies Previous Self Harm/Suicidal Plans: Pt here for overdose Risk Factors: Major mental illness Violence Risk Assessment Assessment of Violence: None noted Thoughts of Harm to Others: No Ability to Assess Risk Screen Risk Screen - Ability to Assess: Able to be screened [place] Suicide Severity Rating Scale (Screener/Recent Self-Report) 1. Wish to be (Past 1 Month): No 2. Non-Specific Active Suicidal Thoughts (Past 1 Month): No 6. Suicidal Behavior (Lifetime): Yes 6. Suicidal Behavior (3 Months): Yes Calculated C-SSRS Risk Score (Lifetime/Recent): High Risk Step 1: Risk Factors Current & Past Psychiatric Dx: Mood disorder, Psychotic disorder Presenting Symptoms: Impulsivity, Hopelessness or despair, Insomia, Command hallucinations Precipitants/Stressors: Triggering events leading to humiliation, shame, and/or despair (e.g. loss of relationship, financial or health status) (real or anticipated) (posisble intox, UTOX not available for review) Change in Treatment: Non-compliant or not receiving treatment Access to Lethal Methods : No Step 2: Protective Factors Protective Factors Internal: (None reported) Protective Factors External: (None reported) Step 3: Suicidal Ideation Intensity How Many Times Have You Had These Thoughts: Less than once a week When You Have the Thoughts How Long do They Last : Fleeting - few seconds or minutes Could/Can You Stop Thinking About Killing Yourself or Wanting to if You Want to: Does not attempt to control thoughts Are There Things - Anyone or Anything - That Stopped You From Wanting to or Acting on: Does not apply What Sort of Reasons Did You Have For Thinking About Wanting to or Killing Yourself: Does not apply Total Score: 2 Step 5: Documentation Risk Level: Moderate suicide risk (Patient indicated moderate acute risk given actions taken prior to this encounter; unable to determine further risk level given patient's current presentation and level of engagement. Discussed with Dr. Mills) Psychiatric Impression and Plan of Care Assessment and Plan: Upon assessment the patient was calm and minimally cooperative. Patient presented with blunted affect, chris speech, and continued paranoia. She initially declined to participate in current interview, reporting I don't want help . With further prompting, patient participated in a superficial manner but was unable to provide significant insight or demonstrate appropriate judgment. The patient denied current SI/HI but did not respond regarding hallucinations. Patient endorsed having taken an overdose of her medication but was unable/unwilling to provide further insight into precipitative factors or intention of overdose. The patient denied current outpatient providers and was unable to provide source of current outpatient medications. She reported currently living in her car and stated her sleep has been not so good . Patient denied significant supports or protective factors and declined for this technical publications writer to contact her mother who is listed as an emergency contact. Diagnostic Impression: Unspecified Psychosis (r/o Substance-Induced Psychosis/Mood) Psychiatric Impression and Plan for Care: Patient presents as an elevated risk to self and gravely disabled due to her apparent overdose in the setting of acute paranoia. Recommendation for admission discussed with Yanira Mills MD who is in agreement. Specific Resources Provided to Patient: Admission Outcome/Disposition Patient's Perception of Outcome Achieved: Unable to assess Assessment, Recommendations and Risk Level Reviewed with: Dr. Mills Contact Name: Isha Kennedy Contact Number(s): [phone] Contact Relationship: Mother EPAT Assessment Completed Date: 01/16/25 EPAT Assessment Completed Time: 307 Emergency Medicine Transition of Care Note. I received Roshan Guzman in signout from Dr. Camarena. Please see the previous ED provider note for all HPI, PE and MDM up to the time of signout. This is in addition to the primary record. In brief Roshan Guzman is an 34 y.o. female presenting for Chief Complaint Patient presents with Altered Mental Status Found in parking lot at [employer], took too many pills, states she is being followed, voices telling her to harm herself ED Course as of 01/16/25 0500 [place] Jan 15, 2025 1944 Spoke with poison control. They recommend 6-hour observation. [RS] 2005 EKG shows sinus rhythm. No STEMI. Normal intervals and axis. [RS] SunJan 16, 2025 0306 Discussion with [facility] who recommend placement at this time, however patient does not have insurance therefore patient will need to be placed by [facility]. Information faxed over to [facility]. [JG] ED Course User Index [JG] Yanira Mills MD [RS] Manpreet Camarena, DO Medical Decision Making Received patient in signout at this time. Patient reportedly found altered in her car with several pill bottles around her including prazosin, trazodone, seroquel. Expressing paranoid ideation and flight of ideas, reporting to initial provider that people are after her. Discussed with poison control who recommend monitoring until 0130 for 6 hours total. HCG positive at 130. No abdominal pain, vomiting, vaginal bleeding, vaginal discharge, dysuria. This is likely too low to see much on ultrasound at this time. Vitals remain stable. No evidence of ectopic at this time. Pending medical clearance. Patient medically cleared on 01/16 at 01:30. EPAT evaluated and recommending inpatient psychiatric admission. Patient does not have insurance, they recommend [facility] to place. Information faxed to [facility] and pending placement. Patient will be signed out to oncoming provider pending placement. Final diagnoses: None Procedure Procedures Yanira Mills MD documented in this encounter [facility] Work Phone: 01-16-2025 Emergency department Note Patient does not want staff to give any update or medical information to her mother. She states she will just call her to give her updates. Gin Diego RN 01/16/25 449 [facility] 01-16-2025 Emergency department Note Patient does not want staff to give any update or medical information to her mother. She states she will just call her to give her updates. Gin Diego RN 01/16/[address] [facility] Giron 01/16/25 2193 HPI Chief Complaint Patient presents with Altered Mental Status Found in parking lot at [employer], took too many pills, states she is being followed, voices telling her to harm herself 34-year-old female presents to ED with concerns for overdose. Patient was found by police in a car disoriented. She had multiple pill bottles around her. She says people are out to get her. She took these pills because of that. She is unable to describe which pill she took and how much of each. Denies SI. No HI. Denies drug or alcohol use. Patient History No past medical history on file. No past surgical history on file. No family history on file. Social History Tobacco Use Smoking status: Not on file Smokeless tobacco: Not on file Substance Use Topics Alcohol use: Not on file Drug use: Not on file Physical Exam ED Triage Vitals [01/15/257] Temperature Heart Rate Respirations BP 36.2 C (97.2 F) (!) 16 19 113/72 Pulse Ox Temp src Heart Rate Source Patient Position 100 % -- -- -- BP Location FiO2 (%) -- -- Physical Exam Vitals and nursing note reviewed. Constitutional: General: She is not in acute distress. Appearance: She is well-developed. HENT: Head: Normocephalic and atraumatic. Eyes: Conjunctiva/sclera: Conjunctivae normal. Cardiovascular: Rate and Rhythm: Normal rate and regular rhythm. Heart sounds: No murmur heard. Pulmonary: Effort: Pulmonary effort is normal. No respiratory distress. Breath sounds: Normal breath sounds. Abdominal: Palpations: Abdomen is soft. Tenderness: There is no abdominal tenderness. Musculoskeletal: General: No swelling. Cervical back: Neck supple. Skin: General: Skin is warm and dry. Capillary Refill: Capillary refill takes less than 2 seconds. Neurological: Mental Status: She is alert. Psychiatric: Mood and Affect: Mood normal. ED Course & MDM ED Course as of 01/15/252104u Jan 15, 20251943 Spoke with poison control. They recommend 6-hour observation. [RS] 2005 EKG shows sinus rhythm. No STEMI. Normal intervals and axis. [RS] ED Course User Index [RS] Manpreet Camarena DO No data recorded [place] Coma Scale Score: 14 (01/15/251939 : Bala Arizmendi RN) Medical Decision Making HISTORIAN: Patient, EMS CHART REVIEW: No pertinent finding PT SUMMARY: 34-year-old female presents ED with overdose. Vital signs stable. DDX: Overdose, schizophrenia, hallucinations, SI. Pill bottles that we have here and are potassium 20 mill equivalents, quetiapine 5 mg, prazosin 1 mg tablet, trazodone 100 mg tablets PLAN: Obtain psych panel workup and EKG test. DISPO/RE-EVAL: Hemoglobin 2.9. Placement was ordered. test was mildly elevated. Patient has no abdominal pain or vaginal bleeding. Low suspicion for ectopic . At this point time patient presented to oncoming provider pending medical clearance at 1:30 AM with psychiatric consultation. Procedure Procedures Manpreet Camarena DO 01/15/252105 documented in this encounter [facility] Work Phone: 01-16-2025 Emergency department Note EPAT to karrie Francisco Javier CARLEY Almodovar 01/16/251702 [facility] 01-16-2025 provider relations manager Note Application for Emergency Admission Ready for Transfer? Is the patient medically cleared for transfer to inpatient psychiatry: Yes Has the patient been accepted to an inpatient psychiatric hospital: yes Application for Emergency Admission IN ACCORDANCE WITH SECTION 5122.10 [place] The Chief Clinical Officer of: [facility] 01/16/2025 .11:16 AM Reason for Hospitalization The undersigned has reason to believe that: Roshan Guzman Is a mentally ill person subject to hospitalization by court order under division B Section 5122.01 of the Revised Code, i.e., this person: 1.Yes Represents a substantial risk of physical harm to self as manifested by evidence of threats of, or attempts at, suicide or serious self-inflicted bodily harm 2.No Represents a substantial risk of physical harm to others as manifested by evidence of recent homicidal or other violent behavior, evidence of recent threats that place another in reasonable fear of violent behavior and serious physical harm, or other evidence of present dangerousness 3.Yes Represents a substantial and immediate risk of serious physical impairment or injury to self as manifested by evidence that the person is unable to provide for and is not providing for the person's basic physical needs because of the person's mental illness and that appropriate provision for those needs cannot be made immediately available in the community 4.Yes Would benefit from treatment in a hospital for his mental illness and is in need of such treatment as manifested by evidence of behavior that creates a grave and imminent risk to substantial rights of others or himself. 5.No Would benefit from treatment as manifested by evidence of behavior that indicates all of the following: (a) The person is unlikely to survive safely in the community without supervision, based on a clinical determination. (b) The person has a history of lack of compliance with treatment for mental illness and one of the following applies: (i) At least twice within the thirty-six months prior to the filing of an affidavit seeking court-ordered treatment of the person under section 5122.111 of the Revised Code, the lack of compliance has been a significant factor in necessitating hospitalization in a hospital or receipt of services in a forensic or other mental health unit of a correctional facility, provided that the [id number] period shall be extended by the length of any hospitalization or incarceration of the person that occurred within the [id number] period. (ii) Within the forty-eight months prior to the filing of an affidavit seeking court-ordered treatment of the person under section 5122.111 of the Revised Code, the lack of compliance resulted in one or more acts of serious violent behavior toward self or others or threats of, or attempts at, serious physical harm to self or others, provided that the tlikv-techm-sabri period shall be extended by the length of any hospitalization or incarceration of the person that occurred within the zdgbc-rpkab-fjnwb period. (c) The person, as a result of mental illness, is unlikely to voluntarily participate in necessary treatment. (d) In view of the person's treatment history and current behavior, the person is in need of treatment in order to prevent a relapse or deterioration that would be likely to result in substantial risk of serious harm to the person or others. (e) Represents a substantial risk of physical harm to self or others if allowed to remain at liberty pending examination. Therefore, it is requested that said person be admitted to the above named facility. STATEMENT OF BELIEF Must be filled out by one of the following: a psychiatrist, licensed physician, licensed clinical psychologist, health or police surgeon, supervisor or deputy sheriff building guard. (Statement shall include the circumstances under which the individual was taken into custody and the reason for the person's belief that hospitalization is necessary. The statement shall also include a reference to efforts made to secure the individual's property at his residence if he was taken into custody there. Every reasonable and appropriate effort should be made to take this person into custody in the least conspicuous manner possible.) Patient presents to the emergency department secondary to altered mental status. Patient had what appears to be a polysubstance overdose. Patient was exhibiting paranoia and her evaluation. At this time patient would benefit from hospitalization and psychiatric stabilization. Fe Serna MD 01/16/2025 Place of Employment: [facility] STATEMENT OF OBSERVATION BY PSYCHIATRIST, LICENSED PHYSICIAN, OR LICENSED CLINICAL PSYCHOLOGIST, IF APPLICABLE Place of Observation (e.g., medical behavioral hospital, general hospital, office, emergency facility) (If applicable, please complete) Fe Serna MD 01/16/2025 [facility] Work Phone: 01-16-2025 Miscellaneous Notes Application for Emergency Admission Ready for Transfer? Is the patient medically cleared for transfer to inpatient psychiatry: Yes Has the patient been accepted to an inpatient psychiatric hospital: yes Application for Emergency Admission IN ACCORDANCE WITH SECTION 5122.10 [place] The Chief Clinical Officer of: Maggy 01/16/2025 .11:16 AM Reason for Hospitalization The undersigned has reason to believe that: Roshan Guzman Is a mentally ill person subject to hospitalization by court order under division B Section 5122.01 of the Revised Code, i.e., this person: 1.Yes Represents a substantial risk of physical harm to self as manifested by evidence of threats of, or attempts at, suicide or serious self-inflicted bodily harm 2.No Represents a substantial risk of physical harm to others as manifested by evidence of recent homicidal or other violent behavior, evidence of recent threats that place another in reasonable fear of violent behavior and serious physical harm, or other evidence of present dangerousness 3.Yes Represents a substantial and immediate risk of serious physical impairment or injury to self as manifested by evidence that the person is unable to provide for and is not providing for the person's basic physical needs because of the person's mental illness and that appropriate provision for those needs cannot be made immediately available in the community 4.Yes Would benefit from treatment in a hospital for his mental illness and is in need of such treatment as manifested by evidence of behavior that creates a grave and imminent risk to substantial rights of others or himself. 5.No Would benefit from treatment as manifested by evidence of behavior that indicates all of the following: (a) The person is unlikely to survive safely in the community without supervision, based on a clinical determination. (b) The person has a history of lack of compliance with treatment for mental illness and one of the following applies: (i) At least twice within the thirty-six months prior to the filing of an affidavit seeking court-ordered treatment of the person under section 5122.111 of the Revised Code, the lack of compliance has been a significant factor in necessitating hospitalization in a hospital or receipt of services in a forensic or other mental health unit of a correctional facility, provided that the sgoutw-hut-zitnq period shall be extended by the length of any hospitalization or incarceration of the person that occurred within the psaiqh-mjq-oxkgr period. (ii) Within the forty-eight months prior to the filing of an affidavit seeking court-ordered treatment of the person under section 5122.111 of the Revised Code, the lack of compliance resulted in one or more acts of serious violent behavior toward self or others or threats of, or attempts at, serious physical harm to self or others, provided that the bmojb-inblz-wrfxr period shall be extended by the length of any hospitalization or incarceration of the person that occurred within the vucjn-wpmli-yugcb period. (c) The person, as a result of mental illness, is unlikely to voluntarily participate in necessary treatment. (d) In view of the person's treatment history and current behavior, the person is in need of treatment in order to prevent a relapse or deterioration that would be likely to result in substantial risk of serious harm to the person or others. (e) Represents a substantial risk of physical harm to self or others if allowed to remain at liberty pending examination. Therefore, it is requested that said person be admitted to the above named facility. STATEMENT OF BELIEF Must be filled out by one of the following: a psychiatrist, licensed physician, licensed clinical psychologist, health or police surgeon, supervisor or deputy sheriff building guard. (Statement shall include the circumstances under which the individual was taken into custody and the reason for the person's belief that hospitalization is necessary. The statement shall also include a reference to efforts made to secure the individual's property at his residence if he was taken into custody there. Every reasonable and appropriate effort should be made to take this person into custody in the least conspicuous manner possible.) Patient presents to the emergency department secondary to altered mental status. Patient had what appears to be a polysubstance overdose. Patient was exhibiting paranoia and her evaluation. At this time patient would benefit from hospitalization and psychiatric stabilization. Fe Serna MD 01/16/[address]25 Place of Employment: [facility] STATEMENT OF OBSERVATION BY PSYCHIATRIST, LICENSED PHYSICIAN, OR LICENSED CLINICAL PSYCHOLOGIST, IF APPLICABLE Place of Observation (e.g., [facility], general hospital, office, emergency facility) (If applicable, please complete) Fe Serna MD 01/16/2025 documented in this encounter [facility] Work Phone: 01-15-2025 Physician Emergency department Note HPI Chief Complaint Patient presents with Altered Mental Status Found in parking lot at gas station, took too many pills, states she is being followed, voices telling her to harm herself 34-year-old female presents to ED with concerns for overdose. Patient was found by police in a car disoriented. She had multiple pill bottles around her. She says people are out to get her. She took these pills because of that. She is unable to describe which pill she took and how much of each. Denies SI. No HI. Denies drug or alcohol use. Patient History No past medical history on file. No past surgical history on file. No family history on file. Social History Tobacco Use Smoking status: Not on file Smokeless tobacco: Not on file Substance Use Topics Alcohol use: Not on file Drug use: Not on file Physical Exam ED Triage Vitals [01/15/251936] Temperature Heart Rate Respirations BP 36.2 C (97.2 F) (!) 16 19 113/72 Pulse Ox Temp src Heart Rate Source Patient Position 100 % -- -- -- BP Location FiO2 (%) -- -- Physical Exam Vitals and nursing note reviewed. Constitutional: General: She is not in acute distress. Appearance: She is well-developed. HENT: Head: Normocephalic and atraumatic. Eyes: Conjunctiva/sclera: Conjunctivae normal. Cardiovascular: Rate and Rhythm: Normal rate and regular rhythm. Heart sounds: No murmur heard. Pulmonary: Effort: Pulmonary effort is normal. No respiratory distress. Breath sounds: Normal breath sounds. Abdominal: Palpations: Abdomen is soft. Tenderness: There is no abdominal tenderness. Musculoskeletal: General: No swelling. Cervical back: Neck supple. Skin: General: Skin is warm and dry. Capillary Refill: Capillary refill takes less than 2 seconds. Neurological: Mental Status: She is alert. Psychiatric: Mood and Affect: Mood normal. ED Course & [facility] ED Course as of 01/15/252104 [place] Jan 15, 20254 Spoke with poison control. They recommend 6-hour observation. [RS] 2005 EKG shows sinus rhythm. No STEMI. Normal intervals and axis. [RS] ED Course User Index [RS] Manpreet Camarena DO No data recorded Aury Coma Scale Score: 14 (01/15/25 1940 : Bala Arizmendi RN) Medical Decision Making HISTORIAN: Patient, EMS CHART REVIEW: No pertinent finding PT SUMMARY: 34-year-old female presents ED with overdose. Vital signs stable. DDX: Overdose, schizophrenia, hallucinations, SI. Pill bottles that we have here and are potassium 20 mill equivalents, quetiapine 5 mg, prazosin 1 mg tablet, trazodone 100 mg tablets PLAN: Obtain psych panel workup and EKG test. DISPO/RE-EVAL: Hemoglobin 2.9. Placement was ordered. test was mildly elevated. Patient has no abdominal pain or vaginal bleeding. Low suspicion for ectopic . At this point time patient presented to oncoming provider pending medical clearance at 1:30 AM with psychiatric consultation. Procedure Procedures Manpreet Camarena DO 01/15/252105 [facility] Work Phone: 01-13-2025 Progress note Formatting of t his note might be different from the original. 34 year old new patient presented PUL. Repeat TVUS showed no evidence of gestational sac, yolk sac of pole with normal adnexa consistent with complete SAb. Attempted to call patient yesterday to discuss, but went straight to . Patient has f/u in 2 weeks. Will send MyChart message. [facility] 01-13-2025 Miscellaneous Notes 34 year old new patient presented PUL. Repeat TVUS showed no evidence of gestational sac, yolk sac of pole with normal adnexa consistent with complete SAb. Attempted to call patient yesterday to discuss, but went straight to . Patient has f/u in 2 weeks. Will send MyChart message. documented in this encounter [facility] 01-12-2025 Telephone encounter Note Images from the original note were not included. Attempted to call patient about US results. Call went directly to that was full. Will attempt to call again tomorrow. Corina Booker DO 01/12/2025 4:16 PM [facility] 01-12-2025 Miscellaneous Notes Images from the original note were not included. Attempted to call patient about US results. Call went directly to that was full. Will attempt to call again tomorrow. Corina Booker DO 01/12/2025 4:16 PM documented in this encounter [facility] 01-12-2025 Note HNO ID: [id number] Author: SHAYY ALMODOVAR MA Service: ? Author Type: Fishing Floats Assembler Type: Progress Notes Filed: 01/12/2025 12:46 Note Text: Patient presents in follow up s/p missed ab. Patient is frustrated with the amount of time she has been bleeding s/p missed ab and would like to know an expected time frame for the symptoms to subside. Shayy Almodovar MA January 12, 2025 9:22 AM [facility] 01-12-2025 History of Presen t illness Narrative Patient presents in follow up s/p missed ab. Patient is frustrated with the amount of time she has been bleeding s/p missed ab and would like to know an expected time frame for the symptoms to subside. Shayy Almodovar MA January 12, 2025 9:22 AM [facility] Clinic Obstetrics & Gynecology Gynecology Clinic Note: CC: Pul followup Subjective HPI: Nelly Guzman is a 34 year old who presents for a PUL followup. She had an US at [facility] in [place] on 01/03/25 that showed an empty gestational sac. She has been having bleeding since then, 1-2 pads per day with small clots. Also experiencing 6/10 cramping, has not taken tylenol for it. Patient no showed for scheduled US on 01/09 in [place] as she wanted to be closer to home. Per chart review in TE Pt wants to know how long she will spot for and states she had ultrasound completed at [facility], in [place] and was told it was either an ectopic or Molar , but she is confused because her HCG levels keep going up. Pt c/o cramping. Denies abdominal pain. Spotting only and wearing pad, but has not needed to change it LMP: 2nd week of October 2024, unsure of exact day. No results found for: HCGQUANT OB Hx: OB History Gravida4 Para3 Term3 Preterm0 AB0 Living3 SAB0 IAB0 Ectopic0 Multiple0 Live Births3 ROS: Negative for fever, severe fatigue, severe pain, and inability to drink, abnormal vaginal discharge and breast symptoms Positive for: See HPI No current outpatient medications Objective OBJECTIVE: EXAM: BP 133/86 Pulse 114 Wt 70.1 kg (154 lb 9.6 oz) LMP 11/03/2024 (Approximate) GENERAL: in no apparent distress Remaining exam deferred at this time LABWORK hCG Quantitative, Blood Latest Ref Rng <5.0 mIU/mL 12/25/2024 2,269.0 (H) 12/27/2024 2,544.0 (H) 12/29/2024 6,232.0 (H) 01/05/2025 8,833.0 (H) IMAGING TVUS at [facility] on 01/03/25: Intrauterine gestational sac without evidence of pole or yolk sac; no adnexal masses, no free fluid in the cul-de-sac ASSESSMENT: Nelly Guzman is a 34 year old who presents as a new patient for follow-up of Assessment & Plan Vaginal bleeding affecting early - incomplete Ab vs. SAb vs. early - ~9w gestation by unsure LMP of early October 2024 - abnormally rising quants and TVUS that showed an empty, intrauterine gestational sac - bleeding 1-2 pads per day, 6/10 lower abdominal cramping - T&S Rh positive - repeat TVUS scheduled for today, 11am - RTC in 2 weeks for further management - OB ED precautions provided Plan of care discussed with Dr. Merritt, attending physician Corina Booker DO 01/12/2025 documented in this encounter [facility] 01-12-2025 Note HNO ID: [id number] Author: CHARAN MERRITT MD Service: ? Author Type: Resident Type: Progress Notes Filed: 01/13/2025 03:31 Note Text: [facility] Clinic Obstetrics AND Gynecology Gynecology Clinic Note: CC: Pul followup Subjective HPI: Nelly Guzman is a 34 year old who presents for a PUL followup. She had an US at [facility] in [place] on 01/03/25 that showed an empty gestational sac. She has been having bleeding since then, 1-2 pads per day with small clots. Also experiencing 6/10 cramping, has not taken tylenol for it. Patient no showed for scheduled US on 01/09 in [place] as she wanted to be closer to home. Per chart review in TE Pt wants to know how long she will spot for and states she had ultrasound completed at [facility], in [place] and was told it was either an ectopic or Molar , but she is confused because her HCG levels keep going up. Pt c/o cramping. Denies abdominal pain. Spotting only and wearing pad, but has not needed to change it LMP: 2nd week of October 2024, unsure of exact day. No results found for: HCGQUANT OB Hx: OB History Gravida4 Para3 Term3 Preterm0 AB0 Living3 SAB0 IAB0 Ectopic0 Multiple0 Live Births3 ROS: Negative for fever, severe fatigue, severe pain, and inability to drink, abnormal vaginal discharge and breast symptoms Positive for: See HPI No current outpatient medications Objective OBJECTIVE: EXAM: BP 133/86 Pulse 114 Wt 70.1 kg (154 lb 9.6 oz) LMP 11/03/2024 (Approximate) GENERAL: in no apparent distress Remaining exam deferred at this time LABWORK hCG Quantitative, Blood Latest Ref Rng <5.0 mIU/mL 12/25/2024 2,269.0 (H) 12/27/2024 2,544.0 (H) 12/29/2024 6,232.0 (H) 01/05/2025 8,833.0 (H) IMAGING TVUS at [facility] on 01/03/25: Intrauterine gestational sac without evidence of pole or yolk sac; no adnexal masses, no free fluid in the cul-de-sac ASSESSMENT: Nelly Guzman is a 34 year old who presents as a new patient for follow-up of Assessment AND Plan Vaginal bleeding affecting early - incomplete Ab vs. SAb vs. early - ~9w gestation by unsure LMP of early October 2024 - abnormally rising quants and TVUS that showed an empty, intrauterine gestational sac - bleeding 1-2 pads per day, 05/05 lower abdominal cramping - TANDS Rh positive - repeat TVUS scheduled for today, 11am - RTC in 2 weeks for further management - OB ED precautions provided Plan of care discussed with Dr. Merritt, attending physician Corina Booker, 01/12/2025 Attending Note I discussed with resident. The patient was not examined by the attending. I reviewed the resident's note. I agree with the resident's assessment and plan unless otherwise noted. Signature: Charan Merritt MD Date: 01/13/2025. Time: 3:31 AM [facility] 01-08-2025 Telephone encounter Note Yes at this point needs ultrasound Agree with bleeding/miscarriage and ectopic precautions [facility] Work Phone: 01-08-2025 Miscellaneous Notes Yes at this point needs ultrasound Agree with bleeding/miscarriage and ectopic precautions Pt calls stating she rescheduled US from today to tomorrow. Pt wants to know how long she will spot for and states she had ultrasound completed at [facility], in [place] and was told it was either an ectopic or Molar , but she is confused because her HCG levels keep going up. Pt c/o cramping. Denies abdominal pain. Spotting only and wearing pad, but has not needed to change it. Advised Pt that without the ultrasound being completed, it is very difficult to know exactly what is going on and to continue to monitor for severe abdominal pain, and If her bleeding becomes heavy to where she is saturating a pad (front to back, side to side) in one hour or less for two hours or more then she needs to go to the emergency room. Strongly encouraged Pt to get US completed tomorrow as scheduled. Pt voiced understanding. Pt then asked this RN to be transferred back to the radiology scheduler. Smiley Whaley RN documented in this encounter [facility] 01-08-2025 Telephone encounter Note Pt calls stating she rescheduled US from today to tomorrow. Pt wants to know how long she will spot for and states she had ultrasound completed at [facility], in [place] and was told it was either an ectopic or Molar , but she is confused because her HCG levels keep going up. Pt c/o cramping. Denies abdominal pain. Spotting only and wearing pad, but has not needed to change it. Advised Pt that without the ultrasound being completed, it is very difficult to know exactly what is going on and to continue to monitor for severe abdominal pain, and If her bleeding becomes heavy to where she is saturating a pad (front to back, side to side) in one hour or less for two hours or more then she needs to go to the emergency room. Strongly encouraged Pt to get US completed tomorrow as scheduled. Pt voiced understanding. Pt then asked this RN to be transferred back to the radiology scheduler. Smiley Whaley RN [facility] 01-05-2025 Note HNO ID: [id number] Author: JOHANA FULTON APRN.DEPUTY SHERIFF BUILDING GUARD Service: ? Author Type: Nurse Practitioner Type: Progress Notes Filed: 01/05/2025 15:41 Note Text: Nelly Guzman is a 34 year old female who presents for bleeding in early HPI: Patient states that LMP was December 10, 2024. Today she states that bleeding is just very light. Patient [place] in [place] and had a ultrasound performed there that shows a gestational sac with no pole. Patient did have quants done that were rising as of 12/29/2024, but no clots have been done since. 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 Pap smear (cervix) Dysthymic disorder 07/2008 Depression (non-psychotic) Unspecified asthma(493.90) CHILDHOOD PAST SURGICAL HISTORY Procedure Laterality Date NONE FAMILY HISTORY Problem Relation Age of Onset Alcohol/Drug Mother Alcohol/Drug Father Arthritis Mother Breast Cancer Paternal Grandmother other (LUPUS [Other]) Paternal Aunt Diabetes Father Heart Father OR Lipids Father Hypertension Father Psychiatry Mother DEPRESSION Social History Tobacco Use Smoking status: Former Current packs/day: 0.00 Types: Cigarettes Start date: 10/20/2000 Quit date: 10/20/2008 Years since quittin.2 Smokeless tobacco: Never Substance Use Topics Alcohol use: No Drug use: Yes Comment: HEROIN LAST USED 02/03/2011 Current Outpatient Medications Medication Sig acetaminophen-hydrocodone (VICODIN) 5-500 mg ORAL tablet Take 1-2 tablets by mouth every 6 hours as needed for Pain. FOR PAIN cyclobenzaprine (FLEXERIL) 10 mg ORAL tablet Take 0.5-1 tablets by mouth twice daily as needed for Muscle Spasm. FOR PAIN OR SPASMS Vit-Iron Fumarate-FA ( 19) 29-1 mg ORAL Chew Take by mouth. (Patient not taking: Reported on 01/05/2025) No current facility-administered medications for this visit. Allergies As of Date: 01/05/2025 (No Known Allergies) Fully Assessed 01/05/2025 REVIEW OF SYSTEMS Expanded ROS: N/A Allergies and current medication updated:Yes SENSITIVE EXAM: Sensitive exam not performed. EXAM: BP 118/68 Wt 159 lb (72.1kg) LMP 12/10/2024 GENERAL: pleasant, female in no apparent distress HEENT: Normocephalic, atraumatic, mucus membranes moist, and no lesions CHEST: Normal inspiratory effort NEURO: alert and oriented x3,exam grossly non-focal EXTREMITIES: normal ASSESSMENT/PLAN: 1. with uncertain dates, antepartum - ICD9: V22.1, ICD10: Z34.90 (primary diagnosis) 2. Bleeding in early - ICD9: 640.90, ICD10: O20.9 Patient refused bedside ultrasound and exam today. Patient would like ultrasound to be done in [place] closer to her home - HCG QUANTITATIVE - OBSTETRIC ULTRASOUND WHI Discussed with patient that this may not be a viable . Patient is just wanting some medication to complete miscarriage because as she states I know that this is a miscarriage Johana Fulton APRN.DEPUTY SHERIFF BUILDING GUARD I spent a total of 45 minutes on the date of the service which included preparing to see the patient, [id number] patient care, completing clinical documentation, obtaining and/or reviewing separately obtained history, counseling and educating the patient/family/caregiver, and ordering medications, tests, or procedures. [facility] 01-05-2025 History of Presen t illness Narrative Nelly Guzman is a 34 year old female who presents for bleeding in early HPI: Patient states that LMP was December 10, 2024. Today she states that bleeding is just very light. Patient was [place] in the [place] and had a ultrasound performed there that shows a gestational sac with no pole. Patient did have quants done that were rising as of 12/29/2024, but no clots have been done since. 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 Pap smear (cervix) Dysthymic disorder 07/2008 Depression (non-psychotic) Unspecified asthma(493.90) CHILDHOOD PAST SURGICAL HISTORY Procedure Laterality Date NONE FAMILY HISTORY Problem Relation Age of Onset Alcohol/Drug Mother Alcohol/Drug Father Arthritis Mother Breast Cancer Paternal Grandmother other (LUPUS [Other]) Paternal Aunt Diabetes Father Heart Father OR Lipids Father Hypertension Father Psychiatry Mother DEPRESSION Social History Tobacco Use Smoking status: Former Current packs/day: 0.00 Types: Cigarettes Start date: 10/20/2000 Quit date: 10/20/2008 Years since quittin.2 Smokeless tobacco: Never Substance Use Topics Alcohol use: No Drug use: Yes Comment: HEROIN LAST USED 02/03/2011 Current Outpatient Medications Medication Sig acetaminophen-hydrocodone (VICODIN) 5-500 mg ORAL tablet Take 1-2 tablets by mouth every 6 hours as needed for Pain. FOR PAIN cyclobenzaprine (FLEXERIL) 10 mg ORAL tablet Take 0.5-1 tablets by mouth twice daily as needed for Muscle Spasm. FOR PAIN OR SPASMS Vit-Iron Fumarate-FA ( 19) 29-1 mg ORAL Chew Take by mouth. (Patient not taking: Reported on 01/05/2025) No current facility-administered medications for this visit. Allergies As of Date: 01/05/2025 (No Known Allergies) Fully Assessed 01/05/2025 REVIEW OF SYSTEMS Expanded ROS: N/A Allergies and current medication updated:Yes SENSITIVE EXAM: Sensitive exam not performed. EXAM: BP 118/68 Wt 159 lb (72.1kg) LMP 12/10/2024 GENERAL: pleasant, female in no apparent distress HEENT: Normocephalic, atraumatic, mucus membranes moist, and no lesions CHEST: Normal inspiratory effort NEURO: alert and oriented x3,exam grossly non-focal EXTREMITIES: normal ASSESSMENT/PLAN: 1. with uncertain dates, antepartum - ICD9: V22.1, ICD10: Z34.90 (primary diagnosis) 2. Bleeding in early - ICD9: 640.90, ICD10: O20.9 Patient refused bedside ultrasound and exam today. Patient would like ultrasound to be done in [place] closer to her home - HCG QUANTITATIVE - OBSTETRIC ULTRASOUND WHI Discussed with patient that this may not be a viable . Patient is just wanting some medication to complete miscarriage because as she states I know that this is a miscarriage Johana Fulton APRN.CNP I spent a total of 45 minutes on the date of the service which included preparing to see the patient, [id number] patient care, completing clinical documentation, obtaining and/or reviewing separately obtained history, counseling and educating the patient/family/caregiver, and ordering medications, tests, or procedures. documented in this encounter [facility] 12-30-2024 Telephone encounter Note Patient notified. u/s scheduled for 01/02. Nicole Rankin RN [facility] 12-30-2024 Miscellaneous Notes Patient notified. u/s scheduled for 01/02. Nicole Rankin RN formal US ordered schedule for later this week or early next week. Doesn't need NOB next week, just get US for location and we will go from there. Ok to leave that appointment but may be too early to do full NOB then. Eric Cruz MD Early OB. Patient called because she started spotting again. Light pink. Having some mild cramping. No intercourse or anything in the vagina recently. Has her NOB on Sunday, 01/05. Patient called to see if she needs seen in the office sooner. Advised to continue to monitor and to call if her bleeding or pain increases. hCG Quantitative, Blood (mIU/mL) Date Value 12/29/2024 6,232.0 12/27/2024 2,544.0 12/25/2024 2,269.0 Yanira Mixon, JUAN documented in this encounter [facility] 12-30-2024 Telephone encounter Note formal US ordered schedule for later this week or early next week. Doesn't need NOB next week, just get US for location and we will go from there. Ok to leave that appointment but may be too early to do full NOB then. Eric Cruz MD [facility] 12-30-2024 Telephone encounter Note Early OB. Patient called because she started spotting again. Light pink. Having some mild cramping. No intercourse or anything in the vagina recently. Has her NOB on Sunday, 01/05. Patient called to see if she needs seen in the office sooner. Advised to continue to monitor and to call if her bleeding or pain increases. hCG Quantitative, Blood (mIU/mL) Date Value 12/29/2024 6,232.0 12/27/2024 2,544.0 12/25/2024 2,269.0 Yanira Mixon RN [facility] 12-29-2024 Telephone encounter Note NOB scheduled. Patient plans to be out of the area, but still wanted to have her initial visit with our office. Yanira Mixon RN [facility] 12-29-2024 Miscellaneous Notes NOB scheduled. Patient plans to be out of the area, but still wanted to have her initial visit with our office. Yanira Mixon RN Attempted to call patient. Unable to leave message - sounded like someone originally answered and then call cut off. Nicole Rankin RN ----- Message from Eugenia Shepherd APRN.CNM sent at 12/29/2024 2:30 PM EST ----- HCG level increased appropriately. Please schedule NOB> Eugenia Shepherd APRN.CNM hCG Quantitative, Blood (mIU/mL) Date Value 12/29/2024 6,232.0 12/27/2024 2,544.0 12/25/2024 2,269.0 Patient notified. She is going to try to get lab work done today. Declined appt this week though. She was going to be moving out of the area today and was planning to establish care with OB provider where she moves to. She is in [place] and plans to get hcg quant done today and if ends up staying in area will schedule appt for this week. She is unsure as of now what she will do. Leave open for 12/29 hcg result. Nicole Rankin RN ----- Message from Eric Cruz MD sent at 12/29/2024 11:15 AM EST ----- Needs office or virtual visit this week to discuss quants. Repeat quant today if possible. Eric Cruz MD documented in this encounter [facility] 12-29-2024 Telephone encounter Note Attempted to call patient. Unable to leave message - sounded like someone originally answered and then call cut off. Nicole Rankin RN [facility] 12-29-2024 Telephone encounter Note ----- Message from Eugenia Shepherd APRN.CNM sent at 12/29/2024 2:30 PM EST ----- HCG level increased appropriately. Please schedule NOB> Eugenia Shepherd APRN.CNM hCG Quantitative, Blood (mIU/mL) Date Value 12/29/2024 6,232.0 12/27/2024 2,544.0 12/25/2024 2,269.0 [facility] 12-29-2024 Telephone encounter Note Patient notified. She is going to try to get lab work done today. Declined appt this week though. She was going to be moving out of the area today and was planning to establish care with OB provider where she moves to. She is in [place] and plans to get hcg quant done today and if ends up staying in area will schedule appt for this week. She is unsure as of now what she will do. Leave open for 2/3 hcg result. Nicole Rankin RN [facility] 12-29-2024 Telephone encounter Note ----- Message from Eric Cruz MD sent at 12/29/2024 11:15 AM EST ----- Needs office or virtual visit this week to discuss quants. Repeat quant today if possible. Eric Cruz MD [facility] 12-25-2024 Miscellaneous Notes Patient notified and voiced understanding. Will go to lab today and Sunday for HCG quant levels. Bleeding precautions reviewed. Mila Sánchez RN HCG levels ordered. Patient needs to have drawn today. Review bleeding precautions. Schedule NOB. Eugenia Shepherd APRN.CNM Patient calling because she was told by [facility] ER that she needed to follow up in the office this week for bleeding with . Patient went to [facility] ER on Sunday, 12/23 for irregular bleeding. Patient states they did a urine test at that time and it was positive. States and internal ultrasound was also done but they could not see anything. Patient states she had a normal period on 12/10/24 for 4 days and that this period was around 9 days late. LMP of 12/10/24 would only make her 2w1d. Patient states she does not know when her period was in October but states it was during the beginning of the month. Patient states on Sunday she had some bright red bleeding again so she decided to go to the ER to be evaluated. Patient is no longer having any bleeding bu is having some mild abdominal cramping that she rates at a 2-3. Patient denies any nausea/vomiting, but is positive for breast tenderness and fatigue. This would make patient a . Records printed from [employer]. Quant level on 12/23 was 1350, patient was in ER for bleeding. Patient was also seen in the ER on 12/22 for STD check 2 days prior to that and had a positive urine test Patient was also seen in ER on 11/08/24 for cellulitis of arm, and serum quant was negative during that visit. What would you like to do? Quants? Mila Sánchez RN documented in this encounter [facility] 12-25-2024 Telephone encounter Note Patient notified and voiced understanding. Will go to lab today and Sunday for HCG quant levels. Bleeding precautions reviewed. Mila Sánchez RN [facility] 12-25-2024 Telephone encounter Note HCG levels ordered. Patient needs to have drawn today. Review bleeding precautions. Schedule NOB. Eugenia Shepherd APRN.CNM [facility] 12-25-2024 Telephone encounter Note Patient calling because she was told by [facility] ER that she needed to follow up in the office this week for bleeding with . Patient went to [facility] ER on Sunday, 12/23 for irregular bleeding. Patient states they did a urine test at that time and it was positive. States and internal ultrasound was also done but they could not see anything. Patient states she had a normal period on 12/10/24 for 4 days and that this period was around 9 days late. LMP of 12/10/24 would only make her 2w1d. Patient states she does not know when her period was in October but states it was during the beginning of the month. Patient states on Sunday she had some bright red bleeding again so she decided to go to the ER to be evaluated. Patient is no longer having any bleeding bu is having some mild abdominal cramping that she rates at a 2-3. Patient denies any nausea/vomiting, but is positive for breast tenderness and fatigue. This would make patient a . Records printed from [employer]. Quant level on 12/23 was 1350, patient was in ER for bleeding. Patient was also seen in the ER on 12/22 for STD check 2 days prior to that and had a positive urine test Patient was also seen in ER on 11/08/24 for cellulitis of arm, and serum quant was negative during that visit. What would you like to do? Quants? Mila Sánchez RN [facility] Evaluation note Diagnosis Bleeding in early - Primary Unspecified hemorrhage in early , unspecified as to episode of care [facility] Diagnosis Threatened - Primary Threatened , unspecified as to episode of care [facility] Diagnosis with uncertain dates, antepartum- Primary state, incidental Bleeding in early Unspecified hemorrhage in early , unspecified as to episode of care [facility] Diagnosis Vaginal bleeding affecting early - Primary Vaginal bleeding affecting early [facility] Diagnosis Vaginal bleeding affecting early - Primary Vaginal bleeding affecting early * Assessment & Plan Note - Corina Booker DO - 01/12/2025 12:45 PM EST Associated Problem(s): Vaginal bleeding affecting early - incomplete Ab vs. SAb vs. early - ~9w gestation by unsure LMP of early October 2024 - abnormally rising quants and TVUS that showed an empty, intrauterine gestational sac - bleeding 1-2 pads per day, 6/10 lower abdominal cramping - T&S Rh positive - repeat TVUS scheduled for today, 11am - RTC in 2 weeks for further management - OB ED precautions provided * Assessment & Plan Note - Corina Booker DO - 01/12/2025 10:19 AM EST Associated Problem(s): Vaginal bleeding affecting early - incomplete Ab vs. SAb vs. early - ~9w gestation by unsure LMP of October 2024 - abnormally rising quants and TVUS that showed an empty, intrauterine gestational sac - bleeding 1-2 pads per day, 6/10 lower abdominal cramping - T&S Rh positive - repeat TVUS scheduled for today, 11am - RTC in 2 weeks for further management - OB ED precautions provided [facility] Diagnostic Procedure Only (Routine) - Authorized Specialty Diagnoses / Procedures Referred By Contac t Referred To Contact [facility] Diagnoses Threatened Procedures OBSTETRIC ULTRASOUND WHI US PREG UTERUS AFTER 1ST TRIMEST GESTATION Eric Cruz MD [address] [place] [address] [address] Referral ID Status Reason Start Date Expiration Date Visits Requested Visits Authorized [id number] Authorized Auto-Generat ed Referral 12/30/2024 12/30/2025 1 1 [facility] Summary Purpose Family History No Family History Records FoundNo Family History Records FoundNo Family History Records FoundNo Family History Records FoundNo Family History Records FoundNo Family History Records Found Advance Directives No Advanced Directives Records FoundNo Advanced Directives Records FoundNo Advanced Directives Records FoundNo Advanced Directives Records FoundNo Advanced Directives Records FoundNo Advanced Directives Records Found Additional Source Comments INFORMATION SOURCE (unrecogn ized section and content) DATE CREATED AUTHOR 11/09/2018 [facility] ([place]) DATE CREATED AUTHOR AUTHOR'S ORGANIZ ATION 01/10/2025 [facility] DATE CREATED AUTHOR AUTHOR'S ORGANIZ ATION 01/15/2025 [facility] DATE CREATED AUTHOR AUTHOR'S ORGANIZ ATION 01/22/2025 [facility] DATE CREATED AUTHOR AUTHOR'S ORGANIZ ATION 01/25/2025 [facility] DATE CREATED AUTHOR AUTHOR'S ORGANIZ ATION 01/30/2025 [facility] Source Comments (unrecognize d section and content) In the event this informatio n is protected by the Federal Confidentiality of Alcohol and Drug Abuse Patient Records regulations: The Federal rules restrict any use of the information to criminally investigate or prosecute any alcohol or drug abuse patient.[facility] the event this information is protected by the Federal Confidentiality of Alcohol and Drug Abuse Patient Records regulations: The Federal rules restrict any use of the information to criminally investigate or prosecute any alcohol or drug abuse patient.[facility] the event this information is protected by the Federal Confidentiality of Alcohol and Drug Abuse Patient Records regulations: The Federal rules restrict any use of the information to criminally investigate or prosecute any alcohol or drug abuse patient.[facility] the event this information is protected by the Federal Confidentiality of Alcohol and Drug Abuse Patient Records regulations: The Federal rules restrict any use of the information to criminally investigate or prosecute any alcohol or drug abuse patient.[facility] the event this information is protected by the Federal Confidentiality of Alcohol and Drug Abuse Patient Records regulations: The Federal rules restrict any use of the information to criminally investigate or prosecute any alcohol or drug abuse patient.[facility] the event this information is protected by the Federal Confidentiality of Alcohol and Drug Abuse Patient Records regulations: The Federal rules restrict any use of the information to criminally investigate or prosecute any alcohol or drug abuse patient.[facility] the event this information is protected by the Federal Confidentiality of Alcohol and Drug Abuse Patient Records regulations: The Federal rules restrict any use of the information to criminally investigate or prosecute any alcohol or drug abuse patient.[facility] the event this information is protected by the Federal Confidentiality of Alcohol and Drug Abuse Patient Records regulations: The Federal rules restrict any use of the information to criminally investigate or prosecute any alcohol or drug abuse patient.[facility] Hospital[facility] the event this information is protected by the Federal Confidentiality of Alcohol and Drug Abuse Patient Records regulations: The Federal rules restrict any use of the information to criminally investigate or prosecute any alcohol or drug abuse patient.[facility] the event this information is protected by the Federal Confidentiality of Alcohol and Drug Abuse Patient Records regulations: The Federal rules restrict any use of the information to criminally investigate or prosecute any alcohol or drug abuse patient.[facility] Hospital[facility] the event this information is protected by the Federal Confidentiality of Alcohol and Drug Abuse Patient Records regulations: The Federal rules restrict any use of the information to criminally investigate or prosecute any alcohol or drug abuse patient.[facility] Reason for Visit (unrecogniz ed section and content) Reason Comments Bleeding With Reason Onset Date Comments Refill Request 12/29/2024 Reason Comments Results Reason Comments Early OB Spotting Reason Comments Discussion [place] spotting Reason Comments Spotting Reason Comments US Specialty Diagnoses / Procedures Referred By Contac t Referred To Contact [facility] Diagnoses Vaginal bleeding affecting early Procedures OBSTETRIC ULTRASOUND WHI US PREG UTERUS AFTER 1ST TRIMEST GESTATION Charan Merritt MD [address] [facility] [address] [place] [address] Phone: tel: fax: [address] [address] Referral ID Status Reason Start Date Expiration Date V isits Requested Visits Authorized [id number] Closed Auto-Generate d Referral 01/12/2025 01/12/2026 1 1 Reason Comments Follow Up Reason Onset Date Comments Results 01/12/2025 Reason Comments Altered Mental Status Found in parking l ot at gas station, took too many pills, states she is being followed, voices telling her to harm herself Reason Comments Missed Appointment No show Scheduled Active and Recently Administ ered Medications (unrecognized section and content) Medication Order 01/15/2025 01/16/2025 01/17/2025 potassium chloride 20 mEq in sterile water for injection 100 mL (COMPLETED) 20 mEq, intravenous, at 50 mL/hr, Administer over 2 Hours, Once, On [place] 01/15/25 at 2024, For 1 dose, Via peripheral line 2054 (New Bag - Provider: Bala Arizmendi RN)2254 (Stopped - Provider: Bala Arizmendi RN) potassium chloride CR (Klor-Con) ER tablet 40 mEq (COMPLETED) 40 mEq, oral, Once, On [place] 01/15/25 at 2024, For 1 dose, Best given with food and plenty of water to minimize gastric irritation. Do not crush, chew, or split. 2055 (Given - Provider: Bala Arizmendi RN) sodium chloride 0.9 % bolus 1,000 mL (COMPLETED) 1,000 mL, intravenous, at 2,000 mL/hr, Administer over 30 Minutes, Once, On Sun01/16/25 at 0430, For 1 dose 0447 (New Bag - Provider: Estelle Prince RN)0518 (Stopped - Provider: Estelle Prince RN) Care Teams (unrecognized sec tion and content) Medical Research Assistant Relationship Specialty Start Date End Date Generic, External Data Provider [place] [address] PCP - General 01/15/25 FOR RECORDS PERTAINING TO PATIENTS WHO ARE OR HAVE BEEN ENROLLED IN A CHEMICAL DEPENDENCY/SUBSTANCEABUSE PROGRAM, SOME INFORMATION MAY BE OMITTED. This clinical summary was aggregated from multiple sources. Caution should be exercised in using it in the provision of clinical care. This summary normalizes information from multiple sources, and as a consequence, information in this document may materially change the coding, format and clinical context of patient data. In addition, data may be omitted in some cases. CLINICAL DECISIONS SHOULD BE BASED ON THE PRIMARY CLINICAL RECORDS. [email or web address]. provides no warranty or guarantee of the accuracy or completeness of information in this document.
== END 2025-10-14 06:36 | disposition home or self-care (01) ==
LOC: ED 06:33
PROVIDERS: Emergency Provider Emergency Medicine; Visit Provider Emergency Medicine
DX: F25.9 Schizoaffective disorder, unspecified (principal); F19.19 Other psychoactive substance abuse with unspecified psychoactive substance-induced disorder; B85.0 Pediculosis due to Pediculus humanus capitis; F17.200 Nicotine dependence, unspecified, uncomplicated
CPT/HCPCS: 99282

== ENCOUNTER 2025-10-17 10:54 | Emergency (ER) | payer MEDICAID, SELFPAY ==
[2025-10-17 10:56] VITALS: BP 133/111; PULSE 99; RESP 22; TEMP 36.6; O2SAT 100; BMI 27.4
--- OUTSIDE RECORDS SUMMARY | 2025-10-17 11:34 | XMS RPT_ITS | CCD ---
Author Organization [facility] Care Team Providers Care Electronic Commerce Specialist Name Role Phone SHAUNA GARAYFlorian Unavailable Unavailable [...] GENERIC, EXTERNAL DATA PROVIDER Primary Care Unavailable FE SERNA Attending UnavailEUGENIA Mallory Referring Unavailable CORINA [...] Test Name Value Interpretation Reference Range Facility [facility] 01-28-2025 [facility] Telephone ([facility]) NELLY GUZMAN ([id number]) 1990 F Date Time Provider Department 01/28/25 [...] Status:Closed by ANABEL HEREDIA on 01/28/25 Normal [facility] DRUG SCREEN,URINEon 01-16-20 25 Amphetamines Screen Ql (U) Positive Abnormal Presumptive Negative [facility] Comment on above: Order Comment: Drug screen results are presumptive and should not be used to assess compliance with prescribed medication. Contact the performing [facility] laboratory to add-on definitive confirmatory testing [...] By: #### D RUG3 #### ARTIS Flores ([id number]) [facility] ([facility]) [address] [place] [address] Barbiturates Screen Ql (U) Negative Normal Presumptive Negative [facility] Comment on above: Order Comment: Drug screen results are presumptive and should not be used to assess compliance with prescribed medication. Contact the performing [facility] laboratory to add-on definitive confirmatory testing [...] By: #### D RUG3 #### ARTIS Flores ([id number]) [facility] ([facility]) [address] [place] [address] Benzodiazepines Ql (U) Negative Normal Presumptive Negative [facility] Comment on above: Order Comment: Drug screen results are presumptive and should not be used to assess compliance with prescribed medication. Contact the performing [facility] laboratory to add-on definitive confirmatory testing [...] By: #### D RUG3 #### ARTIS Flores ([id number]) [facility] ([facility]) [address] [place] [address] 49212 Benzoylecgonine Screen Ql (U) Negative Normal Presumptive Negative [facility] Comment on above: Order Comment: Drug screen results are presumptive and should not be used to assess compliance with prescribed medication. Contact the performing [facility] laboratory to add-on definitive confirmatory testing [...] By: #### D RUG3 #### ARTIS Flores ([id number]) [facility] ([facility]) [address] [place] [address] Cannabinoids Screen Ql (U) Negative Normal Presumptive Negative [facility] Comment on above: Order Comment: Drug screen results are presumptive and should not be used to assess compliance with prescribed medication. Contact the performing [facility] laboratory to add-on definitive confirmatory testing [...] By: #### D RUG3 #### ARTIS Flores ([id number]) [facility] ([facility]) [address] [place] [address] 33849 fentaNYL+Norfentany l Screen Ql (U) Negative Normal Presumptive Negative [facility] Comment on above: Order Comment: Drug screen results are presumptive and should not be used to assess compliance with prescribed medication. Contact the performing [facility] laboratory to add-on definitive confirmatory testing [...] By: #### D RUG3 #### ARTIS Flores ([id number]) [facility] ([facility]) [address] [place] [address]23 Methadone Screen Ql (U) Negative Normal Presumptive Negative [facility] Comment on above: Order Comment: Drug screen results are presumptive and should not be used to assess compliance with prescribed medication. Contact the performing [facility] laboratory to add-on definitive confirmatory testing [...] CUTO FF LEVEL: 150 NG/ML The metabolite T-bhcjm-hdllcbolcavwil (LAAM) is not detected by this method in concentrations that would be found in the urine of patients on LAAM therapy. Performed By: #### D RUG3 #### ARTIS Flores ([id number]) [facility] ([facility]) [address] [place] [address] Opiates Screen Ql (U) Negative Normal Presumptive Negative [facility] Comment on above: Order Comment: Drug screen results are presumptive and should not be used to assess compliance with prescribed medication. Contact the performing [facility] laboratory to add-on definitive confirmatory testing [...] By: #### Kenn RUG3 #### ARTIS Flores ([id number]) [facility] ([facility]) [address] [place] [address] 72897 oxyCODONE+oxyMORpho ne Screen Ql (U) Negative Normal Presumptive Negative [facility] Comment on above: Order Comment: Drug screen results are presumptive and should not be used to assess compliance with prescribed medication. Contact the performing [facility] laboratory to add-on definitive confirmatory testing [...] By: #### Kenn RUG3 #### ARTIS Flores ([id number]) [facility] ([facility]) [address] [place] [address] Phencyclidine Ql (U) Negative Normal Presumptive Negative [facility] Comment on above: Order Comment: Drug screen results are presumptive and should not be used to assess compliance with prescribed medication. Contact the performing [facility] laboratory to add-on definitive confirmatory testing [...] By: #### D ROXANA3 #### ARTIS Flores ([id number]) [facility] ([facility]) [address] [place] [address] 45928 Drug Screen, Urineon 025 Amphetamines Screen Ql (U) Positive Abnormal Presumptive Negative [facility] Comment on above: CUTOFF LEVEL: 500 NG /ML Cross-reactivity has been reported with high concentrations of the following drugs: buproprion, chloroquine, chlorpromazine, ephedrine, mephentermine, fenfluramine, phentermine, phenylpropanolamine, pseudoephedrine, and propranolol. Barbiturates Screen Ql (U) Negative Presumptive Negative [facility] Comment on above: CUTOFF LEVEL: 200 NG /ML Benzodiazepines Ql (U) Negative Presumptive Negative [facility] Comment on above: CUTOFF LEVEL: 200 NG /ML Benzoylecgonine Screen Ql (U) Negative Presumptive Negative [facility] Comment on above: CUTOFF LEVEL: 150 NG /ML Cannabinoids Screen Ql (U) Negative Presumptive Negative [facility] Comment on above: CUTOFF LEVEL: 50 NG/ ML fentaNYL+Norfentany l Screen Ql (U) Negative Presumptive Negative [facility] Comment on above: CUTOFF LEVEL: 5 NG/M L Interpretation and review of laboratory results Abnormal [facility] Methadone Screen Ql (U) Negative Presumptive Negative [facility] Comment on above: CUTOFF LEVEL: 150 NG /ML The metabolite K-xocpc-arwxjyvmegsmjv (LAAM) is not detected by this method in concentrations that would be found in the urine of patients on LAAM therapy. Opiates Screen Ql (U) Negative Presumptive Negative [facility] Comment on above: CUTOFF LEVEL: 300 NG /ML The opiate screen does not detect fentanyl, meperidine, or tramadol. Oxycodone is not consistently detected (refer to Oxycodone Screen, Urine result). oxyCODONE+oxyMORpho ne Screen Ql (U) Negative Presumptive Negative [facility] Comment on above: CUTOFF LEVEL: 100 NG /ML This test will accurately detect both oxycodone and oxymorphone. Phencyclidine Ql (U) Negative Presumptive Negative [facility] Comment on above: CUTOFF LEVEL: 25 NG/ ML Cross-reactivity has been reported with dextromethorphan. Drug screen results are presumptive and should not be used to assess compliance with prescribed medication. Contact the performing [facility] laboratory to add-on definitive confirmatory testing [...] be directed to the laboratory medical directors. [facility] Potassiumon 01-16-2025 Potassium [Moles/Vol] 3.3 mmol/L Low 3.5 - 5.3 mmol/L [facility] Comment on above: MILD HEMOLYSIS DETEC ROWAN. The result may be falsely elevated due to hemolysis or other interferents. Clinical correlation is recommended. Repeat testing may be considered. Potassium [Moles/Vol] 3.3 mmol/L Low 3.5-5.3 [facility] Comment on above: Result Comment: MILD HEMOLYSIS DETECTED. The result may be falsely elevated due to hemolysis or other interferents. Clinical correlation is recommended. Repeat testing may be considered. Performed By: #### 2 823-3 #### ARTIS Flores ([id number]) [facility] ([facility]) [address] [place] [address] Potassium [Moles/Vol]on 12-28 Interpretation and review of laboratory results Abnormal [facility] ACUTE TOXICOLOGY PANEL, MOUNIKA Quintanilla 01-15-2025 Acetaminophen [Mass/Vol] ug/mL Normal 10.0-30.0 [facility] Comment on above: Performed By: #### D RUBL #### ARTIS Flores ([id number]) [facility] ([facility]) [address] [place] [address] 65255 Ethanol [Mass/Vol] mg/dL Normal <=10 [facility] Comment on above: Performed By: #### D RUBL #### ARTIS Flores ([id number]) [facility] ([facility]) [address] [place] [address] 02434 Salicylates [Mass/Vol] mg/dL Normal 4-20 [facility] Comment on above: Performed By: #### D RUBL #### ARTIS Flores ([id number]) [facility] ([facility]) [address] [place] [address] 37597 Acute Toxicology Panel, Johno don 01-15-2025 Acetaminophen [Mass/Vol] ug/mL 10.0 - 30.0 ug/mL [facility] Ethanol [Mass/Vol] mg/dL NINF - 10 mg/dL [facility] Interpretation and review of laboratory results Normal [facility] Salicylates [Mass/Vol] mg/dL 4 - 20 mg/dL [facility] CBC W Auto Differential pane l (Bld)on 01-15-2025 Basophils (Bld) [#/Vol] 0.07 10*3/uL [facility] Basophils/100 WBC (Bld) 1.1 % 0.0 - 2.0 % [facility] Eosinophils (Bld) [#/Vol] 0.09 10*3/uL [facility] Eosinophils/100 WBC (Bld) 1.4 % 0.0 - 6.0 % [facility] Erythrocyte distribution width (RBC) [Ratio] 13.3 % 11.5 - 14.5 % [facility] Hematocrit (Bld) [Volume fraction] 45.4 % 36.0 - 46.0 % [facility] Hemoglobin (Bld) [Mass/Vol] 14.8 g/dL 12.0 - 16.0 g/dL [facility] Immature granulocytes (Bld) [#/Vol] 0.01 10*3/uL [facility] Immature granulocytes/100 WBC (Bld) 0.2 % 0.0 - 0.9 % [facility] Comment on above: Immature Granulocyte Count (IG) includes promyelocytes, myelocytes and metamyelocytes but does not include bands. Percent differential counts (%) should be interpreted in the context of the absolute cell counts (cells/UL). Interpretation and review of laboratory results Abnormal [facility] Lymphocytes (Bld) [#/Vol] 2.51 10*3/uL [facility] Lymphocytes/100 WBC (Bld) 38.3 % 13.0 - 44.0 % [facility] MCH (RBC) [Entitic mass] 27 pg 26.0 - 34.[address] [facility] MCHC (RBC) [Mass/Vol] 32.6 g/dL 32.0 - 36.0 g/dL [facility] MCV (RBC) [Entitic vol] 83 fL 80 - [address] [facility] Monocytes (Bld) [#/Vol] 0.43 10*3/uL [facility] Monocytes/100 WBC (Bld) 6.6 % 2.0 - 10.0 % [facility] Neutrophils (Bld) [#/Vol] 3.45 10*3/uL [facility] Comment on above: Percent differential counts (%) should be interpreted in the context of the absolute cell counts (cells/uL). Neutrophils/100 WBC (Bld) 52.4 % 40.0 - 80.0 % [facility] Nucleated RBC/100 WBC (Bld) [Ratio] 0 % [facility] Platelets (Bld) [#/Vol] 372 10*3/uL [facility] RBC (Bld) [#/Vol] 5.49 10*6/uL [facility] WBC (Bld) [#/Vol] 6.6 10*3/uL [facility] Basophils (Bld) [#/Vol] 0.07 x10*3/uL Normal 0.00-0.10 [facility] Comment on above: Performed By: #### 5 7021-8 #### ARTIS Flores ([id number]) [facility] ([facility]) [address] [place] [address] 95694 Basophils/100 WBC (Bld) 1.1 % Normal 0.0-2.0 [facility] Comment on above: Performed By: #### 7021-8 #### ARTIS Flores ([id number]) [facility] ([facility]) [address] [place] [address] Eosinophils (Bld) [#/Vol] 0.09 x10*3/uL Normal 0.00-0.70 [facility] Comment on above: Performed By: #### 5 7021-8 #### ARTIS Flores ([id number]) [facility] ([facility]) [address] [place] [address] Eosinophils/100 WBC (Bld) 1.4 % Normal 0.0-6.0 [facility] Comment on above: Performed By: #### 7021-8 #### ARTIS Flores ([id number]) [facility] ([facility]) [address] [place] [address] 71071 Erythrocyte distribution width (RBC) [Ratio] 13.3 % Normal 11.5-14.5 [facility] Comment on above: Performed By: #### 5 7021-8 #### ARTIS Flores ([id number]) [facility] ([facility]) [address] [place] [address] Hematocrit (Bld) [Volume fraction] 45.4 % Normal 36.0-46.0 [facility] Comment on above: Performed By: #### 5 7021-8 #### ARTIS Flores ([id number]) [facility] ([facility]) [address] [place] [address] 93595 Hemoglobin (Bld) [Mass/Vol] 14.8 g/dL Normal 12.0-16.0 [facility] Comment on above: Performed By: #### 5 7021-8 #### ARTIS Flores ([id number]) [facility] ([facility]) [address] [place] [address] Immature granulocytes (Bld) [#/Vol] 0.01 x10*3/uL Normal 0.00-0.70 [facility] Comment on above: Performed By: #### 5 7021-8 #### ARTIS Flores ([id number]) [facility] ([facility]) [address] [place] [address] 54106 Immature granulocytes/100 WBC (Bld) 0.2 % Normal 0.0-0.9 [facility] Comment on above: Result Comment: Nani ture Granulocyte Count (IG) includes promyelocytes, myelocytes and metamyelocytes but does not include bands. Percent differential counts (%) should be interpreted in the context of the absolute cell counts (cells/UL). Performed By: #### 5 7021-8 #### ARTIS Flores ([id number]) [facility] ([facility]) [address] [place] [address] Lymphocytes (Bld) [#/Vol] 2.51 x10*3/uL Normal 1.20-4.80 [facility] Comment on above: Performed By: #### 5 7021-8 #### ARTIS Flores ([id number]) [facility] ([facility]) [address] [place] [address] 60217 Lymphocytes/100 WBC (Bld) 38.3 % Normal 13.0-44.0 [facility] Comment on above: Performed By: #### 5 7021-8 #### ARTIS Flores ([id number]) [facility] ([facility]) [address] [place] [address] MCH (RBC) [Entitic mass] 27.0 pg Normal 26.0-34.0 [facility] Comment on above: Performed By: #### 5 7021-8 #### ARTIS Flores ([id number]) [facility] ([facility]) [address] [place] [address] MCHC (RBC) [Mass/Vol] 32.6 g/dL Normal 32.0-36.0 [facility] Comment on above: Performed By: #### 5 7021-8 #### ARTIS Flores ([id number]) [facility] ([facility]) [address] [place] [address] 62614 MCV (RBC) [Entitic vol] 83 fL Normal 80-100 [facility] Comment on above: Performed By: #### 5 7021-8 #### ARTIS Flores ([id number]) [facility] ([facility]) [address] [place] [address] 53791 Monocytes (Bld) [#/Vol] 0.43 x10*3/uL Normal 0.10-1.00 [facility] Comment on above: Performed By: #### 5 7021-8 #### ARTIS Flores ([id number]) [facility] ([facility]) [address] [place] [address] 06869 Monocytes/100 WBC (Bld) 6.6 % Normal 2.0-10.0 [facility] Comment on above: Performed By: #### 5 7021-8 #### ARTIS Flores ([id number]) [facility] ([facility]) [address] [place] [address] 24347 Neutrophils (Bld) [#/Vol] 3.45 x10*3/uL Normal 1.20-7.70 [facility] Comment on above: Result Comment: Perc ent differential counts (%) should be interpreted in the context of the absolute cell counts (cells/uL). Performed By: #### 5 7021-8 #### ARTIS Flores ([id number]) [facility] ([facility]) [address] [place] [address] 00612 Neutrophils/100 WBC (Bld) 52.4 % Normal 40.0-80.0 [facility] Comment on above: Performed By: #### 5 7021-8 #### ARTIS Flores ([id number]) [facility] ([facility]) [address] [place] [address] 56371 Nucleated RBC/100 WBC (Bld) [Ratio] 0.0 /100 WBCs Normal 0.0-0.0 [facility] Comment on above: Performed By: #### 5 7021-8 #### ARTIS Flores ([id number]) [facility] ([facility]) [address] [place] [address] 16933 Platelets (Bld) [#/Vol] 372 x10*3/uL Normal 150-450 [facility] Comment on above: Performed By: #### 5 7021-8 #### ARTIS Flores ([id number]) [facility] ([facility]) [address] [place] [address] 73149 RBC (Bld) [#/Vol] 5.49 x10*6/uL High 4.00-5.20 [facility] Comment on above: Performed By: #### 5 7021-8 #### ARTIS Flores ([id number]) [facility] ([facility]) [address] [place] [address] WBC (Bld) [#/Vol] 6.6 x10*3/uL Normal 4.4-11.3 [facility] Comment on above: Performed By: #### 5 7021-8 #### ARTIS Flores ([id number]) [facility] ([facility]) [address] [place] [address] Choriogonadotropin.beta subu niton 01-15-2025 HCG.beta subunit Qn 132 m[IU]/mL High <5 [facility] Comment on above: Order Comment: Total HCG measurement is performed using the Brissa Tacho Access Immunoassay which detects intact HCG and free beta HCG subunit. This test is not indicated for use as a tumor marker. HCG testing is performed using a different test methodology at [facility] than other [facility]. Direct result comparison should only be [...] By: #### 2 1198-7 #### ARTIS Flores ([id number]) [facility] ([facility]) [address] [place] [address] Comprehensive metabolic 2000 panelon 01-15-2025 Albumin BCP dye [Mass/Vol] 4.9 g/dL 3.4 - 5.0 g/dL [facility] ALP [Catalytic activity/Vol] 79 U/L 33 - 110 U/L [facility] ALT With P-5'-P [Catalytic activity/Vol] 19 U/L 7 - 45 U/L [facility] Comment on above: Patients treated wit h Sulfasalazine may generate falsely decreased results for ALT. Anion gap [Moles/Vol] 14 mmol/L [facility] AST With P-5'-P [Catalytic activity/Vol] 14 U/L 9 - 39 U/L [facility] Bilirubin [Mass/Vol] 0.8 mg/dL 0.0 - 1.2 mg/dL [facility] Calcium [Mass/Vol] 9.3 mg/dL 8.6 - 10. 3 mg/dL [facility] Chloride [Moles/Vol] 104 mmol/L 98 - 107 mmol/L [facility] CO2 [Moles/Vol] 24 mmol/L 21 - 32 mmol/L [facility] Creatinine [Mass/Vol] 0.91 mg/dL 0.50 - 1.05 mg/dL [facility] GFR/1.73 sq M.predicted among non-blacks MDRD (S/P/Bld) [Vol rate/Area] 84 mL/min/{1.73_m2} - PINF [facility] Comment on above: Calculations of mary mated GFR are performed using the 2020 CKD-EPI Study Refit equation without the race variable for the IDMS-Traceable creatinine methods. https://jasn.asnjournals.org/content//ASN.35349225 88 Glucose [Mass/Vol] 101 mg/dL High 74 - 99 mg/dL [facility] Interpretation and review of laboratory results Abnormal [facility] Potassium [Moles/Vol] 2.9 mmol/L Critically low 3.5 - 5.3 mmol/L [facility] Protein [Mass/Vol] 7.8 g/dL 6.4 - 8.2 g/dL [facility] Sodium [Moles/Vol] 139 mmol/L 136 - 145 mmol/L [facility] Urea nitrogen [Mass/Vol] 19 mg/dL 6 - 23 mg/dL [facility] Albumin BCP dye [Mass/Vol] 4.9 g/dL Normal 3.4-5.0 [facility] Comment on above: Performed By: #### 2 4323-8 #### ARTIS Flores ([id number]) [facility] ([facility]) [address] [place] [address] 35338 ALP [Catalytic activity/Vol] 79 U/L Normal 33-110 [facility] Comment on above: Performed By: #### 2 4323-8 #### ARTIS Flores ([id number]) [facility] ([facility]) [address] [place] [address] 45622 ALT With P-5'-P [Catalytic activity/Vol] 19 U/L Normal 7-45 [facility] Comment on above: Result Comment: Isabel ents treated with Sulfasalazine may generate falsely decreased results for ALT. Performed By: #### 2 4323-8 #### ARTIS Flores ([id number]) [facility] ([facility]) [address] [place] [address] 15230 Anion gap [Moles/Vol] 14 mmol/L Normal [facility] Comment on above: Performed By: #### 2 4323-8 #### ARTIS Flores ([id number]) [facility] ([facility]) [address] [place] [address] 65960 AST With P-5'-P [Catalytic activity/Vol] 14 U/L Normal 9-39 [facility] Comment on above: Performed By: #### 2 4323-8 #### ARTIS Flores ([id number]) [facility] ([facility]) [address] [place] [address] 50462 Bilirubin [Mass/Vol] 0.8 mg/dL Normal 0.0-1.2 [facility] Comment on above: Performed By: #### 2 4323-8 #### ARTIS Flores ([id number]) [facility] ([facility]) [address] [place] [address] 41287 Calcium [Mass/Vol] 9.3 mg/dL Normal 8.6-10.3 [facility] Comment on above: Performed By: #### 2 4323-8 #### ARTIS Flores ([id number]) [facility] ([facility]) [address] [place] [address] 43827 Chloride [Moles/Vol] 104 mmol/L Normal 98-107 [facility] Comment on above: Performed By: #### 2 4323-8 #### ARTIS Flores ([id number]) [facility] ([facility]) [address] [place] [address] 68206 CO2 [Moles/Vol] 24 mmol/L Normal 21-32 [facility] Comment on above: Performed By: #### 2 4323-8 #### ARTIS Flores ([id number]) [facility] ([facility]) [address] [place] [address] 46405 Creatinine [Mass/Vol] 0.91 mg/dL Normal 0.50-1.05 [facility] Comment on above: Performed By: #### 2 4323-8 #### ARTIS Flores ([id number]) [facility] ([facility]) [address] [place] [address] 92677 Glomerular filtration rate/1.73 sq M.predicted 84 mL/min/1.73m*2 Normal >60 [facility] Comment on above: Result Comment: Calc ulations of estimated GFR are performed using the 2020 CKD-EPI Study Refit equation without the race variable for the IDMS-Traceable creatinine methods. https://jasn.asnjournals.org/content//ASN.45779969 88 Performed By: #### 2 4323-8 #### ARTIS Flores ([id number]) [facility] ([facility]) [address] [place] [address] Glucose [Mass/Vol] 101 mg/dL High 74-99 [facility] Comment on above: Performed By: #### 2 4323-8 #### ARTIS Flores ([id number]) [facility] ([facility]) [address] [place] [address] Potassium [Moles/Vol] 2.9 mmol/L Critically low 3.5-5.3 [facility] Comment on above: Performed By: #### 2 4323-8 #### ARTIS Flores ([id number]) [facility] ([facility]) [address] [place] [address] Protein [Mass/Vol] 7.8 g/dL Normal 6.4-8.2 [facility] Comment on above: Performed By: #### 2 4323-8 #### ARTIS Flores ([id number]) [facility] ([facility]) [address] [place] [address] 21698 Sodium [Moles/Vol] 139 mmol/L Normal 136-145 [facility] Comment on above: Performed By: #### 2 4323-8 #### ARTIS Flores ([id number]) [facility] ([facility]) [address] [place] [address] 54092 Urea nitrogen [Mass/Vol] 19 mg/dL Normal 6-23 [facility] Comment on above: Performed By: #### 2 4323-8 #### ARTIS Flores ([id number]) [facility] ([facility]) [address] [place] [address] 71379 ECG 12-LEADon 01-15-2025 ECG 12-LEAD Ventricular Rate 76 Atrial Rate 76 P-R Interval 108 QRS Duration 75 Q-T Interval 411 QTC Calculation(Bazett) 463 P [place] -58 R [place] 59 T [place] 56 QRS Count 13 Q Onset 251 T Offset 456 QTC Fredericia 444 Diagnosis Sinus or ectopic atrial rhythm Short MD interval See ED provider note for full interpretation and clinical correlation Confirmed by Danielle Purdy ([id number]) on 01/23/2025 1:46:39 PM Normal [facility] HCG.beta subunit Qnon 2024 Interpretation and review of laboratory results Abnormal [facility] Total HCG measuremen t is performed using the [employer] Access Immunoassay which detects intact HCG and free beta HCG subunit. This test is not indicated for use as a tumor marker. HCG testing is performed using a different test methodology at [facility] than other [facility]. Direct result comparison should only be made within the same method. [facility] No Panel Informationon 01-15 [facility] hCG, quantitative, on 01-15-2025 HCG.beta subunit Qn 132 m[IU]/mL High NINF [facility] Comment on above: Low-level positive [...] HCG elevation. CNOVon 01-12-2025 CNOV Office Visit ([facility] ) NELLY GUZMAN ([id number]) 1990 F Date Time Provider Department 01/12/25 9:15 AM CORINA BOOKER During your visit today, we recorded the following information about you: Pulse Blood pressure Weight Last Period 114/minute 133/86 70.1 kg 11/03/24 Corina Booker DO 01/12/2025 12:46 PM Addendum [facility] Obstetrics AND Gynecology Gynecology Clinic Note: CC: Pul followup Subjective HPI: Nelly Guzman is a 34 year old who presents for a PUL followup. She had an US at [facility] in [place] on 01/03/25 that showed an empty gestational sac. She has been having bleeding since then, 1-2 pads per day with small clots. Also experiencing 6/10 cramping, has not taken tylenol for it. Patient no showed for scheduled US on 01/09 in [place] as she wanted to be closer to home. Per chart review in TE Pt wants to know how long she will spot for and states she had ultrasound completed at [facility], in [place] and was told it was either an [...] (H) 01/05/2025 8,833.0 (H) IMAGING TVUS at [facility] on 01/03/25: Intrauterine gestational sac without [...] bleeding affecting early [O20.9] Order(s):OBSTETRIC ULTRASOUND WHI [[id number]] Order #: [id number]: 1 FUTURE Meds Comments as of 12/10/2008: All medications reviewed today/December 10, 2008 Maria Teresa Frederick Rn Problem List As Of Date 01/12/2025 Noted Resolved SUPRF HIGH RISK NEC [O09.899] 01/04/2009 Chlamydia trachomatis infection of lower genito*03 (more content not included)... Normal [facility] CNPLydia 01-12-2025 CNPN Telephone (AKPOB) NELLY GUZMAN ([id number]) 1990 F Date Time Provider Department 01/12/25 [...] Status:Closed by CORINA BOOKER on 01/12/25 Normal [facility] Examination level ultrasound on 01-12-2025 Indication Viability. Vaginal bleeding, Advanced Maternal Age Impression She had a recent ultrasound out of state showing a gestational sac and has an abnormally rising HCG. She has recently had heavy vaginal bleeding with clots (since the ultrasound). 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 -On transabdominal and [...] Read By: Miracle Rodriguez M.D. MATERNAL MEDICINE [facility] Study observation (narrative) [facility] NELLY GUZ[facility] ([id number]) 1990 F Date Time Provider Department 01/08/25 WILLOW KOTHARI During your visit today, we recorded the following information about you: Smiley Whaley, JUAN 01/08/2025 1:55 PM Signed Pt calls stating she rescheduled US from today to tomorrow. Pt wants to know how long she will spot for and states she had ultrasound completed at [facility], in [place] and was told it was either an [...] RN to be transferred back to the museum service scheduler. JUAN Parnell Sara, MD 01/08/2025 2:04 PM Signed Yes at this point needs ultrasound Agree with bleeding/miscarriage and ectopic precautions Smiley Whaley RN 01/09/2025 11:42 AM Signed US tech (Princess) alerted this RN that Pt again no showed for US today that was scheduled this AM at 11am. Pt has OB appointment scheduled 01/12/25 in [place] at 9am for missed AB check-up; however, [...] Status:Closed by SMILEY WHALEY on 01/08/25 Normal [facility] B-HCG SerPl-aCncon 5 HCG.beta subunit Qn 8833.0 m[IU]/mL High <5.0 [facility] Comment on above: Order Comment: Speci men Type: BLOOD SPECIMEN Ordering Facility: [facility] Address: [address] [place] [address] Result Comment: DUANE TITATIVE HCG NORMAL RANGES Weeks of Gestation (Weeks Since LMP) 3 Weeks (5.8-71.2 mIU/mL) 4 Weeks (9.5-750 mIU/mL) 5 Weeks (217-7138 mIU/mL) 6 Weeks (158-06118 mIU/mL) 7 Weeks (3697-492450 mIU/mL) 8 Weeks (25721-861675 mIU/mL) 9 Weeks (26068-799123 mIU/mL) 10 Weeks (65927-294147 mIU/mL) 12 Weeks (11610-118263 mIU/mL) Referenced to 4th IS of [facility] Performed By: #### 2 1198-7 #### [facility] CLIA [id number] [address] [place] [address] [place] CNPLydia 12-30-2024 CNPN Telephone (OBGYWM) NELLY GUZMAN ([id number]) 1990 F Date Time Provider Department 12/30/24 [...] Primary Visit Diagnosis:Threatened [O20.0] Order(s):OBSTETRIC ULTRASOUND WHI [[id number]] Order #: [id number]: 1 FUTURE Prescriptions as of 01/02/2025 - [...] Status:Closed by NICOLE RANKIN on 12/30/24 Normal [facility] B-HCG SerPl-aCncon 5 HCG.beta subunit Qn 6232.0 m[IU]/mL High <5.0 [facility] Comment on above: Order Comment: Speci men Type: BLOOD SPECIMEN Ordering Facility: [facility] Address: [address] [place] [address] Result Comment: DUANE TITATIVE HCG NORMAL RANGES Weeks of Gestation (Weeks Since LMP) 3 Weeks (5.8-71.2 mIU/mL) 4 Weeks (9.5-750 mIU/mL) 5 Weeks (217-7138 mIU/mL) 6 Weeks (158-71536 mIU/mL) 7 Weeks (3697-612087 mIU/mL) 8 Weeks (36282-936843 mIU/mL) 9 Weeks (59631-058924 mIU/mL) 10 Weeks (78456-711237 mIU/mL) 12 Weeks (40298-374810 mIU/mL) Referenced to 4th IS of [facility] Performed By: #### 2 1198-7 #### [facility] CLIA [id number] [address] [place] [address] [place] CNPLydia 12-29-2024 CNPN Telephone (OBColecticaWM) NELLY GUZMAN ([id number]) 1990 F Date Time Provider Department 12/29/24 [...] where she moves to. She is in [place] and plans to get hcg quant done [...] Status:Closed by YANIRA MIXON on 12/29/24 Normal [facility] B-HCG SerPl-aCncon 5 HCG.beta subunit Qn 2544.0 m[IU]/mL High <5.0 [facility] Comment on above: Order Comment: Speci men Type: BLOOD SPECIMEN Ordering Facility: [facility] Address: [address] [place] [address] Result Comment: DUANE TITATIVE HCG NORMAL RANGES Weeks of Gestation (Weeks Since LMP) 3 Weeks (5.8-71.2 mIU/mL) 4 Weeks (9.5-750 mIU/mL) 5 Weeks (217-7138 mIU/mL) 6 Weeks (158-35437 mIU/mL) 7 Weeks (3697-300697 mIU/mL) 8 Weeks (70115-323330 mIU/mL) 9 Weeks (58816-976879 mIU/mL) 10 Weeks (96868-183835 mIU/mL) 12 Weeks (48807-720003 mIU/mL) Referenced to 4th IS of [facility] Performed By: #### 2 1198-7 #### [facility] CLIA [id number] [address] [place] [address] [place] B-HCG SerPl-aCncon 5 HCG.beta subunit Qn 2269.0 m[IU]/mL High <5.0 [facility] Comment on above: Order Comment: Speci men Type: BLOOD SPECIMEN Ordering Facility: [facility] Address: [address] [place] [address] Result Comment: DUANE TITATIVE HCG NORMAL RANGES Weeks of Gestation (Weeks Since LMP) 3 Weeks (5.8-71.2 mIU/mL) 4 Weeks (9.5-750 mIU/mL) 5 Weeks (217-7138 mIU/mL) 6 Weeks (158-43881 mIU/mL) 7 Weeks (3697-536148 mIU/mL) 8 Weeks (47462-018840 mIU/mL) 9 Weeks (02590-180661 mIU/mL) 10 Weeks (01721-652984 mIU/mL) 12 Weeks (69381-045140 mIU/mL) Referenced to 4th IS [address] [facility] Performed By: #### 2 1198-7 #### [facility] CLIA [id number] [address] [place] [address] [place] CNPLydia 12-25-2024 CNPN Telephone (OBGYWM) NELLY GUZMAN ([id number]) 1990 F Date Time Provider Department 12/25/24 EUGENIA SHEPHERD During your visit today, we recorded the following information about you: Mila Sánchez RN 12/25/2024 11:54 AM Signed Patient calling because she was told by [facility] ER that she needed to follow up in the office this week for bleeding with . Patient went to [facility] ER on Sunday, 12/23 for irregular [...] make patient a . Records printed from [employer]. Quant level on 12/23 was 1350, patient [...] Fully Assessed Reason for Visit: Bleeding With [18471] Primary Visit Diagnosis:Bleeding in early [O20.9] Order(s):HCG QUANTITATIVE [SQHCGQT] Order #: [id number] STANDING Prescriptions as of 12/25/2024 - acetaminophen-hydroco [...] Status:Closed by EUGENIA SHEPHERD on 12/25/24 Normal [facility] Emergency Department Summary on 12-25-2024 Emergency Department Summary [facility] Medical Records Department [address] [place] [address] Emergency Department Summary 12/25/24 MR#: [id number] Acct: [id number] Name: ROSHAN GUZMAN Rep #: [id number] : 1990 34 From: Roberth Villafana PCP: Care Physician,No Primary Status:DEP ER Location: ED What to do if you have Problems For any increased pain, shortness of breath, bleeding, nausea or vomiting, chest pain, or any unexpected problems, contact your Primary Care Provider. Call [facility] ([phone]) or report to the closest Emergency Room. Call 911 if necessary. 12/25/24 1174 Cosigner Signature (if applicable): CC: No Primary Care Physician Signed Normal [facility] Urine Cultureon 12-25-2024 URC Below infection level. Gram Positive Cocci [place] Count <1000 [facility] Comment on above: Performed By: #### M 100.2200 #### [facility] [address] [place], [address] ABORh Blood Type, Patienton 12-23-2024 ABO and Rh group Nom (Bld) Blood group O Rh(D) positive Normal [facility] Comment on above: Performed By: #### L 100.0600, BtABORH, L700.8000, B882-1 ####[facility] [address] [place], [address] [id number] 12-23-2024 ABO and Rh group Nom (Bld) TNP Normal [facility] Comment on above: Performed By: #### L 100.0600, BtABORH, L700.8000, B882-1 ####[facility] [address] [place], [address] Emergency Department Summary on 12-23-2024 Emergency Department Summary [facility] Medical Records Department [address] [place] [address] Emergency Department Summary 12/23/24 MR#: [id number] Acct: [id number] Name: ROSHAN GUZMAN Rep #: [id number] : 1990 34 From: Pérez Owens DO [...] evening. She does not have a local president and chief executive officer/obstetri naomi. She states that she has had 3 prior pregnancies and deliveries. She denies any fevers. She believes her last menstrual cycle was at the beginning of this month. [facility] Medical History Drug overdose, intentional Schizoaffective [...] no intrauterin (more content not included)... Normal [facility] HH, Hemoglobin AND Hematocri ton 12-23-2024 Hematocrit (Bld) [Volume fraction] 41.1 % Normal 37-47 [facility] Comment on above: Performed By: #### L 100.0600, BtABORH, L700.8000, B882-1 ####[facility] [address] [place], [address] Hemoglobin (Bld) [Mass/Vol] 13.7 g/dL Normal 12.0-15.0 [facility] Comment on above: Performed By: #### L 100.0600, BtABORH, L700.8000, B882-1 ####[facility] [address] [place], [address] M8200.2203on 12-23-2024 M8200.2203 Pending Chlamydia Trachomatis PCR NEGATIVE for Chlamydia trachomatis N. gonorrhoeae PCR Negative for N. gonorrhoeae Normal [facility] Comment on above: Performed By: #### L 400.7600, M8200.2203 ####[facility] [address] [place], [address] Transvaginal w/Preg USon Transvaginal w/Preg US [facility] [address] [place] [address] Transvaginal w/Preg US MR#: [id number] Acct: [id number] Name: ROSHAN GUZMAN Rep #: [id number] : 1990 F 34 From: Yves Olivares MD PCP: Care Physician,No Primary Status: [facility] ER Study: Transvaginal w/Preg US Date of Exam: 12/23/24 Exam# [id number] Ordering Dr: Pérez Owens DO PROCEDURE: ULTRASOUND [...] Pérez Owens DO; No Primary Care Physician Target Protection Specialist: Signed Normal [facility] Urinalysis, Completeon 12-23 EPI,RENAL 0-5 SEEN Normal 0-5 [facility] Comment on above: Order Comment: Micro scopic field is filled. Other elements may beobscured.RISK CONTROL SPECIALIST TO SPECIFY Performed By: #### L 400.0001 ####[facility] [address] [place], [address] Mucus Ql (Urine sed) 2+ /hpf Normal [facility] Comment on above: Order Comment: Micro scopic field is filled. Other elements may beobscured.RISK CONTROL SPECIALIST TO SPECIFY Performed By: #### L 400.0001 ####[facility] [address] [place], [address] EPI,SQUAMOUS 10-25 SEEN Normal 5-10 [facility] Comment on above: Order Comment: Micro scopic field is filled. Other elements may beobscured.RISK CONTROL SPECIALIST TO SPECIFY Performed By: #### L 400.0001 ####[facility] [address] [place], [address] BACTERIA 2+ /hpf Normal None Seen [facility] Comment on above: Order Comment: Micro scopic field is filled. Other elements may beobscured.RISK CONTROL SPECIALIST TO SPECIFY Performed By: #### L 400.0001 ####[facility] [address] [place], [address] RBC > 100 SEEN Normal 0-5 [facility] Comment on above: Order Comment: Micro scopic field is filled. Other elements may beobscured.RISK CONTROL SPECIALIST TO SPECIFY Performed By: #### L 400.0001 ####[facility] [address] [place], [address] WBC >100 SEEN Normal 0-5 [facility] Comment on above: Order Comment: Micro scopic field is filled. Other elements may beobscured.RISK CONTROL SPECIALIST TO SPECIFY Performed By: #### L 400.0001 ####[facility] [address] [place], [address] hCG Titer Quant., Serumon HCG QUANT. 1350 mIU/mL High 1-3 [facility] Comment on above: Result Comment: hCG levels with Gestational Age Gestational Age hCG mIU/mL (IU/L) 0.2 - 1 week 5 - 50 1-2 weeks 50 - 500 2-3 weeks 100 - 5000 3-4 weeks 500 - 91696 4-5 weeks 1000 - 14916 5-6 weeks 90520 - 100,000 6-8 weeks 71087 - 200,000 2-3 months 57049 - 100,000 Performed By: #### L 100.0600, BtABORH, L700.8000, B882-1 ####[facility] [address] [facility] [place], [address] Emergency Department Summary on 12-22-2024 Emergency Department Summary [facility] Medical Records Department [address] [place] [address] Emergency Department Summary 12/22/24 MR#: [id number] Acct: [id number] Name: ROSHAN GUZMAN Rep #: [id number] : 1990 34 From: Roberth Villafana PCP: [...] them in triage. Prior similar symptoms: Yes [facility] Medical History Drug overdose, intentional Schizoaffective disorder [...] other: P (more content not included)... Normal [facility] ,Urineon 12-22-2024 Beta HCG ( test) Ql (U) Positive Abnormal [facility] Comment on above: Result Comment: PREG GUY TEST is *POSITIVE* CRITICAL VALUE [facility] 12/22/24 2347 Marya Nina. RESULTS READ BACK BY [facility]. Performed By: #### L 400.7600, M8200.2203 ####[facility] [address] [place], [address] Culture, Blood (WB)on 2023 CUB Blood cultures x2, from two different sites No growth in 5 days. Normal [facility] Comment on above: Performed By: #### L 300.4310, M200.1000, L503.6005, L500.4050, L100.0100, L300.3900 ####[facility] [address] [place], [address] 12 Lead EKGon 11-08-2024 12 Lead EKG [facility] [address] [place] [address] 12 Lead EKG 11/08/24 1500 MR#: [id number] Acct: [id number] Name: ROSHAN GUZMAN Rep #: [id number] : 1990 34 From: Marty Recinos MD [...] normal ECG Confirmed by ADENIKE LIMON, SUSIE ([id number]), online editor MIKE MORALES ([id number]) on 11/12/2024 1:38:10 PM Referred By: Confirmed By: SUSIE RECINOS MD 11/12/24 1338 Date Marty Recinos MD CC: Dr. Dennis Beal, ; No Primary Care Physician Signed Normal [facility] CBC W/Diff, Automatedon 10-26 Absolute Lymph 1.69 X10 3/uL Normal 0.83-4.51 [facility] Comment on above: Performed By: #### L 300.4310, M200.1000, L503.6005, L500.4050, L100.0100, L300.3900 #### [facility] [address] [place], [address] Absolute Neut 11.2 X10 3/uL High 2.0-7.7 [facility] Comment on above: Performed By: #### L 300.4310, M200.1000, L503.6005, L500.4050, L100.0100, L300.3900 #### [facility] [address] [place], [address] Basophils/100 WBC (Bld) 0.6 % Normal 0-1 [facility] Comment on above: Performed By: #### L 300.4310, M200.1000, L503.6005, L500.4050, L100.0100, L300.3900 #### [facility] [address] [place], [address] Eosinophils/100 WBC (Bld) 0.3 % Normal 0-5 [facility] Comment on above: Performed By: #### L 300.4310, M200.1000, L503.6005, L500.4050, L100.0100, L300.3900 #### [facility] [address] [place], [address] Erythrocyte distribution width (RBC) [Ratio] 13.4 % Normal 11.6-14.6 [facility] Comment on above: Performed By: #### L 300.4310, M200.1000, L503.6005, L500.4050, L100.0100, L300.3900 #### [facility] [address] [place], [address] Hematocrit (Bld) [Volume fraction] 43.3 % Normal 37-47 [facility] Comment on above: Performed By: #### L 300.4310, M200.1000, L503.6005, L500.4050, L100.0100, L300.3900 #### [facility] [address] [place], [address] Hemoglobin (Bld) [Mass/Vol] 14.3 g/dL Normal 12.0-15.0 [facility] Comment on above: Performed By: #### L 300.4310, M200.1000, L503.6005, L500.4050, L100.0100, L300.3900 #### [facility] [address] [place], [address] IG% 0.400 Normal 0.0-0.9 [facility] Comment on above: Result Comment: IG% - Immature Granulocytes (promyelocytes, myelocytes and metamyelocytes) > 1% indicates that a LEFT SHIFT is Present. Performed By: #### L 300.4310, M200.1000, L503.6005, L500.4050, L100.0100, L300.3900 #### [facility] [address] [place], [address] Lymphocytes/100 WBC (Bld) 12.0 % Low 19-41 [facility] Comment on above: Performed By: #### L 300.4310, M200.1000, L503.6005, L500.4050, L100.0100, L300.3900 #### [facility] [address] [place], [address] MCH (RBC) [Entitic mass] 27.0 pg Normal 27.0-32.0 [facility] Comment on above: Performed By: #### L 300.4310, M200.1000, L503.6005, L500.4050, L100.0100, L300.3900 #### [facility] [address] [place], [address] MCHC (RBC) [Mass/Vol] 33.0 g/dL Normal 32-36 [facility] Comment on above: Performed By: #### L 300.4310, M200.1000, L503.6005, L500.4050, L100.0100, L300.3900 #### [facility] [address] [place], [address] MCV (RBC) [Entitic vol] 81.9 fL Normal 81-99 [facility] Comment on above: Performed By: #### L 300.4310, M200.1000, L503.6005, L500.4050, L100.0100, L300.3900 #### [facility] [address] [place], [address] Monocytes/100 WBC (Bld) 7.3 % Normal 0-10 [facility] Comment on above: Performed By: #### L 300.4310, M200.1000, L503.6005, L500.4050, L100.0100, L300.3900 #### [facility] [address] [place], [address] Neutrophils/100 WBC (Bld) 79.4 % High 47-70 [facility] Comment on above: Performed By: #### L 300.4310, M200.1000, L503.6005, L500.4050, L100.0100, L300.3900 #### [facility] [address] [place], [address] Nucleated RBC (Bld) [#/Vol] 0 10*3/uL Normal 0-5 [facility] Comment on above: Performed By: #### L 300.4310, M200.1000, L503.6005, L500.4050, L100.0100, L300.3900 #### [facility] [facility] [address], [address] Platelet mean volume (Bld) [Entitic vol] 9.4 fL Normal 6.2-12.0 [facility] Comment on above: Performed By: #### L 300.4310, M200.1000, L503.6005, L500.4050, L100.0100, L300.3900 #### [facility] [address] [place], [address] Platelets (Bld) [#/Vol] 485 10*3/uL High 150-450 [facility] Comment on above: Performed By: #### L 300.4310, M200.1000, L503.6005, L500.4050, L100.0100, L300.3900 #### [facility] [address] [place], [address] RBC (Bld) [#/Vol] 5.29 10*6/uL Normal 4.2-5.4 [facility] Comment on above: Performed By: #### L 300.4310, M200.1000, L503.6005, L500.4050, L100.0100, L300.3900 #### [facility] [address] [place], [address] RDW SD 40.1 fl Normal 35.1-43.9 [facility] Comment on above: Performed By: #### L 300.4310, M200.1000, L503.6005, L500.4050, L100.0100, L300.3900 #### [facility] [address] [place], [address] WBC (Bld) [#/Vol] 14.1 10*3/uL High 4.4-11.0 [facility] Comment on above: Performed By: #### L 300.4310, M200.1000, L503.6005, L500.4050, L100.0100, L300.3900 #### [facility] [address] [place], [address] Comprehensive Metabolic [facility] 11-08-2024 Albumin [Mass/Vol] 4.5 g/dL Normal 3.2-5.0 [facility] Comment on above: Performed By: #### L 300.4310, M200.1000, L503.6005, L500.4050, L100.0100, L300.3900 #### [facility] [address] [place], [address] Albumin/Globulin [Mass ratio] 1.2 {ratio} Normal 0.9-2.4 [facility] Comment on above: Performed By: #### L 300.4310, M200.1000, L503.6005, L500.4050, L100.0100, L300.3900 #### [facility] [address] [place], [address] ALK P 113 U/L Normal 45-117 [facility] Comment on above: Performed By: #### L 300.4310, M200.1000, L503.6005, L500.4050, L100.0100, L300.3900 #### [facility] [address] [place], [address] ALT [Catalytic activity/Vol] 35 U/L Normal 13-56 [facility] Comment on above: Performed By: #### L 300.4310, M200.1000, L503.6005, L500.4050, L100.0100, L300.3900 #### [facility] [address] [place], [address] AST [Catalytic activity/Vol] 8 U/L Low 15-37 [facility] Comment on above: Performed By: #### L 300.4310, M200.1000, L503.6005, L500.4050, L100.0100, L300.3900 #### [facility] [address] [place], [address] Bilirubin [Mass/Vol] 1.00 mg/dL Normal 0.20-1.00 [facility] Comment on above: Result Comment: For patients on eltrombopag therapy, use of Dimension [place] TBIL is not recommended. Performed By: #### L 300.4310, M200.1000, L503.6005, L500.4050, L100.0100, L300.3900 #### [facility] [address] [place], [address] BUN/CRE 16.7 RATIO Normal 10-20 [facility] Comment on above: Performed By: #### L 300.4310, M200.1000, L503.6005, L500.4050, L100.0100, L300.3900 #### [facility] [address] [place], [address] CA,Total 9.4 mg/dL Normal 8.5-10.1 [facility] Comment on above: Performed By: #### L 300.4310, M200.1000, L503.6005, L500.4050, L100.0100, L300.3900 #### [facility] [address] [place], [address] Chloride [Moles/Vol] 102 mmol/L Normal 98-107 [facility] Comment on above: Performed By: #### L 300.4310, M200.1000, L503.6005, L500.4050, L100.0100, L300.3900 #### [facility] [address] [place], [address] CO2 [Moles/Vol] 30.0 mmol/L Normal 21.0-32.0 [facility] Comment on above: Performed By: #### L 300.4310, M200.1000, L503.6005, L500.4050, L100.0100, L300.3900 #### [facility] [address] [place], [address] Creatinine [Mass/Vol] 0.84 mg/dL Normal 0.55-1.02 [facility] Comment on above: Result Comment: The validity of the calculated GFR GFRAA in patients over 70 years has not been determined. Clinical correlation is essential. Performed By: #### L 300.4310, M200.1000, L503.6005, L500.4050, L100.0100, L300.3900 #### [facility] [address] [place], [address] ECRCL 138.77 ml/min Normal [facility] Comment on above: Performed By: #### L 300.4310, M200.1000, L503.6005, L500.4050, L100.0100, L300.3900 #### [facility] [address] [place] [id number] EST GFR - AA 99 mL/min Normal >60 [facility] Comment on above: Result Comment: Afri can Citizen [place] GFR Calc Performed By: #### L 300.4310, M200.1000, L503.6005, L500.4050, L100.0100, L300.3900 #### [facility] [address], [address] GAP 7 Normal 5-15 [facility] Comment on above: Performed By: #### L 300.4310, M200.1000, L503.6005, L500.4050, L100.0100, L300.3900 #### [facility] [address] [place], [address] GFR/1.73 sq M.predicted among non-blacks MDRD (S/P/Bld) [Vol rate/Area] 82 mL/min/{1.73_m2} Normal >60 [facility] Comment on above: Result Comment: Non- GFR Calc Performed By: #### L 300.4310, M200.1000, L503.6005, L500.4050, L100.0100, L300.3900 #### [facility] [address] [place], [address] Globulin (S) [Mass/Vol] 3.8 g/dL Normal 2.2-4.2 [facility] Comment on above: Performed By: #### L 300.4310, M200.1000, L503.6005, L500.4050, L100.0100, L300.3900 #### [facility] [address] [place], [address] Glucose [Mass/Vol] 114 mg/dL High 74-106 [facility] Comment on above: Result Comment: Fast ing Glucose result from 100 to 125 mg/dL suggests IMPAIRED HOMEOSTASIS per A.D.A. criteria. Performed By: #### L 300.4310, M200.1000, L503.6005, L500.4050, L100.0100, L300.3900 #### [facility] [address] [place], [address] Potassium [Moles/Vol] 2.5 mmol/L Invalid Interpretation Code 3.5-5.1 [facility] Comment on above: Result Comment: Crit ical Result(s) Called at: 16:06:04 11/08/2024 by: DANA TUCKER. Results read back by Emily Madera Performed By: #### L 300.4310, M200.1000, L503.6005, L500.4050, L100.0100, L300.3900 #### [facility] [address], [address] Sodium [Moles/Vol] 138 mmol/L Normal 136-145 [facility] Comment on above: Performed By: #### L 300.4310, M200.1000, L503.6005, L500.4050, L100.0100, L300.3900 #### [facility] [address] [place], [address] T PROT 8.3 g/dL High 6.4-8.2 [facility] Comment on above: Performed By: #### L 300.4310, M200.1000, L503.6005, L500.4050, L100.0100, L300.3900 #### [facility] [address], [address] Urea nitrogen [Mass/Vol] 14 mg/dL Normal 7-18 [facility] Comment on above: Performed By: #### L 300.4310, M200.1000, L503.6005, L500.4050, L100.0100, L300.3900 #### [facility] [address], [address] Elbow min 3 Viewson 12-14-20 24 Elbow min 3 Views [facility] [address] [address] Elbow min 3 Views MR#: [id number] Acct: [id number] Name: ROSHAN GUZMAN Rep #: [id number] : 1990 F 34 From: Perry Hubbard MD PCP: Care Physician,No Primary Status: REG ER Study: Elbow min 3 Views Date of Exam: 11/08/24 Exam# [id number] Ordering Dr: Dennis Beal DO [id number] INDICATION: left elbow pain EXAMINATION/TECHNIQUE : X-RAY [...] Dennis Beal DO; No Primary Care Physician Target Protection Specialist: Signed Normal [facility] Emergency Department Summary on 11-08-2024 Emergency Department Summary [facility] Medical Records Department [address] [place] [address] Emergency Department Summary 11/08/24 MR#: [id number] Acct: [id number] Name: ROSHAN GUZMAN Rep #: [id number] : 1990 34 From: Dennis Beal DO [...] meth as she does not like them. [facility] Medical History Drug overdose, intentional Schizoaffective [...] Patient follow commands as she was at [facility] year is 2023. Sensation grossly intact [...] , thr (more content not included)... Normal [facility] Lactic Acidon 11-08-2024 Lactate [Moles/Vol] 1.2 mmol/L Normal 0.4-1.9 [facility] Comment on above: Order Comment: Y Performed By: #### L 300.4310, M200.1000, L503.6005, L500.4050, L100.0100, L300.3900 ####[facility] [address] [place], [address] Partial Thromboplast Timeon 11-08-2024 aPTT Coag (Bld) [Time] 29.4 s Normal 24.1-36.2 [facility] Comment on above: Performed By: #### L 300.4310, M200.1000, L503.6005, L500.4050, L100.0100, L300.3900 #### [facility] [address] [place], [address] ,Serum,hCG Quali.on 11-08-2024 HCG, SERUM QUAL Negative Normal [facility] Comment on above: Performed By: #### L 700.6800 #### [facility] [address] [place], [address] Prothrombin Time w/INRon INR Coag (PPP) [Relative time] 1.1 {INR} Normal [facility] Comment on above: Performed By: #### L 300.4310, M200.1000, L503.6005, L500.4050, L100.0100, L300.3900 #### [facility] [address] [place], [address] PT Coag (PPP) [Time] 13.7 s Normal 11.7-14.9 [facility] Comment on above: Performed By: #### L 300.4310, M200.1000, L503.6005, L500.4050, L100.0100, L300.3900 #### [facility] [address] [place], [address] Urinalysis, Completeon 11-08 BACTERIA Normal None Seen [facility] Comment on above: Order Comment: COLLE CTOR TO SPECIFY Result Comment: NO U RINE COLLECTED. PATIENT DEPARTED ED. Performed By: #### L 400.0001, M100.0500 ####[facility] [address] [place], [address] BILIRUBIN URINE Normal Negative [facility] Comment on above: Order Comment: BRIANA CTOR TO SPECIFY Result Comment: NO U RINE COLLECTED. PATIENT DEPARTED ED. Performed By: #### L 400.0001, M100.0500 ####[facility] [address] [place], [address] Clarity (U) Normal Clear [facility] Comment on above: Order Comment: BRIANA CTOR TO SPECIFY Result Comment: NO U RINE COLLECTED. PATIENT DEPARTED ED. Performed By: #### L 400.0001, M100.0500 ####[facility] [address] [place], [address] Color (U) Normal Yellow [facility] Comment on above: Order Comment: BRIANA CTOR TO SPECIFY Result Comment: NO U RINE COLLECTED. PATIENT DEPARTED ED. Performed By: #### L 400.0001, M100.0500 ####[facility] [address] [place], [address] EPI,SQUAMOUS Normal 5-10 [facility] Comment on above: Order Comment: BRIANA CTOR TO SPECIFY Result Comment: NO U RINE COLLECTED. PATIENT DEPARTED ED. Performed By: #### L 400.0001, M100.0500 ####[facility] [address] [place], [address] GLUCOSE, UR Normal Normal [facility] Comment on above: Order Comment: BRIANA CTOR TO SPECIFY Result Comment: NO U RINE COLLECTED. PATIENT DEPARTED ED. Performed By: #### L 400.0001, M100.0500 ####[facility] [address] [place], [address] KETONE UR Normal Negative [facility] Comment on above: Order Comment: BRIANA CTOR TO SPECIFY Result Comment: NO U RINE COLLECTED. PATIENT DEPARTED ED. Performed By: #### L 400.0001, M100.0500 ####[facility] [address] [place], [address] LEUK ESTERASE Normal Negative [facility] Comment on above: Order Comment: BRIANA CTOR TO SPECIFY Result Comment: NO U RINE COLLECTED. PATIENT DEPARTED ED. Performed By: #### L 400.0001, M100.0500 ####[facility] [address] [place], [address] Mucus Ql (Urine sed) Normal [facility] Comment on above: Order Comment: BRIANA CTOR TO SPECIFY Result Comment: NO U RINE COLLECTED. PATIENT DEPARTED ED. Performed By: #### L 400.0001, M100.0500 ####[facility] [address] [place], [address] Nitrite Ql (U) Normal Negative [facility] Comment on above: Order Comment: BRIANA CTOR TO SPECIFY Result Comment: NO U RINE COLLECTED. PATIENT DEPARTED ED. Performed By: #### L 400.0001, M100.0500 ####[facility] [address] [place], [address] OCCULT BLOOD-UR Normal Negative [facility] Comment on above: Order Comment: BRIANA CTOR TO SPECIFY Result Comment: NO U RINE COLLECTED. PATIENT DEPARTED ED. Performed By: #### L 400.0001, M100.0500 ####[facility] [address] [place], [address] pH UR Normal 5.0 - 8.0 [facility] Comment on above: Order Comment: BRIANA CTOR TO SPECIFY Result Comment: NO U RINE COLLECTED. PATIENT DEPARTED ED. Performed By: #### L 400.0001, M100.0500 ####[facility] [address] [place], [address] PROT DIPSTX Normal Negative [facility] Comment on above: Order Comment: BRIANA CTOR TO SPECIFY Result Comment: NO U RINE COLLECTED. PATIENT DEPARTED ED. Performed By: #### L 400.0001, M100.0500 ####[facility] [address] [place], [address] RBC Normal 0-5 [facility] Comment on above: Order Comment: BRIANA CTOR TO SPECIFY Result Comment: NO U RINE COLLECTED. PATIENT DEPARTED ED. Performed By: #### L 400.0001, M100.0500 ####[facility] [address] [place], [address] SP.GR. DIPSTX Normal 1.002-1.030 [facility] Comment on above: Order Comment: BRIANA CTOR TO SPECIFY Result Comment: NO U RINE COLLECTED. PATIENT DEPARTED ED. Performed By: #### L 400.0001, M100.0500 ####[facility] [address] [place], [address] UR Preservative Normal [facility] Comment on above: Order Comment: BRIANA CTOR TO SPECIFY Result Comment: NO U RINE COLLECTED. PATIENT DEPARTED ED. Performed By: #### L 400.0001, M100.0500 ####[facility] [address] [place], [address] UROBILI Normal Normal [facility] Comment on above: Order Comment: BRIANA CTOR TO SPECIFY Result Comment: NO U RINE COLLECTED. PATIENT DEPARTED ED. Performed By: #### L 400.0001, M100.0500 ####[facility] [address] [place], [address] WBC Normal 0-5 [facility] Comment on above: Order Comment: BRIANA CTOR TO SPECIFY Result Comment: NO U RINE COLLECTED. PATIENT DEPARTED ED. Performed By: #### L 400.0001, M100.0500 ####[facility] [address] [place], [address] Wet Prep Trichamonason 11-08 WP Motile Trichomonas NONE SEEN WBC 0-5 Normal [facility] Comment on above: Performed By: #### L 400.0001, M100.0500 ####[facility] [address] [place], [address] 12 Lead EKGon 09-24-2024 12 Lead EKG [facility] [address] [address] 12 Lead EKG 09/24/24 0053 MR#: [id number] Acct: [id number] Name: ROSHAN GUZMAN Rep #: [id number] : 1990 34 From: Calvin Anderson MD [...] Abnormal ECG Confirmed by CALVIN ANDERSON MD ([id number]), online editor RANDY KAUR ([id number]) on 09/25/2024 11:31:56 AM Referred By: Confirmed By: CALVIN ANDERSON MD 09/25/24 1131 Date Calvin Anderson MD CC: Sal Lr DO; No Primary Care Physician Signed Normal [facility] Alcohol, Blood (Medical)-Ser umon 09-24-2024 SERUM ETOH < 3.0 Normal [facility] Comment on above: Result Comment: The serum:whole blood ethanol ratio is approximately 1.14 and varies slightly with hematocrit. Medical Alcohol reference interval and critical value in non-tolerant individuals; 50 - 100 Impairment 100 Intoxication 100 - 250 Severe Poisoning 250 - 400 Deep/possible fatal coma Performed By: #### L 501.9100, L700.6800, L500.3400, L501.2450, L300.8000, L100.0100, L500.2500, L505.5000 ####[facility] [address] [place], [address] Basic Metabolic Profile (BMP )on 09-24-2024 BUN/CRE 16.0 RATIO Normal - [facility] Comment on above: Performed By: #### L 501.9100, L700.6800, L500.3400, L501.2450, L300.8000, L100.0100, L500.2500, L505.5000 ####[facility] [address] [place], [address] CA,Total 9.4 mg/dL Normal 8.5-10.1 [facility] Comment on above: Performed By: #### L 501.9100, L700.6800, L500.3400, L501.2450, L300.8000, L100.0100, L500.2500, L505.5000 ####[facility] [address] [place], [address] Chloride [Moles/Vol] 107 mmol/L Normal 98-107 [facility] Comment on above: Performed By: #### L 501.9100, L700.6800, L500.3400, L501.2450, L300.8000, L100.0100, L500.2500, L505.5000 ####[facility] [address] [place], [address] CO2 [Moles/Vol] 18.0 mmol/L Low 21.0-32.0 [facility] Comment on above: Performed By: #### L 501.9100, L700.6800, L500.3400, L501.2450, L300.8000, L100.0100, L500.2500, L505.5000 ####[facility] [address] [place], [address] Creatinine [Mass/Vol] 0.81 mg/dL Normal 0.55-1.02 [facility] Comment on above: Result Comment: The validity of the calculated GFR GFRAA in patients over 70 years has not been determined. Clinical correlation is essential. Performed By: #### L 501.9100, L700.6800, L500.3400, L501.2450, L300.8000, L100.0100, L500.2500, L505.5000 ####[facility] [address] [place], [place], [id number] EST GFR - AA 102 mL/min Normal >60 [facility] Comment on above: Result Comment: Afri can Citizen [place] GFR Calc Performed By: #### L 501.9100, L700.6800, L500.3400, L501.2450, L300.8000, L100.0100, L500.2500, L505.5000 ####[facility] [address] [place], [place], [address] GAP 11 Normal 5-15 [facility] Comment on above: Performed By: #### L 501.9100, L700.6800, L500.3400, L501.2450, L300.8000, L100.0100, L500.2500, L505.5000 ####[facility] [address] [place], [place], [address] GFR/1.73 sq M.predicted among non-blacks MDRD (S/P/Bld) [Vol rate/Area] 85 mL/min/{1.73_m2} Normal >60 [facility] Comment on above: Result Comment: Non- GFR Calc Performed By: #### L 501.9100, L700.6800, L500.3400, L501.2450, L300.8000, L100.0100, L500.2500, L505.5000 ####[facility] [address] [place], [address] Glucose [Mass/Vol] 129 mg/dL High 74-106 [facility] Comment on above: Result Comment: Fast ing Glucose result greater than or equal to 126 mg/dL suggests DIABETES MELLITUS per A.D.A. criteria. Performed By: #### L 501.9100, L700.6800, L500.3400, L501.2450, L300.8000, L100.0100, L500.2500, L505.5000 ####[facility] [address] [place], [address] Potassium [Moles/Vol] 3.3 mmol/L Low 3.5-5.1 [facility] Comment on above: Result Comment: Slig ht Hemolysis, Result may be falsely increased. Performed By: #### L 501.9100, L700.6800, L500.3400, L501.2450, L300.8000, L100.0100, L500.2500, L505.5000 ####[facility] [address] [place], [place], [address] Sodium [Moles/Vol] 137 mmol/L Normal 136-145 [facility] Comment on above: Performed By: #### L 501.9100, L700.6800, L500.3400, L501.2450, L300.8000, L100.0100, L500.2500, L505.5000 ####[facility] [address] [place], [address] Urea nitrogen [Mass/Vol] 13 mg/dL Normal 7-18 [facility] Comment on above: Performed By: #### L 501.9100, L700.6800, L500.3400, L501.2450, L300.8000, L100.0100, L500.2500, L505.5000 ####[facility] [address] [place], [place], [address] CBC W/Diff, Automatedon 10-3 0-2024 Absolute Lymph 3.17 X10 3/uL Normal 0.83-4.51 [facility] Comment on above: Performed By: #### L 501.9100, L700.6800, L500.3400, L501.2450, L300.8000, L100.0100, L500.2500, L505.5000 ####[facility] [address] [place], [address] Absolute Neut 5.6 X10 3/uL Normal 2.0-7.7 [facility] Comment on above: Performed By: #### L 501.9100, L700.6800, L500.3400, L501.2450, L300.8000, L100.0100, L500.2500, L505.5000 ####[facility] [address] [place], [address] Basophils/100 WBC (Bld) 0.8 % Normal 0-1 [facility] Comment on above: Performed By: #### L 501.9100, L700.6800, L500.3400, L501.2450, L300.8000, L100.0100, L500.2500, L505.5000 ####[facility] [address] [place], [address] Eosinophils/100 WBC (Bld) 1.1 % Normal 0-5 [facility] Comment on above: Performed By: #### L 501.9100, L700.6800, L500.3400, L501.2450, L300.8000, L100.0100, L500.2500, L505.5000 ####[facility] [address] [place], [address] Erythrocyte distribution width (RBC) [Ratio] 12.8 % Normal 11.6-14.6 [facility] Comment on above: Performed By: #### L 501.9100, L700.6800, L500.3400, L501.2450, L300.8000, L100.0100, L500.2500, L505.5000 ####[facility] [address] [place], [address] Hematocrit (Bld) [Volume fraction] 41.6 % Normal 37-47 [facility] Comment on above: Performed By: #### L 501.9100, L700.6800, L500.3400, L501.2450, L300.8000, L100.0100, L500.2500, L505.5000 ####[facility] [address] [place], [place], [phone] Hemoglobin (Bld) [Mass/Vol] 13.8 g/dL Normal 12.0-15.0 [facility] Comment on above: Performed By: #### L 501.9100, L700.6800, L500.3400, L501.2450, L300.8000, L100.0100, L500.2500, L505.5000 ####[facility] [address] [place], [place], [phone] IG% 0.500 Normal 0.0-0.9 [facility] Comment on above: Result Comment: IG% - Immature Granulocytes (promyelocytes, myelocytes and metamyelocytes) > 1% indicates that a LEFT SHIFT is Present. Performed By: #### L 501.9100, L700.6800, L500.3400, L501.2450, L300.8000, L100.0100, L500.2500, L505.5000 ####[facility] [address] [place], [address] Lymphocytes/100 WBC (Bld) 31.7 % Normal 19-41 [facility] Comment on above: Performed By: #### L 501.9100, L700.6800, L500.3400, L501.2450, L300.8000, L100.0100, L500.2500, L505.5000 ####[facility] [address] [place], [address] MCH (RBC) [Entitic mass] 27.0 pg Normal 27.0-32.0 [facility] Comment on above: Performed By: #### L 501.9100, L700.6800, L500.3400, L501.2450, L300.8000, L100.0100, L500.2500, L505.5000 ####[facility] [address] [place], [address] MCHC (RBC) [Mass/Vol] 33.2 g/dL Normal 32-36 [facility] Comment on above: Performed By: #### L 501.9100, L700.6800, L500.3400, L501.2450, L300.8000, L100.0100, L500.2500, L505.5000 ####[facility] [address] [place], [address] MCV (RBC) [Entitic vol] 81.4 fL Normal 81-99 [facility] Comment on above: Performed By: #### L 501.9100, L700.6800, L500.3400, L501.2450, L300.8000, L100.0100, L500.2500, L505.5000 ####[facility] [address] [place], [address] Monocytes/100 WBC (Bld) 9.9 % Normal 0-10 [facility] Comment on above: Performed By: #### L 501.9100, L700.6800, L500.3400, L501.2450, L300.8000, L100.0100, L500.2500, L505.5000 ####[facility] [address] [place], [address] Neutrophils/100 WBC (Bld) 56.0 % Normal 47-70 [facility] Comment on above: Performed By: #### L 501.9100, L700.6800, L500.3400, L501.2450, L300.8000, L100.0100, L500.2500, L505.5000 ####[facility] [address] [place], [address] Nucleated RBC (Bld) [#/Vol] 0 10*3/uL Normal 0-5 [facility] Comment on above: Performed By: #### L 501.9100, L700.6800, L500.3400, L501.2450, L300.8000, L100.0100, L500.2500, L505.5000 ####[facility] [address] [place], [address] Platelet mean volume (Bld) [Entitic vol] 10.0 fL Normal 6.2-12.0 [facility] Comment on above: Performed By: #### L 501.9100, L700.6800, L500.3400, L501.2450, L300.8000, L100.0100, L500.2500, L505.5000 ####[facility] [address] [place], [place], [phone]) Platelets (Bld) [#/Vol] 405 10*3/uL Normal 150-450 [facility] Comment on above: Performed By: #### L 501.9100, L700.6800, L500.3400, L501.2450, L300.8000, L100.0100, L500.2500, L505.5000 ####[facility] [address] [place], [address] RBC (Bld) [#/Vol] 5.11 10*6/uL Normal 4.2-5.4 [facility] Comment on above: Performed By: #### L 501.9100, L700.6800, L500.3400, L501.2450, L300.8000, L100.0100, L500.2500, L505.5000 ####[facility] [address] [place], [address] RDW SD 37.7 fl Normal 35.1-43.9 [facility] Comment on above: Performed By: #### L 501.9100, L700.6800, L500.3400, L501.2450, L300.8000, L100.0100, L500.2500, L505.5000 ####[facility] [address], [address] WBC (Bld) [#/Vol] 10.0 10*3/uL Normal 4.4-11.0 [facility] Comment on above: Performed By: #### L 501.9100, L700.6800, L500.3400, L501.2450, L300.8000, L100.0100, L500.2500, L505.5000 ####[facility] [address] [place], [address] Chest 1 View (Portable)on Chest 1 View (Portable) [facility] Imaging Services [address] [address] Chest 1 View (Portable) MR#: [id number] Acct: [id number] Name: ROSHAN GUZMAN Rep #: [id number] : 1990 F 34 From: Hiren Green MD PCP: Care Physician,No Primary Status: [facility] ER Study: Chest 1 View (Portable) Date of Exam: 09/24/24 Exam# [id number] Ordering Dr: Sal Lr DO [id number] INDICATION: chest pain EXAMINATION/TECHNIQUE : X-RAY - [...] Sal Lr DO; No Primary Care Physician Target Protection Specialist: Signed Normal [facility] D-Dimer Quantitative (DVT/PE )on 09-24-2024 D-DIMER QUANT 0.31 FEU/ug/m Normal 0.27-0.49 [facility] Comment on above: Result Comment: NORM AL D-Dimer level (<0.50) indicates no DVT or PE. Performed By: #### L 501.9100, L700.6800, L500.3400, L501.2450, L300.8000, L100.0100, L500.2500, L505.5000 ####[facility] [address] [facility] [place], [address] Emergency Department Summary on 09-24-2024 Emergency Department Summary [facility] Medical Records Department [address] [place] [address] Emergency Department Summary 09/24/24 MR#: [id number] Acct: [id number] Name: ROSHAN GUZMAN Rep #: [id number] : 1990 34 From: Sal Lr DO [...] cholecystitis versus viral stomach infection such as [place] virus or rotavirus versus potential cardiac event [...] is normal (more content not included)... Normal [facility] Lipaseon 09-24-2024 Lipase [Catalytic activity/Vol] 35 U/L Normal 13-75 [facility] Comment on above: Result Comment: Naif guthrie note: LIPASE revised reference range effective 23. New Lipase methodology. Expected to produce lower values than the previous assay method. NEW Reference Range: 13 - 75 U/L Performed By: #### L 501.9100, L700.6800, L500.3400, L501.2450, L300.8000, L100.0100, L500.2500, L505.5000 ####[facility] [address] [place], [address] Liver Profileon 09-24-2024 Albumin [Mass/Vol] 4.3 g/dL Normal 3.2-5.0 [facility] Comment on above: Performed By: #### L 501.9100, L700.6800, L500.3400, L501.2450, L300.8000, L100.0100, L500.2500, L505.5000 ####[facility] [address] [place], [address] ALK P 92 U/L Normal 45-117 [facility] Comment on above: Performed By: #### L 501.9100, L700.6800, L500.3400, L501.2450, L300.8000, L100.0100, L500.2500, L505.5000 ####[facility] [address] [place], [address] ALT [Catalytic activity/Vol] 35 U/L Normal 13-56 [facility] Comment on above: Performed By: #### L 501.9100, L700.6800, L500.3400, L501.2450, L300.8000, L100.0100, L500.2500, L505.5000 ####[facility] [address] [place], [place], [phone] AST [Catalytic activity/Vol] 17 U/L Normal 15-37 [facility] Comment on above: Result Comment: Slig ht Hemolysis, Result may be falsely increased. Performed By: #### L 501.9100, L700.6800, L500.3400, L501.2450, L300.8000, L100.0100, L500.2500, L505.5000 ####[facility] [address] [place], [address] Bilirubin [Mass/Vol] 0.60 mg/dL Normal 0.20-1.00 [facility] Comment on above: Result Comment: For patients on eltrombopag therapy, use of Dimension [place] TBIL is not recommended. Performed By: #### L 501.9100, L700.6800, L500.3400, L501.2450, L300.8000, L100.0100, L500.2500, L505.5000 ####[facility] [address] [place], [place], [phone] Bilirubin.direct [Mass/Vol] 0.21 mg/dL Normal 0.00-0.30 [facility] Comment on above: Performed By: #### L 501.9100, L700.6800, L500.3400, L501.2450, L300.8000, L100.0100, L500.2500, L505.5000 ####[facility] [address] [place], [address] Globulin (S) [Mass/Vol] 3.4 g/dL Normal 2.2-4.2 [facility] Comment on above: Performed By: #### L 501.9100, L700.6800, L500.3400, L501.2450, L300.8000, L100.0100, L500.2500, L505.5000 ####[facility] [address] [place], [address] T PROT 7.7 g/dL Normal 6.4-8.2 [facility] Comment on above: Performed By: #### L 501.9100, L700.6800, L500.3400, L501.2450, L300.8000, L100.0100, L500.2500, L505.5000 ####[facility] [address] [place], [address] ,Serum,hCG Quali.on 09-24-2024 HCG, SERUM QUAL Negative Normal [facility] Comment on above: Performed By: #### L 501.9100, L700.6800, L500.3400, L501.2450, L300.8000, L100.0100, L500.2500, L505.5000 ####[facility] [address] [place], [address] Urine Drug Screen (VISTA)on 09-24-2024 AMPHETAMINES Normal <1000 ng/mL [facility] Comment on above: Result Comment: URIN E NOT COLLECTED, PT. DISCHARGED Performed By: #### L 501.9100, L700.6800, L500.3400, L501.2450, L300.8000, L100.0100, L500.2500, L505.5000 ####[facility] [address] [place], [place], [phone] BARBITIURATES Normal < 200 ng/mL [facility] Comment on above: Result Comment: URIN E NOT COLLECTED, PT. DISCHARGED Performed By: #### L 501.9100, L700.6800, L500.3400, L501.2450, L300.8000, L100.0100, L500.2500, L505.5000 ####[facility] [address] [place], [place], [phone] BENZODIAZIPINE Normal < 200 ng/mL [facility] Comment on above: Result Comment: URIN E NOT COLLECTED, PT. DISCHARGED Performed By: #### L 501.9100, L700.6800, L500.3400, L501.2450, L300.8000, L100.0100, L500.2500, L505.5000 ####[facility] [address] [place], [place], [phone] COCAINE Normal < 300 ng/mL [facility] Comment on above: Result Comment: URIN E NOT COLLECTED, PT. DISCHARGED Performed By: #### L 501.9100, L700.6800, L500.3400, L501.2450, L300.8000, L100.0100, L500.2500, L505.5000 ####[facility] [address] [place], [address] DRUG CONFIRM Normal [facility] Comment on above: Result Comment: URIN E NOT COLLECTED, PT. DISCHARGED Performed By: #### L 501.9100, L700.6800, L500.3400, L501.2450, L300.8000, L100.0100, L500.2500, L505.5000 ####[facility] [address] [place], [address] ECSTACY Normal < 500 ng/mL [facility] Comment on above: Result Comment: URIN E NOT COLLECTED, PT. DISCHARGED Performed By: #### L 501.9100, L700.6800, L500.3400, L501.2450, L300.8000, L100.0100, L500.2500, L505.5000 ####[facility] [address] [place], [place], [phone] METHADONE Normal < 300 ng/mL [facility] Comment on above: Result Comment: URIN E NOT COLLECTED, PT. DISCHARGED Performed By: #### L 501.9100, L700.6800, L500.3400, L501.2450, L300.8000, L100.0100, L500.2500, L505.5000 ####[facility] [address] [place] [address] OPIATES Normal < 300 ng/mL [facility] Comment on above: Result Comment: URIN E NOT COLLECTED, PT. DISCHARGED Performed By: #### L 501.9100, L700.6800, L500.3400, L501.2450, L300.8000, L100.0100, L500.2500, L505.5000 ####[facility] [address] [place] [address] PCP Normal < 25 ng/mL [facility] Comment on above: Result Comment: URIN E NOT COLLECTED, PT. DISCHARGED Performed By: #### L 501.9100, L700.6800, L500.3400, L501.2450, L300.8000, L100.0100, L500.2500, L505.5000 ####[facility] [address] [place], [address] THC Normal < 50 ng/mL [facility] Comment on above: Result Comment: URIN E NOT COLLECTED, PT. DISCHARGED Performed By: #### L 501.9100, L700.6800, L500.3400, L501.2450, L300.8000, L100.0100, L500.2500, L505.5000 ####[facility] [address] [place], [place], [address] VISTA UDS PH Normal [facility] Comment on above: Result Comment: URIN E NOT COLLECTED, PT. DISCHARGED Performed By: #### L 501.9100, L700.6800, L500.3400, L501.2450, L300.8000, L100.0100, L500.2500, L505.5000 ####[facility] [address] [place], [place], [phone] .Urinalysis Microscopic (AO) on 07-29-2018 RBC Test strip #/vol (U) 0-5 Invalid Interpretation Code None Seen [facility] ([place]) Comment on above: Performed By: #### U A, PREGU, UAMICAO ####[address] [place], [place] [address] UA Bacteria 1+ /hpf Invalid Interpretation Code [facility] ([place] Comment on above: Performed By: #### U A, PREGU, UAMICAO ####[address] [place], [place] [address] UA Squam Epithelial None Seen Normal None Seen [facility] ([place]) Comment on above: Performed By: #### U A, PREGU, UAMICAO ####[address] [place], [place] [address] UA WBC 5-10 Invalid Interpretation Code None Seen [facility] ([place] Comment on above: Performed By: #### U A, PREGU, UAMICAO ####[address] [place], [place] [address] PREGUon 07-29-2018 HCG ( test) Ql (U) Negative Normal [facility] ([place]) Comment on above: Performed By: #### U A, PREGU, UAMICAO ####[address] [place] [address] test (u) int HCG not detected. Invalid Interpretation Code [facility] ([place]) Comment on above: Performed By: #### U A, PREGU, UAMICAO ####[address] [place], [place] [address] UAon 07-29-2018 Color Nom (U) Yellow Normal [facility] ([place]) Comment on above: Performed By: #### U A, PREGU, UAMICAO ####[address] [place] [address] Glucose mass conc (U) Negative Normal Negative [facility] ([place]) Comment on above: Performed By: #### U A, PREGU, UAMICAO ####[address] [place] [address] Ketones Ql (U) >=80 Invalid Interpretation Code Negative [facility] ([place]) Comment on above: Performed By: #### U A, PREGU, UAMICAO ####[address] [place] [address] UA Appear Clear Normal Clear [facility] ([place] Comment on above: Performed By: #### U A, PREGU, UAMICAO ####[address] [place], [place] [address] UA Blood Small Invalid Interpretation Code Negative [facility] ([place]) Comment on above: Performed By: #### U A, PREGU, UAMICAO ####[address] [place], [place] [address] UA Leuk Est Trace Invalid Interpretation Code Negative [facility] ([place]) Comment on above: Performed By: #### U A, PREGU, UAMICAO ####[address] [place], [place] [address] UA Nitrite Positive Invalid Interpretation Code Negative [facility] ([place]) Comment on above: Performed By: #### U A, PREGU, UAMICAO ####[address] [place] [phone] UA pH 6.0 Normal [facility] ([place]) Comment on above: Performed By: #### U A, PREGU, UAMICAO ####[address] [place], [place] [address] UA Protein Trace Normal Negative [facility] ([place] Comment on above: Performed By: #### U A, PREGU, UAMICAO ####[address] [place], [place] [address] UA Spec Grav 1.025 Normal [facility] ([place]) Comment on above: Performed By: #### U A, PREGU, UAMICAO ####[address] [place], [place] [address] UA Specimen Type Clean Catch Normal [facility] ([place]) Comment on above: Performed By: #### U A, PREGU, UAMICAO ####[address] [place], [place] [address] UA Urobilinogen 0.2 E.U./dL Normal [facility] ([place]) Comment on above: Performed By: #### U A, PREGU, UAMICAO ####[address] [place], [place] [address] Urobilinogen Test strip Qn (U) Negative Normal Negative [facility] ([place]) Comment on above: Performed By: #### U A, PREGU, UAMICAO ####[address] [place], [place] [address] Vital Signs Date Time Vital Sign Value Performing Clinician Facility 01-17-2025 01:15-0500 Diastolic blood pressure 78 mm[Hg] Manpreet Camarena DO Work Phone: [facility] 01-17-2025 01:15-0500 Heart rate 78 /min Manpreet Camarena DO Work Phone: [facility] 01-17-2025 01:15-0500 Respiratory rate 18 /min Manpreet Camarena DO Work Phone: [facility] 01-17-2025 01:15-0500 SaO2% (BldA) [Mass fraction] 98 % Manpreet Camarena DO Work Phone: [facility] 01-17-2025 01:15-0500 Systolic blood pressure 106 mm[Hg] Manpreet Schropp DO Work Phone: [facility] 01-16-2025 17:37-0500 Body temperature 98.49 [degF] Manpreet Schropp DO Work Phone: [facility] 01-15-2025 19:37-0500 Body height 157.5 cm Manpreet Schropp DO Work Phone: [facility] 01-15-2025 19:37-0500 Body mass index (BMI) [Ratio] 28.53 kg/m2 Manpreet Schropp DO Work Phone: [facility] 01-15-2025 19:37-0500 Body weight 70.76 kg Manpreet Schropp DO Work Phone: [facility] 01-12-2025 09:19-0500 Body weight 70.13 kg Corina MadrigalLiliana DO Work Phone: [facility] 01-12-2025 09:19-0500 Diastolic blood pressure 86 mm[Hg] Corina Liliana DO Work Phone: [facility] 01-12-2025 09:19-0500 Heart rate 114 /min Corina Liliana DO Work Phone: [facility] 01-12-2025 09:19-0500 Systolic blood pressure 133 mm[Hg] Corina Liliana DO Work Phone: [facility] 01-05-2025 14:59-0500 Body weight 72.12 kg Johana Malena PROJECT ENGINEERING MANAGER.RFID SYSTEMS ENGINEER Work Phone: [facility] 01-05-2025 14:59-0500 Diastolic blood pressure 68 mm[Hg] Johana Garner PROJECT ENGINEERING MANAGER.RFID SYSTEMS ENGINEER Work Phone: [facility] 01-05-2025 14:59-0500 Systolic blood pressure 118 mm[Hg] Johana Malena PROJECT ENGINEERING MANAGER.RFID SYSTEMS ENGINEER Work Phone: [facility] Encounters Encounter Date Encounter Type Care Provider Facility Start: 01-28-2025 End: 01-28-2025 Telephone encounter Corina Liliana WOOD Work Phone: [facility] Comment on above: Missed Appointment ( No show) Start: 01-15-2025 End: 01-17-2025 Emergency department patient visit Manpreet Camarena DO Work Phone: [facility] Start: 01-13-2025 End: 03-15-2025 Follow-up encounter Corina Liliana DO Work Phone: [facility] Start: 01-12-2025 End: 01-12-2025 Telephone encounter Corina Liliana WOOD Work Phone: [facility] Comment on above: Results Start: 01-12-2025 End: 01-12-2025 ambulatory CHARAN White'MADRIGAL Facility:[facility] Start: 01-12-2025 End: 01-12-2025 Patient encounter procedure Us R[employer] Management Advisor Ag Mfm Work Phone: [facility] Comment on above: Vaginal bleeding aff ecting early Start: 01-12-2025 End: 01-12-2025 Office outpatient new 30 minutes Corina Booker DO Work Phone: [facility] Comment on above: Vaginal bleeding aff ecting early (Primary Dx) Start: 01-12-2025 End: 01-12-2025 ambulatory CORINAHENRIQUE BOOKER Facility:[facility] Start: 01-08-2025 End: 01-08-2025 Telephone encounter Willow Kothari MD Work Phone: OB/Gynecology Comment on above: Spotting Start: 01-05-2025 End: 01-05-2025 ambulatory JOHANA FULTON Facility:[facility] [place] [facility] Start: 01-05-2025 End: 01-05-2025 Patient encounter procedure Johana Fulton PROJECT ENGINEERING MANAGER.RFID SYSTEMS ENGINEER Work Phone: OB/Gynecology Comment on above: with uncer tain dates, antepartum (Primary Dx); Bleeding in early Start: 12-30-2024 End: 12-30-2024 Telephone encounter Gisela Forman PROJECT ENGINEERING MANAGER.CNM Work Phone: OB/Gynecology Comment on above: Early OB Spotting Start: 12-29-2024 End: 12-29-2024 Refill Eric Cruz MD Work Phone: OB/Gynecology Comment on above: Refill Request Results Start: 12-27-2024 End: 12-27-2024 ambulatory [facility] Facility:[facility] [place] [facility] Start: 12-25-2024 End: 12-25-2024 Telephone encounter [facility] PROJECT ENGINEERING MANAGER.CNM Work Phone: OB/Gynecology Comment on above: Bleeding With Pregna ncy Start: 12-25-2024 End: 12-25-2024 [facility] Facility:[facility] [place] [facility] Start: 12-23-2024 End: 12-23-2024 Emergency department patient visit No Primary Care Physician Facility:[facility] Start: 12-22-2024 End: 12-23-2024 Emergency department patient visit No Primary Care Physician Facility:[facility] Start: 11-08-2024 End: 11-08-2024 Emergency department patient visit No Primary Care Physician Facility:[facility] Start: 09-23-2024 End: 09-24-2024 Emergency department patient visit Sal Lr Facility:[facility] Start: 07-29-2018 End: 07-29-2018 Emergency department [...] f 2) Zoster Vaccines (1 of 2) [facility] Start: 01-26-2025 End: 01-26-2025 Patient encounter procedure 01/26/2025 9:00 AM EST Office Visit [place] [id number] [facility] [address] [place] [id number] Corina Booker, DO [address] [place] [address] Ultrasound Follow-Up [facility] Comment on above: Ultrasound Follow-Up Start: 01-09-2025 End: 01-09-2025 Patient encounter procedure 01/09/2025 11:00 AM EST Routine Office Visit OB/Gynecology [address] [place] [address] Viability /Bleeding in early [O20.9] OB/Gynecology Comment on above: Viability /Bleeding in early [O20.9] Start: 01-08-2025 End: 01-08-2025 Patient encounter procedure 01/08/2025 2:30 PM EST Routine Office Visit OB/Gynecology [address] [place] [address] Viability /Bleeding in early [O20.9] OB/Gynecology Comment on above: Viability /Bleeding in early [O20.9] Start: 01-05-2025 End: 01-05-2025 Patient encounter procedure 01/05/2025 2:45 PM EST Initial Office Visit OB/Gynecology [address] [place] [address] Johana Fulton APRN.RFID SYSTEMS ENGINEER [address] [place] [address] New OB LMP OB/Gynecology Comment on above: New OB LMP Start: 01-05-2025 End: 04-06-2025 Choriogonadotropin.beta subunit [Units/volume] in Serum or Plasma [facility] Work Phone: Comment on above: Expected: 01/05/2025 , Expires: 04/06/2025 Start: 01-05-2025 End: 01-05-2026 OBSTETRIC ULTRASOUND WHI OBSTETRIC ULTRASOUND WHI Anc Imaging Routine Bleeding in early Expected: 01/05/2025, Expires: 01/05/2026 [facility] Comment on above: Expected: 01/05/2025 , Expires: 01/05/2026 Start: 01-02-2025 End: 01-02-2025 Patient encounter procedure 01/02/2025 2:30 PM EST Office Visit OB[facility]necology [address] [place] [address] Remote, Wealth Management Advisor [employer] [address] [place] [address] viability/dating OB/Gynecology Comment on above: viability/dating Start: 12-30-2024 End: 12-30-2025 OBSTETRIC ULTRASOUND WHI OBSTETRIC ULTRASOUND WHI Anc Imaging Routine Threatened Expected: 12/30/2024, Expires: 12/30/2025 [facility] Work Phone: Comment on above: Expected: 12/30/2024 , Expires: 12/30/2025 Start: 07-27-2024 Covid-19 Vaccine ( season) Covid-19 Vaccine ( season) [facility] Start: 07-27-2024 Influenza vaccination Influenza Vacc ine (#1) [facility] Start: 02-27-2014 Screening for malign ant neoplasm of cervix Cervical Cancer Screening [facility] Start: 03-28-2010 DTaP/Tdap/Td Vaccine s (1 - Tdap) DTaP/Tdap/Td Vaccines (1 - Tdap) [facility] Start: 03-28-2009 Screening for malign ant neoplasm of cervix [facility] Start: 2007 Hepatitis B Vaccine (1 of 3 - 19+ 3-dose series) Hepatitis B Vaccine (1 of 3 - 19+ 3-dose series) [facility] Start: 2007 Urine microalbumin profile DTaP,Tdap,Td Vaccine (1 - Tdap) [facility] Start: 03-28-2007 Hepatitis A Vaccines (1 of 2 - Risk 2-dose series) Hepatitis A Vaccines (1 of 2 - Risk 2-dose series) [facility] Start: 03-28-2007 Hepatitis B Vaccines (1 of 3 - 19+ 3-dose series) Hepatitis B Vaccines (1 of 3 - 19+ 3-dose series) [facility] Start: 2006 Anxiety Screening Anxiety Screening [facility] Start: 2006 Depression Screening Depression Scre ening [facility] Start: 2006 Hepatitis C screening Hepatitis C [facility] Start: 03-28-2006 Diabetes mellitus screening Diabetes Screening [facility] Start: 03-28-2006 Hepatitis C screening Hepatitis C [facility] Start: 03-28-2001 Varicella vaccination Varicell a Vaccines (1 of 2 - 13+ 2-dose series) [facility] Start: 03-28-1989 MMR Vaccines (1 of 1 - Standard series) MMR Vaccines (1 of 1 - Standard series) [facility] Start: 1988 HIV screening HIV Screening [facility] Start: [address] Lipid [address] Lipid Panel [facility] Start: 1988 Yearly Adult Physical Yearly Adult P hysical [facility] End: 01-26-2025 Choriogonadotropin.beta subunit [Units/volume] in Serum or Plasma HCG QUANTITATIVE Lab Routine Bleeding in early 2x per week for 4 Occurrences starting 12/25/2024 until 01/26/2025 [facility] Work Phone: Comment on above: 2x per week for 4 Oc currences starting 12/25/2024 until 01/26/2025 Choriogonadotropin.b eta subunit [Units/volume] in Serum or Plasma HCG QUANTITATIVE Lab Routine Bleeding in early 12/25/2024 1:45 PM EST [facility] Electrocardiogram, 12-lead Electrocardiogram, 12-lead ECG STAT 01/15/2025 8:05 PM EST [facility] Service Area Work Phone: Immunizations Immunization Date Immunization Notes Care Provider Raj grayson 09-04-2011 influenza virus vacc ine, unspecified formulation Eugenia Shepherd PROJECT ENGINEERING MANAGER.CNM Work Phone: [facility] Payers Date Payer Category Payer Self-pay 2024 Medicaid [id number] 2024 Private Health Insurance HUMANA HUMANA MEDICAID [facility] [id number] 2024-Present [address] [address] [place] [address] Medicaid [id number] 2018 Medicaid [id number] 1988 Unknown [id number] 1988 Unknown [id number] Unknown [id number] 62 Unknown [id number] 62 Unknown [id number] 62 Unknown [id number] 62 Social History Date Type Detail Facility Start: 12-10-2008 End: 01-05-2025 Tobacco smoking status NHIS Ex-smoker [facility] Start: 10-20-2000 End: 10-20-2008 History of tobacco use Current smoker [facility] Start: 10-20-2000 End: 10-20-2008 History of tobacco use Cigarette Smoker [facility] Start: 12-10-2008 End: 01-05-2025 Tobacco use and exposure Smokeless tobacco non-user [facility] Start: 07-09-2022 End: 01-12-2025 Alcoholic beverage intake Current non-drinker of alcohol (finding) [facility] Start: 1988 End: 1988 Sex assigned at Not on file [facility] Start: 01-05-2025 End: 01-15-2025 Gender identity Not on file [facility] Start: 01-05-2025 End: 01-15-2025 History of Social function [facility] National Score (1-100), lower number is lower risk 23 [facility] Start: 11-17-2024 [facility] Start: 01-15-2025 Tobacco smoking stat us TXIS Never smoked tobacco [facility] Work Phone: Start: 01-15-2025 Alcoholic beverage intake Lifetime non-drinker (finding) [facility] Work Phone: Start: 01-06-2025 End: 01-16-2025 Exposure to SARS-CoV-2 (event) Not sure [facility] Clinical Notes 12-25-2024 to 01-28-2025 Telephone [...] Anabel Heredia January 28, 2025 10:16 AM [facility] 01-28-2025 Miscellaneous Notes Called patient regarding missed appointment Sunday01/26/2025 for ultrasound follow up w/Dr. Booker. Unable to reach. Left msg to contact office to reschedule. Mailed no show letter. Anabel Heredia January 28, 2025 10:16 AM documented in this encounter [facility] 01-16-2025 History of Presen t illness Narrative [...] compliance with prescribed medication. Contact the performing [facility] laboratory to add-on definitive confirmatory testing [...] performed using a different test methodology at [facility] than other [facility]. Direct result comparison should only be [...] EPAT Assessment Start Time: 0230 Name of Basketball Referee: MAKAYLA Adame, KARLA History of Present Illness [...] History: None reported Current Mental Health Contacts Telegraph Service Clerk Name/Phone Number: Unknown Telegraph Service Clerk Last Appointment Date: Unknown Provider Name/Phone Number: [...] Guarded, Uninterested Appearance/Hygiene: Disheveled Thought Process Coherency: [place]cona thinking Content: Unremarkable Delusions: Paranoid Perception: Unable [...] Ability to Assess: Able to be screened [place] Suicide Severity Rating Scale (Screener/Recent Self-Report) 1. [...] or protective factors and declined for this typewriter ribbon winder to contact her mother who is listed [...] Mills Contact Name: Isha Kennedy Contact Number(s): [phone] Contact Relationship: Mother EPAT Assessment Completed Date: [...] Mental Status Found in parking lot at [facility], took too many pills, states she is being followed, voices telling her to harm herself ED Course as of 01/16/25 0500 [place] Jan 15, 2025 1944 Spoke with poison control. They recommend 6-hour observation. [RS] 2005 EKG shows sinus rhythm. No STEMI. Normal intervals and axis. [RS] SunJan 16, 2025 0306 Discussion with [facility] who recommend placement at this time, however [...] recommend Ray to place. Information faxed to [place] and pending placement. Patient will be signed out to oncoming provider pending placement. Final diagnoses: None Procedure Procedures Yanira Mills MD documented in this encounter [facility] Work Phone: 01-16-2025 Emergency department Note Patient does not want staff to give any update or medical information to her mother. She states she will just call her to give her updates. Gin Diego RN 01/16/[address] [facility] 01-16-2025 Emergency department Note Patient does not want staff to give any update or medical information to her mother. She states she will just call her to give her updates. Gin Diego RN 01/16/[address] CARLEY Giron 01/16/25 6793 HPI Chief Complaint Patient presents with Altered Mental Status Found in parking lot at [employer], took too many pills, states she is [...] [RS] Manpreet Camarena DO No data recorded [place] Coma Scale Score: 14 (01/15/251939 : Bala [...] Camarena DO 01/15/252105 documented in this encounter [facility] Work Phone: 01-16-2025 Emergency department Note EPAT to karrie Francisco Javier CARLEY Almodovar 01/16/251702 [facility] 01-16-2025 environmental program manager Note Application for Emergency Admission Ready [...] of a correctional facility, provided that the gqachq-bug-ifsco period shall be extended by the length of any hospitalization or incarceration of the person that occurred within the qigmhq-grz-ogmga period. (ii) Within the forty-eight months prior to the filing of an affidavit seeking court-ordered treatment of the person under section 5122.111 of the Revised Code, the lack of compliance resulted in one or more acts of serious violent behavior toward self or others or threats of, or attempts at, serious physical harm to self or others, provided that the okrnc-fncpd-jvsuh period shall be extended by the length of any hospitalization or incarceration of the person that occurred within the wytbf-xjhip-uzwbu period. (c) The person, as a result [...] physician, licensed clinical psychologist, health or police matron, cleaner industrial or event decorator and designer. (Statement shall include the circumstances under which [...] Fe Serna MD 01/16/2025 Place of Employment: [facility] STATEMENT OF OBSERVATION BY PSYCHIATRIST, LICENSED PHYSICIAN, OR LICENSED CLINICAL PSYCHOLOGIST, IF APPLICABLE Place of Observation (e.g., [facility], general hospital, office, emergency facility) (If applicable, please complete) Fe Serna MD 01/16/2025 [facility] Work Phone: 01-16-2025 Miscellaneous Notes [...] of a correctional facility, provided that the ahzvsi-vpy-fnlib period shall be extended by the length of any hospitalization or incarceration of the person that occurred within the jixnpw-kni-dqjid period. (ii) Within the forty-eight months prior to the filing of an affidavit seeking court-ordered treatment of the person under section 5122.111 of the Revised Code, the lack of compliance resulted in one or more acts of serious violent behavior toward self or others or threats of, or attempts at, serious physical harm to self or others, provided that the bvexp-yckyv-krqfg period shall be extended by the length of any hospitalization or incarceration of the person that occurred within the jyfya-nlkzk-vhaym period. (c) The person, as a result [...] physician, licensed clinical psychologist, health or police matron, cleaner industrial or event decorator and designer. (Statement shall include the circumstances under which [...] Fe Serna MD 01/16/2025 Place of Employment: [facility] STATEMENT OF OBSERVATION BY PSYCHIATRIST, LICENSED PHYSICIAN, OR LICENSED CLINICAL PSYCHOLOGIST, IF APPLICABLE Place of Observation (e.g., [facility], general hospital, office, emergency facility) (If applicable, please complete) Fe Serna MD 01/16/[address] [facility] Work Phone: 01-15-2025 Physician Emergency department [...] and Affect: Mood normal. ED Course & [facility] ED Course as of 01/15/252104 [place] Jan [...] consultation. Procedure Procedures Manpreet Camarena DO 01/15/252105 [facility] Work Phone: 01-13-2025 Progress note Formatting [...] in 2 weeks. Will send MyChart message. [facility] 01-13-2025 Miscellaneous Notes 34 year old new patient presented PUL. Repeat TVUS showed no evidence of gestational sac, yolk sac of pole with normal adnexa consistent with complete SAb. Attempted to call patient yesterday to discuss, but went straight to . Patient has f/u in 2 weeks. Will send MyChart message. documented in this encounter [facility] 01-12-2025 Telephone encounter Note Images from the original note were not included. Attempted to call patient about US results. Call went directly to that was full. Will attempt to call again tomorrow. Corina Booker DO 01/12/2025 4:16 PM [facility] 01-12-2025 Miscellaneous Notes Images from the original note were not included. Attempted to call patient about US results. Call went directly to that was full. Will attempt to call again tomorrow. Corina Booker DO 01/12/2025 4:16 PM documented in this encounter [facility] 01-12-2025 Note HNO ID: [id number] Author: SHAYY ALMODOVAR MA Service: ? Author Type: Pediatric Social Worker Type: Progress Notes Filed: 01/12/2025 12:46 Note Text: Patient presents in follow up s/p missed ab. Patient is frustrated with the amount of time she has been bleeding s/p missed ab and would like to know an expected time frame for the symptoms to subside. Shayy Almodovar MA January 12, 2025 9:22 AM [facility] 01-12-2025 History of Presen t illness Narrative Patient presents in follow up s/p missed ab. Patient is frustrated with the amount of time she has been bleeding s/p missed ab and would like to know an expected time frame for the symptoms to subside. Shayy Almodovar MA January 12, 2025 9:22 AM [facility] Clinic Obstetrics & Gynecology Gynecology Clinic Note: CC: Pul followup Subjective HPI: Nelly Guzman is a 34 year old who presents for a PUL followup. She had an US at [facility] in [place] on 01/03/25 that showed an empty gestational [...] and states she had ultrasound completed at [facility], in [place] and was told it was either an [...] (H) 01/05/2025 8,833.0 (H) IMAGING TVUS at [facility] on 01/03/25: Intrauterine gestational sac without [...] Booker DO 01/12/2025 documented in this encounter [facility] 01-12-2025 Note HNO ID: [id number] Author: CHARAN MERRITT MD Service: ? Author Type: Resident Type: Progress Notes Filed: 01/13/2025 03:31 Note Text: [facility] Clinic Obstetrics AND Gynecology Gynecology Clinic Note: CC: Pul followup Subjective HPI: Nelly Guzman is a 34 year old who presents for a PUL followup. She had an US at [facility] in [place] on 01/03/25 that showed an empty gestational sac. She has been having bleeding since then, 1-2 pads per day with small clots. Also experiencing 6/10 cramping, has not taken tylenol for it. Patient no showed for scheduled US on 01/09 in [place] as she wanted to be closer to home. Per chart review in TE Pt wants to know how long she will spot for and states she had ultrasound completed at [facility], in [place] and was told it was either an [...] (H) 01/05/2025 8,833.0 (H) IMAGING TVUS at [facility] on 01/03/25: Intrauterine gestational sac without [...] Merritt MD Date: 01/13/2025. Time: 3:31 AM [facility] 01-08-2025 Telephone encounter Note Yes at this point needs ultrasound Agree with bleeding/miscarriage and ectopic precautions [facility] Work Phone: 01-08-2025 Miscellaneous Notes Yes at this point needs ultrasound Agree with bleeding/miscarriage and ectopic precautions Pt calls stating she rescheduled US from today to tomorrow. Pt wants to know how long she will spot for and states she had ultrasound completed at [facility], in [place] and was told it was either an [...] RN to be transferred back to the museum service scheduler. Smiley Whaley RN documented in this encounter [facility] 01-08-2025 Telephone encounter Note Pt calls stating she rescheduled US from today to tomorrow. Pt wants to know how long she will spot for and states she had ultrasound completed at [facility], in [place] and was told it was either an [...] RN to be transferred back to the museum service scheduler. Smiley Whaley RN [facility] 01-05-2025 Note HNO ID: [id number] Author: JOHANA FULTON APRN.RFID SYSTEMS ENGINEER Service: ? Author Type: Nurse Practitioner Type: [...] Living3 SAB0 IAB0 Ectopic0 Multiple0 Live Births3 Oral Communication Instructor History LMP: 12/10/2024 (Exact Date), Unknown Age at Menarche: Age at First : Age at Menopause: Oral Communication Instructor History Comments: Sexual Activity: Yes; Male Contraception: [...] [Other]) Paternal Aunt Diabetes Father Heart Father ME Lipids Father Hypertension Father Psychiatry Mother DEPRESSION [...] would like ultrasound to be done in [place] closer to her home - HCG QUANTITATIVE - OBSTETRIC ULTRASOUND WHI Discussed with patient that this may not be a viable . Patient is just wanting some medication to complete miscarriage because as she states I know that this is a miscarriage Johana Fulton APRN.RFID SYSTEMS ENGINEER I spent a total of 45 minutes on the date of the service which included preparing to see the patient, iwoj-ru-qmah patient care, completing clinical documentation, obtaining and/or reviewing separately obtained history, counseling and educating the patient/family/caregiver, and ordering medications, tests, or procedures. [facility] 01-05-2025 History of Presen t illness Narrative [...] Living3 SAB0 IAB0 Ectopic0 Multiple0 Live Births3 Oral Communication Instructor History LMP: 12/10/2024 (Exact Date), Unknown Age at Menarche: Age at First : Age at Menopause: Oral Communication Instructor History Comments: Sexual Activity: Yes; Male Contraception: [...] [Other]) Paternal Aunt Diabetes Father Heart Father ME Lipids Father Hypertension Father Psychiatry Mother DEPRESSION [...] would like ultrasound to be done in [place] closer to her home - HCG QUANTITATIVE [...] which included preparing to see the patient, ftne-el-nvcw patient care, completing clinical documentation, obtaining and/or reviewing separately obtained history, counseling and educating the patient/family/caregiver, and ordering medications, tests, or procedures. documented in this encounter [facility] 12-30-2024 Telephone encounter Note Patient notified. u/s scheduled for 01/02. Nicole Rankin RN [facility] 12-30-2024 Miscellaneous Notes Patient notified. u/s scheduled [...] Yanira Mixon, JUAN documented in this encounter [facility] 12-30-2024 Telephone encounter Note formal US ordered schedule for later this week or early next week. Doesn't need NOB next week, just get US for location and we will go from there. Ok to leave that appointment but may be too early to do full NOB then. Eric Cruz MD [facility] 12-30-2024 Telephone encounter Note Early OB. Patient [...] 12/27/2024 2,544.0 12/25/2024 2,269.0 Yanira Mixon RN [facility] 12-29-2024 Telephone encounter Note NOB scheduled. Patient plans to be out of the area, but still wanted to have her initial visit with our office. Yanira Mixon RN [facility] 12-29-2024 Miscellaneous Notes NOB scheduled. Patient plans [...] where she moves to. She is in [place] and plans to get hcg quant done [...] Eric Cruz MD documented in this encounter [facility] 12-29-2024 Telephone encounter Note Attempted to call patient. Unable to leave message - sounded like someone originally answered and then call cut off. Nicole Rankin RN [facility] 12-29-2024 Telephone encounter Note ----- Message from Eugenia Shepherd APRN.CNM sent at 12/29/2024 2:30 PM EST ----- HCG level increased appropriately. Please schedule NOB> Eugenia Shepherd APRN.CNM hCG Quantitative, Blood (mIU/mL) Date Value 12/29/2024 6,232.0 12/27/2024 2,544.0 12/25/2024 2,269.0 [facility] 12-29-2024 Telephone encounter Note Patient notified. She is going to try to get lab work done today. Declined appt this week though. She was going to be moving out of the area today and was planning to establish care with OB provider where she moves to. She is in [place] and plans to get hcg quant done today and if ends up staying in area will schedule appt for this week. She is unsure as of now what she will do. Leave open for 2/3 hcg result. Nicole Rankin RN [facility] 12-29-2024 Telephone encounter Note ----- Message from Eric Cruz MD sent at 12/29/2024 11:15 AM EST ----- Needs office or virtual visit this week to discuss quants. Repeat quant today if possible. Eric Cruz MD [facility] 12-25-2024 Miscellaneous Notes Patient notified and voiced understanding. Will go to lab today and Sunday for HCG quant levels. Bleeding precautions reviewed. Mila Sánchez RN HCG levels ordered. Patient needs to have drawn today. Review bleeding precautions. Schedule NOB. Eugenia Shepherd APRN.CNM Patient calling because she was told by [facility] that she needed to follow up in the office this week for bleeding with . Patient went to [facility] ER on Sunday, 12/23 for irregular [...] make patient a . Records printed from [employer]. Quant level on 12/23 was 1350, patient [...] Mila Sánchez RN documented in this encounter [facility] 12-25-2024 Telephone encounter Note Patient notified and voiced understanding. Will go to lab today and Sunday for HCG quant levels. Bleeding precautions reviewed. Mila Sánchez RN [facility] 12-25-2024 Telephone encounter Note HCG levels ordered. Patient needs to have drawn today. Review bleeding precautions. Schedule NOB. Eugenia Shepherd APRN.CNM [facility] 12-25-2024 Telephone encounter Note Patient calling because she was told by [facility] that she needed to follow up in the office this week for bleeding with . Patient went to [facility] ER on Sunday, 12/23 for irregular [...] make patient a . Records printed from [employer]. Quant level on 12/23 was 1350, patient [...] like to do? Quants? Mila Sánchez RN [facility] Evaluation note Diagnosis Bleeding in early - Primary Unspecified hemorrhage in early , unspecified as to episode of care [facility]* Diagnosis Threatened - Primary Threatened , unspecified as to episode of care [facility] [place] [facility]* Diagnosis with uncertain dates, antepartum- Primary state, incidental Bleeding in early Unspecified hemorrhage in early , unspecified as to episode of care [facility]* Diagnosis Vaginal bleeding affecting early - Primary Vaginal bleeding affecting early [facility] [place] [facility]* Diagnosis Vaginal bleeding affecting early - [...] ED precautions provided documented in this encounter [facility] (narrative)* Diagnostic Procedure Only (Routine) - Authorized Specialty Diagnoses / Procedures Referred By Contac t Referred To Contact [facility] Diagnoses Threatened Procedures OBSTETRIC ULTRASOUND WHI US PREG UTERUS AFTER 1ST TRIMEST GESTATION Eric Cruz MD [address] [place] [address] [address] Referral ID Status Reason Start Date Expiration Date Visits Requested Visits Authorized [id number] Authorized Auto-Generat ed Referral 12/30/2024 12/30/2025 1 1 [facility] Summary Purpose Family History No Family History [...] section and content) DATE CREATED AUTHOR 11/09/2018 [facility] ([place]) DATE CREATED AUTHOR AUTHOR'S ORGANIZ ATION 01/10/2025 [facility] DATE CREATED AUTHOR AUTHOR'S ORGANIZ ATION 01/15/2025 [facility] DATE CREATED AUTHOR AUTHOR'S ORGANIZ ATION 01/22/2025 [facility] DATE CREATED AUTHOR AUTHOR'S ORGANIZ ATION 01/25/2025 [facility] Hospital DATE CREATED AUTHOR AUTHOR'S ORGANIZ ATION 01/30/2025 [facility] Source Comments (unrecognize d section and content) In the event this informatio n is protected by the Federal Confidentiality of Alcohol and Drug Abuse Patient Records regulations: The Federal rules restrict any use of the information to criminally investigate or prosecute any alcohol or drug abuse patient.Prem[facility] HealthIn the event this information is protected by the Federal Confidentiality of Alcohol and Drug Abuse Patient Records regulations: The Federal rules restrict any use of the information to criminally investigate or prosecute any alcohol or drug abuse patient.Premier HealthIn the event this information is protected by the Federal Confidentiality of Alcohol and Drug Abuse Patient Records regulations: The Federal rules restrict any use of the information to criminally investigate or prosecute any alcohol or drug abuse patient.Prem[facility] HealthIn the event this information is protected by the Federal Confidentiality of Alcohol and Drug Abuse Patient Records regulations: The Federal rules restrict any use of the information to criminally investigate or prosecute any alcohol or drug abuse patient.Premier HealthIn the event this information is protected by the Federal Confidentiality of Alcohol and Drug Abuse Patient Records regulations: The Federal rules restrict any use of the information to criminally investigate or prosecute any alcohol or drug abuse patient.Premier HealthIn the event this information is protected by the Federal Confidentiality of Alcohol and Drug Abuse Patient Records regulations: The Federal rules restrict any use of the information to criminally investigate or prosecute any alcohol or drug abuse patient.Premier HealthIn the event this information is protected by the Federal Confidentiality of Alcohol and Drug Abuse Patient Records regulations: The Federal rules restrict any use of the information to criminally investigate or prosecute any alcohol or drug abuse patient.Premier HealthIn the event this information is protected by the Federal Confidentiality of Alcohol and Drug Abuse Patient Records regulations: The Federal rules restrict any use of the information to criminally investigate or prosecute any alcohol or drug abuse patient.Premier HealthIn the event this information is protected by the Federal Confidentiality of Alcohol and Drug Abuse Patient Records regulations: The Federal rules restrict any use of the information to criminally investigate or prosecute any alcohol or drug abuse patient.Premier HealthIn the event this information is protected by the Federal Confidentiality of Alcohol and Drug Abuse Patient Records regulations: The Federal rules restrict any use of the information to criminally investigate or prosecute any alcohol or drug abuse patient.Premier HealthIn the event this information is protected by the Federal Confidentiality of Alcohol and Drug Abuse Patient Records regulations: The Federal rules restrict any use of the information to criminally investigate or prosecute any alcohol or drug abuse patient.[facility] Reason for Visit (unrecogniz ed section and content) Reason Comments Bleeding With Reason Onset Date Comments Refill Request 12/29/2024 Reason Comments Results Reason Comments Early OB Spotting Reason Comments Discussion [place] spotting Reason Comments Spotting Reason Comments US Specialty Diagnoses / Procedures Referred By Contac t Referred To Contact [facility] [place] Diagnoses Vaginal bleeding affecting early Procedures OBSTETRIC ULTRASOUND WHI US PREG UTERUS AFTER 1ST TRIMEST GESTATION Charan Merritt MD [address] [place] [address] Phone: tel: fax: [address] [address] Referral ID Status Reason Start Date Expiration Date V isits Requested Visits Authorized [id number] Closed Auto-Generate d Referral 01/12/2025 01/12/2026 1 [...] Care Teams (unrecognized sec tion and content) Electronic Commerce Specialist Relationship Specialty Start Date End Date Generic, External Data Provider [place] [address] PCP - General 01/15/25 FOR RECORDS PERTAINING [...] BE BASED ON THE PRIMARY CLINICAL RECORDS. [facility]. provides no warranty or guarantee of the accuracy or completeness of information in this document.
--- NOTE | 2025-10-17 11:52 | EX.ED.DYSGE1 ---
HPI History of Present Illness Chief Complaint: Ear Problem Narrative Narrative: 35-year-old female presents with her mother with concern for parasitic infection. She states that they are in her ears, her nose, and in her mouth. Of note, she was seen in the emergency department a few days ago on 10/14/2025, and diagnosed with head lice. She was given oral ivermectin, and prescriptions for ivermectin as well as permethrin cream. She states she used it but still feels as if there are moving bugs on her ears trying to get inside. She states that the areas do not itch but she sees bugs all over her skin. [facility] Medical History Drug overdose, intentional Schizoaffective disorder Substance abuse Home Medications ?Medication ?Instructions ?Recorded ?Last Taken ?Type ivermectin 0.5 % lotion (Sklice) See Rx Instructions .Route 10/14/25 Unknown Rx .COMPLEX #117 grams ivermectin 6 mg tablet 12 mg (2 x 6 mg) PO DAILY 1 dose 10/14/25 Unknown Rx #2 tabs permethrin 5 % topical cream 1 applic topical Q14D 2 doses #60 10/14/25 Unknown Rx (Elimite) grams mupirocin 2 % topical ointment 1 applic topical DAILY #15 grams 10/17/25 Unknown Rx Allergy/AdvReac Type Severity Reaction Status Date / Time No Known Allergies Allergy Verified 10/14/25 05:47 Social History Smoking Status: Light Smoker (<10/day) ROS ROS ED ROS Narrative Review of systems positive for suspected parasite infection, scratching at skin, inserting Q-tips in ears. Denies pruritus. No exacerbating or alleviating factors. EXAM Physical Exam Narrative Exam Narrative: Afebrile. Vital signs noted. Nontoxic-appearing. Cardiovascular examination regular rate and rhythm. Lungs clear to auscultation bilaterally with mild tachypnea. Positive skin excoriation on forehead at hairline, as well as on auricle of bilateral ears. Also at the entrance of the bilateral nares. No active bleeding. Airway patent. TMs clear bilaterally. No evidence of mites inside ears bilaterally. Const Vital Signs: 10/17/25 10:56 Temperature 97.8 F Temperature Source Temporal Pulse Rate 99 Respiratory Rate 22 H Blood Pressure 133/111 H Blood Pressure Mean 118 Pulse Ox 100 Oxygen Delivery Method Room Air MDM MDM MDM Narrative Medical decision making narrative: I reviewed the patient's prior ED visit. She was given ivermectin and permethrin cream. Currently, I see no evidence of any lice or parasitic infection on her ears, in her nose, or in her mouth. On the areas of excoriation, there is no evidence of purulent drainage. I do not feel she needs oral antibiotics. I discussed with her the use of Bactroban for intranasal use as well as topically. I did review her prior ED visits and problem list. She has had problems with schizoaffective disorder and methamphetamine abuse which her mother confirms. I did review her triage note and she was very short with the handkerchief presser as well as myself. I attempted to reassure her that there is no evidence of parasitic infection currently, and she has already been given the appropriate treatment after review of her prior ED visit. I do not feel that she needs further medications such as ivermectin. She will follow-up with her primary care provider. I do feel that she is having more formication type symptoms. Disposition is discharged home in stable condition. History & Record Review Discussion w/independent historian: Patient and Family (Mother) Discharge Plan Triage Chief Complaint: Ear Problem ED Provider: Demetrio Rae Dx/Rx/DC Orders Clinical Impression: Compulsive skin picking, Skin excoriation, Feared condition not demonstrated, Formication Instructions: Nonspecific Skin Rash, ED Formication Prescriptions: New mupirocin 2 % ointment 1 applic topical DAILY Qty: 15 0RF No Action ivermectin [Sklice] 0.5 % lotion See Rx Instructions .ROUTE .COMPLEX Qty: 117 0RF Rx Instructions: Apply up to 4 ounces of lotion to dry hair in order to thoroughly coat the hair and scalp. Leave on for 10 minutes and then rinse with water ivermectin 6 mg tablet 12 mg PO DAILY Qty: 2 0RF permethrin [Elimite] 5 % cream 1 applic topical Q14D Qty: 60 0RF Rx Instructions: apply second treatment 14 days after first treatment if live lice remain Leave the topical cream on your body for 10 to 14 hours and then wash off Primary Care Provider: Care Physician,No Primary Referrals: Care Physician,No Primary [Primary Care Provider, Medical] Stacy Wellington, FLIGHT ATTENDANT [facility] [[facility]] - As soon as possible Print Language: Anguillan Disposition Disposition: Home, Self Care
--- NOTE | 2025-10-17 11:54 | ED.RN ---
Pt. mother left ER after having private conversation with Dr. Rae. Mother left and stated she can find her own ride home I can't take it anymore.
[2025-10-17 12:04] VITALS: BP 130/90; PULSE 90; RESP 18; TEMP 36.6; O2SAT 99
== END 2025-10-17 12:04 | disposition home or self-care (01) ==
PROVIDERS: Emergency Provider Emergency Medicine; Visit Provider Emergency Medicine
DX: R20.2 Paresthesia of skin (principal); F42.4 Excoriation (skin-picking) disorder
CPT/HCPCS: 99282

== ENCOUNTER 2025-11-16 15:10 | Emergency (ER) | payer MEDICAID, SELFPAY ==
[2025-11-16 15:13] VITALS: BP 110/84; PULSE 124; RESP 20; TEMP 36.4; O2SAT 99; BMI 24.7
--- NOTE | 2025-11-16 15:23 | EX.ED.DYSGE1 ---
HPI History of Present Illness Chief Complaint: Itching PFSH PFS Medical History Drug overdose, intentional Schizoaffective disorder Substance abuse Home Medications ?Medication ?Instructions ?Recorded ?Last Taken ?Type ivermectin 0.5 % lotion (Sklice) See Rx Instructions .Route 10/14/25 Unknown Rx .COMPLEX #117 grams ivermectin 6 mg tablet 12 mg (2 x 6 mg) PO DAILY 1 dose 10/14/25 Unknown Rx #2 tabs permethrin 5 % topical cream 1 applic topical Q14D 2 doses #60 10/14/25 Unknown Rx (Elimite) grams mupirocin 2 % topical ointment 1 applic topical DAILY #15 grams 10/17/25 Unknown Rx ivermectin 1 % topical cream 1 applic topical DAILY #45 grams 11/16/25 Unknown Rx ivermectin 6 mg tablet 12,000 mcg PO QWEEK 3 doses #6 tabs 11/16/25 Unknown Rx Allergy/AdvReac Type Severity Reaction Status Date / Time No Known Allergies Allergy Verified 11/16/25 15:16 Social History Smoking Status: Light Smoker (<10/day) EXAM Physical Exam Const Vital Signs: 11/16/25 15:13 Temperature 97.6 F L Temperature Source Temporal Pulse Rate 124 H Respiratory Rate 20 H Blood Pressure 110/84 H Blood Pressure Mean 92 Pulse Ox 99 Oxygen Delivery Method Room Air [facility] Narrative Medical decision making narrative: HISTORY OF PRESENT ILLNESS: Chief complaint: Head lice 35-year-old female history of schizoaffective disorder, polysubstance abuse presents concern for head lice. REVIEW OF SYSTEMS: Pertinent positives: As per HPI Pertinent negatives: As per HPI, denies SI, HI, auditory visual hallucinations. PHYSICAL EXAM: Nursing triage notes reviewed, Vital signs reviewed Constitutional: please see mdm HENT: MMM Eyes: Pupils equal round and reactive to light, Extraocular muscles intact Neck: No stridor, no JVD, full neck ROM Lungs: Clear to auscultation, No wheezing or rales. No increased work of breathing, no conversational dyspnea, no accessory muscle use, no nasal flaring. No respiratory distress noted Heart: Regular rate and rhythm, No murmurs, No rubs and No gallops, 2+ distal pulses (radial, femoral, posterior tibial) in all extremities Abdomen: Soft, there is no tenderness, rigidity, rebound or guarding, no obvious peritoneal signs, no palpable pulsatile abdominal masses, no auscultated abdominal bruit : No CVAT Extremities: No edema Neuro: No new focal neurological deficits, cranial nerves II through XII intact, 5/5 strength in all present extremities. Intact sensation to light touch in all present extremities, 2+ reflexes bilateral patella tendons. Skin: No rash or lesions noted Psych: Goal-directed thought process, normal affect, does not appear to responding to internal stimuli. MEDICAL DECISION MAKING: Chief Complaint: please see HPI External records reviewed: Reviewed prior ED visit for similar complaints Factors affecting care: As per [facility] Social determinants of health: History mental health disorder History obtained from others: none Consults: none [facility] Narrative: The patient was initially hemodynamically stable, afebrile and nontoxic-appearing. Exam without obvious head lice. But given the patient concern Will give empiric therapy for head lice. The patient and/or family, caregivers express understanding. The patient and/or family, caregivers agrees with the plan. Shared decision making: I will have a discussion with the patient and or visitors regarding risk/benefits of further testing or admission. They will be made aware of of the risk/benefits inherent in this decision they will be given the opportunity to voice understanding. Total critical care time today provided was at least 0 minutes. This excludes separately billable procedures. Critical care time (if documented) is secondary to the patient having high probability of clinically significant/life threatening deterioration in the patient's condition which required my urgent intervention. Impression: 1. Encounter for head lice Dispo: Disposition This note was generated with [employer] dictation software. It may contain incorrect words, spelling, and punctuation that were not noted in review of the chart prior to signing. Discharge Plan Triage Chief Complaint: Itching ED Provider: Landon Ybarra Dx/Rx/DC Orders Instructions: ED Head Lice Prescriptions: New ivermectin 6 mg tablet 12,000 mcg PO QWEEK Qty: 6 0RF ivermectin 1 % cream 1 applic topical DAILY Qty: 45 0RF No Action mupirocin 2 % ointment 1 applic topical DAILY Qty: 15 0RF ivermectin [Sklice] 0.5 % lotion See Rx Instructions .ROUTE .COMPLEX Qty: 117 0RF Rx Instructions: Apply up to 4 ounces of lotion to dry hair in order to thoroughly coat the hair and scalp. Leave on for 10 minutes and then rinse with water ivermectin 6 mg tablet 12 mg PO DAILY Qty: 2 0RF permethrin [Elimite] 5 % cream 1 applic topical Q14D Qty: 60 0RF Rx Instructions: apply second treatment 14 days after first treatment if live lice remain Leave the topical cream on your body for 10 to 14 hours and then wash off Primary Care Provider: Care Physician,No Primary Referrals: Tommy Cardona MD [Med Staff - Active Staff, Family Practice] Activity Restrictions/Additional Instructions: Thank you for trusting us with your care today! Please take medications as prescribed. Please return to the emergency department if your symptoms change or worsen. Please follow with your primary care physician for further outpatient evaluation and management. Print Language: Kinyarwanda Disposition Disposition: Home, Self Care Discharge Date/Time: 11/16/25 15:49
== END 2025-11-16 15:49 | disposition home or self-care (01) ==
LOC: ED 15:36
PROVIDERS: Emergency Provider Emergency Medicine; Visit Provider Emergency Medicine
DX: B85.0 Pediculosis due to Pediculus humanus capitis (principal); F17.200 Nicotine dependence, unspecified, uncomplicated
CPT/HCPCS: 99282

== ENCOUNTER 2025-11-22 21:59 | Emergency (ER) | payer MEDICAID, SELFPAY ==
[2025-11-22 21:59] VITALS: BP 124/65; PULSE 110; RESP 18; TEMP 36.8; O2SAT 100; BMI 24.9
--- NOTE | 2025-11-22 22:06 | EDS_ITS ---
HPI HPI - Psych History of Present Illness Chief Complaint: Mental Health Informant: patient Onset/Context/Timing Onset: Days (3-4) Context: Gradual Onset Timing: Waxes and wanes Worsened by: - (Nothing) Relieved by: Nothing Associated Symptoms Associated Symptoms - Psych: Positive for Auditory Hallucinations; Negative for Hopelessness or Suicidal Thoughts Narrative Narrative: Patient presents with auditory hallucinations that have been waxing and waning over the last 3 to 4 days. Patient states they come on gradually. Patient states she hears her children crying but there is no one there. Patient also states she hears her brother crying out but he is not there either. Patient denies any suicidal or homicidal ideations. Patient states the voices are not telling her to harm herself. Patient denies any paranoid ideations. Patient denies any visual hallucinations. Patient admits to intermittent use of methamphetamines. Patient states she is supposed to go to a rehab facility tomorrow. [facility] Medical History Drug overdose, intentional Schizoaffective disorder Substance abuse Home Medications ?Medication ?Instructions ?Recorded ?Last Taken ?Type ivermectin 0.5 % lotion (Sklice) See Rx Instructions . Route 10/14/25 Unknown Rx .COMPLEX #117 grams ivermectin 6 mg tablet 12 mg (2 x 6 mg) PO DAILY 1 dose 10/14/25 Unknown Rx #2 tabs permethrin 5 % topical cream 1 applic topical Q14D 2 d oses #60 10/14/25 Unknown Rx (Elimite) grams mupirocin 2 % topical ointment 1 applic topical DAILY #15 grams 10/17/25 Unknown Rx ivermectin 1 % topical cream 1 applic topical DAILY #4 5 grams 11/16/25 Unknown Rx ivermectin 6 mg tablet 12,000 mcg PO QWEEK 3 doses #6 tabs 11/16/25 Unknown Rx Allergy/AdvReac Type Severity Reaction Status Date / Time No Known Allergies Allergy Verified 11/22/25 22:00 Social History (Updated 11/22/25 @ 22:[address] Yves Rosales, DO) Smoking Status: Light Smoker (<10/day) substance use type: methamphetamine ROS ROS ED Constitutional Constitutional ED: Denies chills or fever(s) Eyes Eyes: Denies blurry vision or change in vision ENT ENT ED: Denies rhinorrhea or sore throat Cardiovascular Cardiovascular: Denies chest pain or palpitations Respiratory/Chest Respiratory/Chest: Denies cough or dyspnea Gastrointestinal Gastrointestinal: Denies nausea or vomiting Genitourinary Genitourinary ED: Denies dysuria or hematuria Musculoskeletal Musculoskeletal: Denies back pain or neck pain Integumentary Denies abscess or rash Neurologic Neurologic: Denies headache(s) or weakness Psychiatric Psychiatric: Denies suicidal ideation or suicidal thoughts Allergic/Immunologic Allergic/Immunologic ED: Denies mouth swelling or urticaria EXAM Physical Exam Const Vital Signs: 11/22/25 21:59 Temperature 98.3 F Temperature Source Oral Pulse Rate 110 H Respiratory Rate 18 Blood Pressure 124/65 H Blood Pressure Mean 84 Pulse Ox 100 Oxygen Delivery Method Room Air Positive well nourished and well developed General Appearance ED: well developed and NAD HEENT Reports moist mucous membranes normocephalic and atraumatic Neck supple and no JVD Resp normal respiratory effort and clear to auscultation bilaterally Cardio Rate: regular rate Rhythm: regular rhythm GI non-tender and non-distended Palpation: soft Extremity normal to inspection General Extremety ED: Negative for edema or tenderness General Extremity: Negative for edema Neuro oriented x3, CN's II-XII intact bilaterally and no sensory deficits noted [place] Coma Scale: document GCS findings Spontaneous Obeys Commands Oriented 15 Sensorium / Orientation: alert Motor Exam: strength 5/5 throughout Psych mental status grossly normal and cooperative Appearance: well kempt Attitude: calm Speech: normal speech Thought Process: normal thought process Thought Content: No suicidality, No homicidality, No delusion(s) and hallucination(s) Positive for auditory MDM MDM MDM Narrative Medical decision making narrative: Medical screening labs will be obtained. CBC will be obtained to assess for leukocytosis and anemia. Basic metabolic profile will be obtained to assess for electrolyte abnormality and renal function. Serum hCG will be obtained to assess for . Serum alcohol level will be obtained to assess for alcohol intoxication. Urine drug screen will be obtained to assess for substance abuse. Management Discussion w/another healthcare provider: Behavioral health Treatment and Re-Evaluation Narrative: Patient will be observed until seen by crisis counselor. Care of the patient will be turned over to the oncoming physician pending crisis evaluation. Discharge Plan Triage Chief Complaint: Mental Health ED Provider: Provider,Ed Physician Dx/Rx/DC Orders Clinical Impression: Auditory hallucinations, Schizoaffective disorder, Methamphetamine abuse Prescriptions: No Action mupirocin 2 % ointment 1 applic topical DAILY Qty: 15 0RF ivermectin [Sklice] 0.5 % lotion See Rx Instructions .ROUTE .COMPLEX Qty: 117 0RF Rx Instructions: Apply up to 4 ounces of lotion to dry hair in order to thoroughly coat the hair and scalp. Leave on for 10 minutes and then rinse with water ivermectin 6 mg tablet 12 mg PO DAILY Qty: 2 0RF permethrin [Elimite] 5 % cream 1 applic topical Q14D Qty: 60 0RF Rx Instructions: apply second treatment 14 days after first treatment if live lice remain Leave the topical cream on your body for 10 to 14 hours and then wash off ivermectin 6 mg tablet 12,000 mcg PO QWEEK Qty: 6 0RF ivermectin 1 % cream 1 applic topical DAILY Qty: 45 0RF Primary Care Provider: Care Physician,No Primary Referrals: Care Physician,No Primary [Primary Care Provider, Medical] Print Language: Maldivian
--- OUTSIDE RECORDS SUMMARY | 2025-11-22 22:27 | XMS RPT_ITS | CCD ---
Author Organization [facility] Care Team Providers Care Browning Processor Name Role Phone SHAUNA GARAYFlorian Unavailable Unavailable [...] Test Name Value Interpretation Reference Range Facility [facility] 01-28-2025 [facility] Telephone ([facility]) NELLY GUZMAN ([id number]) 1990 F Date Time Provider Department 01/28/25 [...] Screen Ql (U) Positive Abnormal Presumptive Negative [facility] Comment on above: Order Comment: Drug screen results are presumptive and should not be used to assess compliance with prescribed medication. Contact the performing [facility] laboratory to add-on definitive confirmatory testing if [...] By: #### D RUG3 #### ARTIS Flores ([id number]) [facility] ([facility] [address] [place] [address] Barbiturates Screen Ql (U) Negative Normal Presumptive Negative [facility] Comment on above: Order Comment: Drug screen results are presumptive and should not be used to assess compliance with prescribed medication. Contact the performing [facility] laboratory to add-on definitive confirmatory testing if [...] By: #### D RUG3 #### ARTIS Flores ([id number]) [facility] ([facility] [address] [place] [address] Benzodiazepines Ql (U) Negative Normal Presumptive Negative [facility] Comment on above: Order Comment: Drug screen results are presumptive and should not be used to assess compliance with prescribed medication. Contact the performing [facility] laboratory to add-on definitive confirmatory testing if [...] By: #### D RUG3 #### ARTIS Flores ([id number]) [facility] ([facility]) [address] [place] [address]279 Benzoylecgonine Screen Ql (U) Negative Normal Presumptive Negative [facility] Comment on above: Order Comment: Drug screen results are presumptive and should not be used to assess compliance with prescribed medication. Contact the performing [facility] laboratory to add-on definitive confirmatory testing if [...] By: #### D RUG3 #### ARTIS Flores ([id number]) [facility] ([facility]) [address] [place] [address] Cannabinoids Screen Ql (U) Negative Normal Presumptive Negative [facility] Comment on above: Order Comment: Drug screen results are presumptive and should not be used to assess compliance with prescribed medication. Contact the performing [facility] laboratory to add-on definitive confirmatory testing if [...] By: #### D RUG3 #### ARTIS Flores ([id number]) [facility] ([facility]) [address] [place] [address] 35746 fentaNYL+Norfentany l Screen Ql (U) Negative Normal Presumptive Negative [facility] Comment on above: Order Comment: Drug screen results are presumptive and should not be used to assess compliance with prescribed medication. Contact the performing [facility] laboratory to add-on definitive confirmatory testing if [...] By: #### D RUG3 #### ARTIS Flores ([id number]) [facility] ([facility]) [address] [place] [address] Methadone Screen Ql (U) Negative Normal Presumptive Negative [facility] Comment on above: Order Comment: Drug screen results are presumptive and should not be used to assess compliance with prescribed medication. Contact the performing [facility] laboratory to add-on definitive confirmatory testing if [...] CUTO FF LEVEL: 150 NG/ML The metabolite P-xbyxq-izhoiavmsxxwmr (LAAM) is not detected by this method in concentrations that would be found in the urine of patients on LAAM therapy. Performed By: #### D RUG3 #### ARTIS Flores ([id number]) [facility] ([facility]) [address] [place] [address] Opiates Screen Ql (U) Negative Normal Presumptive Negative [facility] Comment on above: Order Comment: Drug screen results are presumptive and should not be used to assess compliance with prescribed medication. Contact the performing [facility] laboratory to add-on definitive confirmatory testing if [...] By: #### Kenn RUG3 #### ARTIS Flores ([id number]) [facility] ([facility]) [address] [place] [address] oxyCODONE+oxyMORpho ne Screen Ql (U) Negative Normal Presumptive Negative [facility] Comment on above: Order Comment: Drug screen results are presumptive and should not be used to assess compliance with prescribed medication. Contact the performing [facility] laboratory to add-on definitive confirmatory testing if [...] By: #### Kenn RUG3 #### ARTIS Flores ([id number]) [facility] ([facility]) [address] [place] [address] Phencyclidine Ql (U) Negative Normal Presumptive Negative [facility] Comment on above: Order Comment: Drug screen results are presumptive and should not be used to assess compliance with prescribed medication. Contact the performing [facility] laboratory to add-on definitive confirmatory testing if [...] By: #### D ROXANA3 #### ARTIS Flores ([id number]) [facility] ([facility]) [address] [place] [address] Drug Screen, Urineon 025 Amphetamines Screen Ql (U) Positive Abnormal Presumptive Negative [facility] Comment on above: CUTOFF LEVEL: 500 NG /ML Cross-reactivity has been reported with high concentrations of the following drugs: buproprion, chloroquine, chlorpromazine, ephedrine, mephentermine, fenfluramine, phentermine, phenylpropanolamine, pseudoephedrine, and propranolol. Barbiturates Screen Ql (U) Negative Presumptive Negative [facility] Comment on above: CUTOFF LEVEL: 200 NG /ML Benzodiazepines Ql (U) Negative Presumptive Negative [facility] Comment on above: CUTOFF LEVEL: 200 NG /ML Benzoylecgonine Screen Ql (U) Negative Presumptive Negative [facility] Comment on above: CUTOFF LEVEL: 150 NG /ML Cannabinoids Screen Ql (U) Negative Presumptive Negative [facility] Comment on above: CUTOFF LEVEL: 50 NG/ ML fentaNYL+Norfentany l Screen Ql (U) Negative Presumptive Negative [facility] Comment on above: CUTOFF LEVEL: 5 NG/M L Interpretation and review of laboratory results Abnormal [facility] Methadone Screen Ql (U) Negative Presumptive Negative [facility] Comment on above: CUTOFF LEVEL: 150 NG /ML The metabolite Z-bwemd-uyvjtkpsyeuits (LAAM) is not detected by this method in concentrations that would be found in the urine of patients on LAAM therapy. Opiates Screen Ql (U) Negative Presumptive Negative [facility] Comment on above: CUTOFF LEVEL: 300 NG /ML The opiate screen does not detect fentanyl, meperidine, or tramadol. Oxycodone is not consistently detected (refer to Oxycodone Screen, Urine result). oxyCODONE+oxyMORpho ne Screen Ql (U) Negative Presumptive Negative [facility] Comment on above: CUTOFF LEVEL: 100 NG /ML This test will accurately detect both oxycodone and oxymorphone. Phencyclidine Ql (U) Negative Presumptive Negative [facility] Comment on above: CUTOFF LEVEL: 25 NG/ ML Cross-reactivity has been reported with dextromethorphan. Drug screen results are presumptive and should not be used to assess compliance with prescribed medication. Contact the performing [facility] laboratory to add-on definitive confirmatory testing if [...] to the laboratory medical directors. [facility] Potassiumon 01-16-2025 Potassium [Moles/Vol] 3.3 mmol/L Low 3.5 - 5.3 mmol/L [facility] Comment on above: MILD HEMOLYSIS DETEC ROWAN. The result may be falsely elevated due to hemolysis or other interferents. Clinical correlation is recommended. Repeat testing may be considered. Potassium [Moles/Vol] 3.3 mmol/L Low 3.5-5.3 [facility] Comment on above: Result Comment: MILD HEMOLYSIS DETECTED. The result may be falsely elevated due to hemolysis or other interferents. Clinical correlation is recommended. Repeat testing may be considered. Performed By: #### 2 823-3 #### ARTIS Flores ([id number]) [facility] ([facility]) [address] [place] [address] Potassium [Moles/Vol]on 12-28 Interpretation and review of laboratory results Abnormal [facility] ACUTE TOXICOLOGY PANEL, MOUNIKA Quintanilla 01-15-2025 Acetaminophen [Mass/Vol] ug/mL Normal 10.0-30.0 [facility] Comment on above: Performed By: #### D RUBL #### ARTIS Flores ([id number]) [facility] ([facility]) [address] [place] [address] 82601 Ethanol [Mass/Vol] mg/dL Normal <=10 [facility] Comment on above: Performed By: #### D RUBL #### ARTIS Flores ([id number]) [facility] ([facility]) [address] [place] [address] 01664 Salicylates [Mass/Vol] mg/dL Normal 4-20 [facility] Comment on above: Performed By: #### D RUBL #### ARTIS Flores ([id number]) [facility] ([facility]) [address] [place] [address] 00195 Acute Toxicology Panel, Johno don 01-15-2025 Acetaminophen [Mass/Vol] ug/mL 10.0 - 30.0 ug/mL [facility] Ethanol [Mass/Vol] mg/dL NINF - 10 mg/dL [facility] Interpretation and review of laboratory results Normal [facility] Salicylates [Mass/Vol] mg/dL 4 - 20 mg/dL [facility] CBC W Auto Differential pane l (Bld)on 01-15-2025 Basophils (Bld) [#/Vol] 0.07 10*3/uL [facility] Basophils/100 WBC (Bld) 1.1 % 0.0 - 2.0 % [facility] Eosinophils (Bld) [#/Vol] 0.09 10*3/uL [facility] Eosinophils/100 WBC (Bld) 1.4 % 0.0 - 6.0 % [facility] Erythrocyte distribution width (RBC) [Ratio] 13.3 % 11.5 - 14.5 % [facility] Hematocrit (Bld) [Volume fraction] 45.4 % 36.0 - 46.0 % [facility] Hemoglobin (Bld) [Mass/Vol] 14.8 g/dL 12.0 - 16.0 g/dL [facility] Immature granulocytes (Bld) [#/Vol] 0.01 10*3/uL [facility] Immature granulocytes/100 WBC (Bld) 0.2 % 0.0 - 0.9 % [facility] Comment on above: Immature Granulocyte Count (IG) includes promyelocytes, myelocytes and metamyelocytes but does not include bands. Percent differential counts (%) should be interpreted in the context of the absolute cell counts (cells/UL). Interpretation and review of laboratory results Abnormal [facility] Lymphocytes (Bld) [#/Vol] 2.51 10*3/uL [facility] Lymphocytes/100 WBC (Bld) 38.3 % 13.0 - 44.0 % [facility] MCH (RBC) [Entitic mass] 27 pg 26.0 - 34.[address] [facility] MCHC (RBC) [Mass/Vol] 32.6 g/dL 32.0 - 36.0 g/dL [facility] MCV (RBC) [Entitic vol] 83 fL 80 - [address] [facility] Monocytes (Bld) [#/Vol] 0.43 10*3/uL [facility] Monocytes/100 WBC (Bld) 6.6 % 2.0 - 10.0 % [facility] Neutrophils (Bld) [#/Vol] 3.45 10*3/uL [facility] Comment on above: Percent differential counts (%) should be interpreted in the context of the absolute cell counts (cells/uL). Neutrophils/100 WBC (Bld) 52.4 % 40.0 - 80.0 % [facility] Nucleated RBC/100 WBC (Bld) [Ratio] 0 % [facility] Platelets (Bld) [#/Vol] 372 10*3/uL [facility] RBC (Bld) [#/Vol] 5.49 10*6/uL [facility] WBC (Bld) [#/Vol] 6.6 10*3/uL [facility] Basophils (Bld) [#/Vol] 0.07 x10*3/uL Normal 0.00-0.10 [facility] Comment on above: Performed By: #### 5 7021-8 #### ARTIS Flores ([id number]) [facility] ([facility]) [address] [place] [address] 57271 Basophils/100 WBC (Bld) 1.1 % Normal 0.0-2.0 [facility] Comment on above: Performed By: #### 7021-8 #### ARTIS Flores ([id number]) [facility] ([facility]) [address] [place] [address] Eosinophils (Bld) [#/Vol] 0.09 x10*3/uL Normal 0.00-0.70 [facility] Comment on above: Performed By: #### 5 7021-8 #### ARTIS Flores ([id number]) [facility] ([facility]) [address] [place] [address] Eosinophils/100 WBC (Bld) 1.4 % Normal 0.0-6.0 [facility] Comment on above: Performed By: #### 7021-8 #### ARTIS Flores ([id number]) [facility] ([facility]) [address] [place] [address] 99485 Erythrocyte distribution width (RBC) [Ratio] 13.3 % Normal 11.5-14.5 [facility] Comment on above: Performed By: #### 5 7021-8 #### ARTIS Flores ([id number]) [facility] ([facility]) [address] [place] [address] Hematocrit (Bld) [Volume fraction] 45.4 % Normal 36.0-46.0 [facility] Comment on above: Performed By: #### 5 7021-8 #### ARTIS Flores ([id number]) [facility] ([facility]) [address] [place] [address] 99112 Hemoglobin (Bld) [Mass/Vol] 14.8 g/dL Normal 12.0-16.0 [facility] Comment on above: Performed By: #### 5 7021-8 #### ARTIS Flores ([id number]) [facility] ([facility]) [address] [place] [address] Immature granulocytes (Bld) [#/Vol] 0.01 x10*3/uL Normal 0.00-0.70 [facility] Comment on above: Performed By: #### 5 7021-8 #### ARTIS Flores ([id number]) [facility] ([facility]) [address] [place] [address] 43362 Immature granulocytes/100 WBC (Bld) 0.2 % Normal 0.0-0.9 [facility] Comment on above: Result Comment: Nani ture Granulocyte Count (IG) includes promyelocytes, myelocytes and metamyelocytes but does not include bands. Percent differential counts (%) should be interpreted in the context of the absolute cell counts (cells/UL). Performed By: #### 5 7021-8 #### ARTIS Flores ([id number]) [facility] ([facility]) [address] [place] [address] Lymphocytes (Bld) [#/Vol] 2.51 x10*3/uL Normal 1.20-4.80 [facility] Comment on above: Performed By: #### 5 7021-8 #### ARTIS Flores ([id number]) [facility] ([facility]) [address] [place] [address] 27371 Lymphocytes/100 WBC (Bld) 38.3 % Normal 13.0-44.0 [facility] Comment on above: Performed By: #### 5 7021-8 #### ARTIS Flores ([id number]) [facility] ([facility]) [address] [place] [address] MCH (RBC) [Entitic mass] 27.0 pg Normal 26.0-34.0 [facility] Comment on above: Performed By: #### 5 7021-8 #### ARTIS Flores ([id number]) [facility] ([facility]) [address] [place] [address] MCHC (RBC) [Mass/Vol] 32.6 g/dL Normal 32.0-36.0 [facility] Comment on above: Performed By: #### 5 7021-8 #### ARTIS Flores ([id number]) [facility] ([facility]) [address] [place] [address] 88841 MCV (RBC) [Entitic vol] 83 fL Normal 80-100 [facility] Comment on above: Performed By: #### 5 7021-8 #### ARTIS Flores ([id number]) [facility] ([facility]) [address] [place] [address] 83094 Monocytes (Bld) [#/Vol] 0.43 x10*3/uL Normal 0.10-1.00 [facility] Comment on above: Performed By: #### 5 7021-8 #### ARTIS Flores ([id number]) [facility] ([facility]) [address] [place] [address] 34243 Monocytes/100 WBC (Bld) 6.6 % Normal 2.0-10.0 [facility] Comment on above: Performed By: #### 5 7021-8 #### ARTIS Flores ([id number]) [facility] ([facility]) [address] [place] [address] 06669 Neutrophils (Bld) [#/Vol] 3.45 x10*3/uL Normal 1.20-7.70 [facility] Comment on above: Result Comment: Perc ent differential counts (%) should be interpreted in the context of the absolute cell counts (cells/uL). Performed By: #### 5 7021-8 #### ARTIS Flores ([id number]) [facility] ([facility]) [address] [place] [address] 70725 Neutrophils/100 WBC (Bld) 52.4 % Normal 40.0-80.0 [facility] Comment on above: Performed By: #### 5 7021-8 #### ARTIS Flores ([id number]) [facility] ([facility]) [address] [place] [address] 99636 Nucleated RBC/100 WBC (Bld) [Ratio] 0.0 /100 WBCs Normal 0.0-0.0 [facility] Comment on above: Performed By: #### 5 7021-8 #### ARTIS Flores ([id number]) [facility] ([facility]) [address] [place] [address] 27977 Platelets (Bld) [#/Vol] 372 x10*3/uL Normal 150-450 [facility] Comment on above: Performed By: #### 5 7021-8 #### ARTIS Flores ([id number]) [facility] ([facility]) [address] [place] [address] 89106 RBC (Bld) [#/Vol] 5.49 x10*6/uL High 4.00-5.20 [facility] Comment on above: Performed By: #### 5 7021-8 #### ARTIS Flores ([id number]) [facility] ([facility]) [address] [place] [address] WBC (Bld) [#/Vol] 6.6 x10*3/uL Normal 4.4-11.3 [facility] Comment on above: Performed By: #### 5 7021-8 #### ARTIS Flores ([id number]) [facility] ([facility]) [address] [place] [address] Choriogonadotropin.beta subu niton 01-15-2025 HCG.beta subunit Qn 132 m[IU]/mL High <5 [facility] Comment on above: Order Comment: Total HCG measurement is performed using the Brissa Tacho Access Immunoassay which detects intact HCG and free beta HCG subunit. This test is not indicated for use as a tumor marker. HCG testing is performed using a different test methodology at [facility] than other [facility]. Direct result comparison should only be made [...] By: #### 2 1198-7 #### ARTIS Flores ([id number]) [facility] ([facility]) [address] [place] [address] Comprehensive metabolic 2000 panelon 01-15-2025 Albumin BCP dye [Mass/Vol] 4.9 g/dL 3.4 - 5.0 g/dL [facility] ALP [Catalytic activity/Vol] 79 U/L 33 - 110 U/L [facility] ALT With P-5'-P [Catalytic activity/Vol] 19 U/L 7 - 45 U/L [facility] Comment on above: Patients treated wit h Sulfasalazine may generate falsely decreased results for ALT. Anion gap [Moles/Vol] 14 mmol/L [facility] AST With P-5'-P [Catalytic activity/Vol] 14 U/L 9 - 39 U/L [facility] Bilirubin [Mass/Vol] 0.8 mg/dL 0.0 - 1.2 mg/dL [facility] Calcium [Mass/Vol] 9.3 mg/dL 8.6 - 10. 3 mg/dL [facility] Chloride [Moles/Vol] 104 mmol/L 98 - 107 mmol/L [facility] CO2 [Moles/Vol] 24 mmol/L 21 - 32 mmol/L [place] Creatinine [Mass/Vol] 0.91 mg/dL 0.50 - 1.05 mg/dL [facility] GFR/1.73 sq M.predicted among non-blacks MDRD (S/P/Bld) [Vol rate/Area] 84 mL/min/{1.73_m2} - PINF [facility] Comment on above: Calculations of mary mated GFR are performed using the 2020 CKD-EPI Study Refit equation without the race variable for the IDMS-Traceable creatinine methods. https://jasn.asnjournals.org/content//ASN.85636469 88 Glucose [Mass/Vol] 101 mg/dL High 74 - 99 mg/dL [facility] Interpretation and review of laboratory results Abnormal [facility] Potassium [Moles/Vol] 2.9 mmol/L Critically low 3.5 - 5.3 mmol/L [facility] Protein [Mass/Vol] 7.8 g/dL 6.4 - 8.2 g/dL [facility] Sodium [Moles/Vol] 139 mmol/L 136 - 145 mmol/L [facility] Urea nitrogen [Mass/Vol] 19 mg/dL 6 - 23 mg/dL [facility] Albumin BCP dye [Mass/Vol] 4.9 g/dL Normal 3.4-5.0 [facility] Comment on above: Performed By: #### 2 4323-8 #### ARTIS Flores ([id number]) [facility] ([facility] [address] [place] [address] 73853 ALP [Catalytic activity/Vol] 79 U/L Normal 33-110 [facility] Comment on above: Performed By: #### 2 4323-8 #### ARTIS Flores ([id number]) [facility] ([facility]) [address] [place] [address] 01776 ALT With P-5'-P [Catalytic activity/Vol] 19 U/L Normal 7-45 [facility] Comment on above: Result Comment: Isabel ents treated with Sulfasalazine may generate falsely decreased results for ALT. Performed By: #### 2 4323-8 #### ARTIS Flores ([id number]) [facility] ([facility]) [address] [place] [address] 20574 Anion gap [Moles/Vol] 14 mmol/L Normal [facility] Comment on above: Performed By: #### 2 4323-8 #### ARTIS Flores ([id number]) [facility] ([facility] [address] [place] [address] 08580 AST With P-5'-P [Catalytic activity/Vol] 14 U/L Normal 9-39 [facility] Comment on above: Performed By: #### 2 4323-8 #### ARTIS Flores ([id number]) [facility] ([facility]) [address] [place] [address] 19339 Bilirubin [Mass/Vol] 0.8 mg/dL Normal 0.0-1.2 [facility] Comment on above: Performed By: #### 2 4323-8 #### ARTIS Flores ([id number]) [facility] ([facility] [address] [place] [address] 18701 Calcium [Mass/Vol] 9.3 mg/dL Normal 8.6-10.3 [facility] Comment on above: Performed By: #### 2 4323-8 #### ARTIS Flores ([id number]) [facility] ([facility] [address] [place] [address] 99624 Chloride [Moles/Vol] 104 mmol/L Normal 98-107 [facility] Comment on above: Performed By: #### 2 4323-8 #### ARTIS Flores ([id number]) [facility] ([facility] [address] [place] [address] 45173 CO2 [Moles/Vol] 24 mmol/L Normal 21-32 [facility] Comment on above: Performed By: #### 2 4323-8 #### ARTIS Flores ([id number]) [facility] ([facility] [address] [place] [address] 17694 Creatinine [Mass/Vol] 0.91 mg/dL Normal 0.50-1.05 [facility] Comment on above: Performed By: #### 2 4323-8 #### ARTIS Flores ([id number]) [facility] ([facility] [address] [place] [address] 31486 Glomerular filtration rate/1.73 sq M.predicted 84 mL/min/1.73m*2 Normal >60 [facility] Comment on above: Result Comment: Calc ulations of estimated GFR are performed using the 2020 CKD-EPI Study Refit equation without the race variable for the IDMS-Traceable creatinine methods. https://jasn.asnjournals.org/content//ASN.72739060 88 Performed By: #### 2 4323-8 #### ARTIS Flores ([id number]) [facility] ([facility] [address] [place] [address] 70319 Glucose [Mass/Vol] 101 mg/dL High 74-99 [facility] Comment on above: Performed By: #### 2 4323-8 #### ARTIS Flores ([id number]) [facility] ([facility]) [address] [place] [address] Potassium [Moles/Vol] 2.9 mmol/L Critically low 3.5-5.3 [facility] Comment on above: Performed By: #### 2 4323-8 #### ARTIS Flores ([id number]) [facility] ([facility] [address] [place] [address] Protein [Mass/Vol] 7.8 g/dL Normal 6.4-8.2 [facility] Comment on above: Performed By: #### 2 4323-8 #### ARTIS Flores ([id number]) [facility] ([facility]) [address] [place] [address] 46797 Sodium [Moles/Vol] 139 mmol/L Normal 136-145 [facility] Comment on above: Performed By: #### 2 4323-8 #### ARTIS Flores ([id number]) [facility] ([facility]) [address] [place] [address] 23251 Urea nitrogen [Mass/Vol] 19 mg/dL Normal 6-23 [facility] Comment on above: Performed By: #### 2 4323-8 #### ARTIS Flores ([id number]) [facility] ([facility]) [address] [place] [address] 59618 ECG 12-LEADon 01-15-2025 ECG 12-LEAD Ventricular Rate 76 Atrial Rate 76 P-R Interval 108 QRS Duration 75 Q-T Interval 411 QTC Calculation(Bazett) 463 P [place] -58 R [place] 59 T [place] 56 QRS Count 13 Q Onset 251 T Offset 456 QTC Fredericia 444 Diagnosis Sinus or ectopic atrial rhythm Short SC interval See ED provider note for full interpretation and clinical correlation Confirmed by Danielle Purdy ([id number]) on 01/23/2025 1:46:39 PM Normal [facility] HCG.beta subunit Qnon 2024 Interpretation and review of laboratory results Abnormal [facility] Total HCG measuremen t is performed using the Brissa X-Scan Imaging Access Immunoassay which detects intact HCG and free beta HCG subunit. This test is not indicated for use as a tumor marker. HCG testing is performed using a different test methodology at [facility] than other [facility]. Direct result comparison should only be made within the same method. [facility] No Panel Informationon 01-15 [facility] hCG, quantitative, on 01-15-2025 HCG.beta subunit Qn 132 m[IU]/mL High NINF [facility] Comment on above: Low-level positive H CG [...] HCG elevation. CNOVon 01-12-2025 CNOV Office Visit ([facility] ) NELLY GUZMAN ([id number]) 1990 F Date Time Provider Department 01/12/25 9:15 AM CORINA BOOKER During your visit today, we recorded the following information about you: Pulse Blood pressure Weight Last Period 114/minute 133/86 70.1 kg 11/03/24 Corina Booker DO 01/12/2025 12:46 PM Addendum [facility] Clinic Obstetrics AND Gynecology Gynecology Clinic Note: CC: Pul followup Subjective HPI: Nelly Guzman is a 34 year old who presents for a PUL followup. She had an US at [facility] in [place] on 01/03/25 that showed an empty gestational sac. She has been having bleeding since then, 1-2 pads per day with small clots. Also experiencing 6/10 cramping, has not taken tylenol for it. Patient no showed for scheduled US on 01/09 in [place] as she wanted to be closer to home. Per chart review in TE Pt wants to know how long she will spot for and states she had ultrasound completed at [facility], in [place] and was told it was either an [...] (H) 01/05/2025 8,833.0 (H) IMAGING TVUS at [facility] on 01/03/25: Intrauterine gestational sac without evidence [...] bleeding affecting early [O20.9] Order(s):OBSTETRIC ULTRASOUND WHI [[id number]] Order #: [id number]: 1 FUTURE Meds Comments as of 12/10/2008: All medications reviewed today/December 10, 2008 Maria Teresa Frederick Rn Problem List As Of Date 01/12/2025 Noted Resolved SUPRF HIGH RISK NEC [O09.899] 01/04/2009 Chlamydia trachomatis infection of lower genito*03 (more content not included)... Normal [facility] CNPLydia 01-12-2025 CNPN Telephone (AKPOB) NELLY GUZMAN ([id number]) 1990 F Date Time Provider Department 01/12/25 [...] (since the ultrasound). 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 -On transabdominal and [...] Read By: Miracle Rodriguez M.D. MATERNAL MEDICINE [facility] Radiology Study observation (narrative) [facility] Keli 01-08-2025 [facility] NELLY GUZMAN ([id number]) 1990 F Date Time Provider Department 01/08/25 WILLOW KOTHARI During your visit today, we recorded the following information about you: Smiley Whaley, JUAN 01/08/2025 1:55 PM Signed Pt calls stating she rescheduled US from today to tomorrow. Pt wants to know how long she will spot for and states she had ultrasound completed at [facility], in [place] and was told it was either an [...] RN to be transferred back to the spares scheduler. JUAN Parnell Sara, MD 01/08/2025 2:04 PM Signed Yes at this point needs ultrasound Agree with bleeding/miscarriage and ectopic precautions Smiley Whaley RN 01/09/2025 11:42 AM Signed US tech (Princess) alerted this RN that Pt again no showed for US today that was scheduled this AM at 11am. Pt has OB appointment scheduled 01/12/25 in [place] at 9am for missed AB check-up; however, [...] Status:Closed by SMILEY WHALEY on 01/08/25 Normal [facility] B-HCG SerPl-aCncon 5 HCG.beta subunit Qn 8833.0 m[IU]/mL High <5.0 [facility] Comment on above: Order Comment: Speci men Type: BLOOD SPECIMEN Ordering Facility: [facility] Address: [address] [place] [address] Result Comment: DUANE TITATIVE HCG NORMAL RANGES Weeks of Gestation (Weeks Since LMP) 3 Weeks (5.8-71.2 mIU/mL) 4 Weeks (9.5-750 mIU/mL) 5 Weeks (217-7138 mIU/mL) 6 Weeks (158-94425 mIU/mL) 7 Weeks (3697-396431 mIU/mL) 8 Weeks (91835-170198 mIU/mL) 9 Weeks (56394-397326 mIU/mL) 10 Weeks (25510-236551 mIU/mL) 12 Weeks (77004-765662 mIU/mL) Referenced to 4th IS of [facility] Performed By: #### 2 1198-7 #### [facility] CLIA [id number] [address] [place] [address] [place] CNPLydia 12-30-2024 CNPN Telephone (OBGYWM) NELLY GUZMAN ([id number]) 1990 F Date Time Provider Department 12/30/24 [...] Primary Visit Diagnosis:Threatened [O20.0] Order(s):OBSTETRIC ULTRASOUND WHI [[id number]] Order #: [id number]: 1 FUTURE Prescriptions as of 01/02/2025 - [...] Status:Closed by NICOLE RANKIN on 12/30/24 Normal [facility] B-HCG SerPl-aCncon 5 HCG.beta subunit Qn 6232.0 m[IU]/mL High <5.0 [facility] Comment on above: Order Comment: Speci men Type: BLOOD SPECIMEN Ordering Facility: [facility] Address: [address] [place] [address] Result Comment: DUANE TITATIVE HCG NORMAL RANGES Weeks of Gestation (Weeks Since LMP) 3 Weeks (5.8-71.2 mIU/mL) 4 Weeks (9.5-750 mIU/mL) 5 Weeks (217-7138 mIU/mL) 6 Weeks (158-78756 mIU/mL) 7 Weeks (3697-798314 mIU/mL) 8 Weeks (70974-909698 mIU/mL) 9 Weeks (69148-488989 mIU/mL) 10 Weeks (52237-950284 mIU/mL) 12 Weeks (84717-339617 mIU/mL) Referenced to 4th IS of [facility] Performed By: #### 2 1198-7 #### [facility] CLIA [id number] [address] [place] [address] [place] CNPLydia 12-29-2024 CNPN Telephone (OBTeleraWM) NELLY GUZMAN ([id number]) 1990 F Date Time Provider Department 12/29/24 [...] where she moves to. She is in [place] and plans to get hcg quant done [...] Status:Closed by YANIRA MIXON on 12/29/24 Normal [facility] B-HCG SerPl-aCncon 5 HCG.beta subunit Qn 2544.0 m[IU]/mL High <5.0 [facility] Comment on above: Order Comment: Speci men Type: BLOOD SPECIMEN Ordering Facility: [facility] Address: [address] [place] [address] Result Comment: DUANE TITATIVE HCG NORMAL RANGES Weeks of Gestation (Weeks Since LMP) 3 Weeks (5.8-71.2 mIU/mL) 4 Weeks (9.5-750 mIU/mL) 5 Weeks (217-7138 mIU/mL) 6 Weeks (158-62746 mIU/mL) 7 Weeks (3697-372460 mIU/mL) 8 Weeks (34221-603595 mIU/mL) 9 Weeks (12420-723871 mIU/mL) 10 Weeks (61469-181713 mIU/mL) 12 Weeks (57898-146981 mIU/mL) Referenced to 4th IS of [facility] Performed By: #### 2 1198-7 #### [facility] CLIA [id number] [address] [place] [address] [place] B-HCG SerPl-aCncon 5 HCG.beta subunit Qn 2269.0 m[IU]/mL High <5.0 [facility] Comment on above: Order Comment: Speci men Type: BLOOD SPECIMEN Ordering Facility: [facility] Address: [address] [place] [address] Result Comment: DUANE TITATIVE HCG NORMAL RANGES Weeks of Gestation (Weeks Since LMP) 3 Weeks (5.8-71.2 mIU/mL) 4 Weeks (9.5-750 mIU/mL) 5 Weeks (217-7138 mIU/mL) 6 Weeks (158-66776 mIU/mL) 7 Weeks (3697-769504 mIU/mL) 8 Weeks (85676-946738 mIU/mL) 9 Weeks (40581-590753 mIU/mL) 10 Weeks (41738-849801 mIU/mL) 12 Weeks (87530-653313 mIU/mL) Referenced to 4th IS of [facility] Performed By: #### 2 1198-7 #### [facility] CLIA [id number] [address] [place] [address] [place] CNPLydia 12-25-2024 CNPN Telephone (OBGYWM) NELLY GUZMAN ([id number]) 1990 F Date Time Provider Department 12/25/24 EUGENIA SHEPHERD During your visit today, we recorded the following information about you: Mila Sánchez RN 12/25/2024 11:54 AM Signed Patient calling because she was told by [facility] that she needed to follow up in the office this week for bleeding with . Patient went to [facility] ER on Sunday, 12/23 for irregular bleeding. [...] make patient a . Records printed from [facility]. Quant level on 12/23 was 1350, patient [...] Fully Assessed Reason for Visit: Bleeding With [95282] Primary Visit Diagnosis:Bleeding in early [O20.9] Order(s):HCG QUANTITATIVE [SQHCGQT] Order #: [id number] STANDING Prescriptions as of 12/25/2024 - acetaminophen-hydroco [...] Status:Closed by EUGENIA SHEPHERD on 12/25/24 Normal [facility] Emergency Department Summary on 12-25-2024 Emergency Department Summary [facility] Medical Records Department [address] [place] [address] Emergency Department Summary 12/25/24 MR#: [id number] Acct: [id number] Name: ROSHAN GUZMAN Rep #: [id number] : 1990 34 From: Roberth Villafana PCP: Care Physician,No Primary Status:DEP ER Location: ED What to do if you have Problems For any increased pain, shortness of breath, bleeding, nausea or vomiting, chest pain, or any unexpected problems, contact your Primary Care Provider. Call [facility] ([phone]) or report to the closest Emergency Room. Call 911 if necessary. 12/25/24 9364 Cosigner Signature (if applicable): CC: No Primary Care Physician Signed Normal [facility] Urine Cultureon 12-25-2024 URC Below infection level. Gram Positive Cocci Avoca Count <1000 [facility] Comment on above: Performed By: #### M 100.2200 #### [facility] Laboratory [address], [address] ABORh Blood Type, Patienton 12-23-2024 ABO and Rh group Nom (Bld) Blood group O Rh(D) positive Normal [facility] Comment on above: Performed By: #### L 100.0600, BtABORH, L700.8000, B882-1 ####[facility] [address] [place], [address] [id number] 12-23-2024 ABO and Rh group Nom (Bld) TNP Normal [facility] Comment on above: Performed By: #### L 100.0600, BtABORH, L700.8000, B882-1 ####[facility] [address] [place], [address] Emergency Department Summary on 12-23-2024 Emergency Department Summary [facility] Medical Records Department [address] [place] [address] Emergency Department Summary 12/23/24 MR#: [id number] Acct: [id number] Name: ROSHAN GUZMAN Rep #: [id number] : 1990 34 From: Pérez Owens DO [...] evening. She does not have a local director professional services/obstetri naomi. She states that she has had 3 prior pregnancies and deliveries. She denies any fevers. She believes her last menstrual cycle was at the beginning of this month. [facility] Medical History Drug overdose, intentional Schizoaffective [...] no intrauterin (more content not included)... Normal [facility] HH, Hemoglobin AND Hematocri ton 12-23-2024 Hematocrit (Bld) [Volume fraction] 41.1 % Normal 37-47 [facility] Comment on above: Performed By: #### L 100.0600, BtABORH, L700.8000, B882-1 ####[facility] [address] [place], [address] Hemoglobin (Bld) [Mass/Vol] 13.7 g/dL Normal 12.0-15.0 [facility] Comment on above: Performed By: #### L 100.0600, BtABORH, L700.8000, B882-1 ####[facility] [address] [place], [address] M8200.2203on 12-23-2024 M8200.2203 Pending Chlamydia Trachomatis PCR NEGATIVE for Chlamydia trachomatis N. gonorrhoeae PCR Negative for N. gonorrhoeae Normal [facility] Comment on above: Performed By: #### L 400.7600, M8200.2203 ####[facility] [address] [place], [address] Transvaginal w/Preg USon Transvaginal w/Preg US [facility] [address] [place] [address] Transvaginal w/Preg US MR#: [id number] Acct: [id number] Name: ROSHAN GUZMAN Rep #: [id number] : 1990 F 34 From: Yves Olivares MD PCP: Care Physician,No Primary Status: [facility] ER Study: Transvaginal w/Preg US Date of Exam: 12/23/24 Exam# [id number] Ordering Dr: Pérez Owens DO PROCEDURE: ULTRASOUND [...] Pérez Owens DO; No Primary Care Physician Regional Operations Manager: Signed Normal [facility] Urinalysis, Completeon 12-23 EPI,RENAL 0-5 SEEN Normal 0-5 [facility] Comment on above: Order Comment: Micro scopic field is filled. Other elements may beobscured.HOUSECALLS NURSE TO SPECIFY Performed By: #### L 400.0001 ####[facility] [address] [place], [address] Mucus Ql (Urine sed) 2+ /hpf Normal [facility] Comment on above: Order Comment: Micro scopic field is filled. Other elements may beobscured.HOUSECALLS NURSE TO SPECIFY Performed By: #### L 400.0001 ####[facility] [address] [place], [address] EPI,SQUAMOUS 10-25 SEEN Normal 5-10 [facility] Comment on above: Order Comment: Micro scopic field is filled. Other elements may beobscured.HOUSECALLS NURSE TO SPECIFY Performed By: #### L 400.0001 ####[facility] [address] [place], [address] BACTERIA 2+ /hpf Normal None Seen [facility] Comment on above: Order Comment: Micro scopic field is filled. Other elements may beobscured.HOUSECALLS NURSE TO SPECIFY Performed By: #### L 400.0001 ####[facility] [address] [place], [address] RBC > 100 SEEN Normal 0-5 [facility] Comment on above: Order Comment: Micro scopic field is filled. Other elements may beobscured.HOUSECALLS NURSE TO SPECIFY Performed By: #### L 400.0001 ####[facility] [address] [place], [address] WBC >100 SEEN Normal 0-5 [facility] Comment on above: Order Comment: Micro scopic field is filled. Other elements may beobscured.HOUSECALLS NURSE TO SPECIFY Performed By: #### L 400.0001 ####[facility] [address] [place], [address] hCG Titer Quant., Serumon HCG QUANT. 1350 mIU/mL High 1-3 [facility] Comment on above: Result Comment: hCG levels with Gestational Age Gestational Age hCG mIU/mL (IU/L) 0.2 - 1 week 5 - 50 1-2 weeks 50 - 500 2-3 weeks 100 - 5000 3-4 weeks 500 - 51953 4-5 weeks 1000 - 20891 5-6 weeks 61928 - 100,000 6-8 weeks 21489 - 200,000 2-3 months 59448 - 100,000 Performed By: #### L 100.0600, BtABORH, L700.8000, B882-1 ####[facility] [address] [facility] [place], [address] Emergency Department Summary on 12-22-2024 Emergency Department Summary [facility] Medical Records Department [address] [place] [address] Emergency Department Summary 12/22/24 MR#: [id number] Acct: [id number] Name: ROSHAN GUZMAN Rep #: [id number] : 1990 34 From: Roberth Villafana PCP: [...] symptoms: Yes [facility] Medical History Drug overdose, intentional Schizoaffective [...] other: P (more content not included)... Normal [facility] ,Urineon 12-22-2024 Beta HCG ( test) Ql (U) Positive Abnormal [facility] Comment on above: Result Comment: PREG GUY TEST is *POSITIVE* [facility]22/24 2347 Marya Nina. RESULTS READ BACK BY [facility]. Performed By: #### L 400.7600, M8200.2203 ####[facility] [address] [place], [address] Culture, Blood (WB)on 2023 CUB Blood cultures x2, from two different sites No growth in 5 days. Normal [facility] Comment on above: Performed By: #### L 300.4310, M200.1000, L503.6005, L500.4050, L100.0100, L300.3900 ####[facility] [address] [place], [address] 12 Lead EKGon 11-08-2024 12 Lead EKG [facility] [address] [place] [address] 12 Lead EKG 11/08/24 1500 MR#: [id number] Acct: [id number] Name: ROSHAN GUZMAN Rep #: [id number] : 1990 34 From: Marty Recinos MD [...] normal ECG Confirmed by ADENIKE LIMON, SUSIE ([id number]), image editor MIEK MORAELS ([id number]) on 11/12/2024 1:38:10 PM Referred By: Confirmed By: SUSIE RECINOS MD 11/12/24 1338 Date Marty Recinos MD CC: Dr. Dennis Beal, ; No Primary Care Physician Signed Normal [facility] CBC W/Diff, Automatedon 10-26 Absolute Lymph 1.69 X10 3/uL Normal 0.83-4.51 [facility] Comment on above: Performed By: #### L 300.4310, M200.1000, L503.6005, L500.4050, L100.0100, L300.3900 #### [facility] [address] [place], [address] Absolute Neut 11.2 X10 3/uL High 2.0-7.7 [facility] Comment on above: Performed By: #### L 300.4310, M200.1000, L503.6005, L500.4050, L100.0100, L300.3900 #### [facility] [address] [place], [address] Basophils/100 WBC (Bld) 0.6 % Normal 0-1 [facility] Comment on above: Performed By: #### L 300.4310, M200.1000, L503.6005, L500.4050, L100.0100, L300.3900 #### [facility] [address] [place], [address] Eosinophils/100 WBC (Bld) 0.3 % Normal 0-5 [facility] Comment on above: Performed By: #### L 300.4310, M200.1000, L503.6005, L500.4050, L100.0100, L300.3900 #### [facility] [address] [place], [address] Erythrocyte distribution width (RBC) [Ratio] 13.4 % Normal 11.6-14.6 [facility] Comment on above: Performed By: #### L 300.4310, M200.1000, L503.6005, L500.4050, L100.0100, L300.3900 #### [facility] [address] [place], [address] Hematocrit (Bld) [Volume fraction] 43.3 % Normal 37-47 [facility] Comment on above: Performed By: #### L 300.4310, M200.1000, L503.6005, L500.4050, L100.0100, L300.3900 #### [facility] [address] [place], [address] Hemoglobin (Bld) [Mass/Vol] 14.3 g/dL Normal 12.0-15.0 [facility] Comment on above: Performed By: #### L 300.4310, M200.1000, L503.6005, L500.4050, L100.0100, L300.3900 #### [facility] [address] [place], [address] IG% 0.400 Normal 0.0-0.9 [facility] Comment on above: Result Comment: IG% - Immature Granulocytes (promyelocytes, myelocytes and metamyelocytes) > 1% indicates that a LEFT SHIFT is Present. Performed By: #### L 300.4310, M200.1000, L503.6005, L500.4050, L100.0100, L300.3900 #### [facility] [address] [place], [address] Lymphocytes/100 WBC (Bld) 12.0 % Low 19-41 [facility] Comment on above: Performed By: #### L 300.4310, M200.1000, L503.6005, L500.4050, L100.0100, L300.3900 #### [facility] [address] [place], [address] MCH (RBC) [Entitic mass] 27.0 pg Normal 27.0-32.0 [facility] Comment on above: Performed By: #### L 300.4310, M200.1000, L503.6005, L500.4050, L100.0100, L300.3900 #### [facility] [address] [place], [address] MCHC (RBC) [Mass/Vol] 33.0 g/dL Normal 32-36 [facility] Comment on above: Performed By: #### L 300.4310, M200.1000, L503.6005, L500.4050, L100.0100, L300.3900 #### [facility] [address] [place], [address] MCV (RBC) [Entitic vol] 81.9 fL Normal 81-99 [facility] Comment on above: Performed By: #### L 300.4310, M200.1000, L503.6005, L500.4050, L100.0100, L300.3900 #### [facility] [address] [place], [address] Monocytes/100 WBC (Bld) 7.3 % Normal 0-10 [facility] Comment on above: Performed By: #### L 300.4310, M200.1000, L503.6005, L500.4050, L100.0100, L300.3900 #### [facility] [address] [place], [address] Neutrophils/100 WBC (Bld) 79.4 % High 47-70 [facility] Comment on above: Performed By: #### L 300.4310, M200.1000, L503.6005, L500.4050, L100.0100, L300.3900 #### [facility] [address] [place], [address] Nucleated RBC (Bld) [#/Vol] 0 10*3/uL Normal 0-5 [facility] Comment on above: Performed By: #### L 300.4310, M200.1000, L503.6005, L500.4050, L100.0100, L300.3900 #### [facility] [address] [place], [address] Platelet mean volume (Bld) [Entitic vol] 9.4 fL Normal 6.2-12.0 [facility] Comment on above: Performed By: #### L 300.4310, M200.1000, L503.6005, L500.4050, L100.0100, L300.3900 #### [facility] [address] [place], [address] Platelets (Bld) [#/Vol] 485 10*3/uL High 150-450 [facility] Comment on above: Performed By: #### L 300.4310, M200.1000, L503.6005, L500.4050, L100.0100, L300.3900 #### [facility] [address] [place], [address] RBC (Bld) [#/Vol] 5.29 10*6/uL Normal 4.2-5.4 [facility] Comment on above: Performed By: #### L 300.4310, M200.1000, L503.6005, L500.4050, L100.0100, L300.3900 #### [facility] [address] [place], [address] RDW SD 40.1 fl Normal 35.1-43.9 [facility] Comment on above: Performed By: #### L 300.4310, M200.1000, L503.6005, L500.4050, L100.0100, L300.3900 #### [facility] [address] [place], [address] WBC (Bld) [#/Vol] 14.1 10*3/uL High 4.4-11.0 [facility] Comment on above: Performed By: #### L 300.4310, M200.1000, L503.6005, L500.4050, L100.0100, L300.3900 #### [facility] [address] [place], [address] Comprehensive Metabolic [facility] 11-08-2024 Albumin [Mass/Vol] 4.5 g/dL Normal 3.2-5.[address] [facility] Comment on above: Performed By: #### L 300.4310, M200.1000, L503.6005, L500.4050, L100.0100, L300.3900 #### [facility] [address] [place], [address] Albumin/Globulin [Mass ratio] 1.2 {ratio} Normal 0.9-2.4 [facility] Comment on above: Performed By: #### L 300.4310, M200.1000, L503.6005, L500.4050, L100.0100, L300.3900 #### [facility] [address] [place], [address] ALK P 113 U/L Normal 45-117 [facility] Comment on above: Performed By: #### L 300.4310, M200.1000, L503.6005, L500.4050, L100.0100, L300.3900 #### [facility] [address] [place], [address] ALT [Catalytic activity/Vol] 35 U/L Normal 13-56 [facility] Comment on above: Performed By: #### L 300.4310, M200.1000, L503.6005, L500.4050, L100.0100, L300.3900 #### [facility] [address] [place], [address] AST [Catalytic activity/Vol] 8 U/L Low 15-37 [facility] Comment on above: Performed By: #### L 300.4310, M200.1000, L503.6005, L500.4050, L100.0100, L300.3900 #### [facility] [address] [place], [address] Bilirubin [Mass/Vol] 1.00 mg/dL Normal 0.20-1.00 [facility] Comment on above: Result Comment: For patients on eltrombopag therapy, use of Dimension Grant TBIL is not recommended. Performed By: #### L 300.4310, M200.1000, L503.6005, L500.4050, L100.0100, L300.3900 #### [facility] [address] [place], [address] BUN/CRE 16.7 RATIO Normal 10-20 [facility] Comment on above: Performed By: #### L 300.4310, M200.1000, L503.6005, L500.4050, L100.0100, L300.3900 #### [facility] [address] [place], [address] CA,Total 9.4 mg/dL Normal 8.5-10.1 [facility] Comment on above: Performed By: #### L 300.4310, M200.1000, L503.6005, L500.4050, L100.0100, L300.3900 #### [facility] [address] [place], [address] Chloride [Moles/Vol] 102 mmol/L Normal 98-107 [facility] Comment on above: Performed By: #### L 300.4310, M200.1000, L503.6005, L500.4050, L100.0100, L300.3900 #### [facility] [address] [place], [address] CO2 [Moles/Vol] 30.0 mmol/L Normal 21.0-32.0 [facility] Comment on above: Performed By: #### L 300.4310, M200.1000, L503.6005, L500.4050, L100.0100, L300.3900 #### [facility] [address] [place], [address] Creatinine [Mass/Vol] 0.84 mg/dL Normal 0.55-1.02 [facility] Comment on above: Result Comment: The validity of the calculated GFR GFRAA in patients over 70 years has not been determined. Clinical correlation is essential. Performed By: #### L 300.4310, M200.1000, L503.6005, L500.4050, L100.0100, L300.3900 #### [facility] [address] [place], [address] ECRCL 138.77 ml/min Normal [facility] Comment on above: Performed By: #### L 300.4310, M200.1000, L503.6005, L500.4050, L100.0100, L300.3900 #### [facility] [address] [place] [id number] EST GFR - AA 99 mL/min Normal >60 [facility] Comment on above: Result Comment: Afri can Montenegrin GFR Calc Performed By: #### L 300.4310, M200.1000, L503.6005, L500.4050, L100.0100, L300.3900 #### [facility] [address] [place], [address] GAP 7 Normal 5-15 [facility] Comment on above: Performed By: #### L 300.4310, M200.1000, L503.6005, L500.4050, L100.0100, L300.3900 #### [facility] [address] [place], [address] GFR/1.73 sq M.predicted among non-blacks MDRD (S/P/Bld) [Vol rate/Area] 82 mL/min/{1.73_m2} Normal >60 [facility] Comment on above: Result Comment: Non- GFR Calc Performed By: #### L 300.4310, M200.1000, L503.6005, L500.4050, L100.0100, L300.3900 #### [facility] [address] [place], [address] Globulin (S) [Mass/Vol] 3.8 g/dL Normal 2.2-4.2 [facility] Comment on above: Performed By: #### L 300.4310, M200.1000, L503.6005, L500.4050, L100.0100, L300.3900 #### [facility] [address] [place], [address] Glucose [Mass/Vol] 114 mg/dL High 74-[address] [facility] Comment on above: Result Comment: Fast ing Glucose result from 100 to 125 mg/dL suggests IMPAIRED HOMEOSTASIS per A.D.A. criteria. Performed By: #### L 300.4310, M200.1000, L503.6005, L500.4050, L100.0100, L300.3900 #### [facility] [address], [address] Potassium [Moles/Vol] 2.5 mmol/L Invalid Interpretation Code 3.5-5.1 [facility] Comment on above: Result Comment: Crit ical Result(s) Called at: 16:06:04 11/08/2024 by: DANA TUCKER. Results read back by Emily Madera Performed By: #### L 300.4310, M200.1000, L503.6005, L500.4050, L100.0100, L300.3900 #### [facility] [address] [place], [address] Sodium [Moles/Vol] 138 mmol/L Normal 136-[address] [facility] Comment on above: Performed By: #### L 300.4310, M200.1000, L503.6005, L500.4050, L100.0100, L300.3900 #### [facility] [address] [place], [address] T PROT 8.3 g/dL High 6.4-8.2 [facility] Comment on above: Performed By: #### L 300.4310, M200.1000, L503.6005, L500.4050, L100.0100, L300.3900 #### [facility] [address] [place], [address] Urea nitrogen [Mass/Vol] 14 mg/dL Normal 7-18 [facility] Comment on above: Performed By: #### L 300.4310, M200.1000, L503.6005, L500.4050, L100.0100, L300.3900 #### [facility] [address] [place], [address] Elbow min 3 Viewson 12-14-20 24 Elbow min 3 Views [facility] [address] [address] Elbow min 3 Views MR#: [id number] Acct: [id number] Name: ROSHAN GUZMAN Rep #: [id number] : 1990 F 34 From: Perry Hubbard MD PCP: Care Physician,No Primary Status: REG ER Study: Elbow min 3 Views Date of Exam: 11/08/24 Exam# [id number] Ordering Dr: Dennis Beal DO [id number] INDICATION: left elbow pain EXAMINATION/TECHNIQUE : X-RAY [...] Dennis Beal DO; No Primary Care Physician Regional Operations Manager: Signed Normal [facility] Emergency Department Summary on 11-08-2024 Emergency Department Summary [facility] Medical Records Department [address] [address] Emergency Department Summary 11/08/24 MR#: [id number] Acct: [id number] Name: ROSHAN GUZMAN Rep #: [id number] : 1990 34 From: Dennis Beal DO [...] meth as she does not like them. [facility] Medical History Drug overdose, intentional Schizoaffective [...] Patient follow commands as she was at [facility] year is 2023. Sensation grossly intact [...] , thr (more content not included)... Normal [facility] Lactic Acidon 11-08-2024 Lactate [Moles/Vol] 1.2 mmol/L Normal 0.4-1.9 [facility] Comment on above: Order Comment: Y Performed By: #### L 300.4310, M200.1000, L503.6005, L500.4050, L100.0100, L300.3900 ####[facility] [address] [place], [address] Partial Thromboplast Timeon 11-08-2024 aPTT Coag (Bld) [Time] 29.4 s Normal 24.1-36.2 [facility] Comment on above: Performed By: #### L 300.4310, M200.1000, L503.6005, L500.4050, L100.0100, L300.3900 #### [facility] [address] [place], [address] ,Serum,hCG Quali.on 11-08-2024 HCG, SERUM QUAL Negative Normal [facility] Comment on above: Performed By: #### L 700.6800 #### [facility] [address] [place], [address] Prothrombin Time w/INRon INR Coag (PPP) [Relative time] 1.1 {INR} Normal [facility] Comment on above: Performed By: #### L 300.4310, M200.1000, L503.6005, L500.4050, L100.0100, L300.3900 #### [facility] [address] [place], [address] PT Coag (PPP) [Time] 13.7 s Normal 11.7-14.9 [facility] Comment on above: Performed By: #### L 300.4310, M200.1000, L503.6005, L500.4050, L100.0100, L300.3900 #### [facility] [address] [place], [address] Urinalysis, Completeon 11-08 BACTERIA Normal None Seen [facility] Comment on above: Order Comment: COLLE CTOR TO SPECIFY Result Comment: NO U RINE COLLECTED. PATIENT DEPARTED ED. Performed By: #### L 400.0001, M100.0500 ####[facility] [address] [place], [address] BILIRUBIN URINE Normal Negative [facility] Comment on above: Order Comment: BRIANA CTOR TO SPECIFY Result Comment: NO U RINE COLLECTED. PATIENT DEPARTED ED. Performed By: #### L 400.0001, M100.0500 ####[facility] [address] [place], [address] Clarity (U) Normal Clear [facility] Comment on above: Order Comment: BRIANA CTOR TO SPECIFY Result Comment: NO U RINE COLLECTED. PATIENT DEPARTED ED. Performed By: #### L 400.0001, M100.0500 ####[facility] [address] [place], [address] Color (U) Normal Yellow [facility] Comment on above: Order Comment: BRIANA CTOR TO SPECIFY Result Comment: NO U RINE COLLECTED. PATIENT DEPARTED ED. Performed By: #### L 400.0001, M100.0500 ####[facility] [address] [place], [address] EPI,SQUAMOUS Normal 5-10 [facility] Comment on above: Order Comment: BRIANA CTOR TO SPECIFY Result Comment: NO U RINE COLLECTED. PATIENT DEPARTED ED. Performed By: #### L 400.0001, M100.0500 ####[facility] [address] [place], [address] GLUCOSE, UR Normal Normal [facility] Comment on above: Order Comment: BRIANA CTOR TO SPECIFY Result Comment: NO U RINE COLLECTED. PATIENT DEPARTED ED. Performed By: #### L 400.0001, M100.0500 ####[facility] [address] [place], [address] KETONE UR Normal Negative [facility] Comment on above: Order Comment: BRIANA CTOR TO SPECIFY Result Comment: NO U RINE COLLECTED. PATIENT DEPARTED ED. Performed By: #### L 400.0001, M100.0500 ####[facility] [address] [place], [address] LEUK ESTERASE Normal Negative [facility] Comment on above: Order Comment: BRIANA CTOR TO SPECIFY Result Comment: NO U RINE COLLECTED. PATIENT DEPARTED ED. Performed By: #### L 400.0001, M100.0500 ####[facility] [address] [place], [address] Mucus Ql (Urine sed) Normal [facility] Comment on above: Order Comment: BRIANA CTOR TO SPECIFY Result Comment: NO U RINE COLLECTED. PATIENT DEPARTED ED. Performed By: #### L 400.0001, M100.0500 ####[facility] [address] [place], [address] Nitrite Ql (U) Normal Negative [facility] Comment on above: Order Comment: BRIANA CTOR TO SPECIFY Result Comment: NO U RINE COLLECTED. PATIENT DEPARTED ED. Performed By: #### L 400.0001, M100.0500 ####[facility] [address] [place], [address] OCCULT BLOOD-UR Normal Negative [facility] Comment on above: Order Comment: BRIANA CTOR TO SPECIFY Result Comment: NO U RINE COLLECTED. PATIENT DEPARTED ED. Performed By: #### L 400.0001, M100.0500 ####[facility] [address] [place], [address] pH UR Normal 5.0 - 8.0 [facility] Comment on above: Order Comment: BRIANA CTOR TO SPECIFY Result Comment: NO U RINE COLLECTED. PATIENT DEPARTED ED. Performed By: #### L 400.0001, M100.0500 ####[facility] [address] [place], [address] PROT DIPSTX Normal Negative [facility] Comment on above: Order Comment: BRIANA CTOR TO SPECIFY Result Comment: NO U RINE COLLECTED. PATIENT DEPARTED ED. Performed By: #### L 400.0001, M100.0500 ####[facility] [address] [place], [address] RBC Normal 0-5 [facility] Comment on above: Order Comment: BRIANA CTOR TO SPECIFY Result Comment: NO U RINE COLLECTED. PATIENT DEPARTED ED. Performed By: #### L 400.0001, M100.0500 ####[facility] [address] [place], [address] SP.GR. DIPSTX Normal 1.002-1.030 [facility] Comment on above: Order Comment: BRIANA CTOR TO SPECIFY Result Comment: NO U RINE COLLECTED. PATIENT DEPARTED ED. Performed By: #### L 400.0001, M100.0500 ####[facility] [address] [place], [address] UR Preservative Normal [facility] Comment on above: Order Comment: BRIANA CTOR TO SPECIFY Result Comment: NO U RINE COLLECTED. PATIENT DEPARTED ED. Performed By: #### L 400.0001, M100.0500 ####[facility] [address] [place], [address] UROBILI Normal Normal [facility] Comment on above: Order Comment: BRIANA CTOR TO SPECIFY Result Comment: NO U RINE COLLECTED. PATIENT DEPARTED ED. Performed By: #### L 400.0001, M100.0500 ####[facility] [address] [place], [address] WBC Normal 0-5 [facility] Comment on above: Order Comment: BRIANA CTOR TO SPECIFY Result Comment: NO U RINE COLLECTED. PATIENT DEPARTED ED. Performed By: #### L 400.0001, M100.0500 ####[facility] [address] [place], [address] Wet Prep Trichamonason 11-08 WP Motile Trichomonas NONE SEEN WBC 0-5 Normal [facility] Comment on above: Performed By: #### L 400.0001, M100.0500 ####[facility] [address] [place], [address] 12 Lead EKGon 09-24-2024 12 Lead EKG [facility] [address] [address] 12 Lead EKG 09/24/24 0053 MR#: [id number] Acct: [id number] Name: ROSHAN GUZMAN Rep #: [id number] : 1990 34 From: Calvin Anderson MD [...] Abnormal ECG Confirmed by CALVIN ANDERSON MD ([id number]), image editor RANDY KAUR ([id number]) on 09/25/2024 11:31:56 AM Referred By: Confirmed By: CALVIN ANDERSON MD 09/25/24 1131 Date Calvin Anderson MD CC: Sal Lr DO; No Primary Care Physician Signed Normal [facility] Alcohol, Blood (Medical)-Ser umon 09-24-2024 SERUM ETOH < 3.0 Normal [facility] Comment on above: Result Comment: The serum:whole blood ethanol ratio is approximately 1.14 and varies slightly with hematocrit. Medical Alcohol reference interval and critical value in non-tolerant individuals; 50 - 100 Impairment 100 Intoxication 100 - 250 Severe Poisoning 250 - 400 Deep/possible fatal coma Performed By: #### L 501.9100, L700.6800, L500.3400, L501.2450, L300.8000, L100.0100, L500.2500, L505.5000 ####[facility] [address] [place], [address] Basic Metabolic Profile (BMP )on 09-24-2024 BUN/CRE 16.0 RATIO Normal - [facility] Comment on above: Performed By: #### L 501.9100, L700.6800, L500.3400, L501.2450, L300.8000, L100.0100, L500.2500, L505.5000 ####[facility] [address] [place], [address] CA,Total 9.4 mg/dL Normal 8.5-10.1 [facility] Comment on above: Performed By: #### L 501.9100, L700.6800, L500.3400, L501.2450, L300.8000, L100.0100, L500.2500, L505.5000 ####[facility] [address] [place], [address] Chloride [Moles/Vol] 107 mmol/L Normal 98-107 [facility] Comment on above: Performed By: #### L 501.9100, L700.6800, L500.3400, L501.2450, L300.8000, L100.0100, L500.2500, L505.5000 ####[facility] [address] [place], [address] CO2 [Moles/Vol] 18.0 mmol/L Low 21.0-32.0 [facility] Comment on above: Performed By: #### L 501.9100, L700.6800, L500.3400, L501.2450, L300.8000, L100.0100, L500.2500, L505.5000 ####[facility] [address] [place], [address] Creatinine [Mass/Vol] 0.81 mg/dL Normal 0.55-1.02 [facility] Comment on above: Result Comment: The validity of the calculated GFR GFRAA in patients over 70 years has not been determined. Clinical correlation is essential. Performed By: #### L 501.9100, L700.6800, L500.3400, L501.2450, L300.8000, L100.0100, L500.2500, L505.5000 ####[facility] [address] [place], [place], [address] EST GFR - AA 102 mL/min Normal >60 [facility] Comment on above: Result Comment: Afri can Montenegrin GFR Calc Performed By: #### L 501.9100, L700.6800, L500.3400, L501.2450, L300.8000, L100.0100, L500.2500, L505.5000 ####[facility] [address] [place], [place], [address] GAP 11 Normal 5-15 [facility] Comment on above: Performed By: #### L 501.9100, L700.6800, L500.3400, L501.2450, L300.8000, L100.0100, L500.2500, L505.5000 ####[facility] [address] [place], [place], [address] GFR/1.73 sq M.predicted among non-blacks MDRD (S/P/Bld) [Vol rate/Area] 85 mL/min/{1.73_m2} Normal >60 [facility] Comment on above: Result Comment: Non- GFR Calc Performed By: #### L 501.9100, L700.6800, L500.3400, L501.2450, L300.8000, L100.0100, L500.2500, L505.5000 ####[facility] [address] [place], [address] Glucose [Mass/Vol] 129 mg/dL High 74-[address] [facility] Comment on above: Result Comment: Fast ing Glucose result greater than or equal to 126 mg/dL suggests DIABETES MELLITUS per A.D.A. criteria. Performed By: #### L 501.9100, L700.6800, L500.3400, L501.2450, L300.8000, L100.0100, L500.2500, L505.5000 ####[facility] [address] [place], [address] Potassium [Moles/Vol] 3.3 mmol/L Low 3.5-5.1 [facility] Comment on above: Result Comment: Slig ht Hemolysis, Result may be falsely increased. Performed By: #### L 501.9100, L700.6800, L500.3400, L501.2450, L300.8000, L100.0100, L500.2500, L505.5000 ####[facility] [address] [place], [place], [address] Sodium [Moles/Vol] 137 mmol/L Normal 136-[address] [facility] Comment on above: Performed By: #### L 501.9100, L700.6800, L500.3400, L501.2450, L300.8000, L100.0100, L500.2500, L505.5000 ####[facility] [address] [place], [address] Urea nitrogen [Mass/Vol] 13 mg/dL Normal 7-18 [facility] Comment on above: Performed By: #### L 501.9100, L700.6800, L500.3400, L501.2450, L300.8000, L100.0100, L500.2500, L505.5000 ####[facility] [address] [place], [place], [address] CBC W/Diff, Automatedon 10-3 0-2024 Absolute Lymph 3.17 X10 3/uL Normal 0.83-4.51 [facility] Comment on above: Performed By: #### L 501.9100, L700.6800, L500.3400, L501.2450, L300.8000, L100.0100, L500.2500, L505.5000 ####[facility] [address] [place], [address] Absolute Neut 5.6 X10 3/uL Normal 2.0-7.7 [facility] Comment on above: Performed By: #### L 501.9100, L700.6800, L500.3400, L501.2450, L300.8000, L100.0100, L500.2500, L505.5000 ####[facility] [address] [place], [address] Basophils/100 WBC (Bld) 0.8 % Normal 0-1 [facility] Comment on above: Performed By: #### L 501.9100, L700.6800, L500.3400, L501.2450, L300.8000, L100.0100, L500.2500, L505.5000 ####[facility] [address] [place], [address] Eosinophils/100 WBC (Bld) 1.1 % Normal 0-5 [facility] Comment on above: Performed By: #### L 501.9100, L700.6800, L500.3400, L501.2450, L300.8000, L100.0100, L500.2500, L505.5000 ####[facility] [address] [place], [address] Erythrocyte distribution width (RBC) [Ratio] 12.8 % Normal 11.6-14.6 [facility] Comment on above: Performed By: #### L 501.9100, L700.6800, L500.3400, L501.2450, L300.8000, L100.0100, L500.2500, L505.5000 ####[facility] [address] [place], [address] Hematocrit (Bld) [Volume fraction] 41.6 % Normal 37-47 [facility] Comment on above: Performed By: #### L 501.9100, L700.6800, L500.3400, L501.2450, L300.8000, L100.0100, L500.2500, L505.5000 ####[facility] [address] [place], [place], [id number] Hemoglobin (Bld) [Mass/Vol] 13.8 g/dL Normal 12.0-15.0 [facility] Comment on above: Performed By: #### L 501.9100, L700.6800, L500.3400, L501.2450, L300.8000, L100.0100, L500.2500, L505.5000 ####[facility] [address] [place], [place], [phone] IG% 0.500 Normal 0.0-0.9 [facility] Comment on above: Result Comment: IG% - Immature Granulocytes (promyelocytes, myelocytes and metamyelocytes) > 1% indicates that a LEFT SHIFT is Present. Performed By: #### L 501.9100, L700.6800, L500.3400, L501.2450, L300.8000, L100.0100, L500.2500, L505.5000 ####[facility] [address] [place], [address] Lymphocytes/100 WBC (Bld) 31.7 % Normal 19-41 [facility] Comment on above: Performed By: #### L 501.9100, L700.6800, L500.3400, L501.2450, L300.8000, L100.0100, L500.2500, L505.5000 ####[facility] [address] [place], [address] MCH (RBC) [Entitic mass] 27.0 pg Normal 27.0-32.0 [facility] Comment on above: Performed By: #### L 501.9100, L700.6800, L500.3400, L501.2450, L300.8000, L100.0100, L500.2500, L505.5000 ####[facility] [address], [address] MCHC (RBC) [Mass/Vol] 33.2 g/dL Normal 32-36 [facility] Comment on above: Performed By: #### L 501.9100, L700.6800, L500.3400, L501.2450, L300.8000, L100.0100, L500.2500, L505.5000 ####[facility] [address], [address] MCV (RBC) [Entitic vol] 81.4 fL Normal 81-99 [facility] Comment on above: Performed By: #### L 501.9100, L700.6800, L500.3400, L501.2450, L300.8000, L100.0100, L500.2500, L505.5000 ####[facility] [address], [address] Monocytes/100 WBC (Bld) 9.9 % Normal 0-10 [facility] Comment on above: Performed By: #### L 501.9100, L700.6800, L500.3400, L501.2450, L300.8000, L100.0100, L500.2500, L505.5000 ####[facility] [address] [place], [address] Neutrophils/100 WBC (Bld) 56.0 % Normal 47-70 [facility] Comment on above: Performed By: #### L 501.9100, L700.6800, L500.3400, L501.2450, L300.8000, L100.0100, L500.2500, L505.5000 ####[facility] [address] [place], [address] Nucleated RBC (Bld) [#/Vol] 0 10*3/uL Normal 0-5 [facility] Comment on above: Performed By: #### L 501.9100, L700.6800, L500.3400, L501.2450, L300.8000, L100.0100, L500.2500, L505.5000 ####[facility] [address] [place], [address] Platelet mean volume (Bld) [Entitic vol] 10.0 fL Normal 6.2-12.0 [facility] Comment on above: Performed By: #### L 501.9100, L700.6800, L500.3400, L501.2450, L300.8000, L100.0100, L500.2500, L505.5000 ####[facility] [address] [place], [place], [phone](546) Platelets (Bld) [#/Vol] 405 10*3/uL Normal 150-450 [facility] Comment on above: Performed By: #### L 501.9100, L700.6800, L500.3400, L501.2450, L300.8000, L100.0100, L500.2500, L505.5000 ####[facility] [address] [place], [address] RBC (Bld) [#/Vol] 5.11 10*6/uL Normal 4.2-5.4 [facility] Comment on above: Performed By: #### L 501.9100, L700.6800, L500.3400, L501.2450, L300.8000, L100.0100, L500.2500, L505.5000 ####[facility] [address] [place], [address] RDW SD 37.7 fl Normal 35.1-43.9 [facility] Comment on above: Performed By: #### L 501.9100, L700.6800, L500.3400, L501.2450, L300.8000, L100.0100, L500.2500, L505.5000 ####[facility] [address] [place], [address] WBC (Bld) [#/Vol] 10.0 10*3/uL Normal 4.4-11.0 [facility] Comment on above: Performed By: #### L 501.9100, L700.6800, L500.3400, L501.2450, L300.8000, L100.0100, L500.2500, L505.5000 ####[facility] [address] [place], [address] Chest 1 View (Portable)on Chest 1 View (Portable) [facility] Services [address] [place] [address] Chest 1 View (Portable) MR#: [id number] Acct: [id number] Name: ROSHAN GUZMAN Rep #: [id number] : 1990 F 34 From: Hiren Green MD PCP: Care Physician,No Primary Status: [facility] ER Study: Chest 1 View (Portable) Date of Exam: 09/24/24 Exam# [id number] Ordering Dr: Sal Lr DO [id number] INDICATION: chest pain EXAMINATION/TECHNIQUE : X-RAY - [...] Sal Lr DO; No Primary Care Physician Regional Operations Manager: Signed Normal [facility] D-Dimer Quantitative (DVT/PE )on 09-24-2024 D-DIMER QUANT 0.31 FEU/ug/m Normal 0.27-0.49 [facility] Comment on above: Result Comment: NORM AL D-Dimer level (<0.50) indicates no DVT or PE. Performed By: #### L 501.9100, L700.6800, L500.3400, L501.2450, L300.8000, L100.0100, L500.2500, L505.5000 ####[facility] [address] [facility] [place], [address] Emergency Department Summary on 09-24-2024 Emergency Department Summary [facility] Medical Records Department [address] [place] [address] Emergency Department Summary 09/24/24 MR#: [id number] Acct: [id number] Name: ROSHAN GUZMAN Rep #: [id number] : 1990 34 From: Sal Lr DO [...] cholecystitis versus viral stomach infection such as [place] virus or rotavirus versus potential cardiac event [...] is normal (more content not included)... Normal [facility] Lipaseon 09-24-2024 Lipase [Catalytic activity/Vol] 35 U/L Normal 13-75 [facility] Comment on above: Result Comment: Naif guthrie note: LIPASE revised reference range effective 23. New Lipase methodology. Expected to produce lower values than the previous assay method. NEW Reference Range: 13 - 75 U/L Performed By: #### L 501.9100, L700.6800, L500.3400, L501.2450, L300.8000, L100.0100, L500.2500, L505.5000 ####[facility] [address] [place], [address] Liver Profileon 09-24-2024 Albumin [Mass/Vol] 4.3 g/dL Normal 3.2-5.[address] [facility] Comment on above: Performed By: #### L 501.9100, L700.6800, L500.3400, L501.2450, L300.8000, L100.0100, L500.2500, L505.5000 ####[facility] [address] [place], [address] ALK P 92 U/L Normal 45-117 [facility] Comment on above: Performed By: #### L 501.9100, L700.6800, L500.3400, L501.2450, L300.8000, L100.0100, L500.2500, L505.5000 ####[facility] [address] [place], [address] ALT [Catalytic activity/Vol] 35 U/L Normal 13-56 [facility] Comment on above: Performed By: #### L 501.9100, L700.6800, L500.3400, L501.2450, L300.8000, L100.0100, L500.2500, L505.5000 ####[facility] [address] [place], [place], [phone] AST [Catalytic activity/Vol] 17 U/L Normal 15-37 [facility] Comment on above: Result Comment: Slig ht Hemolysis, Result may be falsely increased. Performed By: #### L 501.9100, L700.6800, L500.3400, L501.2450, L300.8000, L100.0100, L500.2500, L505.5000 ####[facility] [address] [place], [address] Bilirubin [Mass/Vol] 0.60 mg/dL Normal 0.20-1.00 [facility] Comment on above: Result Comment: For patients on eltrombopag therapy, use of Dimension Grant TBIL is not recommended. Performed By: #### L 501.9100, L700.6800, L500.3400, L501.2450, L300.8000, L100.0100, L500.2500, L505.5000 ####[facility] [address] [place], [place], [phone] Bilirubin.direct [Mass/Vol] 0.21 mg/dL Normal 0.00-0.30 [facility] Comment on above: Performed By: #### L 501.9100, L700.6800, L500.3400, L501.2450, L300.8000, L100.0100, L500.2500, L505.5000 ####[facility] [address] [place], [address] Globulin (S) [Mass/Vol] 3.4 g/dL Normal 2.2-4.2 [facility] Comment on above: Performed By: #### L 501.9100, L700.6800, L500.3400, L501.2450, L300.8000, L100.0100, L500.2500, L505.5000 ####[facility] [address] [place], [address] T PROT 7.7 g/dL Normal 6.4-8.2 [facility] Comment on above: Performed By: #### L 501.9100, L700.6800, L500.3400, L501.2450, L300.8000, L100.0100, L500.2500, L505.5000 ####[facility] [address], [address] ,Serum,hCG Quali.on 09-24-2024 HCG, SERUM QUAL Negative Normal [facility] Comment on above: Performed By: #### L 501.9100, L700.6800, L500.3400, L501.2450, L300.8000, L100.0100, L500.2500, L505.5000 ####[facility] [address] [place], [address] Urine Drug Screen (VISTA)on 09-24-2024 AMPHETAMINES Normal <1000 ng/mL [facility] Comment on above: Result Comment: URIN E NOT COLLECTED, PT. DISCHARGED Performed By: #### L 501.9100, L700.6800, L500.3400, L501.2450, L300.8000, L100.0100, L500.2500, L505.5000 ####[facility] [address] [place], [place], [address] BARBITIURATES Normal < 200 ng/mL [facility] Comment on above: Result Comment: URIN E NOT COLLECTED, PT. DISCHARGED Performed By: #### L 501.9100, L700.6800, L500.3400, L501.2450, L300.8000, L100.0100, L500.2500, L505.5000 ####[facility] [address] [place], [place], [address] BENZODIAZIPINE Normal < 200 ng/mL [facility] Comment on above: Result Comment: URIN E NOT COLLECTED, PT. DISCHARGED Performed By: #### L 501.9100, L700.6800, L500.3400, L501.2450, L300.8000, L100.0100, L500.2500, L505.5000 ####[facility] [address] [place], [place], [id number] COCAINE Normal < 300 ng/mL [facility] Comment on above: Result Comment: URIN E NOT COLLECTED, PT. DISCHARGED Performed By: #### L 501.9100, L700.6800, L500.3400, L501.2450, L300.8000, L100.0100, L500.2500, L505.5000 ####[facility] [address] [place], [address] DRUG CONFIRM Normal [facility] Comment on above: Result Comment: URIN E NOT COLLECTED, PT. DISCHARGED Performed By: #### L 501.9100, L700.6800, L500.3400, L501.2450, L300.8000, L100.0100, L500.2500, L505.5000 ####[facility] [address] [place], [address] ECSTACY Normal < 500 ng/mL [facility] Comment on above: Result Comment: URIN E NOT COLLECTED, PT. DISCHARGED Performed By: #### L 501.9100, L700.6800, L500.3400, L501.2450, L300.8000, L100.0100, L500.2500, L505.5000 ####[facility] [address] [place], [place], [phone] METHADONE Normal < 300 ng/mL [facility] Comment on above: Result Comment: URIN E NOT COLLECTED, PT. DISCHARGED Performed By: #### L 501.9100, L700.6800, L500.3400, L501.2450, L300.8000, L100.0100, L500.2500, L505.5000 ####[facility] [address] [place] [address] OPIATES Normal < 300 ng/mL [facility] Comment on above: Result Comment: URIN E NOT COLLECTED, PT. DISCHARGED Performed By: #### L 501.9100, L700.6800, L500.3400, L501.2450, L300.8000, L100.0100, L500.2500, L505.5000 ####[facility] [address] [place] [address] PCP Normal < 25 ng/mL [facility] Comment on above: Result Comment: URIN E NOT COLLECTED, PT. DISCHARGED Performed By: #### L 501.9100, L700.6800, L500.3400, L501.2450, L300.8000, L100.0100, L500.2500, L505.5000 ####[facility] [address] [place], [address] THC Normal < 50 ng/mL [facility] Comment on above: Result Comment: URIN E NOT COLLECTED, PT. DISCHARGED Performed By: #### L 501.9100, L700.6800, L500.3400, L501.2450, L300.8000, L100.0100, L500.2500, L505.5000 ####[facility] [address] [place], [place], [address] VISTA UDS PH Normal [facility] Comment on above: Result Comment: URIN E NOT COLLECTED, PT. DISCHARGED Performed By: #### L 501.9100, L700.6800, L500.3400, L501.2450, L300.8000, L100.0100, L500.2500, L505.5000 ####[facility] [address] [place], [place], [address] .Urinalysis Microscopic (AO) on 07-29-2018 RBC Test strip #/vol (U) 0-5 Invalid Interpretation Code None Seen [facility] ([place]) Comment on above: Performed By: #### U A, PREGU, UAMICAO ####[address] [place], [place] [address] UA Bacteria 1+ /hpf Invalid Interpretation Code [facility] ([place]) Comment on above: Performed By: #### U A, PREGU, UAMICAO ####[address] [place], [place] [address] UA Squam Epithelial None Seen Normal None Seen [facility] ([place]) Comment on above: Performed By: #### U A, PREGU, UAMICAO ####[address] [place], [place] [address] UA WBC 5-10 Invalid Interpretation Code None Seen [facility] ([place] Comment on above: Performed By: #### U A, PREGU, UAMICAO ####[address] [place], [place] [address] PREGUon 07-29-2018 HCG ( test) Ql (U) Negative Normal [facility] ([place]) Comment on above: Performed By: #### U A, PREGU, UAMICAO ####[address] [place] [address] test (u) int HCG not detected. Invalid Interpretation Code [facility] ([place] Comment on above: Performed By: #### U A, PREGU, UAMICAO ####[address] [place], [place] [address] UAon 07-29-2018 Color Nom (U) Yellow Normal [facility] ([place]) Comment on above: Performed By: #### U A, PREGU, UAMICAO ####[address] [place] [address] Glucose mass conc (U) Negative Normal Negative [facility] ([place]) Comment on above: Performed By: #### U A, PREGU, UAMICAO ####[address] [place] [address] Ketones Ql (U) >=80 Invalid Interpretation Code Negative [facility] ([place]) Comment on above: Performed By: #### U A, PREGU, UAMICAO ####[address] [place] [address] UA Appear Clear Normal Clear [facility] ([place] Comment on above: Performed By: #### U A, PREGU, UAMICAO ####[address] [place], [place] [address] UA Blood Small Invalid Interpretation Code Negative [facility] ([place] Comment on above: Performed By: #### U A, PREGU, UAMICAO ####[address] [place], [place] [address] UA Leuk Est Trace Invalid Interpretation Code Negative [facility] ([place] Comment on above: Performed By: #### U A, PREGU, UAMICAO ####[address] [place], [place] [address] UA Nitrite Positive Invalid Interpretation Code Negative [facility] ([place] Comment on above: Performed By: #### U A, PREGU, UAMICAO ####[address] [place] [id number] UA pH 6.0 Normal [facility] ([place] Comment on above: Performed By: #### U A, PREGU, UAMICAO ####[address] [place], [place] [address] UA Protein Trace Normal Negative [facility] ([place] Comment on above: Performed By: #### U A, PREGU, UAMICAO ####[address] [place], [place] [address] UA Spec Grav 1.025 Normal [facility] ([place]) Comment on above: Performed By: #### U A, PREGU, UAMICAO ####[address] [place], [place] [address] UA Specimen Type Clean Catch Normal [facility] ([place] Comment on above: Performed By: #### U A, PREGU, UAMICAO ####[address] [place], [place] [address] UA Urobilinogen 0.2 E.U./dL Normal [facility] ([place] Comment on above: Performed By: #### U A, PREGU, UAMICAO ####[address] [place], [place] [address] Urobilinogen Test strip Qn (U) Negative Normal Negative [facility] ([place] Comment on above: Performed By: #### U A, PREGU, UAMICAO ####[address] [place], [place] [address] Vital Signs Date Time Vital Sign Value Performing Clinician Facility 01-17-2025 01:15-0500 Diastolic blood pressure 78 mm[Hg] Manpreet Camarena DO Work Phone: [facility] 01-17-2025 01:15-0500 Heart rate 78 /min Manpreet Camarena DO Work Phone: [facility] 01-17-2025 01:15-0500 Respiratory rate 18 /min Manpreet Camarena DO Work Phone: [facility] 01-17-2025 01:15-0500 SaO2% (BldA) [Mass fraction] 98 % Manpreet Camarena DO Work Phone: [facility] 01-17-2025 01:15-0500 Systolic blood pressure 106 mm[Hg] Manpreet Schropp DO Work Phone: [facility] 01-16-2025 17:37-0500 Body temperature 98.49 [degF] Manpreet Schropp DO Work Phone: [facility] 01-15-2025 19:37-0500 Body height 157.5 cm Manpreet Schropp DO Work Phone: [facility] 01-15-2025 19:37-0500 Body mass index (BMI) [Ratio] 28.53 kg/m2 Manpreet Schropp DO Work Phone: [facility] 01-15-2025 19:37-0500 Body weight 70.76 kg Manpreet Schropp DO Work Phone: [facility] 01-12-2025 09:19-0500 Body weight 70.13 kg Corina MadrigalLiliana DO Work Phone: [facility] 01-12-2025 09:19-0500 Diastolic blood pressure 86 mm[Hg] Corina Liliana DO Work Phone: [facility] 01-12-2025 09:19-0500 Heart rate 114 /min Corina Liliana DO Work Phone: [facility] 01-12-2025 09:19-0500 Systolic blood pressure 133 mm[Hg] Corina Liliana DO Work Phone: [facility] 01-05-2025 14:59-0500 Body weight 72.12 kg Johana Malena CONTROL INTEGRATION ENGINEER.HUSKER OPERATOR Work Phone: [facility] 01-05-2025 14:59-0500 Diastolic blood pressure 68 mm[Hg] Johana Lyle CONTROL INTEGRATION ENGINEER.HUSKER OPERATOR Work Phone: [facility] 01-05-2025 14:59-0500 Systolic blood pressure 118 mm[Hg] Johana Malena CONTROL INTEGRATION ENGINEER.HUSKER OPERATOR Work Phone: [facility] Encounters Encounter Date Encounter Type Care Provider Facility Start: 01-28-2025 End: 01-28-2025 Telephone encounter Corina Liliana WOOD Work Phone: [facility] Comment on above: Missed Appointment ( [...] Start: 01-12-2025 End: 01-12-2025 ambulatory CHARAN White'MADRIGAL Facility:[facility] Start: 01-12-2025 End: 01-12-2025 Patient encounter procedure Us Rm1 Senior Wealth Advisor Ag Mfm Work Phone: [facility]aternal [facility] Comment on above: Vaginal bleeding aff ecting early Start: 01-12-2025 End: 01-12-2025 Office outpatient new 30 minutes Corina Booker DO Work Phone: [facility] Comment on above: Vaginal bleeding aff ecting early (Primary Dx) Start: 01-12-2025 End: 01-12-2025 ambulatory CORINAHENRIQUE BOOKER Facility:[facility] Start: 01-08-2025 End: 01-08-2025 Telephone encounter Willow Kothari MD Work Phone: OB/Gynecology Comment on above: Spotting Start: 01-05-2025 End: 01-05-2025 ambulatory JOHANA FULTON Facility:[facility] Start: 01-05-2025 End: 01-05-2025 Patient encounter procedure Johana Fulton CONTROL INTEGRATION ENGINEER.HUSKER OPERATOR Work Phone: OB/Gynecology Comment on above: with uncer tain dates, antepartum (Primary Dx); Bleeding in early Start: 12-30-2024 End: 12-30-2024 Telephone encounter Gisela Forman CONTROL INTEGRATION ENGINEER.CNM Work Phone: OB/Gynecology Comment on above: Early OB Spotting Start: 12-29-2024 End: 12-29-2024 Refill Eric Cruz MD Work Phone: OB/Gynecology Comment on above: Refill Request Results Start: 12-27-2024 End: 12-27-2024 ambulatory [facility] Facility:[facility] Start: 12-25-2024 End: 12-25-2024 [facility] CONTROL INTEGRATION ENGINEER.CNM Work Phone: OB/Gynecology Comment on above: Bleeding With Pregna ncy Start: 12-25-2024 End: 12-25-2024 [facility] Facility:[facility] Start: 12-23-2024 End: 12-23-2024 Emergency department patient visit No Primary Care Physician Facility:[facility] Start: 12-22-2024 End: 12-23-2024 Emergency department patient visit No Primary Care Physician Facility:[facility] Start: 11-08-2024 End: 11-08-2024 Emergency department patient visit No Primary Care Physician Facility:[facility] Start: 09-23-2024 End: 09-24-2024 Emergency department patient visit Sal Lr Facility:[facility] Start: 07-29-2018 End: 07-29-2018 Emergency department [...] 2) Zoster Vaccines (1 of 2) [facility] Start: 01-26-2025 End: 01-26-2025 Patient encounter procedure 01/26/2025 9:00 AM EST Office Visit [place] [id number] [facility] [address] [place] [id number] Corina Booker, DO [address] [place] [address] Ultrasound Follow-Up [facility] Comment on above: Ultrasound Follow-Up Start: 01-09-2025 End: 01-09-2025 Patient encounter procedure 01/09/2025 11:00 AM EST Routine Office Visit OB/Gynecology [address] [place] [address] Viability /Bleeding in early [O20.9] OB/Gynecology Comment on above: Viability /Bleeding in early [O20.9] Start: 01-08-2025 End: 01-08-2025 Patient encounter procedure 01/08/2025 2:30 PM EST Routine Office Visit OB/Gynecology [address] [place] [address] Viability /Bleeding in early [O20.9] [facility]/Gy[facility]cology Comment on above: Viability /Bleeding in early [O20.9] Start: 01-05-2025 End: 01-05-2025 Patient encounter procedure 01/05/2025 2:45 PM EST Initial Office Visit OB/Gynecology [address] [place] [address] Johana Fulton APRN.HUSKER OPERATOR [address] [place] [address] New OB LMP OB/Gynecology Comment on above: New OB LMP Start: 01-05-2025 End: 04-06-2025 Choriogonadotropin.beta subunit [Units/volume] in Serum or Plasma [facility] Work Phone: Comment on above: Expected: 01/05/2025 , Expires: 04/06/2025 Start: 01-05-2025 End: 01-05-2026 OBSTETRIC ULTRASOUND WHI OBSTETRIC ULTRASOUND WHI Anc Imaging Routine Bleeding in early Expected: 01/05/2025, Expires: 01/05/2026 [facility] Comment on above: Expected: 01/05/2025 , Expires: 01/05/2026 Start: 01-02-2025 End: 01-02-2025 Patient encounter procedure 01/02/2025 2:30 PM EST Office Visit [facility]Gynecology [address] [place] [address] Remote, Senior Wealth Advisor [employer] [address] [place] [address] viability/dating OB/Gynecology Comment on above: viability/dating Start: 12-30-2024 End: 12-30-2025 OBSTETRIC ULTRASOUND WHI OBSTETRIC ULTRASOUND WHI Anc Imaging Routine Threatened Expected: 12/30/2024, Expires: 12/30/2025 [facility] Work Phone: Comment on above: Expected: 12/30/2024 , Expires: 12/30/2025 Start: 07-27-2024 Covid-19 Vaccine ( season) Covid-19 Vaccine ( season) [facility] Start: 07-27-2024 Influenza vaccination Influenza Vacc ine (#1) [facility] Start: 02-27-2014 Screening for malign ant neoplasm of cervix Cervical Cancer Screening [facility] Start: 03-28-2010 DTaP/Tdap/Td Vaccine s (1 - Tdap) DTaP/Tdap/Td Vaccines (1 - Tdap) [facility] Start: 03-28-2009 Screening for malign ant neoplasm of cervix [facility] Start: 2007 Hepatitis B Vaccine (1 of 3 - 19+ 3-dose series) Hepatitis B Vaccine (1 of 3 - 19+ 3-dose series) [facility] Start: 2007 Urine microalbumin profile DTaP,Tdap,Td Vaccine (1 - Tdap) [facility] Start: 03-28-2007 Hepatitis A Vaccines (1 of 2 - Risk 2-dose series) Hepatitis A Vaccines (1 of 2 - Risk 2-dose series) [facility] Start: 03-28-2007 Hepatitis B Vaccines (1 of 3 - 19+ 3-dose series) Hepatitis B Vaccines (1 of 3 - 19+ 3-dose series) [facility] Start: 2006 Anxiety Screening Anxiety Screening [facility] Start: 2006 Depression Screening Depression Scre ening [facility] Start: 2006 Hepatitis C screening Hepatitis C [facility] Start: 03-28-2006 Diabetes mellitus screening Diabetes Screening [facility] Start: 03-28-2006 Hepatitis C screening Hepatitis C [facility] Start: 03-28-2001 Varicella vaccination Varicell a Vaccines (1 of 2 - 13+ 2-dose series) [facility] Start: 03-28-1989 MMR Vaccines (1 of 1 - Standard series) MMR Vaccines (1 of 1 - Standard series) [facility] Start: 1988 HIV screening HIV Screening [facility] Start: [address] Lip[address]id Panel [facility] Start: 1988 Yearly Adult Physical Yearly Adult P hysical [facility] End: 01-26-2025 Choriogonadotropin.beta subunit [Units/volume] in Serum or Plasma HCG QUANTITATIVE Lab Routine Bleeding in early 2x per week for 4 Occurrences starting 12/25/2024 until 01/26/2025 [facility] Work Phone: Comment on above: 2x per week for 4 Oc currences starting 12/25/2024 until 01/26/2025 Choriogonadotropin.b eta subunit [Units/volume] in Serum or Plasma HCG QUANTITATIVE Lab Routine Bleeding in early 12/25/2024 1:45 PM EST [facility] Electrocardiogram, 12-lead Electrocardiogram, 12-lead ECG STAT 01/15/2025 8:05 PM EST [facility] Service Area Work Phone: Immunizations Immunization Date Immunization Notes Care Provider Raj grayson 09-04-2011 influenza virus vacc ine, unspecified formulation Eugenia Shepherd CONTROL INTEGRATION ENGINEER.CNM Work Phone: [facility] Payers Date Payer Category Payer Self-pay 2024 Medicaid [id number] 2024 Private Health Insurance HU[employer]NA HU[employer]NA MEDICAID [facility] [id number] 2024-Present [address] [address] [place] [address] Medicaid [id number] 2018 Medicaid [id number] 1988 Unknown [id number] 1988 Unknown [id number] 243 Unknown [id number] 62 Unknown [id number] 62 Unknown [id number] 62 Unknown [id number] 62 Social History Date Type Detail Facility Start: 12-10-2008 End: 01-05-2025 Tobacco smoking status NHIS Ex-smoker [facility] Start: 10-20-2000 End: 10-20-2008 History of tobacco use Current smoker [facility] Start: 10-20-2000 End: 10-20-2008 History of tobacco use Cigarette Smoker [facility] Start: 12-10-2008 End: 01-05-2025 Tobacco use and exposure Smokeless tobacco non-user [facility] Start: 07-09-2022 End: 01-12-2025 Alcoholic beverage intake Current non-drinker of alcohol (finding) [facility] Start: 1988 End: 1990 Sex assigned at Not on file [facility] Start: 01-05-2025 End: 01-15-2025 Gender identity Not on file [facility] Start: 01-05-2025 End: 01-15-2025 History of Social function [facility] National Score (1-100), lower number is lower risk 23 [facility] Start: 11-17-2024 [facility] Start: 01-15-2025 Tobacco smoking stat us NDIS Never smoked tobacco [facility] Work Phone: Start: 01-15-2025 Alcoholic beverage intake Lifetime non-drinker (finding) [facility] Work Phone: Start: 01-06-2025 End: 01-16-2025 Exposure to SARS-CoV-2 (event) Not sure [facility] Clinical Notes 12-25-2024 to 01-28-2025 Telephone [...] Anabel Heredia January 28, 2025 10:16 AM [facility] 01-28-2025 Miscellaneous Notes Called patient regarding missed appointment Sunday01/26/2025 for ultrasound follow up w/Dr. Booker. Unable to reach. Left msg to contact office to reschedule. Mailed no show letter. Anabel Heredia January 28, 2025 10:16 AM documented in this encounter [facility] 01-16-2025 History of Presen t illness [...] compliance with prescribed medication. Contact the performing [facility] laboratory to add-on definitive confirmatory testing if [...] performed using a different test methodology at [facility] than other [facility]. Direct result comparison should only be made within the same method. POTASSIUM - Abnormal Potassium 3.3 (*) ACUTE TOXICOLOGY PANEL, BLOOD - Normal Acetaminophen <10.0 Salicylate <3 Alcohol <10 No orders to display EPAT - Social Work Psychiatric Assessment Arrival Details Mode of Arrival: Ambulance Admission Source: (Community) Admission Type: Involuntary EPAT Assessment Start Date: 01/16/25 EPAT Assessment Start Time: 0230 Name of Mounter: MAKAYLA Adame, KARLA History of Present Illness [...] History: None reported Current Mental Health Contacts Vacuum Worker Name/Phone Number: Unknown Vacuum Worker Last Appointment Date: Unknown Provider Name/Phone Number: [...] Guarded, Uninterested Appearance/Hygiene: Disheveled Thought Process Coherency: [place] thinking Content: Unremarkable Delusions: Paranoid Perception: Unable [...] Ability to Assess: Able to be screened [place] Suicide Severity Rating Scale (Screener/Recent Self-Report) 1. [...] or protective factors and declined for this racebook writer to contact her mother who is [...] Mills Contact Name: Isha Kennedy Contact Number(s): [phone] Contact Relationship: Mother EPAT Assessment Completed Date: [...] Mental Status Found in parking lot at [employer], took too many pills, states she is being followed, voices telling her to harm herself ED Course as of 01/16/25 0500 [place] Jan 15, 2025 1944 Spoke with poison control. They recommend 6-hour observation. [RS] 2005 EKG shows sinus rhythm. No STEMI. Normal intervals and axis. [RS] SunJan 16, 2025 0306 Discussion with [facility] who recommend placement at this time, however [...] recommend Ray to place. Information faxed to [place] and pending placement. Patient will be signed out to oncoming provider pending placement. Final diagnoses: None Procedure Procedures Yanira Mills MD documented in this encounter [facility] Work Phone: 01-16-2025 Emergency department Note Patient does not want staff to give any update or medical information to her mother. She states she will just call her to give her updates. Gin Diego RN 01/16/[address] [facility] 01-16-2025 Emergency department Note Patient does not want staff to give any update or medical information to her mother. She states she will just call her to give her updates. Gin Diego RN 01/16/[address] CARLEY Giron 01/16/25 0903 HPI Chief Complaint Patient presents with Altered Mental Status Found in parking lot at [employer], took too many pills, states she is [...] [RS] Manpreet Camarena DO No data recorded [place] Coma Scale Score: 14 (01/15/251939 : Bala [...] DO 01/15/252105 documented in this encounter [facility] Work Phone: 01-16-2025 Emergency department Note EPAT to karrie Francisco Javier CARLEY Almodovar 01/16/251702 [facility] 01-16-2025 area manager Note Application for Emergency Admission Ready [...] of a correctional facility, provided that the ioupqv-xet-csubs period shall be extended by the length of any hospitalization or incarceration of the person that occurred within the gnhgzd-dvp-egjbo period. (ii) Within the forty-eight months prior to the filing of an affidavit seeking court-ordered treatment of the person under section 5122.111 of the Revised Code, the lack of compliance resulted in one or more acts of serious violent behavior toward self or others or threats of, or attempts at, serious physical harm to self or others, provided that the fuycp-llymi-suqiv period shall be extended by the length of any hospitalization or incarceration of the person that occurred within the afsqq-eqfsv-wbigv period. (c) The person, as a result [...] licensed physician, licensed clinical psychologist, health or harbor police lieutenant, manager trading or deputy clerk of court. (Statement shall include the circumstances under which [...] PSYCHOLOGIST, IF APPLICABLE Place of Observation (e.g., [facility], general hospital, office, emergency facility) (If applicable, please complete) Fe Serna MD 01/16/2025 [facility] Work Phone: 01-16-2025 Miscellaneous Notes Application for [...] of a correctional facility, provided that the ipfbuu-fao-ciniz period shall be extended by the length of any hospitalization or incarceration of the person that occurred within the zjsfoz-hji-rbjvh period. (ii) Within the forty-eight months prior to the filing of an affidavit seeking court-ordered treatment of the person under section 5122.111 of the Revised Code, the lack of compliance resulted in one or more acts of serious violent behavior toward self or others or threats of, or attempts at, serious physical harm to self or others, provided that the pqkwj-xsukd-cbvab period shall be extended by the length of any hospitalization or incarceration of the person that occurred within the aiubw-pdhgl-lfuyi period. (c) The person, as a result [...] licensed physician, licensed clinical psychologist, health or harbor police lieutenant, manager trading or deputy clerk of court. (Statement shall include the circumstances under which [...] PSYCHOLOGIST, IF APPLICABLE Place of Observation (e.g., [facility], general hospital, office, emergency facility) (If applicable, please complete) Fe Serna MD 01/16/[address] encounter [facility] Work Phone: 01-15-2025 Physician Emergency department [...] and Affect: Mood normal. ED Course & [facility] ED Course as of 01/15/252104 [place] Jan 15, 20254 Spoke with poison control. They recommend 6-hour observation. [RS] 2005 EKG shows sinus rhythm. No STEMI. Normal intervals and axis. [RS] ED Course User Index [RS] Manpreet Camarena DO No data recorded [place] Coma Scale Score: 14 (01/15/25 1940 : aBla Arizmendi RN) Medical Decision Making HISTORIAN: Patient, [...] Procedure Procedures Manpreet Camarena DO 01/15/252105 [facility] Work Phone: 01-13-2025 Progress note Formatting [...] in 2 weeks. Will send MyChart message. [facility] 01-13-2025 Miscellaneous Notes 34 year old new patient presented PUL. Repeat TVUS showed no evidence of gestational sac, yolk sac of pole with normal adnexa consistent with complete SAb. Attempted to call patient yesterday to discuss, but went straight to . Patient has f/u in 2 weeks. Will send MyChart message. documented in this encounter [facility] 01-12-2025 Telephone encounter Note Images from the original note were not included. Attempted to call patient about US results. Call went directly to that was full. Will attempt to call again tomorrow. Corina Booker DO 01/12/2025 4:16 PM [facility] 01-12-2025 Miscellaneous Notes Images from the original note were not included. Attempted to call patient about US results. Call went directly to that was full. Will attempt to call again tomorrow. Corina Booker DO 01/12/2025 4:16 PM documented in this encounter [facility] 01-12-2025 Note HNO ID: [id number] Author: SHAYY ALMODOVAR MA Service: ? Author Type: Manager Pet Type: Progress Notes Filed: 01/12/2025 12:46 Note [...] Almodovar MA January 12, 2025 9:22 AM [facility] Clinic Obstetrics & Gynecology Gynecology Clinic Note: CC: Pul followup Subjective HPI: Nelly Guzman is a 34 year old who presents for a PUL followup. She had an US at [facility] in [place] on 01/03/25 that showed an empty gestational [...] and states she had ultrasound completed at [facility], in [place] and was told it was either an [...] (H) 01/05/2025 8,833.0 (H) IMAGING TVUS at [facility] on 01/03/25: Intrauterine gestational sac without evidence [...] Booker DO 01/12/2025 documented in this encounter [facility] 01-12-2025 Note HNO ID: [id number] Author: CHARAN MERRITT MD Service: ? Author Type: Resident Type: Progress Notes Filed: 01/13/2025 03:31 Note Text: [facility] Obstetrics AND Gynecology Gynecology Clinic Note: CC: Pul followup Subjective HPI: Nelly Guzman is a 34 year old who presents for a PUL followup. She had an US at [facility] in [place] on 01/03/25 that showed an empty gestational sac. She has been having bleeding since then, 1-2 pads per day with small clots. Also experiencing 6/10 cramping, has not taken tylenol for it. Patient no showed for scheduled US on 01/09 in [place] as she wanted to be closer to home. Per chart review in TE Pt wants to know how long she will spot for and states she had ultrasound completed at [facility], in [place] and was told it was either an [...] (H) 01/05/2025 8,833.0 (H) IMAGING TVUS at [facility] on 01/03/25: Intrauterine gestational sac without evidence [...] care discussed with Dr. Merritt, attending physician Cornia Booker, 01/12/2025 Attending Note I discussed with resident. The patient was not examined by the attending. I reviewed the resident's note. I agree with the resident's assessment and plan unless otherwise noted. Signature: Charan Merritt MD Date: 01/13/2025. Time: 3:31 AM [facility] 01-08-2025 Telephone encounter Note Yes at this point needs ultrasound Agree with bleeding/miscarriage and ectopic precautions [facility] Work Phone: 01-08-2025 Miscellaneous Notes Yes at this point needs ultrasound Agree with bleeding/miscarriage and ectopic precautions Pt calls stating she rescheduled US from today to tomorrow. Pt wants to know how long she will spot for and states she had ultrasound completed at [facility], in [place] and was told it was either an [...] RN to be transferred back to the spares scheduler. Smiley Whaley RN documented in this encounter [facility] 01-08-2025 Telephone encounter Note Pt calls stating she rescheduled US from today to tomorrow. Pt wants to know how long she will spot for and states she had ultrasound completed at [facility], in [place] and was told it was either an [...] RN to be transferred back to the spares scheduler. Smiley Whaley RN [facility] 01-05-2025 Note HNO ID: [id number] Author: JOHANA FULTON APRN.HUSKER OPERATOR Service: ? 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 Patient is just wanting some medication to complete miscarriage because as she states I know that this is a miscarriage Johana Fulton APRN.HUSKER OPERATOR I spent a total of 45 minutes on the date of the service which included preparing to see the patient, jthb-dv-kpvm patient care, completing clinical documentation, obtaining and/or reviewing separately obtained history, counseling and educating the patient/family/caregiver, and ordering medications, tests, or procedures. 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 History LMP: 12/10/2024 (Exact Date), Unknown Age at Menarche: Age at First : Age at Menopause: Wood Boatbuilder History Comments: Sexual Activity: Yes; Male Contraception: [...] [Other]) Paternal Aunt Diabetes Father Heart Father [place] Lip[place] Father Hypertension Father Psychiatry Mother DEPRESSION [...] would like ultrasound to be done in [place] closer to her home - HCG QUANTITATIVE [...] which included preparing to see the patient, jllp-mb-ubnd patient care, completing clinical documentation, obtaining and/or reviewing separately obtained history, counseling and educating the patient/family/caregiver, and ordering medications, tests, or procedures. documented in this encounter [facility] 12-30-2024 Telephone encounter Note Patient notified. u/s scheduled for 01/02. Nicole Rankin RN [facility] 12-30-2024 Miscellaneous Notes Patient notified. u/s [...] Yanira Mixon, JUAN documented in this encounter [facility] 12-30-2024 Telephone encounter Note formal US ordered schedule for later this week or early next week. Doesn't need NOB next week, just get US for location and we will go from there. Ok to leave that appointment but may be too early to do full NOB then. Eric Cruz MD [facility] 12-30-2024 Telephone encounter Note Early OB. Patient [...] 12/27/2024 2,544.0 12/25/2024 2,269.0 Yanira Mixon RN [facility] 12-29-2024 Telephone encounter Note NOB scheduled. Patient plans to be out of the area, but still wanted to have her initial visit with our office. Yanira Mixon RN [facility] 12-29-2024 Miscellaneous Notes NOB scheduled. Patient plans to be out of the area, but still wanted to have her initial visit with our office. Yanira Mixon RN Attempted to call patient. Unable to leave message - sounded like someone originally answered and then call cut off. Nicole Rnakin RN ----- Message from Eugenia Shepherd APRN.CNM [...] where she moves to. She is in [place] and plans to get hcg quant done [...] Eric Cruz MD documented in this encounter [facility] 12-29-2024 Telephone encounter Note Attempted to call patient. Unable to leave message - sounded like someone originally answered and then call cut off. Nicole Rankin RN [facility] 12-29-2024 Telephone encounter Note ----- Message from Eugenia Shepherd APRN.CNM sent at 12/29/2024 2:30 PM EST ----- HCG level increased appropriately. Please schedule NOB> Eugenia Shepherd APRN.CNM hCG Quantitative, Blood (mIU/mL) Date Value 12/29/2024 6,232.0 12/27/2024 2,544.0 12/25/2024 2,269.0 [facility] 12-29-2024 Telephone encounter Note Patient notified. She is going to try to get lab work done today. Declined appt this week though. She was going to be moving out of the area today and was planning to establish care with OB provider where she moves to. She is in [place] and plans to get hcg quant done today and if ends up staying in area will schedule appt for this week. She is unsure as of now what she will do. Leave open for 2/3 hcg result. Nicole Rankin RN [facility] 12-29-2024 Telephone encounter Note ----- Message from Eric Cruz MD sent at 12/29/2024 11:15 AM EST ----- Needs office or virtual visit this week to discuss quants. Repeat quant today if possible. Eric Cruz MD [facility] 12-25-2024 Miscellaneous Notes Patient notified and voiced understanding. Will go to lab today and Sunday for HCG quant levels. Bleeding precautions reviewed. Mila Sánchez RN HCG levels ordered. Patient needs to have drawn today. Review bleeding precautions. Schedule NOB. Eugenia Shepherd APRN.CNM Patient calling because she was told by [facility] that she needed to follow up in the office this week for bleeding with . Patient went to [facility] ER on Sunday, 12/23 for irregular bleeding. [...] make patient a . Records printed from [facility]. Quant level on 12/23 was 1350, patient [...] Mila Sánchez RN documented in this encounter [facility] 12-25-2024 Telephone encounter Note Patient notified and voiced understanding. Will go to lab today and Sunday for HCG quant levels. Bleeding precautions reviewed. Mila Sánchez RN [facility] 12-25-2024 Telephone encounter Note HCG levels ordered. Patient needs to have drawn today. Review bleeding precautions. Schedule NOB. Eugenia Shepherd APRN.CNM [facility] 12-25-2024 Telephone encounter Note Patient calling because she was told by [facility] that she needed to follow up in the office this week for bleeding with . Patient went to [facility] ER on Sunday, 12/23 for irregular bleeding. [...] make patient a . Records printed from [facility]. Quant level on 12/23 was 1350, patient [...] like to do? Quants? Mila Sánchez RN [facility] Evaluation note Diagnosis Bleeding in early - Primary Unspecified hemorrhage in early , unspecified as to episode of care [facility] Diagnosis Threatened - Primary Threatened , unspecified as to episode of care [facility] Diagnosis with uncertain dates, antepartum- Primary state, incidental Bleeding in early Unspecified hemorrhage in early , unspecified as to episode of care [facility]* Diagnosis Vaginal bleeding affecting early - Primary Vaginal bleeding affecting early [facility] Diagnosis Vaginal bleeding affecting early - [...] ED precautions provided documented [facility] (n[facility]ative)* Diagnostic Procedure Only (Routine) - Authorized Specialty Diagnoses / Procedures Referred By Contac t Referred To Contact [facility] Diagnoses Threatened Procedures OBSTETRIC ULTRASOUND WHI US PREG UTERUS AFTER 1ST TRIMEST GESTATION Eric Cruz MD [address] [place] [address] [address] Referral ID Status Reason Start Date Expiration Date Visits Requested Visits Authorized [id number] Authorized Auto-Generat ed Referral 12/30/2024 12/30/2025 1 1 [facility] Summary Purpose Family History No Family [...] section and content) DATE CREATED AUTHOR 11/09/2018 [facility] ([place]) DATE CREATED AUTHOR AUTHOR'S ORGANIZ ATION 01/10/2025 [facility] DATE CREATED AUTHOR AUTHOR'S ORGANIZ ATION 01/15/2025 [facility] DATE CREATED AUTHOR AUTHOR'S ORGANIZ ATION 01/22/2025 [facility] DATE CREATED AUTHOR AUTHOR'S ORGANIZ ATION 01/25/2025 [facility] DATE CREATED AUTHOR AUTHOR'S ORGANIZ ATION 01/30/2025 [facility] Comments (unrecognize d section and content) In the event this informatio n is protected by the Federal Confidentiality of Alcohol and Drug Abuse Patient Records regulations: The Federal rules restrict any use of the information to criminally investigate or prosecute any alcohol or drug abuse patient.[facility] the event this information is protected by the Federal Confidentiality of Alcohol and Drug Abuse Patient Records regulations: The Federal rules restrict any use of the information to criminally investigate or prosecute any alcohol or drug abuse patient.[facility] Hospital[facility] the event this information is protected by the Federal Confidentiality of Alcohol and Drug Abuse Patient Records regulations: The Federal rules restrict any use of the information to criminally investigate or prosecute any alcohol or drug abuse patient.[facility] the event this information is protected by the Federal Confidentiality of Alcohol and Drug Abuse Patient Records regulations: The Federal rules restrict any use of the information to criminally investigate or prosecute any alcohol or drug abuse patient.[facility] HospitalIn the event this information is protected by the Federal Confidentiality of Alcohol and Drug Abuse Patient Records regulations: The Federal rules restrict any use of the information to criminally investigate or prosecute any alcohol or drug abuse patient.[facility] Hospital[facility] the event this information is protected by the Federal Confidentiality of Alcohol and Drug Abuse Patient Records regulations: The Federal rules restrict any use of the information to criminally investigate or prosecute any alcohol or drug abuse patient.[facility] HospitalIn the event this information is protected by the Federal Confidentiality of Alcohol and Drug Abuse Patient Records regulations: The Federal rules restrict any use of the information to criminally investigate or prosecute any alcohol or drug abuse patient.[facility] HospitalIn the event this information is protected by the Federal Confidentiality of Alcohol and Drug Abuse Patient Records regulations: The Federal rules restrict any use of the information to criminally investigate or prosecute any alcohol or drug abuse patient.[facility] Hospital[facility] the event this information is protected by the Federal Confidentiality of Alcohol and Drug Abuse Patient Records regulations: The Federal rules restrict any use of the information to criminally investigate or prosecute any alcohol or drug abuse patient.[facility] Hospital[facility] the event this information is protected by the Federal Confidentiality of Alcohol and Drug Abuse Patient Records regulations: The Federal rules restrict any use of the information to criminally investigate or prosecute any alcohol or drug abuse patient.[facility] Hospital[facility] the event this information is protected by the Federal Confidentiality of Alcohol and Drug Abuse Patient Records regulations: The Federal rules restrict any use of the information to criminally investigate or prosecute any alcohol or drug abuse patient.[facility] Reason for Visit (unrecogniz ed section and content) Reason Comments Bleeding With Reason Onset Date Comments Refill Request 12/29/2024 Reason Comments Results Reason Comments Early OB Spotting Reason Comments Discussion Edna spotting Reason Comments Spotting Reason Comments US Specialty Diagnoses / Procedures Referred By Contac t Referred To Contact [facility] Diagnoses Vaginal bleeding affecting early Procedures OBSTETRIC ULTRASOUND WHI US PREG UTERUS AFTER 1ST TRIMEST GESTATION Charan Merritt MD [address] [place] [address] Phone: tel: fax: [address] [address] Referral ID Status Reason Start Date Expiration Date V isits Requested Visits Authorized [id number] Closed Auto-Generate d Referral 01/12/2025 01/12/2026 1 [...] Care Teams (unrecognized sec tion and content) 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 [facility] provides no warranty or guarantee of the accuracy or completeness of information in this document.
[2025-11-22 22:50] LABS: Hematocrit 38.3 % (37-47); Hemoglobin 12.2 g/dL (12.0-15.0); Immature Granulocytes Count 0.010 X10^3/uL (0.0-0.0); Mean Corp Hgb Conc 31.9 g/dL (32-36); Mean Corpuscular Volume 83.8 fL (81-99); Mean Platelet Vol. 9.5 fl (6.2-12.0); NRBC Flagged by Analyzer 0 % (0-5); Platelet Count 403 K/mm3 (150-450); RBC Distribution Width CV 13.3 % (11.6-14.6); RBC Distribution Width SD 40.7 fl (35.1-43.9); Red Blood Count 4.57 M/mm3 (4.2-5.4); White Blood Count 7.8 K/mm3 (4.4-11.0)
[2025-11-22 22:59] LABS: Internal QC Validated? YES +Cl - CLEAR BKGD; Pregnancy, Serum, hCG Quali. NEGATIVE Negative
[2025-11-22 23:03] VITALS: PULSE 129; RESP 21; O2SAT 99
[2025-11-22 23:05] LABS: Anion Gap 11 (7-18); BUN 13 mg/dL (4-19); BUN/Creat Ratio 18.6 RATIO (10-20); Calcium,Total 9.1 mg/dL (7.6-11.0); Carbon Dioxide 22.1 mmol/L (20.0-29.0); Chloride 107 mmol/L (96-106); Estimated Creatinine Clearance 96.56 ml/min (50-250); Glucose 111 mg/dL (70-99); Potassium 4.1 mmol/L (3.5-5.1)
[2025-11-22 23:13] LABS: Barbiturate Urine NEGATIVE (< 200 ng/mL); Benzodiazepine Urine NEGATIVE (< 200 ng/mL); PCP Urine NEGATIVE (< 25 ng/mL); THC Urine NEGATIVE (< 50 ng/mL)
[2025-11-22 23:26] LABS: Alcohol, Blood (Medical)-Serum < 10.1 mg/dL (<=10.0)
--- NOTE | 2025-11-22 23:40 | ED.RN ---
Patients mother opens patient door requesting an update. Patient and mother informed we are waiting for social work at this time. patient states she does not want to wait anymore. I know how this works. they come in and see if I am crazy and want to place me. I am tired. I know I am hearing voices and I just want to go home. RN states I understand. I will go talk to the doctor. Dr. Lr notified.
[2025-11-22 23:50] VITALS: BP 118/78; PULSE 73; RESP 18; TEMP 36.8; O2SAT 100
== END 2025-11-22 23:51 | disposition home or self-care (01) ==
PROVIDERS: Emergency Provider Emergency Medicine; Visit Provider Emergency Medicine
DX: F25.9 Schizoaffective disorder, unspecified (principal); F15.10 Other stimulant abuse, uncomplicated; F17.200 Nicotine dependence, unspecified, uncomplicated
CPT/HCPCS: 36415; 80048; 80307; 82077; 84703; 85025; 99282